=== PATIENT | female | born 1940 | race Caucasian/White ===

== ENCOUNTER → 2017-08-16 10:48 | Outpatient (CLI) | payer MEDICARE, SELFPAY | PROVIDERS: Family Provider Family Medicine; PCP Family Medicine; Visit Provider Nurse Practitioner Family | DX: K13.70 Unspecified lesions of oral mucosa (principal) | CPT/HCPCS: 87070; 87075; 87205 ==

== ENCOUNTER → 2018-01-28 11:47 | Outpatient (CLI) | payer MEDICARE, SELFPAY ==
--- NOTE | 2018-01-28 | DI.MG.S_ITS ---
BILATERAL DIGITAL SCREENING MAMMOGRAM 3D/2D WITH CAD: 01/28/2018 CLINICAL: Routine screening. Comparison is made to exams dated: 12/29/2016 mammogram, 10/17/2015 mammogram, and 09/10/2014 mammogram - Located [facility]. There are scattered fibroglandular elements in both breasts. Current study was also evaluated with a Computer Aided Detection (CAD) system. There are benign vascular calcifications in both breasts. No significant masses, calcifications, or other findings are seen in either breast. There has been no significant interval change. IMPRESSION: There is no mammographic evidence of malignancy. A 1 year screening mammogram is recommended. This exam was interpreted at Station ID: [id number]. NOTE: For mammograms, a report in lay terms will be sent to the patient. Approximately 15% of breast malignancies will not be visualized mammographically. In the management of a palpable breast mass, a negative mammogram must not discourage biopsy of a clinically suspicious lesion. Electronically Signed By: Gemma roberson/lew:01/28/2018 13:17:17 letter sent: Normal Exam ACR BI-RADS Category 2: Benign Finding(s) 3342F
== END ==
PROVIDERS: PCP Family Medicine; Visit Provider Family Medicine
DX: Z12.31 Encounter for screening mammogram for malignant neoplasm of breast (principal)
CPT/HCPCS: 77063; 77067

== ENCOUNTER → 2018-04-06 10:43 | Outpatient (CLI) | payer MEDICARE, SELFPAY ==
--- NOTE | 2018-04-06 10:44 | DI.US.S_ITS ---
PROCEDURE: US HU LIMITED SINGLE LEVEL INDICATIONS: Claudication/ TECHNIQUE: Ankle-brachial indices were obtained bilaterally and recorded. COMPARISONS: FINDINGS: Right ankle brachial index (HU): 0.8 Left ankle brachial index (HU): 0.9 IMPRESSION: Right HU 0.8 and left HU 0.9. The finding could be secondary to arterial wall calcification. If clinically indicated, duplex Doppler arterial ultrasound or lower extremity CT or MR angiogram could be obtained. Dictated by: Gopal VASQUEZ Interpreted: Ayanna Fagan MD on 04/06/2018 at 13:36 Approved by: Ayanna Fagan M.D. on 04/07/2018 at 9:00
== END ==
PROVIDERS: PCP Family Medicine; Visit Provider Family Medicine
DX: I70.213 Atherosclerosis of native arteries of extremities with intermittent claudication, bilateral legs (principal)
CPT/HCPCS: 93922

== ENCOUNTER → 2018-06-09 15:01 | Outpatient (CLI) | payer MEDICARE, SELFPAY ==
--- NOTE | 2018-06-09 15:04 | DI.RAD.S_ITS ---
PROCEDURE: XR CHEST 2V INDICATIONS: persistent cough TECHNIQUE: 2 views of the chest were acquired. COMPARISON: None. FINDINGS: Surgical changes and devices: None. Lungs and pleura: Lungs are clear. No pleural effusions or pneumothorax. Mediastinum: Mediastinal contours are normal. Heart size is normal. Bones and chest wall: No suspicious bony abnormalities. Soft tissues appear unremarkable. IMPRESSION: Normal for age, a source of current persistent cough symptoms is not found. Dictated by: Huy Soto M.D. on 06/09/2018 at 14:35 Approved by: Huy Soto M.D. on 06/09/2018 at 14:46
[2018-06-09 16:01] LABS: Add Manual Diff / Slide Review NO; Basophils Absolute Auto 100 /uL (0-100); Basophils Percent Auto 1.2 % (0-2); Eosinophils Absolute Auto 400 /uL (0-450); Eosinophils Percent Auto 4.9 % (2-4); Hematocrit 35.5 % (36-46); Hemoglobin 11.3 g/dL (12.0-16.0); Lymphocytes Absolute Auto 700 /uL (1100-4500); Lymphocytes Percent Auto 9.5 % (25-40); Mean Corpuscular HGB Conc 31.9 % (30-36); Mean Corpuscular Hemoglobin 32.1 PG (26-34); Mean Corpuscular Volume 100.8 fL (80-100); Monocytes Absolute Auto 500 /uL (0-900); Monocytes Percent Auto 6.6 % (3-14); Neutrophils Absolute Auto 5800 /uL (1500-7000); Neutrophils Percent Auto 77.8 % (50-75); Platelet Count 355 X10^3/uL (150-400); Red Blood Cell Count 3.52 X10^6/uL (4.0-5.2); Red Cell Distribution Width 14.8 % (11.6-14.8); White Blood Cell Count 7.5 X10^3/uL (4.5-11.0)
[2018-06-09 16:17] LABS: D Dimer 2161 ng/mL (<230)
== END ==
PROVIDERS: PCP Family Medicine; Visit Provider Physician Assistant
DX: R05 Cough (principal)
CPT/HCPCS: 36415; 71046; 85025; 85379

== ENCOUNTER 2018-06-12 16:50 | Emergency (ER) | payer MEDICARE, SELFPAY ==
[2018-06-12 17:26] VITALS: BP 151/77; PULSE 72; RESP 18; TEMP 37.1; O2SAT 97; BMI 28.6
--- NOTE | 2018-06-12 18:24 | ED_ITS ---
HPI - URI/Sore Throat General Chief Complaint: Upper Respiratory Symptoms Stated Complaint: COUGH POSSIBLE EMBOLISM Time Seen by Provider: 06/12/18 18:21 Source: patient Mode of arrival: ambulatory Limitations: no limitations History of Present Illness HPI Narrative: Patient is a 78-year-old female who states that the beginning last week went to the walk-in clinic for evaluation of a cough and upper respiratory infection. She was given a course of antibiotics. She states the cough did not get any better so she followed up on Tuesday of last week. She states she had blood drawn at that time. She states that she got a call from the walk-in clinic on that day to come into the emergency department for further evaluation because she had an elevated D-dimer. She states she did not get that message until today. She arrives today stating that she feels better than when she did last week. The cough has somewhat improved but is still there. He is not having chest pain or shortness of breath. No swelling in her legs. No recent travel. No fevers. Related Data Home Medications Medication Instructions Recorded Confirmed ASPIRIN (#ASPIR 81) 81 mg PO Q DAY #0 12/30/11 06/09/18 CA PANTOTHENATE/FOLIC ACID/VIT 1 tab PO Q DAY #0 12/30/11 06/09/18 (MULTIVITAMIN) CALCIUM CARBONATE (Calcium) 1,200 mg PO QDAY #0 12/30/11 06/09/18 Fish Oil (#CARDI-OMEGA) 1,000 mg PO Q DAY #0 12/30/11 06/09/18 coenzyme Q10 [Co Q-10] 100 mg PO #0 07/11/17 06/09/18 ketoconazole 2 % topical cream 1 applictn TOP BID 08/29/17 06/09/18 cholecalciferol (vitamin D3) 2,000 2,000 unit PO DAILY 06/05/18 06/09/18 unit capsule lovastatin 40 mg PO BEDTIME 06/12/18 06/12/18 Previous Rx's Medication Instructions Recorded levothyroxine 100 mcg PO QAM #90 tab 08/16/17 triamcinolone acetonide 1 flaquita TOPICAL BID #15 gm 08/16/17 amoxicillin 500 mg capsule 500 mg PO BID 10 Days #20 cap 06/05/18 benzonatate 100 mg capsule 100 mg PO BEDTIME #20 cap 06/05/18 rivaroxaban [Xarelto] 15 mg PO BID 21 Days #42 tab 06/12/18 Allergies Allergy/AdvReac Type Severity Reaction Status Date / Time dexamethasone [DEXAMETHASONE] Allergy Mild HEADACHE Verified 06/12/18 17:32 Sulfa (Sulfonamide Allergy Unknown Verified 06/12/18 17:32 Antibiotics) azithromycin Allergy Verified 06/12/18 17:32 erythromycin base AdvReac Mild DIARRHEA Verified 06/12/18 17:32 [ERYTHROMYCIN BASE] AND ABDOMINAL PAIN saccharin [SACCHARIN] AdvReac Mild DIARRHEA Verified 06/12/18 17:32 AND ABD PAIN Review of Systems Constitutional Denies fever(s) and Denies headache(s) ENT Ears, Nose, Mouth, and Throat: Denies headache(s) Cardiovascular Denies chest pain and Denies dyspnea Respiratory Reports cough and Denies dyspnea Gastrointestinal Gastrointestinal: Denies abdominal pain Musculoskeletal Denies myalgias and Denies arthralgias Integumentary/Breasts Denies rash Neurologic Denies headache(s) Hematologic/Lymphatic Denies easy bleeding and Denies easy bruising FOR[facility]LY [facility] Medical History Chronic back pain (Chronic ~1981) Gastric ulcer (Chronic) Hemorrhoids (Chronic ~2009) History of heavy periods (Chronic ~1979) History of recurrent ear infection (Chronic) Hyperlipidemia (Chronic) Hypothyroidism (Chronic ~1979) Osteoarthritis (Chronic ~1999) Osteoporosis (Chronic) Psoriasis (Chronic ~1982) Rosacea (Chronic) Skin cancer (Chronic ~2011) Tinnitus (Chronic ~2011) Ankle fracture, left (Resolved ~1992) Chickenpox (Resolved ~1943) Measles (Resolved ~1955) Shingles (Resolved ~2015) Social History marital status: Smoking Status: Former smoker alcohol intake: current (1-2 A DAY ) substance use type: does not use Exam Initial Vital Signs Initial Vital Signs: Vital Signs Temperature 98.7 F 06/12/18 17:26 Pulse Rate 72 06/12/18 17:26 Respiratory Rate 18 06/12/18 17:26 Blood Pressure 151/77 H 06/12/18 17:26 Pulse Oximetry 97 06/12/18 17:26 Const General: cooperative, healthy appearing, comfortable, well developed, well groomed and No acute distress Orientation: alert and oriented x3 HENMT Head: normal to inspection and normocephalic Resp Effort & Inspection: normal respiratory effort Auscultation: clear to auscultation bilaterally Cardio Rate: regular rate Rhythm: regular rhythm GI Inspection: non-distended Palpation: soft, No firm and No tender Skin Lesions: no lesions Rashes: no rashes Neuro General: alert, awake and oriented x3 Cognition: normal cognition Speech: speech normal Gait: normal gait Extrem General: normal to inspection, capillary refill normal and No edema Psych Appearance: grossly normal and well kempt Course Orders Ordered: ED Orders 06/12/18 18:23 CT angio chest PE protocol Stat 06/12/18 18:31 B Type Natriuretic Peptide Stat Complete Blood Count AUTO DIFF Stat Comprehensive Metabolic Panel Stat Lipase Stat Partial Thromboplastin Time Stat Prothrombin Time INR Stat 06/12/18 19:30 Influenza A and B by PCR Rapid Stat Discontinued Medications Sodium Chloride (Normal Saline 0.9%) 1,000 mls @ 1,000 mls/hr IV BOLUS ONE Stop: 06/12/18 19:21 Last Infusion: 06/12/18 20:53 Dose: 0 mls/hr Admin: 06/12/18 18:55 Dose: 1,000 mls/hr Rivaroxaban (Xarelto) 15 mg PO NOW ONE Stop: 06/12/18 20:32 Last Admin: 06/12/18 20:52 Dose: 15 mg Vital Signs - 8 hr 06/12/18 18:35 06/12/18 21:45 Pulse Rate 66 68 Respiratory Rate 18 18 Blood Pressure 132/65 Blood Pressure [Left Arm] 144/48 H Pulse Oximetry 98 98 MDM - URI/Sore Throat Lab Data Attestation: I reviewed the patient's lab results. Result diagrams: 06/12/18 18:31 06/12/18 18:31 Lab Results 06/12/18 06/12/18 06/12/18 Range/Units 18:31 18:31 18:31 WBC 6.1 (4.5-11.0) X10^3/uL RBC 3.21 L (4.0-5.2) X10^6/uL Hgb 10.4 L (12.0-16.0) g/dL Hct 32.1 L (36-46) % MCV 99.8 (80-100) fL MCH 32.4 (26-34) PG MCHC 32.5 (30-36) % RDW 14.7 (11.6-14.8) % Plt Count 322 (150-400) X10^3/uL Neut % (Auto) 54.9 (50-75) % Lymph % (Auto) 30.9 (25-40) % [place] % (Auto) 8.0 (3-14) % Eos % (Auto) 4.8 H (2-4) % Baso % (Auto) 1.4 (0-2) % Neut # (Auto) 3400 (5516-7606) /uL Lymph # (Auto) 1900 (5934-5150) /uL [place] # (Auto) 500 (0-900) /uL Eos # (Auto) 300 (0-450) /uL Baso # (Auto) 100 (0-100) /uL PT 10.5 (10.1-12.7) SECONDS INR 0.9 (0.9-1.3) APTT 25 L (26.4-36.2) SECONDS Sodium 137 (137-145) mmol/L Potassium 4.0 (3.4-5.1) mmol/L Chloride 108 H (98-107) mmol/L Carbon Dioxide 20 L (22-32) mmol/L BUN 33 H (7-17) mg/dL Creatinine 1.30 H (0.52-1.04) mg/dL Estimated GFR 39.5 L (>60) mL/min BUN/Creatinine Ratio 25.4 H (6-22) Glucose 88 (80-110) mg/dL Calcium 9.7 (8.4-10.2) mg/dL Total Bilirubin 0.2 (0.2-1.3) mg/dL AST 24 (14-36) IU/L ALT 23 (9-52) IU/L Alkaline Phosphatase 80 (38-126) U/L B-Natriuretic Peptide < 100 (<100) Total Protein 7.0 (6.3-8.2) g/dL Albumin 3.9 (3.5-5.0) g/dL Globulin 3.1 (1.7-4.1) g/dL Albumin/Globulin Ratio 1.3 (1.0-2.8) Lipase 223 (23-300) U/L Influenza A & B (PCR) (Negative) 06/12/18 Range/Units 19:30 WBC (4.5-11.0) X10^3/uL RBC (4.0-5.2) X10^6/uL Hgb (12.0-16.0) g/dL Hct (36-46) % MCV (80-100) fL MCH (26-34) PG MCHC (30-36) % RDW (11.6-14.8) % Plt Count (150-400) X10^3/uL Neut % (Auto) (50-75) % Lymph % (Auto) (25-40) % [place] % (Auto) (3-14) % Eos % (Auto) (2-4) % Baso % (Auto) (0-2) % Neut # (Auto) (7986-2793) /uL Lymph # (Auto) (1086-0903) /uL [place] # (Auto) (0-900) /uL Eos # (Auto) (0-450) /uL Baso # (Auto) (0-100) /uL PT (10.1-12.7) SECONDS INR (0.9-1.3) APTT (26.4-36.2) SECONDS Sodium (137-145) mmol/L Potassium (3.4-5.1) mmol/L Chloride (98-107) mmol/L Carbon Dioxide (22-32) mmol/L BUN (7-17) mg/dL Creatinine (0.52-1.04) mg/dL Estimated GFR (>60) mL/min BUN/Creatinine Ratio (6-22) Glucose (80-110) mg/dL Calcium (8.4-10.2) mg/dL Total Bilirubin (0.2-1.3) mg/dL AST (14-36) IU/L ALT (9-52) IU/L Alkaline Phosphatase (38-126) U/L B-Natriuretic Peptide (<100) Total Protein (6.3-8.2) g/dL Albumin (3.5-5.0) g/dL Globulin (1.7-4.1) g/dL Albumin/Globulin Ratio (1.0-2.8) Lipase (23-300) U/L Influenza A & B (PCR) Negative (Negative) Imaging Data CT scan - chest: Radiologist's impression: PROCEDURE: CT ANGIO CHEST PE PROTOCOL INDICATIONS: Chest pain, shortness of breath, tachycardia TECHNIQUE: After the administration of intravenous contrast, 2 mm thick sections acquired from the pulmonary apices to the posterior costophrenic angles. 3-dimensional maximum intensity projection (MIP) coronal and sagittal reformats were then acquired through the thorax. For radiation dose reduction, the following was used: automated exposure control, adjustment of mA and/or kV according to patient size. COMPARISON: [facility], CT, ABDOMEN/PELVIS WITH CONTRAST, 12/26/2013, 8:24. [facility], CR, XR CHEST 2V, 06/09/2018, 15:06. FINDINGS: Image quality: There is suboptimal opacification of the distal pulmonary arteries. Pulmonary arteries: There is suboptimal opacification of the pulmonary art eries. However, there is suggestion of small filling defects in a distal segmental pulmonary artery in the right lower lobe extending into subsegmental branches suspicious for pulmonary embolism. The remaining central pulmonary arteries and straight no definite filling defects. Lungs and pleura: There are a few scattered pulmonary nodules including a right upper lobe nodule measuring up to 0.7 cm with indistinct margins on series 5 image 31. A nodular opacity is also noted in the left lower lobe on image 34 of series 5 measuring up to 0.9 cm which may represent focal atelectasis. There are a few additional smaller scattered nodules demonstrated bilaterally. There are mild centrilobular emphysematous changes. Mild dependent atelectasis and subpleural scarring demonstrated bilaterally. No pleural effusions or pneumothorax. Central and peripheral airways are patent. Mediastinum: Heart size is normal, without pericardial effusion. No mediastinal or hilar adenopathy. Thoracic aorta is normal in caliber and enhancement. Esophagus is normal in caliber, without hiatal hernia. Bones and chest wall: No suspicious bony lesions. Ribs and thoracic spine appe ar intact throughout. No axillary or supraclavicular adenopathy. Abdomen: Visualized upper abdomen demonstrates a focus of coarse calcification in the anterior right hepatic lobe related to sequelae of prior infection. A small cyst is noted within the visualized left kidney. IMPRESSION: 1. Suboptimal opacification of the pulmonary arteries limiting evaluation. However, there is a probable focus of pulmonary embolism involving a distal right lower lobe segmental pulmonary artery. If clinically indicated, a repeat study may be performed after 24 hours for confirmation. 2. Scattered small bilateral pulmonary nodules including an irregular right upper lobe nodule measuring up to 0.7 cm. Recommend short-term followup following appropriate therapy to demonstrate resolution in 4-6 weeks. Findings discussed with Dr. Ceja on 06/12/18 at 8 PM. Dictated by: Ren Mckeon M.D. on 06/12/2018 at 19:52 Approved by: Ren Mckeon M.D. on 06/12/2018 at 20:02 [facility] Narrative Medical decision making narrative: Patient reports that her cough is improving. The CT scan does show a potential right-sided pulmonary embolism. Also shows pulmonary nodules. I did discuss all this with the patient I suspect this pulmonary embolism is not related to the upper respiratory infection that she had last week. I suspect that it is a incidental finding however I feel that it is prudent that we start her on anticoagulation. She was given her 1st dose of Xarelto here in the ER. Was given a prescription for this. We did discuss the pulmonary embolism. We did discuss the other incidental findings of the lung nodules. Informed her that tomorrow she needed to contact her primary care doctor to discuss both of these findings. We discussed return precautions. Patient is hemodynamically stable. He is not tachycardic, is not hypoxic, is not tachypneic, no respiratory distress. Is not having any chest pain. Patient expressed understanding and agreement plan. Discharge Plan Departure Patient Disposition: Home Clinical Impression: Pulmonary nodule Pulmonary embolism Qualifiers: Pulmonary embolism type: unspecified Chronicity: acute Acute cor pulmonale presence: without acute cor pulmonale Qualified Code(s): I26.99 - Other pulmonary embolism without acute cor pulmonale Discharge Date/Time: 06/12/18 21:00 Interventions: ED Discharge Assessment Last Done: 06/12/18 21:45 Instructions: DI for Pulmonary Embolism, DI for Pulmonary Nodule Activity Restrictions/Additional Instructions: Take the medication as directed. Talk to your primary doctor about the CT findings today especially the pulmonary nodule. Return to the emergency depar tment for any new or worsening symptoms Prescriptions: New Xarelto 15 mg tablet 15 mg PO BID 21 Days Qty: 42 RF: 0 No Action cholecalciferol (vitamin D3) 2,000 unit capsule 2,000 unit PO DAILY RF: 0 amoxicillin 500 mg capsule 500 mg PO BID 10 Days Qty: 20 RF: 0 benzonatate 100 mg capsule 100 mg PO BEDTIME Qty: 20 RF: 0 CA PANTOTHENATE/FOLIC ACID/VIT (MULTIVITAMIN) 1 tab PO Q DAY Qty: 0 RF: 0 ASPIRIN (#ASPIR 81) 81 mg PO Q DAY Qty: 0 RF: 0 CALCIUM CARBONATE (Calcium) 1,200 mg PO QDAY Qty: 0 RF: 0 Fish Oil (#CARDI-OMEGA) 1,000 mg PO Q DAY Qty: 0 RF: 0 coenzyme Q10 [Co Q-10] 100 MG capsule 100 mg PO Qty: 0 RF: 0 levothyroxine 100 mcg tablet 100 mcg PO QAM Qty: 90 RF: 3 triamcinolone acetonide 0.1 % cream 1 flaquita Topical BID Qty: 15 RF: 1 ketoconazole 2 % cream 1 applictn TOP BID RF: 0 lovastatin 40 MG tablet 40 mg PO BEDTIME RF: 0 Referrals: Julio Cedeño MD [Primary Care Provider] -
[2018-06-12 18:35] VITALS: BP 144/48; PULSE 66; RESP 18; O2SAT 98
[2018-06-12] MEDS: SODIUM CHLORIDE 0.9% 1,000 ML 1000 ML IV (18:55)
[2018-06-12 19:05] LABS: Add Manual Diff / Slide Review NO; Basophils Absolute Auto 100 /uL (0-100); Basophils Percent Auto 1.4 % (0-2); Eosinophils Absolute Auto 300 /uL (0-450); Eosinophils Percent Auto 4.8 % (2-4); Hematocrit 32.1 % (36-46); Hemoglobin 10.4 g/dL (12.0-16.0); Lymphocytes Absolute Auto 1900 /uL (1100-4500); Lymphocytes Percent Auto 30.9 % (25-40); Mean Corpuscular HGB Conc 32.5 % (30-36); Mean Corpuscular Hemoglobin 32.4 PG (26-34); Mean Corpuscular Volume 99.8 fL (80-100); Monocytes Absolute Auto 500 /uL (0-900); Neutrophils Absolute Auto 3400 /uL (1500-7000); Neutrophils Percent Auto 54.9 % (50-75); Platelet Count 322 X10^3/uL (150-400); Red Blood Cell Count 3.21 X10^6/uL (4.0-5.2); Red Cell Distribution Width 14.7 % (11.6-14.8); White Blood Cell Count 6.1 X10^3/uL (4.5-11.0)
[2018-06-12 19:22] LABS: Alanine Aminotransferase 23 IU/L (9-52); Albumin 3.9 g/dL (3.5-5.0); Albumin Globulin Ratio 1.3 (1.0-2.8); Alkaline Phosphatase 80 U/L (38-126); Aspartate Aminotransferase 24 IU/L (14-36); BUN Creatinine Ratio 25.4 (6-22); Bilirubin Total 0.2 mg/dL (0.2-1.3); Blood Urea Nitrogen 33 mg/dL (7-17); Calcium 9.7 mg/dL (8.4-10.2); Carbon Dioxide 20 mmol/L (22-32); Chloride 108 mmol/L (98-107); Estimated Glomerular Filt Rate 39.5 mL/min (>60); Globulin 3.1 g/dL (1.7-4.1); Glucose 88 mg/dL (80-110); HEMOLYSIS < 15 (0-50); Lipase 223 U/L (23-300); Sodium 137 mmol/L (137-145)
[2018-06-12 19:25] LABS: B Type Natriuretic Peptide < 100 (<100)
[2018-06-12 19:26] LABS: INR 0.9 (0.9-1.3); Prothrombin Time 10.5 SECONDS (10.1-12.7)
[2018-06-12 19:28] LABS: PTT Partial Thromboplastin Tim 25 SECONDS (26.4-36.2)
[2018-06-12 20:07] LABS: Influenza A and B by PCR Rapid Negative (Negative)
[2018-06-12] MEDS: RIVAROXABAN 10 MG TABLET 15 MG PO (20:52)
[2018-06-12 21:45] VITALS: BP 132/65; PULSE 68; RESP 18; O2SAT 98
== END 2018-06-12 21:00 | disposition home or self-care (01) ==
PROVIDERS: Emergency Provider Emergency Medicine; PCP Family Medicine
DX: R91.1 Solitary pulmonary nodule (principal); I26.99 Other pulmonary embolism without acute cor pulmonale
CPT/HCPCS: 36591; 71275; 80053; 83690; 83880; 85025; 85610; 85730; 87400; 93005; 96360; 96361; 99283; 99284; Q9967

== ENCOUNTER → 2018-06-14 09:54 | Outpatient (CLI) | payer MEDICARE, SELFPAY ==
[2018-06-14 10:44] LABS: INR 0.9 (0.9-1.3); Prothrombin Time 10.7 SECONDS (10.1-12.7)
[2018-06-16 23:01] LABS: Protein C Activity 104 % normal (70-180)
== END ==
PROVIDERS: PCP Family Medicine; Visit Provider Family Medicine
DX: I26.99 Other pulmonary embolism without acute cor pulmonale (principal)
CPT/HCPCS: 36415; 81241; 85303; 85306; 85610

== ENCOUNTER → 2018-10-04 09:08 | Outpatient (CLI) | payer MEDICARE, SELFPAY ==
[2018-10-04 09:54] LABS: Hematocrit 33.4 % (36-46); Hemoglobin 10.6 g/dL (12.0-16.0); Mean Corpuscular HGB Conc 31.6 % (30-36); Mean Corpuscular Hemoglobin 29.8 PG (26-34); Mean Corpuscular Volume 94.3 fL (80-100); Platelet Count 314 X10^3/uL (150-400); Red Blood Cell Count 3.54 X10^6/uL (4.0-5.2); Red Cell Distribution Width 16.4 % (11.6-14.8)
[2018-10-04 10:15] LABS: Alanine Aminotransferase 16 IU/L (9-52); Albumin 3.9 g/dL (3.5-5.0); Albumin Globulin Ratio 1.4 (1.0-2.8); Alkaline Phosphatase 97 U/L (38-126); Aspartate Aminotransferase 29 IU/L (14-36); BUN Creatinine Ratio 19.2 (6-22); Bilirubin Total 0.3 mg/dL (0.2-1.3); Blood Urea Nitrogen 25 mg/dL (7-17); Calcium 9.7 mg/dL (8.4-10.2); Carbon Dioxide 26 mmol/L (22-32); Chloride 107 mmol/L (98-107); Cholesterol 202 mg/dL (140-199); Estimated Glomerular Filt Rate 39.5 mL/min (>60); Globulin 2.8 g/dL (1.7-4.1); Glucose 95 mg/dL (80-110); HEMOLYSIS < 15 (0-50); Potassium 5.2 mmol/L (3.4-5.1); Sodium 140 mmol/L (137-145); Total Protein 6.7 g/dL (6.3-8.2); Triglycerides 60 mg/dL (35-150)
[2018-10-04 10:23] LABS: HDL Cholesterol 107 mg/dL (40-60); LDL Cholesterol Calculated 83 mg/dL (<100)
[2018-10-04 10:45] LABS: TSH w/ Reflex to FT4 0.96 uIU/mL (0.47-4.68)
--- NOTE | 2018-10-04 12:54 | DI.CT.S_ITS ---
PROCEDURE: CT ANGIO CHEST PE PROTOCOL INDICATIONS: pulmonary embli - shortness of breath TECHNIQUE: After the administration of intravenous contrast, 2 mm thick sections acquired from the pulmonary apices to the posterior costophrenic angles. 3-dimensional maximum intensity projection (MIP) coronal and sagittal reformats were then acquired through the thorax. For radiation dose reduction, the following was used: automated exposure control, adjustment of mA and/or kV according to patient size. COMPARISON: [facility], CT, CT ANGIO CHEST PE PROTOCOL, 06/12/2018, 19:33. FINDINGS: Image quality: Diagnostic. Pulmonary arteries: Pulmonary arteries are normal in size, and demonstrate no intraluminal filling defects to suggest central pulmonary embolism. Lungs and pleura: Centrilobular emphysematous changes are identified within the lungs, which is more prominent within the lung apices. Areas of interstitial prominence along the posterior aspects of the bilateral lower lobes are evident a more prominent near the level of the costophrenic angles, similar to the previous examination, suggesting interstitial changes. There may be mild bronchial wall thickening involving the left infrahilar region within the left lower lobe. Minimal scar versus atelectasis at the right lung base probably is present. There is no focal consolidation, effusion, or pneumothorax. Previously seen a ground glass nodule within the right upper lobe has resolved in the interim. Also, the left lower lobe pulmonary nodule has also resolved. No new nodules are present. Mediastinum: Heart size is normal, without pericardial effusion. No mediastinal or hilar adenopathy. Thoracic aorta is normal in caliber and enhancement. Esophagus is normal in caliber, without hiatal hernia. Bones and chest wall: No suspicious bony lesions. Ribs and thoracic spine appear intact throughout. Moderate degenerative changes of the spine are present. No axillary or supraclavicular adenopathy. Abdomen: The included portions of the upper abdomen demonstrate a prominent calcification within the left hepatic lobe. Slight nodularity to the surface of the liver may be present. There appears to be a cystic structure involving the upper portion of the left kidney, not well characterized. Otherwise, the included portions of the upper abdomen are unremarkable. IMPRESSION: 1. No evidence of pulmonary emboli. Previously seen pulmonary embolism has resolved. 2. Emphysematous changes of the lungs with chronic interstitial changes noted within the posterior costophrenic angles is similar to the prior study. 3. Mild bronchial wall thickening within the left lower lobe could potentially represent mild bronchitis. Please correlate clinically. 4. Right upper lobe and left lower lobe pulmonary nodules have resolved in the interim. No new nodules are evident. Dictated by: Kanu Adhikari M.D. on 10/04/2018 at 12:15 Approved by: Kanu Adhikari M.D. on 10/04/2018 at 12:23
== END ==
LOC: LAB 10:45 → RAD 12:54
PROVIDERS: PCP Family Medicine; Visit Provider Family Medicine
DX: I26.99 Other pulmonary embolism without acute cor pulmonale (principal); R06.02 Shortness of breath; E03.9 Hypothyroidism, unspecified; E78.2 Mixed hyperlipidemia
CPT/HCPCS: 36415; 71275; 80053; 80061; 84443; 85027; Q9967

== ENCOUNTER → 2018-10-09 15:26 | Outpatient (CLI) | payer MEDICARE, SELFPAY ==
[2018-10-09 16:22] LABS: HEMOLYSIS < 15 (0-50); Iron 56 ug/dL (37-170)
[2018-10-09 16:33] LABS: Percent Iron Saturation 13 % (15-50); Total Iron Binding Capacity 429 ug/dL (265-497); Transferrin 360 mg/dL (206-381)
[2018-10-09 16:59] LABS: Ferritin 14.5 ng/mL (11.1-264)
[2018-10-09 17:29] LABS: Folate > 20.0 ng/mL (2.76-20.0); Vitamin B12 435 pg/mL (239-931)
== END ==
PROVIDERS: PCP Family Medicine; Visit Provider Family Medicine
DX: D64.9 Anemia, unspecified (principal)
CPT/HCPCS: 36415; 82607; 82728; 82746; 83540; 83550

== ENCOUNTER → 2018-12-28 12:02 | Outpatient (CLI) | payer MEDICARE, SELFPAY ==
[2018-12-28 13:34] LABS: HEMOLYSIS < 15 (0-50); Iron 161 ug/dL (37-170)
[2018-12-28 13:44] LABS: Percent Iron Saturation 51 % (15-50); Total Iron Binding Capacity 316 ug/dL (265-497); Transferrin 274 mg/dL (206-381)
== END ==
PROVIDERS: PCP Family Medicine; Visit Provider Family Medicine
DX: E61.1 Iron deficiency (principal)
CPT/HCPCS: 36415; 83540; 83550

== ENCOUNTER → 2019-02-13 17:20 | Outpatient (CLI) | payer MEDICARE, SELFPAY ==
--- NOTE | 2019-02-13 | DI.MG.S_ITS ---
BILATERAL DIGITAL SCREENING MAMMOGRAM 3D/2D WITH CAD: 02/13/2019 CLINICAL: Routine screening. Comparison is made to exams dated: 01/28/2018 mammogram, 12/29/2016 mammogram, and 10/17/2015 mammogram - [facility]. There are scattered fibroglandular elements in both breasts. Current study was also evaluated with a Computer Aided Detection (CAD) system. There are benign vascular calcifications in both breasts. No significant masses, calcifications, or other findings are seen in either breast. There has been no significant interval change. IMPRESSION: There is no mammographic evidence of malignancy. A 1 year screening mammogram is recommended. This exam was interpreted at Station ID: [id number]. NOTE: For mammograms, a report in lay terms will be sent to the patient. Approximately 15% of breast malignancies will not be visualized mammographically. In the management of a palpable breast mass, a negative mammogram must not discourage biopsy of a clinically suspicious lesion. Electronically Signed By: Ren omalley/lew:02/13/2019 17:54:45 letter sent: Normal Exam ACR BI-RADS Category 2: Benign Finding(s) 3342F
== END ==
PROVIDERS: PCP Family Medicine; Visit Provider Family Medicine
DX: Z12.31 Encounter for screening mammogram for malignant neoplasm of breast (principal)
CPT/HCPCS: 77063; 77067

== ENCOUNTER → 2019-11-23 10:17 | Outpatient (CLI) | payer MEDICARE, SELFPAY ==
[2019-11-23 11:33] LABS: Add Manual Diff / Slide Review NO; Basophils Absolute Auto 100 /uL (0-100); Basophils Percent Auto 1.5 % (0-2); Eosinophils Absolute Auto 500 /uL (0-450); Hematocrit 34.3 % (36-46); Hemoglobin 11.2 g/dL (12.0-16.0); Lymphocytes Absolute Auto 1700 /uL (1100-4500); Lymphocytes Percent Auto 27.7 % (25-40); Mean Corpuscular HGB Conc 32.6 % (30-36); Mean Corpuscular Hemoglobin 33.5 PG (26-34); Mean Corpuscular Volume 102.8 fL (80-100); Monocytes Absolute Auto 400 /uL (0-900); Monocytes Percent Auto 6.5 % (3-14); Neutrophils Absolute Auto 3400 /uL (1500-7000); Neutrophils Percent Auto 56.3 % (50-75); Platelet Count 275 X10^3/uL (150-400); Red Blood Cell Count 3.34 X10^6/uL (4.0-5.2); Red Cell Distribution Width 14.2 % (11.6-14.8); White Blood Cell Count 6.1 X10^3/uL (4.5-11.0)
[2019-11-23 12:09] LABS: Alanine Aminotransferase 22 IU/L (<35); Albumin 3.8 g/dL (3.5-5.0); Albumin Globulin Ratio 1.5 (1.0-2.8); Alkaline Phosphatase 78 U/L (38-126); Aspartate Aminotransferase 35 IU/L (14-36); BUN Creatinine Ratio 18.3 (6-22); Bilirubin Total 0.5 mg/dL (0.2-1.3); Blood Urea Nitrogen 23 mg/dL (7-17); Calcium 10.3 mg/dL (8.4-10.2); Carbon Dioxide 24 mmol/L (22-32); Chloride 109 mmol/L (98-107); Cholesterol 188 mg/dL (140-199); Estimated Glomerular Filt Rate 40.9 mL/min (>60); Globulin 2.6 g/dL (1.7-4.1); Glucose 94 mg/dL (80-110); HEMOLYSIS < 15 (0-50); Sodium 137 mmol/L (137-145); Total Protein 6.4 g/dL (6.3-8.2); Triglycerides 72 mg/dL (35-150)
[2019-11-23 12:16] LABS: HDL Cholesterol 106 mg/dL (40-60); LDL Cholesterol Calculated 68 mg/dL (<100)
[2019-11-23 12:20] LABS: Potassium 5.6 mmol/L (3.4-5.1)
[2019-11-23 12:28] LABS: TSH w/ Reflex to FT4 0.74 uIU/mL (0.47-4.68)
== END ==
PROVIDERS: PCP Family Medicine; Referring Provider Family Medicine; Visit Provider Family Medicine
DX: E03.9 Hypothyroidism, unspecified (principal); E78.2 Mixed hyperlipidemia; I10 Essential (primary) hypertension; N18.2 Chronic kidney disease, stage 2 (mild)
CPT/HCPCS: 36415; 80053; 80061; 84443; 85025

== ENCOUNTER 2020-01-01 00:35 | Emergency (ER) | payer MEDICARE, SELFPAY ==
[2020-01-01] VITALS (18 sets, daily range): BP systolic 115–193; BP diastolic 57–81; PULSE 71–88; RESP 14–30; TEMP 37.1; O2SAT 90–98; BMI 29.2
--- NOTE | 2020-01-01 00:48 | DI.CT.S_ITS ---
PROCEDURE: CT ABDOMEN PELVIS W CON INDICATIONS: Bilateral upper abdomen and back pain TECHNIQUE: After the administration of intravenous contrast, 5 mm thick sections acquired from the diaphragm to the symphysis. 5 mm coronal and sagittal reformats were acquired. For radiation dose reduction, the following was used: automated exposure control, adjustment of mA and/or kV according to patient size. COMPARISON: [facility], CT, ABDOMEN/PELVIS WITH CONTRAST, 12/26/2013, 8:24. FINDINGS: Image quality: Excellent. ABDOMEN: Lung bases: Minimal bibasilar atelectasis or scarring. No pleural effusion. Heart size is normal. Solid organs: Liver is normal in size and enhancement. Coarse calcification in the liver, unchanged. Gallbladder is unremarkable. Biliary system is non dilated. Pancreas enhances normally. Spleen is normal in size and enhancement. No adrenal nodules. Kidneys demonstrate normal size and enhancement, without hydronephrosis. Small simple cyst at the superior pole of the left kidney. Cortical hypodensity in the right kidney which is too small further characterize, unchanged. Peritoneum and bowel: Mild stranding adjacent to the 2/3 portions of the duodenum in the retroperitoneum, (2/33). No small bowel obstruction. Stomach is not distended. Diverticulosis. Normal appendix. No ascites. No free air. Nodes and vessels: No retroperitoneal or mesenteric adenopathy by size criteria. Small periportal lymph nodes. Aorta and inferior vena cava are normal in size. Miscellaneous: Tiny periumbilical fat containing hernia. PELVIS: Genitourinary: Bladder is unremarkable. Uterus is absent. Miscellaneous: No inguinal hernias or adenopathy. Bones: No suspicious bony lesions. Moderate DDD. No vertebral body compression fractures. IMPRESSION: 1. Mild fat stranding adjacent to the duodenum. Differential diagnosis includes pancreatitis, duodenitis, or less likely duodenal ulcer. -recommend correlation with lipase. 2. No free air. 3. No loculated fluid collection. This report is concordant with the overnight preliminary interpretation. Dictated by: Noah Haskins M.D. on 01/01/2020 at 8:05 Approved by: Noah Haskins M.D. on 01/01/2020 at 8:14
--- NOTE | 2020-01-01 00:49 | ED_ITS ---
HPI - General Adult General Chief complaint: Abdominal Pain Stated complaint: Abd Pain Time Seen by Provider: 01/01/20 00:41 Source: patient and EMS Mode of arrival: EMS Limitations: no limitations History of Present Illness HPI narrative: Patient is a 79-year-old female here for evaluation of epigastric and upper back pain. Patient states that her symptoms started approximately 3 days ago. She initially thought that potentially she injured her back while bowling the day prior to the onset. She states she has been taking ibuprofen for the past couple days and also has been taking Flexeril. She thought that maybe the Flexeril was helping her sleep at night improving her symptoms. She stated that earlier this evening her symptoms got suddenly worse. She thought that she needed to come in to get evaluated. Has not had any change in urine or bowel habits. Some nausea but no vomiting. Has not tried anything for symptoms prior to arrival. Related Data Home Medications Medication Instructions Recorded Confirmed CA PANTOTHENATE/FOLIC ACID/VIT 1 tab PO Q DAY #0 12/30/11 10/11/19 (MULTIVITAMIN) CALCIUM CARBONATE (Calcium) 1,200 mg PO QDAY #0 12/30/11 10/11/19 coenzyme Q10 [Co Q-10] 100 mg PO #0 07/11/17 10/11/19 cholecalciferol (vitamin D3) 50 2,000 unit PO DAILY 06/05/18 10/11/19 mcg (2,000 unit) capsule Fish Oil (#CARDI-OMEGA) 2,000 mg PO Q DAY #0 12/05/19 aspirin 81 mg tablet,delayed 81 mg PO DAILY 12/05/19 12/05/19 release Previous Rx's Medication Instructions Recorded lovastatin 40 mg tablet See Rx Instructions .ROUTE 07/19/19 .COMPLEX #90 tablet triamcinolone acetonide 0.1 % 1 applictn TOP BID #30 gram 10/11/19 topical cream levothyroxine 100 mcg tablet 100 mcg PO QAM #90 tab 11/12/19 omeprazole magnesium [Prilosec OTC] 20 mg PO DAILY #30 tab 01/01/20 Allergies Allergy/AdvReac Type Severity Reaction Status Date / Time dexamethasone [DEXAMETHASONE] Allergy Mild HEADACHE Verified 12/05/19 11:55 Sulfa (Sulfonamide Allergy Unknown Verified 12/05/19 11:55 Antibiotics) azithromycin Allergy Verified 12/05/19 11:55 erythromycin base AdvReac Mild DIARRHEA Verified 12/05/19 11:55 [ERYTHROMYCIN BASE] AND ABDOMINAL PAIN saccharin [SACCHARIN] AdvReac Mild DIARRHEA Verified 12/05/19 11:55 AND ABD PAIN Review of Systems Constitutional Constitutional: Denies fever(s) Cardiovascular Cardiovascular: Denies chest pain and Denies dyspnea Respiratory Respiratory: Denies dyspnea Gastrointestinal Gastrointestinal: Reports abdominal pain, Denies change in bowel habits, Reports nausea and Denies vomiting Genitourinary Genitourinary: Denies dysuria Genitourinary: Denies dysuria and Denies vaginal discharge Musculoskeletal Musculoskeletal: Reports back pain and Denies arthralgias Integumentary/Breasts Skin/Breast: Denies lesions and Denies rash Neurologic Neurologic: Denies behavioral changes Psychiatric Psychiatric: Denies behavioral changes Hematologic/Lymphatic Hematologic/Lymphatic: Denies easy bleeding and Denies easy bruising Allergic/Immunologic Allergic/Immunologic: Denies urticaria Patient History Medical History Ankle fracture, left (Resolved ~1992) Chickenpox (Resolved ~1943) Chronic back pain (Chronic ~1981) Gastric ulcer (Chronic) Hemorrhoids (Chronic ~2009) History of heavy periods (Chronic ~1979) History of recurrent ear infection (Chronic) Hyperlipidemia (Chronic) Hypothyroidism (Chronic ~1979) Measles (Resolved ~1955) Osteoarthritis (Chronic ~1999) Osteoporosis (Chronic) Psoriasis (Chronic ~1982) Rosacea (Chronic) Shingles (Resolved ~2015) Skin cancer (Chronic ~2011) Tinnitus (Chronic ~2011) Surgical History Anesthesia (Resolved) History of knee replacement Status post arthroscopy Status post dilation and curettage Status post hysterectomy Status post laminectomy Family History Brother Heart disease Mother Heart disease Grandfather Cancer Grandmother Cancer Social History marital status: Smoking Status: Former smoker alcohol intake: current (1-2 A DAY ) substance use type: does not use Smoking Status: Former smoker alcohol intake frequency: 0-2 drinks per day Alcohol type: wine Substance Use Type: marijuana Exam Initial Vital Signs Initial Vital Signs: Vital Signs Pulse Rate 80 01/01/20 00:38 Blood Pressure 193/81 H 01/01/20 00:38 Pulse Oximetry 97 01/01/20 00:38 Const General: cooperative, comfortable and well developed Limitations: mental status not altered HENMT Head: normal to inspection and normocephalic Chest Chest: No crepitus and No tenderness Resp Effort & Inspection: normal respiratory effort Auscultation: clear to auscultation bilaterally Cardio Rate: regular rate Rhythm: regular rhythm GI Inspection: non-distended Palpation: soft and tender Back/Spine/Pelvis Back: No CVA tenderness Skin Lesions: no lesions Rashes: no rashes Neuro General: patient alert and patient awake Cognition: normal cognition Speech: speech normal Extrem General: normal to inspection and capillary refill normal Psych Appearance: grossly normal and well kempt Course Orders Ordered: ED Orders 01/01/20 00:40 Complete Blood Count AUTO DIFF Stat Comprehensive Metabolic Panel Stat Lactate (Lactic Acid) Stat Lipase Stat Troponin & CK Cardiac Panel Stat 01/01/20 00:48 CT abdomen pelvis w con Stat EKG-12 Lead Stat Hydrocodone Bitart/Acetaminophen ([place] 5/325) 1 tab PO NOW ONE Stop: 01/01/20 02:19 Sodium Chloride (Normal Saline 0.9%) 1,000 mls @ 500 mls/hr IV BOLUS ONE Stop: 01/01/20 02:46 Last Admin: 01/01/20 00:57 Dose: 500 mls/hr Documented by: HARJIT Pantoprazole Sodium (Protonix) 40 mg IV NOW ONE Stop: 01/01/20 02:19 Discontinued Medications Morphine Sulfate (Morphine) 4 mg IV NOW ONE Stop: 01/01/20 00:48 Last Admin: 01/01/20 00:59 Dose: 4 mg Documented by: HARJIT Vital Signs Vital signs: Vital Signs - 8 hr 01/01/20 00:38 01/01/20 00:39 01/01/20 01:00 Temperature 98.7 F Pulse Rate 80 88 78 Respiratory Rate 20 14 Blood Pressure 193/81 H 193/81 H Pulse Oximetry 97 97 98 01/01/20 01:30 Temperature Pulse Rate 80 Respiratory Rate 18 Blood Pressure 181/74 H Pulse Oximetry 98 Medical Decision Making Lab Data Lab results reviewed: Yes I reviewed the patient's lab results. Result diagrams: 01/01/20 00:40 01/01/20 00:40 Labs: Lab Results 01/01/20 01/01/20 01/01/20 Range/Units 00:40 00:40 00:40 WBC 7.3 (4.5-11.0) X10^3/uL RBC 3.43 L (4.0-5.2) X10^6/uL Hgb 11.3 L (12.0-16.0) g/dL Hct 35.2 L (36-46) % MCV 102.6 H (80-100) fL MCH 32.9 (26-34) PG MCHC 32.1 (30-36) % RDW 14.0 (11.6-14.8) % Plt Count 299 (150-400) X10^3/uL Neut % (Auto) 78.3 H (50-75) % Lymph % (Auto) 16.3 L (25-40) % [place] % (Auto) 3.6 (3-14) % Eos % (Auto) 0.9 L (2-4) % Baso % (Auto) 0.9 (0-2) % Neut # (Auto) 5700 (7485-3345) /uL Lymph # (Auto) 1200 (7556-8658) /uL [place] # (Auto) 300 (0-900) /uL Eos # (Auto) 100 (0-450) /uL Baso # (Auto) 100 (0-100) /uL Sodium 135 L (137-145) mmol/L Potassium 4.1 (3.4-5.1) mmol/L Chloride 107 (98-107) mmol/L Carbon Dioxide 20 L (22-32) mmol/L BUN 29 H (7-17) mg/dL Creatinine 1.26 H (0.52-1.04) mg/dL Estimated GFR 40.9 L (>60) mL/min BUN/Creatinine Ratio 23.0 H (6-22) Glucose 137 H (80-110) mg/dL Lactate 0.9 (0.7-2.1) mmol/L Calcium 9.6 (8.4-10.2) mg/dL Total Bilirubin 0.4 (0.2-1.3) mg/dL AST 29 (14-36) IU/L ALT 19 (<35) IU/L Alkaline Phosphatase 90 (38-126) U/L Total Creatine Kinase 43 (30-135) U/L CK-MB (CK-2) TNP CK-MB (CK-2) Rel Index TNP Troponin I < 0.012 (0.01-0.034) ng/mL Total Protein 7.2 (6.3-8.2) g/dL Albumin 4.2 (3.5-5.0) g/dL Globulin 3.0 (1.7-4.1) g/dL Albumin/Globulin Ratio 1.4 (1.0-2.8) Lipase 172 (23-300) U/L Urine Dip Bedside Urine Glucose Negative Bedside Urine Bilirubin - Negative Bedside Urine Ketone - Negative Urine Specific [place] 1.010 Bedside Urine Occult Blood - Negative Bedside Urine pH 6.5 Bedside Urine Protein - Negative Bedside Urine Urobilinogen - Negative Bedside Urine Nitrite - Negative Bedside Urine Leukocytes - Negative Esterase Point of care testing: Urine Dip Bedside Urine Glucose Negative Bedside Urine Bilirubin - Negative Bedside Urine Ketone - Negative Urine Specific [place] 1.010 Bedside Urine Occult Blood - Negative Bedside Urine pH 6.5 Bedside Urine Protein - Negative Bedside Urine Urobilinogen - Negative Bedside Urine Nitrite - Negative Bedside Urine Leukocytes - Negative Esterase Imaging Data CT scan - abdomen/pelvis: Radiologist's Impression: Findings suggest mild acute pancreatitis the and/or duodenitis. ECG Data Attestation: I personally reviewed and interpreted this ECG as follows: Prior ECG tracings: not available for review Interpretation: Sinus rhythm Ventricular rate is 78 Normal axis Normal QRS Normal QTC No ST T wave changes MDM Narrative Medical decision making narrative: Patient does have a relatively benign exam. Symptoms started 3 days ago and acute worsening earlier this evening. Has not tried anything for her symptoms since the acute worsening however before that has been taken nonsteroidal anti-inflammatories and also Flexeril. She thought that potentially the Flexeril was working for her which she was taking and at night. Has relatively baseline or unremarkable labs to include a normal lipase. Her chest x-ray is unremarkable. The CT scan shows what appears to be either pancreatitis or duodenitis. Her labs do not support pancreatitis. Patient states she has had a duodenal ulcer in the past. This was diagnosed after she was having anemia issues and had an upper endoscopy. She was not placed on any medications afterwards. Is not currently taking any reflux medications. She has been on Prilosec in the past. Patient's pain is relatively controlled. She has not been vomiting. No surgical pathology found on the exam. I do suspect it is this inflammation that is causing her abdomen and back pain. Will place her back on Prilosec. Will send home with nausea and pain medication. Discharge Plan Departure Patient Disposition: Home Clinical Impression: Acute duodenitis Instructions: DI for Abdominal Pain-Adult Activity Restrictions/Additional Instructions: I recommend that you start taking Prilosec again on a daily basis. Also recommend eating a bland diet and increasing her fluid intake and your symptoms have resolved. Contact your primary provider for follow-up. Return to the emergency department for any new or worsening symptoms Prescriptions: New omeprazole magnesium [Prilosec OTC] 20 mg tablet,delayed release (DR/EC) 20 mg PO DAILY Qty: 30 RF: 0 No Action cholecalciferol (vitamin D3) 2,000 unit capsule 2,000 unit PO DAILY RF: 0 triamcinolone acetonide 0.1 % cream 1 applictn TOP BID Qty: 30 RF: 0 aspirin [Adult Aspirin Regimen] 81 mg tablet,delayed release (DR/EC) 81 mg PO DAILY RF: 0 CA PANTOTHENATE/FOLIC ACID/VIT (MULTIVITAMIN) 1 tab PO Q DAY Qty: 0 RF: 0 CALCIUM CARBONATE (Calcium) 1,200 mg PO QDAY Qty: 0 RF: 0 coenzyme Q10 [Co Q-10] 100 MG capsule 100 mg PO Qty: 0 RF: 0 lovastatin 40 mg tablet See Rx Instructions .ROUTE .COMPLEX Qty: 90 RF: 1 levothyroxine 100 mcg tablet 100 mcg PO QAM Qty: 90 RF: 0 Fish Oil (#CARDI-OMEGA) 2,000 mg PO Q DAY Qty: 0 RF: 0 Referrals: Julio Cedeño MD [Primary Care Provider] -
[2020-01-01 00:57] LABS: Add Manual Diff / Slide Review NO; Basophils Absolute Auto 100 /uL (0-100); Basophils Percent Auto 0.9 % (0-2); Eosinophils Absolute Auto 100 /uL (0-450); Eosinophils Percent Auto 0.9 % (2-4); Hematocrit 35.2 % (36-46); Hemoglobin 11.3 g/dL (12.0-16.0); Lymphocytes Absolute Auto 1200 /uL (1100-4500); Lymphocytes Percent Auto 16.3 % (25-40); Mean Corpuscular HGB Conc 32.1 % (30-36); Mean Corpuscular Hemoglobin 32.9 PG (26-34); Mean Corpuscular Volume 102.6 fL (80-100); Monocytes Absolute Auto 300 /uL (0-900); Monocytes Percent Auto 3.6 % (3-14); Neutrophils Absolute Auto 5700 /uL (1500-7000); Neutrophils Percent Auto 78.3 % (50-75); Platelet Count 299 X10^3/uL (150-400); Red Blood Cell Count 3.43 X10^6/uL (4.0-5.2); White Blood Cell Count 7.3 X10^3/uL (4.5-11.0)
[2020-01-01] MEDS: SODIUM CHLORIDE 0.9% 1,000 ML 500 ML IV (00:57)
[2020-01-01] MEDS: MORPHINE 4 MG/ML INJ IV (00:59)
[2020-01-01 01:05] LABS: Lactate (Lactic Acid) 0.9 mmol/L (0.7-2.1)
[2020-01-01 01:06] LABS: Alanine Aminotransferase 19 IU/L (<35); Albumin 4.2 g/dL (3.5-5.0); Albumin Globulin Ratio 1.4 (1.0-2.8); Alkaline Phosphatase 90 U/L (38-126); Aspartate Aminotransferase 29 IU/L (14-36); Bilirubin Total 0.4 mg/dL (0.2-1.3); Blood Urea Nitrogen 29 mg/dL (7-17); Calcium 9.6 mg/dL (8.4-10.2); Carbon Dioxide 20 mmol/L (22-32); Chloride 107 mmol/L (98-107); Creatine Kinase 43 U/L (30-135); Estimated Glomerular Filt Rate 40.9 mL/min (>60); Glucose 137 mg/dL (80-110); HEMOLYSIS < 15 (0-50); Lipase 172 U/L (23-300); Potassium 4.1 mmol/L (3.4-5.1); Sodium 135 mmol/L (137-145); Total Protein 7.2 g/dL (6.3-8.2)
[2020-01-01 01:17] LABS: Troponin I < 0.012 ng/mL (0.01-0.034)
[2020-01-01] MEDS: PANTOPRAZOLE 40 MG VIAL IV (02:23)
[2020-01-01] MEDS: HYDROCODONE/ACET 5/325 TABLET 1 TAB PO (02:23)
[2020-01-01] MEDS: ONDANSETRON 4 MG ODT PREPACK 1 BOTTLE MISC (02:51)
[2020-01-01] MEDS: TRAMADOL 50 MG PREPACK 1 BOTTLE MISC (02:51)
--- NOTE | 2020-01-01 03:05 | PC.NURSE ---
Pt has no one to phone for a ride-- will board here until taxi service starts at 0600.
== END 2020-01-01 06:23 | disposition home or self-care (01) ==
PROVIDERS: Emergency Provider Emergency Medicine; PCP Family Medicine
DX: K29.80 Duodenitis without bleeding (principal); M54.6 Pain in thoracic spine; D64.9 Anemia, unspecified
CPT/HCPCS: 36415; 74177; 80053; 81003; 82550; 83605; 83690; 84484; 85025; 93005; 96361; 96374; 96375; 99284; C9113; J2270; Q9967

== ENCOUNTER → 2020-02-26 12:26 | Outpatient (CLI) | payer MEDICARE, SELFPAY ==
--- NOTE | 2020-02-26 | DI.MG.S_ITS ---
BILATERAL DIGITAL SCREENING MAMMOGRAM 3D/2D WITH CAD: 02/26/2020 CLINICAL: Routine screening. Comparison is made to exams dated: 02/13/2019 mammogram, 01/28/2018 mammogram, and 12/29/2016 mammogram - [facility]. There are scattered fibroglandular elements in both breasts. Current study was also evaluated with a Computer Aided Detection (CAD) system. There are benign vascular calcifications in both breasts. No significant masses, calcifications, or other findings are seen in either breast. There has been no significant interval change. IMPRESSION: BENIGN There is no mammographic evidence of malignancy. A 1 year screening mammogram is recommended. This exam was interpreted at Station ID: [id number]. NOTE: For mammograms, a report in lay terms will be sent to the patient. Approximately 15% of breast malignancies will not be visualized mammographically. In the management of a palpable breast mass, a negative mammogram must not discourage biopsy of a clinically suspicious lesion. Electronically Signed By: Ren omalley/lew:02/26/2020 16:20:39 letter sent: Normal Exam ACR BI-RADS Category 2: Benign Finding(s) 3342F
== END ==
PROVIDERS: PCP Family Medicine; Referring Provider Family Medicine; Visit Provider Family Medicine
DX: Z12.31 Encounter for screening mammogram for malignant neoplasm of breast (principal)
CPT/HCPCS: 77063; 77067

== ENCOUNTER 2020-03-24 13:30 | Outpatient (RCR) | payer MEDICARE, SELFPAY ==
--- NOTE | 2020-02-18 16:00 | PT.OIE ---
Current Diagnoses Dorsalgia, unspecified (02/18/20) Past Medical History (Last Reviewed 01/01/20 @ 02:21 by Jimmie Ceja DO) Ankle fracture, left (~1992) Chickenpox (~194) Chronic back pain (~1981) Gastric ulcer Hemorrhoids (~2009) History of heavy periods (~1979) History of recurrent ear infection Hyperlipidemia Hypothyroidism (~1979) Measles (~1955) Osteoarthritis (~1999) Osteoporosis Psoriasis (~1982) Rosacea Shingles (~2015) Skin cancer (~2011) Tinnitus (~2011) Past Surgical History (Last Reviewed 01/01/20 @ 02:21 by Jimmie Ceja DO) Anesthesia History of knee replacement Status post arthroscopy Status post dilation and curettage Status post hysterectomy Status post laminectomy Visit Care Team Role Provider Type Julio Cedeño MD Attending Provider Physician Primary Care Provider Referring Provider Specialty: [facility] Address: [address] [place] [address] Email: [email or web address] Physical Therapy Initial Evaluation PT-OP-A Visit Information Start: 02/18/20 09:56 Freq: Status: Active Protocol: Document 02/18/20 13:30 AMB (Rec: 02/18/20 16:07 AMB [id number]) Out-Patient Physical Therapy Visit Information Visit Information Visit Type Initial Evaluation Visit Start Time 13:30 Visit Stop Time 14:15 Total Visit Minutes 45 Visit Number 1 PT-OP-B Current Condition Start: 02/18/20 09:56 Freq: Status: Active Protocol: Document 02/18/20 13:30 AMB (Rec: 02/18/20 13:43 AMB [id number]) Current Condition History of Current Condition Onset Date Years Current Complaints low back pain chronic History of Current Condition 2-3 blocks of walking, then has to stop and standing can relieve the pain- has to stand for about a minute. Points to pain and it is more over bilateral greater trochanters. Standing for an extended period increases R anterior hip pain. History of laminectomy, TKA L, PKA R. Bowling doesn't increase the pain. Aching pain in the back . Prior Treatments and Tests Cortisone shot didn't help Treatment Goals Patient/Caregiver Goals Reduce pain with walking, standing Prior Functional Status Baseline Function- ADL's Independent Baseline Function- Mobility Independent Current Functional Impairments (Reported) Functional Limitations- ADL's Lives in second floor and goes up and down stairs and doesn' t seem to increase pain. Needs to take more rest breaks due to pain Personal Factors Other Personal Factors That May Effect L knee pain with walking, Therapy/Recovery stairs PT-OP-C Subjective Start: 02/18/20 09:56 Freq: Status: Active Protocol: Document 02/18/20 13:30 AMB (Rec: 02/18/20 16:07 AMB [id number]) Patient Questionnaires Oswestry Low Back Index Oswestry Score 34 OP-PT Pain Assessment Comments Pain Comments 5/10 bilateral low back/ hip , 4/10 R anterior hip PT-OP-J Posture/Palpation/Skin Start: 02/18/20 09:56 Freq: Status: Active Protocol: Document 02/18/20 13:30 AMB (Rec: 02/18/20 16:07 AMB [id number]) Posture Evaluation Comments Posture Comments mild increased thoracic kyphosis Palpation Assessment Location One Palpation Details Mild tenderness and moderate stiffness with PAs to lumbar spine, denies radiating sx. Significant tenderness over hip flexors bilaterally, and over greater trochanters and IT band. PT-OP-K Range of Motion Start: 02/18/20 09:56 Freq: Status: Active Protocol: Document 02/18/20 13:30 AMB (Rec: 02/18/20 16:07 AMB [id number]) Lumbar Spine Range of Motion Lumbar Spine Active Degrees Testing Position Standing Flexion 60 Extension 20 Lateral Flexion Left 10 Lateral Flexion Right 15 PT-OP-M Strength Start: 02/18/20 09:56 Freq: Status: Active Protocol: Document 02/18/20 13:30 AMB (Rec: 02/18/20 16:07 AMB [id number]) Hip Strength Hip Manual Muscle Testing Left Flexion (L2) 4 Good Extension (S1) 4 Good Abduction 4 Good Adduction 4 Good Right Flexion (L2) 4 Good Extension (S1) 4 Good Abduction 4 Good Adduction 4 Good PT-OP-Q Treatments Start: 02/18/20 09:56 Freq: Status: Active Protocol: Document 02/18/20 13:30 AMB (Rec: 02/19/20 09:41 AMB [id number]) Therapeutic Exercises Supine Exercises 2 Supine Exercise Name partial bridge with TA Reps/Minutes 10 1 Supine Exercise Name IT band stretch Reps/Minutes 30x3 Comments with sheet around foot PT-OP-T Assessment and Plan Start: 02/18/20 09:56 Freq: Status: Active Protocol: Document 02/18/20 13:30 AMB (Rec: 02/19/20 09:41 AMB [id number]) Physical Therapy Assessment Rehab Potential Rehabilitation Potential Good Evaluation Complexity Number of Personal Factors/Comorbidities 1-2 Clinical Presentation at Evaluation Stable Impairments Impairments Functional Activities, Functional Mobility,Gait,ROM, Strength Goals Three Impairment exercise program Short Term Goal (STG) Marleen will be independent and consistent with a HEP. 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 STG Duration 4 weeks One Impairment gait Short Term Goal (STG) Marleen will walk for 2 minutes over flat terrain without needing to stop due to pain. STG Duration 4 weeks Ultrasound Spec Goal (LTG) Marleen will ambulate in the community with mild inclines and declines for 10 minutes without stopping due to pain. LTG Duration 8 weeks Assessment Summary Assessment Marleen attends physical therapy stating she has low back arthritis. She finds it difficult to walk and stand for an extended time due to this pain. When palpated, her pain is more over her greater trochanters, although she did note back pain with some activities like sidebending and sitting. She denies any radiating symptoms. She did have tightness in her hips and weakness in her core and will benefit from physical therapy to help her manage her symptoms and improve her strength and flexibility. Physical Therapy Plan Frequency and Duration Frequency of Treatment 2x/Week Duration of Treatment 8 weeks Plan of Care Start Date 02/18/20 Plan of Care End Date 04/14/20 Therapeutic Interventions Therapeutic Interventions Gait Training,Home Exercise Program,Manual Therapy, Neuromuscular Re-education, Self-Care/Home Management, Therapeutic Activities, Therapeutic Exercises Modalities Cold Pack/Ice Massage,Electric Stimulation,Hot Packs Next Visit Focus/Plan Next Note Type Treatment Note Next Visit Plan Establish HEP- focus on hip mobility and core stability, recheck partial bridge and IT band stretch HEP.
--- NOTE | 2020-02-18 16:00 | PT.OPPOC ---
Physical, Occupational & Speech Therapy At [facility] Current Diagnoses Dorsalgia, unspecified (02/18/20) Visit Care Team Role Provider Type Julio Cedeño MD Attending Provider Physician Primary Care Provider Referring Provider Specialty: Family Practice Address: [address] [place] [address], [id number] Email: [email or web address] Plan Of Care PT-OP-T Assessment and Plan Start: 02/18/20 09:56 Freq: Status: Active Protocol: Document 02/18/20 13:30 AMB (Rec: 02/19/20 09:41 AMB [id number]) Physical Therapy Assessment Rehab Potential Rehabilitation Potential Good Evaluation Complexity Number of Personal Factors/Comorbidities 1-2 Clinical Presentation at Evaluation Stable Impairments Impairments Functional Activities, Functional Mobility,Gait,ROM, Strength Goals Three Impairment exercise program Short Term Goal (STG) Marleen will be independent and consistent with a HEP. 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 STG Duration 4 weeks One Impairment gait Short Term Goal (STG) Marleen will walk for 2 minutes over flat terrain without needing to stop due to pain. STG Duration 4 weeks Bench Press Operator Goal (LTG) Marleen will ambulate in the community with mild inclines and declines for 10 minutes without stopping due to pain. LTG Duration 8 weeks Assessment Summary Assessment Marleen attends physical therapy stating she has low back arthritis. She finds it difficult to walk and stand for an extended time due to this pain. When palpated, her pain is more over her greater trochanters, although she did note back pain with some activities like sidebending and sitting. She denies any radiating symptoms. She did have tightness in her hips and weakness in her core and will benefit from physical therapy to help her manage her symptoms and improve her strength and flexibility. Physical Therapy Plan Frequency and Duration Frequency of Treatment 2x/Week Duration of Treatment 8 weeks Plan of Care Start Date 02/18/20 Plan of Care End Date 04/14/20 Therapeutic Interventions Therapeutic Interventions Gait Training,Home Exercise Program,Manual Therapy, Neuromuscular Re-education, Self-Care/Home Management, Therapeutic Activities, Therapeutic Exercises Modalities Cold Pack/Ice Massage,Electric Stimulation,Hot Packs Next Visit Focus/Plan Next Note Type Treatment Note Next Visit Plan Establish HEP- focus on hip mobility and core stability, recheck partial bridge and IT band stretch HEP. Plan of Care Dates Plan of Care Start Date 02/18/20 Plan of Care End Date 04/14/20 Electronically Signed by: Carley Rashid, PT 02/19/20 0941 Please Sign and Return: I have reviewed this Plan of Care and certify that the skilled therapy services above are required to meet the patient?s needs. Physician Signature Date Printed Name and Credentials Clinical Instructor Signature Printed Name and Credentials
--- NOTE | 2020-02-21 09:53 | PT.OTN ---
Current Diagnoses Dorsalgia, unspecified (02/21/20) Physical Therapy Treatment Note PT-OP-A Visit Information Start: 02/18/20 09:56 Freq: Status: Active Protocol: Document 02/21/20 09:02 SP (Rec: 02/21/20 11:29 SP [id number]) Out-Patient Physical Therapy Visit Information Visit Information Visit Type Treatment Note Visit Start Time 09:03 Visit Stop Time 09:53 Total Visit Minutes 50 Visit Number 2 Number of SITE LEAD Visits 1 PT-OP-B Current Condition Start: 02/18/20 09:56 Freq: Status: Active Protocol: Document 02/18/20 13:30 AMB (Rec: 02/18/20 13:43 AMB [id number]) Current Condition History of Current Condition Onset Date Years Current Complaints low back pain chronic History of Current Condition 2-3 blocks of walking, then has to stop and standing can relieve the pain- has to stand for about a minute. Points to pain and it is more over bilateral greater trochanters. Standing for an extended period increases R anterior hip pain. History of laminectomy, TKA L, PKA R. Bowling doesn't increase the pain. Aching pain in the back . Prior Treatments and Tests Cortisone shot didn't help Treatment Goals Patient/Caregiver Goals Reduce pain with walking, standing Prior Functional Status Baseline Function- ADL's Independent Baseline Function- Mobility Independent Current Functional Impairments (Reported) Functional Limitations- ADL's Lives in second floor and goes up and down stairs and doesn' t seem to increase pain. Needs to take more rest breaks due to pain Personal Factors Other Personal Factors That May Effect L knee pain with walking, Therapy/Recovery stairs PT-OP-C Subjective Start: 02/18/20 09:56 Freq: Status: Active Protocol: Document 02/21/20 09:02 SP (Rec: 02/21/20 11:29 SP [id number]) OP-PT Subjective Patient Comments Patient Comments Pt reported doing well with ITB stretch and partial bridge at home since eval with no concerns. Pt's goal is to return to walking. PT-OP-J Posture/Palpation/Skin Start: 02/18/20 09:56 Freq: Status: Active Protocol: Document 02/18/20 13:30 AMB (Rec: 02/18/20 16:07 AMB [id number]) Posture Evaluation Comments Posture Comments mild increased thoracic kyphosis Palpation Assessment Location One Palpation Details Mild tenderness and moderate stiffness with PAs to lumbar spine, denies radiating sx. Significant tenderness over hip flexors bilaterally, and over greater trochanters and IT band. PT-OP-K Range of Motion Start: 02/18/20 09:56 Freq: Status: Active Protocol: Document 02/18/20 13:30 AMB (Rec: 02/18/20 16:07 AMB [id number]) Lumbar Spine Range of Motion Lumbar Spine Active Degrees Testing Position Standing Flexion 60 Extension 20 Lateral Flexion Left 10 Lateral Flexion Right 15 PT-OP-M Strength Start: 02/18/20 09:56 Freq: Status: Active Protocol: Document 02/18/20 13:30 AMB (Rec: 02/18/20 16:07 AMB [id number]) Hip Strength Hip Manual Muscle Testing Left Flexion (L2) 4 Good Extension (S1) 4 Good Abduction 4 Good Adduction 4 Good Right Flexion (L2) 4 Good Extension (S1) 4 Good Abduction 4 Good Adduction 4 Good PT-OP-Q Treatments Start: 02/18/20 09:56 Freq: Status: Active Protocol: Document 02/21/20 09:02 SP (Rec: 02/21/20 11:29 SP [id number]) Therapeutic Exercises Supine Exercises core may Supine Exercise Name sequencial DL march Reps/Minutes 5 reps lead each LE hip flexor stretch Supine Exercise Name Paulie stretch off side table Resistance B Reps/Minutes 30 x2 Comments cued awareness neutral spine HS stretch Side bilateral Equipment Used gait belt Reps/Minutes 30 x3 Comments cued knee ext 2 Supine Exercise Name partial bridge with TA Reps/Minutes 5 sec x10 Comments cued core and glut facilitation with knees parallel 1 Supine Exercise Name IT band stretch Reps/Minutes 30x3 Comments with gait belt PT-OP-T Assessment and Plan Start: 02/18/20 09:56 Freq: Status: Active Protocol: Document 02/21/20 09:02 SP (Rec: 02/21/20 11:29 SP [id number]) Physical Therapy Assessment Goals Three Impairment exercise program Short Term Goal (STG) Marleen will be independent and consistent with a HEP. 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 STG Duration 4 weeks One Impairment gait Short Term Goal (STG) Marleen will walk for 2 minutes over flat terrain without needing to stop due to pain. STG Duration 4 weeks [facility] Goal (LTG) Marleen will ambulate in the community with mild inclines and declines for 10 minutes without stopping due to pain. LTG Duration 8 weeks Assessment Summary Assessment Pt responded well to last tx, compliant with HEP. Reviewed this tx with education on TA and pelvic alignment improved LB discomfort recruitment. Intiated glut/pirf/ hip flex stretching, sit to stands with cuing on hip hinge and feet tucked under for decreased knee strain, core marching single. No adverse reactions to tx and good understanding. Next tx review HEP to date for I. Physical Therapy Plan Frequency and Duration Frequency of Treatment 2x/Week Duration of Treatment 8 weeks Plan of Care Start Date 02/18/20 Plan of Care End Date 04/14/20 Therapeutic Interventions Therapeutic Interventions Gait Training,Home Exercise Program,Manual Therapy, Neuromuscular Re-education, Self-Care/Home Management, Therapeutic Activities, Therapeutic Exercises Modalities Cold Pack/Ice Massage,Electric Stimulation,Hot Packs Next Visit Focus/Plan Next Note Type Treatment Note Next Visit Plan Assess reponse to last tx: flexibility, TA facilitation. Continue POC: Establish HEP- focus on hip mobility and core stability, recheck partial bridge and IT band stretch HEP .
--- NOTE | 2020-02-25 15:03 | PT.OTN ---
Current Diagnoses Dorsalgia, unspecified (02/25/20) Physical Therapy Treatment Note PT-OP-A Visit Information Start: 02/18/20 09:56 Freq: Status: Active Protocol: Document 02/25/20 13:30 AMB (Rec: 02/25/20 14:44 AMB [id number]) Out-Patient Physical Therapy Visit Information Visit Information Visit Type Treatment Note Visit Start Time 13:30 Visit Stop Time 14:15 Total Visit Minutes 45 Visit Number 3 Number of ENVELOPE SEALER Visits 0 PT-OP-B Current Condition Start: 02/18/20 09:56 Freq: Status: Active Protocol: Document 02/18/20 13:30 AMB (Rec: 02/18/20 13:43 AMB [id number]) Current Condition History of Current Condition Onset Date Years Current Complaints low back pain chronic History of Current Condition 2-3 blocks of walking, then has to stop and standing can relieve the pain- has to stand for about a minute. Points to pain and it is more over bilateral greater trochanters. Standing for an extended period increases R anterior hip pain. History of laminectomy, TKA L, PKA R. Bowling doesn't increase the pain. Aching pain in the back . Prior Treatments and Tests Cortisone shot didn't help Treatment Goals Patient/Caregiver Goals Reduce pain with walking, standing Prior Functional Status Baseline Function- ADL's Independent Baseline Function- Mobility Independent Current Functional Impairments (Reported) Functional Limitations- ADL's Lives in second floor and goes up and down stairs and doesn' t seem to increase pain. Needs to take more rest breaks due to pain Personal Factors Other Personal Factors That May Effect L knee pain with walking, Therapy/Recovery stairs PT-OP-C Subjective Start: 02/18/20 09:56 Freq: Status: Active Protocol: Document 02/25/20 13:30 AMB (Rec: 02/25/20 14:44 AMB [id number]) OP-PT Subjective Patient Comments Patient Comments Pt reports pain starts on the right side when she is walking , and then goes over to the left side. PT-OP-J Posture/Palpation/Skin Start: 02/18/20 09:56 Freq: Status: Active Protocol: Document 02/18/20 13:30 AMB (Rec: 02/18/20 16:07 AMB [id number]) Posture Evaluation Comments Posture Comments mild increased thoracic kyphosis Palpation Assessment Location One Palpation Details Mild tenderness and moderate stiffness with PAs to lumbar spine, denies radiating sx. Significant tenderness over hip flexors bilaterally, and over greater trochanters and IT band. PT-OP-K Range of Motion Start: 02/18/20 09:56 Freq: Status: Active Protocol: Document 02/18/20 13:30 AMB (Rec: 02/18/20 16:07 AMB [id number]) Lumbar Spine Range of Motion Lumbar Spine Active Degrees Testing Position Standing Flexion 60 Extension 20 Lateral Flexion Left 10 Lateral Flexion Right 15 PT-OP-M Strength Start: 02/18/20 09:56 Freq: Status: Active Protocol: Document 02/18/20 13:30 AMB (Rec: 02/18/20 16:07 AMB [id number]) Hip Strength Hip Manual Muscle Testing Left Flexion (L2) 4 Good Extension (S1) 4 Good Abduction 4 Good Adduction 4 Good Right Flexion (L2) 4 Good Extension (S1) 4 Good Abduction 4 Good Adduction 4 Good PT-OP-Q Treatments Start: 02/18/20 09:56 Freq: Status: Active Protocol: Document 02/25/20 13:30 AMB (Rec: 02/25/20 15:00 AMB [id number]) Cardio Equipment Recumbent Bicycle Duration (Minutes) 3 Resistance 2 Therapeutic Exercises Supine Exercises 4 Supine Exercise Name piriformis stretch Reps/Minutes 10 seconds 3 Supine Exercise Name SLR Reps/Minutes 2x10 hip flexor stretch Supine Exercise Name Paulie stretch off side table Resistance B Reps/Minutes 30 x2 Comments cued awareness neutral spine HS stretch Side bilateral Equipment Used gait belt Reps/Minutes 30 x3 Comments cued knee ext 2 Supine Exercise Name partial bridge with TA Reps/Minutes 5 sec x10 Comments cued core and glut facilitation with knees parallel 1 Supine Exercise Name IT band stretch Reps/Minutes 30x3 Comments with gait belt Sidelying Exercises 1 Sidelying Exercise Name hip abd Reps/Minutes 10 PT-OP-T Assessment and Plan Start: 02/18/20 09:56 Freq: Status: Active Protocol: Document 02/25/20 13:30 AMB (Rec: 02/25/20 14:44 AMB [id number]) Physical Therapy Assessment Assessment Summary Assessment Marleen was challenged by hip abduction but overall tolerated well, encouraged to be gentle with piriformis stretch since it is irritable on the left. Physical Therapy Plan Next Visit Focus/Plan Next Note Type Treatment Note Next Visit Plan Assess reponse to last tx: flexibility, TA facilitation. Continue POC: Establish HEP- focus on hip mobility and core stability, recheck partial bridge and IT band stretch HEP .
--- NOTE | 2020-02-27 16:00 | PT.OTN ---
Current Diagnoses Dorsalgia, unspecified (02/27/20) Physical Therapy Treatment Note PT-OP-A Visit Information Start: 02/18/20 09:56 Freq: Status: Active Protocol: Document 02/27/20 13:58 AMB (Rec: 02/27/20 14:17 AMB [id number]) Out-Patient Physical Therapy Visit Information Visit Information Visit Type Treatment Note Visit Start Time 13:30 Visit Stop Time 14:15 Total Visit Minutes 45 Visit Number 3 Number of GENERAL ASSISTANT Visits 0 PT-OP-B Current Condition Start: 02/18/20 09:56 Freq: Status: Active Protocol: Document 02/18/20 13:30 AMB (Rec: 02/18/20 13:43 AMB [id number]) Current Condition History of Current Condition Onset Date Years Current Complaints low back pain chronic History of Current Condition 2-3 blocks of walking, then has to stop and standing can relieve the pain- has to stand for about a minute. Points to pain and it is more over bilateral greater trochanters. Standing for an extended period increases R anterior hip pain. History of laminectomy, TKA L, PKA R. Bowling doesn't increase the pain. Aching pain in the back . Prior Treatments and Tests Cortisone shot didn't help Treatment Goals Patient/Caregiver Goals Reduce pain with walking, standing Prior Functional Status Baseline Function- ADL's Independent Baseline Function- Mobility Independent Current Functional Impairments (Reported) Functional Limitations- ADL's Lives in second floor and goes up and down stairs and doesn' t seem to increase pain. Needs to take more rest breaks due to pain Personal Factors Other Personal Factors That May Effect L knee pain with walking, Therapy/Recovery stairs PT-OP-C Subjective Start: 02/18/20 09:56 Freq: Status: Active Protocol: Document 02/27/20 13:58 AMB (Rec: 02/27/20 14:17 AMB [id number]) OP-PT Subjective Patient Comments Patient Comments Pt was a little sore after new exercises, but nothing horrible. PT-OP-J Posture/Palpation/Skin Start: 02/18/20 09:56 Freq: Status: Active Protocol: Document 02/18/20 13:30 AMB (Rec: 02/18/20 16:07 AMB [id number]) Posture Evaluation Comments Posture Comments mild increased thoracic kyphosis Palpation Assessment Location One Palpation Details Mild tenderness and moderate stiffness with PAs to lumbar spine, denies radiating sx. Significant tenderness over hip flexors bilaterally, and over greater trochanters and IT band. PT-OP-K Range of Motion Start: 02/18/20 09:56 Freq: Status: Active Protocol: Document 02/18/20 13:30 AMB (Rec: 02/18/20 16:07 AMB [id number]) Lumbar Spine Range of Motion Lumbar Spine Active Degrees Testing Position Standing Flexion 60 Extension 20 Lateral Flexion Left 10 Lateral Flexion Right 15 PT-OP-M Strength Start: 02/18/20 09:56 Freq: Status: Active Protocol: Document 02/18/20 13:30 AMB (Rec: 02/18/20 16:07 AMB [id number]) Hip Strength Hip Manual Muscle Testing Left Flexion (L2) 4 Good Extension (S1) 4 Good Abduction 4 Good Adduction 4 Good Right Flexion (L2) 4 Good Extension (S1) 4 Good Abduction 4 Good Adduction 4 Good PT-OP-Q Treatments Start: 02/18/20 09:56 Freq: Status: Active Protocol: Document 02/27/20 13:30 AMB (Rec: 02/28/20 07:43 AMB [id number]) Cardio Equipment Recumbent Elliptical ([employer]) Duration (Minutes) 5 Resistance 3 Therapeutic Exercises Supine Exercises 3 Supine Exercise Name SLR Reps/Minutes 2x10 Comments c TA hip flexor stretch Supine Exercise Name Paulie stretch off side table Resistance B Reps/Minutes 30 x2 Comments cued awareness neutral spine HS stretch Side bilateral Equipment Used gait belt Reps/Minutes 30 x3 Comments cued knee ext 2 Supine Exercise Name partial bridge with TA Reps/Minutes 5 sec x10 Comments cued core and glut facilitation with knees parallel Sidelying Exercises 2 Sidelying Exercise Name clamshell Comments with TA 1 Sidelying Exercise Name hip abd Reps/Minutes 10 Comments with TA Manual Therapy Treatment Soft Tissue Mobilization 1 Body Location IT band rolling Comments bilateral with rolling pin PT-OP-T Assessment and Plan Start: 02/18/20 09:56 Freq: Status: Active Protocol: Document 02/27/20 13:30 AMB (Rec: 02/28/20 07:43 AMB [id number]) Physical Therapy Assessment Goals Three Impairment exercise program Short Term Goal (STG) Marleen will be independent and consistent with a HEP. 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 STG Duration 4 weeks One Impairment gait Short Term Goal (STG) Marleen will walk for 2 minutes over flat terrain without needing to stop due to pain. STG Duration 4 weeks Fdc Goal (LTG) Marleen will ambulate in the community with mild inclines and declines for 10 minutes without stopping due to pain. LTG Duration 8 weeks Assessment Summary Assessment Marleen was challenged by TA contracted, really worked today on fine tuning, as she had been using upper abs. Physical Therapy Plan Frequency and Duration Frequency of Treatment 2x/Week Duration of Treatment 8 weeks Plan of Care Start Date 02/18/20 Plan of Care End Date 04/14/20 Therapeutic Interventions Therapeutic Interventions Gait Training,Home Exercise Program,Manual Therapy, Neuromuscular Re-education, Self-Care/Home Management, Therapeutic Activities, Therapeutic Exercises Modalities Cold Pack/Ice Massage,Electric Stimulation,Hot Packs Next Visit Focus/Plan Next Note Type Treatment Note Next Visit Plan Assess reponse to last tx: recheck tolerance to rolling pin. Continue POC: Establish HEP- focus on hip mobility and core stability, recheck partial bridge and IT band stretch HEP .
--- NOTE | 2020-03-03 14:34 | PT.OTN ---
Current Diagnoses Dorsalgia, unspecified (03/03/20) Physical Therapy Treatment Note PT-OP-A Visit Information Start: 02/18/20 09:56 Freq: Status: Active Protocol: Document 03/03/20 13:30 AMB (Rec: 03/03/20 14:34 AMB [id number]) Out-Patient Physical Therapy Visit Information Visit Information Visit Type Treatment Note Visit Start Time 13:30 Visit Stop Time 14:15 Total Visit Minutes 45 Visit Number 4 Number of SENIOR SALES MANAGER Visits 0 PT-OP-B Current Condition Start: 02/18/20 09:56 Freq: Status: Active Protocol: Document 02/18/20 13:30 AMB (Rec: 02/18/20 13:43 AMB [id number]) Current Condition History of Current Condition Onset Date Years Current Complaints low back pain chronic History of Current Condition 2-3 blocks of walking, then has to stop and standing can relieve the pain- has to stand for about a minute. Points to pain and it is more over bilateral greater trochanters. Standing for an extended period increases R anterior hip pain. History of laminectomy, TKA L, PKA R. Bowling doesn't increase the pain. Aching pain in the back . Prior Treatments and Tests Cortisone shot didn't help Treatment Goals Patient/Caregiver Goals Reduce pain with walking, standing Prior Functional Status Baseline Function- ADL's Independent Baseline Function- Mobility Independent Current Functional Impairments (Reported) Functional Limitations- ADL's Lives in second floor and goes up and down stairs and doesn' t seem to increase pain. Needs to take more rest breaks due to pain Personal Factors Other Personal Factors That May Effect L knee pain with walking, Therapy/Recovery stairs PT-OP-C Subjective Start: 02/18/20 09:56 Freq: Status: Active Protocol: Document 03/03/20 13:30 AMB (Rec: 03/03/20 14:34 AMB [id number]) OP-PT Subjective Patient Comments Patient Comments Pt was sore after last visit, but did go on a long walk afterward. PT-OP-J Posture/Palpation/Skin Start: 02/18/20 09:56 Freq: Status: Active Protocol: Document 02/18/20 13:30 AMB (Rec: 02/18/20 16:07 AMB [id number]) Posture Evaluation Comments Posture Comments mild increased thoracic kyphosis Palpation Assessment Location One Palpation Details Mild tenderness and moderate stiffness with PAs to lumbar spine, denies radiating sx. Significant tenderness over hip flexors bilaterally, and over greater trochanters and IT band. PT-OP-K Range of Motion Start: 02/18/20 09:56 Freq: Status: Active Protocol: Document 02/18/20 13:30 AMB (Rec: 02/18/20 16:07 AMB [id number]) Lumbar Spine Range of Motion Lumbar Spine Active Degrees Testing Position Standing Flexion 60 Extension 20 Lateral Flexion Left 10 Lateral Flexion Right 15 PT-OP-M Strength Start: 02/18/20 09:56 Freq: Status: Active Protocol: Document 02/18/20 13:30 AMB (Rec: 02/18/20 16:07 AMB [id number]) Hip Strength Hip Manual Muscle Testing Left Flexion (L2) 4 Good Extension (S1) 4 Good Abduction 4 Good Adduction 4 Good Right Flexion (L2) 4 Good Extension (S1) 4 Good Abduction 4 Good Adduction 4 Good PT-OP-Q Treatments Start: 02/18/20 09:56 Freq: Status: Active Protocol: Document 03/03/20 13:30 AMB (Rec: 03/03/20 14:34 AMB [id number]) Cardio Equipment Recumbent Elliptical ([employer]) Duration (Minutes) 3 Resistance 3 Therapeutic Exercises Supine Exercises 4 Supine Exercise Name piriformis stretch Reps/Minutes 10 seconds 3 Supine Exercise Name SLR Reps/Minutes 2x10 Comments c TA 2 Supine Exercise Name partial bridge with TA Reps/Minutes 5 sec x10 Comments cued core and glut facilitation with knees parallel 1 Supine Exercise Name IT band stretch Reps/Minutes 30x3 Comments with gait belt Sidelying Exercises 2 Sidelying Exercise Name clamshell Comments with TA 1 Sidelying Exercise Name hip abd Reps/Minutes 2x7 Comments with TA Manual Therapy Treatment Soft Tissue Mobilization 1 Body Location IT band rolling Comments bilateral with rolling pin PT-OP-T Assessment and Plan Start: 02/18/20 09:56 Freq: Status: Active Protocol: Document 03/03/20 13:30 AMB (Rec: 03/03/20 14:34 AMB [id number]) Physical Therapy Assessment Assessment Summary Assessment Marleen has started to notice an improvement in her walking tolerance, although it is small at this time. L knee is limited in ROM more so than R. Physical Therapy Plan Next Visit Focus/Plan Next Note Type Treatment Note Next Visit Plan Progress strengthening with glute and TA stabilization
--- NOTE | 2020-03-05 15:41 | PT.OTN ---
Current Diagnoses Dorsalgia, unspecified (03/05/20) Physical Therapy Treatment Note PT-OP-A Visit Information Start: 02/18/20 09:56 Freq: Status: Active Protocol: Document 03/05/20 13:31 AMB (Rec: 03/05/20 14:03 AMB [id number]) Out-Patient Physical Therapy Visit Information Visit Information Visit Type Treatment Note Visit Start Time 13:30 Visit Stop Time 14:15 Total Visit Minutes 45 Visit Number 5 Number of UNIT CONTROL WORKER Visits 0 PT-OP-B Current Condition Start: 02/18/20 09:56 Freq: Status: Active Protocol: Document 02/18/20 13:30 AMB (Rec: 02/18/20 13:43 AMB [id number]) Current Condition History of Current Condition Onset Date Years Current Complaints low back pain chronic History of Current Condition 2-3 blocks of walking, then has to stop and standing can relieve the pain- has to stand for about a minute. Points to pain and it is more over bilateral greater trochanters. Standing for an extended period increases R anterior hip pain. History of laminectomy, TKA L, PKA R. Bowling doesn't increase the pain. Aching pain in the back . Prior Treatments and Tests Cortisone shot didn't help Treatment Goals Patient/Caregiver Goals Reduce pain with walking, standing Prior Functional Status Baseline Function- ADL's Independent Baseline Function- Mobility Independent Current Functional Impairments (Reported) Functional Limitations- ADL's Lives in second floor and goes up and down stairs and doesn' t seem to increase pain. Needs to take more rest breaks due to pain Personal Factors Other Personal Factors That May Effect L knee pain with walking, Therapy/Recovery stairs PT-OP-C Subjective Start: 02/18/20 09:56 Freq: Status: Active Protocol: Document 03/03/20 13:30 AMB (Rec: 03/03/20 14:34 AMB [id number]) OP-PT Subjective Patient Comments Patient Comments Pt was sore after last visit, but did go on a long walk afterward. PT-OP-J Posture/Palpation/Skin Start: 02/18/20 09:56 Freq: Status: Active Protocol: Document 02/18/20 13:30 AMB (Rec: 02/18/20 16:07 AMB [id number]) Posture Evaluation Comments Posture Comments mild increased thoracic kyphosis Palpation Assessment Location One Palpation Details Mild tenderness and moderate stiffness with PAs to lumbar spine, denies radiating sx. Significant tenderness over hip flexors bilaterally, and over greater trochanters and IT band. PT-OP-K Range of Motion Start: 02/18/20 09:56 Freq: Status: Active Protocol: Document 02/18/20 13:30 AMB (Rec: 02/18/20 16:07 AMB [id number]) Lumbar Spine Range of Motion Lumbar Spine Active Degrees Testing Position Standing Flexion 60 Extension 20 Lateral Flexion Left 10 Lateral Flexion Right 15 PT-OP-M Strength Start: 02/18/20 09:56 Freq: Status: Active Protocol: Document 02/18/20 13:30 AMB (Rec: 02/18/20 16:07 AMB [id number]) Hip Strength Hip Manual Muscle Testing Left Flexion (L2) 4 Good Extension (S1) 4 Good Abduction 4 Good Adduction 4 Good Right Flexion (L2) 4 Good Extension (S1) 4 Good Abduction 4 Good Adduction 4 Good PT-OP-Q Treatments Start: 02/18/20 09:56 Freq: Status: Active Protocol: Document 03/05/20 13:31 AMB (Rec: 03/05/20 14:03 AMB [id number]) Cardio Equipment Recumbent Elliptical (Biodex) Duration (Minutes) 3 Resistance 3 Gym Equipment Shuttle Recovery Bilateral Squats Resistance 75 Shuttle Recovery Platform Stable Reps/Time 2x10 Therapeutic Exercises Supine Exercises 4 Supine Exercise Name piriformis stretch Reps/Minutes 30 secx6 3 Supine Exercise Name SLR Reps/Minutes 2x10 Comments c TA 2 Supine Exercise Name partial bridge with TA Reps/Minutes 5 sec x10 Comments cued core and glut facilitation with knees parallel Sidelying Exercises 2 Sidelying Exercise Name clamshell Reps/Minutes #3 t band Comments with TA PT-OP-T Assessment and Plan Start: 02/18/20 09:56 Freq: Status: Active Protocol: Document 03/05/20 13:30 AMB (Rec: 03/05/20 15:39 AMB [id number]) Physical Therapy Assessment Assessment Summary Assessment Isidoro is feeling a bit better, but encouraged to keep track of how often she is needing to stop for pain control Physical Therapy Plan Next Visit Focus/Plan Next Note Type Treatment Note Next Visit Plan Progress strengthening with glute and TA stabilization
--- NOTE | 2020-03-10 14:31 | PT.OTN ---
Current Diagnoses Dorsalgia, unspecified (03/10/20) Physical Therapy Treatment Note PT-OP-A Visit Information Start: 02/18/20 09:56 Freq: Status: Active Protocol: Document 03/10/20 13:53 SP (Rec: 03/10/20 14:36 SP [id number]) Out-Patient Physical Therapy Visit Information Visit Information Visit Type Treatment Note Visit Note COOPER APPRENTICE late bringing pt back. Visit Start Time 13:53 Visit Stop Time 14:31 Total Visit Minutes 38 Visit Number 6 Number of COOPER APPRENTICE Visits 1 PT-OP-B Current Condition Start: 02/18/20 09:56 Freq: Status: Active Protocol: Document 02/18/20 13:30 AMB (Rec: 02/18/20 13:43 AMB [id number]) Current Condition History of Current Condition Onset Date Years Current Complaints low back pain chronic History of Current Condition 2-3 blocks of walking, then has to stop and standing can relieve the pain- has to stand for about a minute. Points to pain and it is more over bilateral greater trochanters. Standing for an extended period increases R anterior hip pain. History of laminectomy, TKA L, PKA R. Bowling doesn't increase the pain. Aching pain in the back . Prior Treatments and Tests Cortisone shot didn't help Treatment Goals Patient/Caregiver Goals Reduce pain with walking, standing Prior Functional Status Baseline Function- ADL's Independent Baseline Function- Mobility Independent Current Functional Impairments (Reported) Functional Limitations- ADL's Lives in second floor and goes up and down stairs and doesn' t seem to increase pain. Needs to take more rest breaks due to pain Personal Factors Other Personal Factors That May Effect L knee pain with walking, Therapy/Recovery stairs PT-OP-C Subjective Start: 02/18/20 09:56 Freq: Status: Active Protocol: Document 03/10/20 13:53 SP (Rec: 03/10/20 14:36 SP [id number]) OP-PT Subjective Patient Comments Patient Comments Pt reported doing well with exercises at home. Patient Reported Progress Improving PT-OP-J Posture/Palpation/Skin Start: 02/18/20 09:56 Freq: Status: Active Protocol: Document 02/18/20 13:30 AMB (Rec: 02/18/20 16:07 AMB [id number]) Posture Evaluation Comments Posture Comments mild increased thoracic kyphosis Palpation Assessment Location One Palpation Details Mild tenderness and moderate stiffness with PAs to lumbar spine, denies radiating sx. Significant tenderness over hip flexors bilaterally, and over greater trochanters and IT band. PT-OP-K Range of Motion Start: 02/18/20 09:56 Freq: Status: Active Protocol: Document 02/18/20 13:30 AMB (Rec: 02/18/20 16:07 AMB [id number]) Lumbar Spine Range of Motion Lumbar Spine Active Degrees Testing Position Standing Flexion 60 Extension 20 Lateral Flexion Left 10 Lateral Flexion Right 15 PT-OP-M Strength Start: 02/18/20 09:56 Freq: Status: Active Protocol: Document 02/18/20 13:30 AMB (Rec: 02/18/20 16:07 AMB [id number]) Hip Strength Hip Manual Muscle Testing Left Flexion (L2) 4 Good Extension (S1) 4 Good Abduction 4 Good Adduction 4 Good Right Flexion (L2) 4 Good Extension (S1) 4 Good Abduction 4 Good Adduction 4 Good PT-OP-Q Treatments Start: 02/18/20 09:56 Freq: Status: Active Protocol: Document 03/10/20 13:53 SP (Rec: 03/10/20 14:36 SP [id number]) Gym Equipment Shuttle Recovery Unilateral squat Resistance 25#> 37# Shuttle Recovery Platform Stable Reps/Time 2 x10 Bilateral Squats Resistance 75 Shuttle Recovery Platform Stable Reps/Time 3x10 Therapeutic Exercises Supine Exercises 4 Supine Exercise Name piriformis stretch Equipment Used w/ gait belt loops (poor resident doctor strength) Reps/Minutes 30 secx6 3 Supine Exercise Name SLR w/ opposite leg bent Side bilateral Reps/Minutes 2x10 Comments c TA during eccentric movement 2 Supine Exercise Name partial bridge with TA Reps/Minutes 5 sec x10 Comments occasisonal cue for core and glut facilitation with knees parallel 1 Supine Exercise Name IT band stretch Side bilateral Reps/Minutes 30x3 Comments with gait belt in opp hand Sidelying Exercises 1 Sidelying Exercise Name hip abd (bent opp knee) Reps/Minutes 2x7 Comments with TA and stacked hips PT-OP-T Assessment and Plan Start: 02/18/20 09:56 Freq: Status: Active Protocol: Document 03/10/20 13:53 SP (Rec: 03/10/20 14:36 SP [id number]) Physical Therapy Assessment Goals Three Impairment exercise program Short Term Goal (STG) Marleen will be independent and consistent with a HEP. 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 STG Duration 4 weeks One Impairment gait Short Term Goal (STG) Marleen will walk for 2 minutes over flat terrain without needing to stop due to pain. STG Duration 4 weeks Snf Goal (LTG) Marleen will ambulate in the community with mild inclines and declines for 10 minutes without stopping due to pain. LTG Duration 8 weeks Assessment Summary Assessment Extra time spent cuing proper form with HEP to allow glut facilitation. Next tx add TB loop to shuttle press B and continue SL. I can really feel that glut now, much better like working. Physical Therapy Plan Frequency and Duration Frequency of Treatment 2x/Week Duration of Treatment 8 weeks Plan of Care Start Date 02/18/20 Plan of Care End Date 04/14/20 Therapeutic Interventions Therapeutic Interventions Gait Training,Home Exercise Program,Manual Therapy, Neuromuscular Re-education, Self-Care/Home Management, Therapeutic Activities, Therapeutic Exercises Modalities Cold Pack/Ice Massage,Electric Stimulation,Hot Packs Next Visit Focus/Plan Next Note Type Treatment Note Next Visit Plan Progress strengthening with glute and TA stabilization
--- NOTE | 2020-03-20 13:00 | PT.OTN ---
Current Diagnoses Dorsalgia, unspecified (03/20/20) Physical Therapy Treatment Note PT-OP-A Visit Information Start: 02/18/20 09:56 Freq: Status: Active Protocol: Document 03/20/20 12:15 SP (Rec: 03/20/20 13:17 SP [id number]) Out-Patient Physical Therapy Visit Information Visit Information Visit Type Treatment Note Visit Start Time 12:15 Visit Stop Time 13:00 Total Visit Minutes 45 Visit Number 7 Number of LUGGAGE REPAIRER Visits 2 PT-OP-B Current Condition Start: 02/18/20 09:56 Freq: Status: Active Protocol: Document 02/18/20 13:30 AMB (Rec: 02/18/20 13:43 AMB [id number]) Current Condition History of Current Condition Onset Date Years Current Complaints low back pain chronic History of Current Condition 2-3 blocks of walking, then has to stop and standing can relieve the pain- has to stand for about a minute. Points to pain and it is more over bilateral greater trochanters. Standing for an extended period increases R anterior hip pain. History of laminectomy, TKA L, PKA R. Bowling doesn't increase the pain. Aching pain in the back . Prior Treatments and Tests Cortisone shot didn't help Treatment Goals Patient/Caregiver Goals Reduce pain with walking, standing Prior Functional Status Baseline Function- ADL's Independent Baseline Function- Mobility Independent Current Functional Impairments (Reported) Functional Limitations- ADL's Lives in second floor and goes up and down stairs and doesn' t seem to increase pain. Needs to take more rest breaks due to pain Personal Factors Other Personal Factors That May Effect L knee pain with walking, Therapy/Recovery stairs PT-OP-C Subjective Start: 02/18/20 09:56 Freq: Status: Active Protocol: Document 03/20/20 12:15 SP (Rec: 03/20/20 13:17 SP [id number]) OP-PT Subjective Patient Comments Patient Comments Pt reported little busy yesterday to get to HEP but doing well and compliant otherwise. Was able to walk with daughters 6/10 mile with no increase in pain 4/10 and didn't need to stop for a rest , very pleased. Patient Reported Progress Improving PT-OP-J Posture/Palpation/Skin Start: 02/18/20 09:56 Freq: Status: Active Protocol: Document 02/18/20 13:30 AMB (Rec: 02/18/20 16:07 AMB [id number]) Posture Evaluation Comments Posture Comments mild increased thoracic kyphosis Palpation Assessment Location One Palpation Details Mild tenderness and moderate stiffness with PAs to lumbar spine, denies radiating sx. Significant tenderness over hip flexors bilaterally, and over greater trochanters and IT band. PT-OP-K Range of Motion Start: 02/18/20 09:56 Freq: Status: Active Protocol: Document 02/18/20 13:30 AMB (Rec: 02/18/20 16:07 AMB [id number]) Lumbar Spine Range of Motion Lumbar Spine Active Degrees Testing Position Standing Flexion 60 Extension 20 Lateral Flexion Left 10 Lateral Flexion Right 15 PT-OP-M Strength Start: 02/18/20 09:56 Freq: Status: Active Protocol: Document 02/18/20 13:30 AMB (Rec: 02/18/20 16:07 AMB [id number]) Hip Strength Hip Manual Muscle Testing Left Flexion (L2) 4 Good Extension (S1) 4 Good Abduction 4 Good Adduction 4 Good Right Flexion (L2) 4 Good Extension (S1) 4 Good Abduction 4 Good Adduction 4 Good PT-OP-Q Treatments Start: 02/18/20 09:56 Freq: Status: Active Protocol: Document 03/20/20 12:15 SP (Rec: 03/20/20 13:17 SP [id number]) Gym Equipment Shuttle Recovery Unilateral squat Details B alternate Resistance 37# Shuttle Recovery Platform Stable Reps/Time 2 x15 Bilateral Squats Resistance 75 Shuttle Recovery Platform Stable Reps/Time 3x12 Sport Cord green Exercise Details f/b/side stepping Cord/Resistance green Reps/Duration 5 reps each direction Comments cued slow pacing, PPT and core facilitation awareness with good feedback results. Therapeutic Exercises Supine Exercises 3 Supine Exercise Name SLR w/ opposite leg bent Side bilateral Reps/Minutes 2x10 Comments c TA during eccentric movement , no higher than other knee bent core may Supine Exercise Name Single TA may Reps/Minutes 5 reps lead each LE Comments cued slow pacing control eccentric descent and contact table 2 Supine Exercise Name bridge with TA Resistance AROM- good increase range Reps/Minutes 5 sec x10 Comments occasisonal cue for core and glut facilitation with knees parallel Sidelying Exercises 1 Sidelying Exercise Name hip abd (bent opp knee) Reps/Minutes 2x7 Comments with TA and stacked hips glut fac. Standing Exercises sit to stands Standing Exercise Name arms across chest Equipment Used 18 chair Reps/Minutes x10 Comments cued hip hinge, soft ecceentric land lumbar ext stretch Resistance AROM/ stretch Reps/Minutes 5 reps Comments cued hands on hips gentle stretch TA resisted rows Standing Exercise Name add HEP Resistance Tb #1 Reps/Minutes 2x10 Comments cued PPT, scap stab, normal ELANA w/stagger stance PT-OP-T Assessment and Plan Start: 02/18/20 09:56 Freq: Status: Active Protocol: Document 03/20/20 12:15 SP (Rec: 03/20/20 13:17 SP [id number]) Physical Therapy Assessment Goals Three Impairment exercise program Short Term Goal (STG) Marleen will be independent and consistent with a HEP. STG Duration 4 weeks Two Impairment standing tolerance Short Term Goal (STG) Marleen will rn clinician her kitchen for 20 minutes without iliopsoas pain. STG Duration 4 weeks One Impairment gait Short Term Goal (STG) Marleen will walk for 2 minutes over flat terrain without needing to stop due to pain. STG Duration 4 weeks Custodial Goal (LTG) Marleen will ambulate in the community with mild inclines and declines for 10 minutes without stopping due to pain. LTG Duration 8 weeks Assessment Summary Assessment Pt is able to walk 1/2 mile onlevel surfaces at home, has been avoiding incline/ decline due to back recruitment discomfort, improve with sport cord and PPT slow control SL descend/ land to reassess hills at home, good response no pain. Pt improved in TA facilitation during all exercises, occasional cuing for slow pacing control eccentric directioning. Added back ext stretch, resisted TA rows and initated sport cord resisted stepping with good feedback results. Cued knee alignment and glut facilitation during shuttle recovery. No pain end of tx. Physical Therapy Plan Frequency and Duration Frequency of Treatment 2x/Week Duration of Treatment 8 weeks Plan of Care Start Date 02/18/20 Plan of Care End Date 04/14/20 Therapeutic Interventions Therapeutic Interventions Gait Training,Home Exercise Program,Manual Therapy, Neuromuscular Re-education, Self-Care/Home Management, Therapeutic Activities, Therapeutic Exercises Modalities Cold Pack/Ice Massage,Electric Stimulation,Hot Packs Next Visit Focus/Plan Next Note Type Treatment Note Next Visit Plan Assess response to HEP review , added back ext, resisted rows and sport cord TA last tx . Continue per PT POC: Progress strengthening with glute and TA stabilization
--- NOTE | 2020-03-24 15:50 | PT.OTN ---
Current Diagnoses Dorsalgia, unspecified (03/24/20) Physical Therapy Treatment Note PT-OP-A Visit Information Start: 02/18/20 09:56 Freq: Status: Active Protocol: Document 03/24/20 13:30 AMB (Rec: 03/24/20 14:17 AMB [id number]) Out-Patient Physical Therapy Visit Information Visit Information Visit Type Treatment Note Visit Start Time 13:30 Visit Stop Time 14:10 Total Visit Minutes 40 Visit Number 8 Number of RECREATIONAL VEHICLE REPAIRER Visits 0 PT-OP-B Current Condition Start: 02/18/20 09:56 Freq: Status: Active Protocol: Document 02/18/20 13:30 AMB (Rec: 02/18/20 13:43 AMB [id number]) Current Condition History of Current Condition Onset Date Years Current Complaints low back pain chronic History of Current Condition 2-3 blocks of walking, then has to stop and standing can relieve the pain- has to stand for about a minute. Points to pain and it is more over bilateral greater trochanters. Standing for an extended period increases R anterior hip pain. History of laminectomy, TKA L, PKA R. Bowling doesn't increase the pain. Aching pain in the back . Prior Treatments and Tests Cortisone shot didn't help Treatment Goals Patient/Caregiver Goals Reduce pain with walking, standing Prior Functional Status Baseline Function- ADL's Independent Baseline Function- Mobility Independent Current Functional Impairments (Reported) Functional Limitations- ADL's Lives in second floor and goes up and down stairs and doesn' t seem to increase pain. Needs to take more rest breaks due to pain Personal Factors Other Personal Factors That May Effect L knee pain with walking, Therapy/Recovery stairs PT-OP-C Subjective Start: 02/18/20 09:56 Freq: Status: Active Protocol: Document 03/24/20 13:30 AMB (Rec: 03/24/20 14:17 AMB [id number]) OP-PT Subjective Patient Comments Patient Comments Does still have to go backwards when going up a hill after about half way through, but was able to go .6 miles without stopping. PT-OP-J Posture/Palpation/Skin Start: 02/18/20 09:56 Freq: Status: Active Protocol: Document 02/18/20 13:30 AMB (Rec: 02/18/20 16:07 AMB [id number]) Posture Evaluation Comments Posture Comments mild increased thoracic kyphosis Palpation Assessment Location One Palpation Details Mild tenderness and moderate stiffness with PAs to lumbar spine, denies radiating sx. Significant tenderness over hip flexors bilaterally, and over greater trochanters and IT band. PT-OP-K Range of Motion Start: 02/18/20 09:56 Freq: Status: Active Protocol: Document 02/18/20 13:30 AMB (Rec: 02/18/20 16:07 AMB [id number]) Lumbar Spine Range of Motion Lumbar Spine Active Degrees Testing Position Standing Flexion 60 Extension 20 Lateral Flexion Left 10 Lateral Flexion Right 15 PT-OP-M Strength Start: 02/18/20 09:56 Freq: Status: Active Protocol: Document 02/18/20 13:30 AMB (Rec: 02/18/20 16:07 AMB [id number]) Hip Strength Hip Manual Muscle Testing Left Flexion (L2) 4 Good Extension (S1) 4 Good Abduction 4 Good Adduction 4 Good Right Flexion (L2) 4 Good Extension (S1) 4 Good Abduction 4 Good Adduction 4 Good PT-OP-Q Treatments Start: 02/18/20 09:56 Freq: Status: Active Protocol: Document 03/24/20 13:30 AMB (Rec: 03/24/20 15:41 AMB [id number]) Gym Equipment Sport Cord green Exercise Details f/b/side stepping Cord/Resistance green Reps/Duration 5 reps each direction Comments cued slow pacing, PPT and core facilitation awareness with good feedback - some soreness wiht side stepping Therapeutic Exercises Supine Exercises 1 Supine Exercise Name IT band stretch Side bilateral Reps/Minutes 30x3 Comments with gait belt in opp hand Sidelying Exercises 2 Sidelying Exercise Name clamshell Resistance #2 t band Reps/Minutes 1x10 1 Sidelying Exercise Name hip abd (bent opp knee) Reps/Minutes 2x7 Comments with TA and stacked hips glut fac. Standing Exercises sit to stands Standing Exercise Name arms across chest Equipment Used 18 chair Reps/Minutes x10 Comments cued hip hinge, soft ecceentric land TA resisted rows Standing Exercise Name add HEP Resistance Tb #2 Reps/Minutes 2x10 Comments cued PPT, scap stab, normal ELANA w/stagger stance PT-OP-T Assessment and Plan Start: 02/18/20 09:56 Freq: Status: Active Protocol: Document 03/24/20 13:30 AMB (Rec: 03/24/20 15:41 AMB [id number]) Physical Therapy Assessment Goals Three Impairment exercise program Short Term Goal (STG) Marleen will be independent and consistent with a HEP. STG Duration 4 weeks Two Impairment standing tolerance Short Term Goal (STG) Marleen will ocean transportation intermediary her kitchen for 20 minutes without iliopsoas pain. STG Duration 4 weeks One Impairment gait Short Term Goal (STG) Marleen will walk for 2 minutes over flat terrain without needing to stop due to pain. STG Duration MET Detention Goal (LTG) Marleen will ambulate in the community with mild inclines and declines for 10 minutes without stopping due to pain. LTG Duration 8 weeks Assessment Summary Assessment Pt continues to find hills challenging, did well with resisted clamshells today, but does continue to have pain in hips/ back. d/john piriformis stretch due to knee pain. Physical Therapy Plan Frequency and Duration Frequency of Treatment 2x/Week Duration of Treatment 8 weeks Plan of Care Start Date 02/18/20 Plan of Care End Date 04/14/20 Therapeutic Interventions Therapeutic Interventions Gait Training,Home Exercise Program,Manual Therapy, Neuromuscular Re-education, Self-Care/Home Management, Therapeutic Activities, Therapeutic Exercises Modalities Cold Pack/Ice Massage,Electric Stimulation,Hot Packs Next Visit Focus/Plan Next Note Type Treatment Note Next Visit Plan Assess response to HEP review , added back ext, resisted rows and sport cord TA last tx . Continue per PT POC: Progress strengthening with glute and TA stabilization
--- NOTE | 2020-07-20 11:39 | PT.OPDS ---
Current Diagnoses Dorsalgia, unspecified (03/24/20) Visit Care Team Role Provider Type Julio Cedeño MD Attending Provider Physician Primary Care Provider Referring Provider Specialty: [facility] Address: [address] [place] [address], [facility] Email: [email or web address] Visit Number Visit Number [id number] Discharge Summary PT-OP-B Current Condition Start: 02/18/20 09:56 Freq: Status: Active Protocol: Document 02/18/20 13:30 AMB (Rec: 02/18/20 13:43 AMB [id number]) Current Condition History of Current Condition Onset Date Years Current Complaints low back pain chronic History of Current Condition 2-3 blocks of walking, then has to stop and standing can relieve the pain- has to stand for about a minute. Points to pain and it is more over bilateral greater trochanters. Standing for an extended period increases R anterior hip pain. History of laminectomy, TKA L, PKA R. Bowling doesn't increase the pain. Aching pain in the back . Prior Treatments and Tests Cortisone shot didn't help Treatment Goals Patient/Caregiver Goals Reduce pain with walking, standing Prior Functional Status Baseline Function- ADL's Independent Baseline Function- Mobility Independent Current Functional Impairments (Reported) Functional Limitations- ADL's Lives in second floor and goes up and down stairs and doesn' t seem to increase pain. Needs to take more rest breaks due to pain Personal Factors Other Personal Factors That May Effect L knee pain with walking, Therapy/Recovery stairs PT-OP-C Subjective Start: 02/18/20 09:56 Freq: Status: Active Protocol: Document 03/24/20 13:30 AMB (Rec: 03/24/20 14:17 AMB [id number]) OP-PT Subjective Patient Comments Patient Comments Does still have to go backwards when going up a hill after about half way through, but was able to go .6 miles without stopping. PT-OP-J Posture/Palpation/Skin Start: 02/18/20 09:56 Freq: Status: Active Protocol: Document 02/18/20 13:30 AMB (Rec: 02/18/20 16:07 AMB [id number]) Posture Evaluation Comments Posture Comments mild increased thoracic kyphosis Palpation Assessment Location One Palpation Details Mild tenderness and moderate stiffness with PAs to lumbar spine, denies radiating sx. Significant tenderness over hip flexors bilaterally, and over greater trochanters and IT band. PT-OP-K Range of Motion Start: 02/18/20 09:56 Freq: Status: Active Protocol: Document 02/18/20 13:30 AMB (Rec: 02/18/20 16:07 AMB [id number]) Lumbar Spine Range of Motion Lumbar Spine Active Degrees Testing Position Standing Flexion 60 Extension 20 Lateral Flexion Left 10 Lateral Flexion Right 15 PT-OP-M Strength Start: 02/18/20 09:56 Freq: Status: Active Protocol: Document 02/18/20 13:30 AMB (Rec: 02/18/20 16:07 AMB [id number]) Hip Strength Hip Manual Muscle Testing Left Flexion (L2) 4 Good Extension (S1) 4 Good Abduction 4 Good Adduction 4 Good Right Flexion (L2) 4 Good Extension (S1) 4 Good Abduction 4 Good Adduction 4 Good PT-OP-T Assessment and Plan Start: 02/18/20 09:56 Freq: Status: Active Protocol: Document 07/20/20 11:38 AMB (Rec: 07/20/20 11:39 AMB [id number]) Physical Therapy Assessment Assessment Summary Assessment Pt fell the day after she was seen here last while walking and fractured her radius, so she stopped coming to PT and eventually went to PT for her hand. Therefore this course of PT is discharged as she had a medical change and stopped coming to PT. Physical Therapy Plan Discharge Physical Therapy Discharge Reasons Change in Medical Status
== END 2020-07-21 14:28 | disposition home or self-care (01) ==
LOC: PHYS 13:30
PROVIDERS: PCP Family Medicine; Referring Provider Family Medicine; Visit Provider Family Medicine
DX: M54.9 Dorsalgia, unspecified (principal)
CPT/HCPCS: 97110; 97140; 97161

== ENCOUNTER 2020-03-25 13:17 | Emergency (ER) | payer MEDICARE, SELFPAY ==
[2020-03-25 13:22] VITALS: BP 193/86; PULSE 80; RESP 20; TEMP 36.3; O2SAT 99
--- NOTE | 2020-03-25 13:27 | DI.RAD.S_ITS ---
PROCEDURE: XR RIBS LT MIN 3V W CXR1V INDICATIONS: L rib pain post fall TECHNIQUE: 2 views of the left ribs were acquired, along with a single view chest. COMPARISON: None. FINDINGS: Surgical changes and devices: None. Bones and chest wall: No fractures or dislocations. No suspicious bony lesions. Overlying soft tissues appear unremarkable. Lungs and pleura: No pleural effusions or pneumothorax. Lungs appear clear. Mediastinum: Mediastinal contours appear normal. Heart size is normal. IMPRESSION: No gross displaced left rib fracture is seen. No acute cardiopulmonary pathology. Dictated by: Michi Dennison M.D. on 03/25/2020 at 14:24 Approved by: Michi Dennison M.D. on 03/25/2020 at 14:25
--- NOTE | 2020-03-25 13:27 | DI.RAD.S_ITS ---
PROCEDURE: XR WRIST LT MIN 3V INDICATIONS: L wrist pain, FOOSH TECHNIQUE: For views of the wrist were acquired. COMPARISON: None. FINDINGS: Bones: Linear calcification along lateral periphery of radial styloid is seen concerning for age indeterminate fracture in this area. No other fracture or dislocation. Mild osteoarthritic changes along radial aspect of left wrist are seen. No suspicious bony lesions. Scaphoid view: Scaphoid is grossly intact. Soft tissues: No suspicious soft tissue calcifications. IMPRESSION: Suggestion of age indeterminate avulsion injury involving lateral cortex of distal radius /radial styloid. No other fracture or dislocation. Mild wrist joint osteoarthritis. Dictated by: Michi Dennison M.D. on 03/25/2020 at 14:25 Approved by: Michi Dennison M.D. on 03/25/2020 at 14:30
--- NOTE | 2020-03-25 13:27 | DI.RAD.S_ITS ---
PROCEDURE: XR HAND LT MIN 3V INDICATIONS: L hand pain post fall TECHNIQUE: 3 views of the hand(s) acquired. COMPARISON: None. FINDINGS: Bones: No fractures or dislocations. Osteoarthritic changes throughout left hand are seen more prominent in the interphalangeal joints. Carpal bones are normally aligned. No suspicious bony lesions. Soft tissues: No suspicious soft tissue calcifications. IMPRESSION: No acute left hand fracture or dislocation. Osteoarthritic changes throughout left hand and wrist more prominent in interphalangeal joints. Dictated by: Michi Dennison M.D. on 03/25/2020 at 14:04 Approved by: Michi Dennison M.D. on 03/25/2020 at 14:24
[2020-03-25] MEDS: ACETAMINOPHEN 325 MG TABLET 975 MG PO (13:50)
--- NOTE | 2020-03-25 13:54 | ED.FALL ---
HPI - Fall <GAGANDEEP Leal - Last Filed: 03/25/20 15:52> General Chief Complaint: Fall Stated Complaint: FALL HAND AND WRIST PAIN RIB PAIN HIT HEAD Time Seen by Provider: 03/25/20 13:19 Source: patient Mode of arrival: Ambulatory History of Present Illness HPI Narrative: 79-year-old female presenting to the emergency department after a fall. She [place] got caught in a crack in the cement and she fell forward. She states she fell on to her left side hitting her head on the cement and falling onto her left hand. She immediately was able to get up after her fall, she noted some facial pain and left hand pain. She denies any loss of consciousness or vomiting or headaches. Patient drove herself home and had her friend take her to the emergency department. Patient complains of wrist and hand pain. She notes some bruising on her left side of her cheek. She denies taking any blood thinners. Patient also complains of some left rib pain when she takes a deep breath. She denies any difficulty walking, no hip pain, no knee or feet being. Patient denies any fevers, chills, nausea, vomiting, diarrhea, chest pain, shortness of breath, or any other concerns. Related Data Home Medications Medication Instructions Recorded Confirmed CA PANTOTHENATE/FOLIC ACID/VIT 1 tab PO Q DAY #0 12/30/11 02/19/20 (MULTIVITAMIN) CALCIUM CARBONATE (Calcium) 1,200 mg PO QDAY #0 12/30/11 02/19/20 coenzyme Q10 [Co Q-10] 100 mg PO #0 07/11/17 02/19/20 cholecalciferol (vitamin D3) 50 2,000 unit PO DAILY 06/05/18 02/19/20 mcg (2,000 unit) capsule Fish Oil (#CARDI-OMEGA) 2,000 mg PO Q DAY #0 12/05/19 02/19/20 aspirin 81 mg tablet,delayed 81 mg PO DAILY 12/05/19 02/19/20 release Previous Rx's Medication Instructions Recorded triamcinolone acetonide 0.1 % 1 applictn TOP BID #30 gram 10/11/19 topical cream lovastatin 40 mg tablet See Rx Instructions .ROUTE 02/05/20 .COMPLEX #90 tablet levothyroxine 100 mcg tablet 100 mcg PO QAM #90 tab 02/11/20 tramadol 50 mg PO Q8H PRN #14 tab 03/25/20 Allergies Allergy/AdvReac Type Severity Reaction Status Date / Time dexamethasone [DEXAMETHASONE] Allergy Mild HEADACHE Verified 02/19/20 14:29 Sulfa (Sulfonamide Allergy Unknown Verified 02/19/20 14:29 Antibiotics) azithromycin Allergy Verified 02/19/20 14:29 erythromycin base AdvReac Mild DIARRHEA Verified 02/19/20 14:29 [ERYTHROMYCIN BASE] AND ABDOMINAL PAIN saccharin [SACCHARIN] AdvReac Mild DIARRHEA Verified 02/19/20 14:29 AND ABD PAIN Review of Systems <GAGANDEEP Leal - Last Filed: 03/25/20 15:52> Review of Systems Narrative: REVIEW OF SYSTEMS: GENERAL: Denies fever. HENT: Reports bruising to left side of her cheek, see HPI. EYES: No double vision or vision loss. CARDIOVASCULAR: No chest pain. RESPIRATORY: No shortness of breath or cough. GASTROINTESTINAL: No nausea or vomiting. GENITOURINARY: No flank pain. MUSCULOSKELETAL: Complains of left wrist and ribs pain, see HPI. INTEGUMENTARY: No rash, lesions, or pruritus. NEURO: No numbness or tingling. PSYCH: No behavior or mood changes. Patient History <GAGANDEEP Leal - Last Filed: 03/25/20 15:52> Medical History (Updated 03/25/20 @ 15:11 by GAGANDEEP Leal) Ankle fracture, left (~1992) Chickenpox (~1944) Chronic back pain (~1981) Gastric ulcer Hemorrhoids (~2009) History of heavy periods (~1979) History of recurrent ear infection Hyperlipidemia Hypothyroidism (~1979) Measles (~1955) Osteoarthritis (~1999) Osteoporosis Psoriasis (~1982) Rosacea Shingles (~2015) Skin cancer (~2011) Tinnitus (~2011) Surgical History Anesthesia History of knee replacement Status post arthroscopy Status post dilation and curettage Status post hysterectomy Status post laminectomy Family History Brother Heart disease Mother Heart disease Grandfather Cancer Grandmother Cancer Social History marital status: Smoking Status: Former smoker alcohol intake: current (1-2 A DAY ) substance use type: does not use Smoking Status: Former smoker alcohol intake frequency: 0-2 drinks per day Alcohol type: wine Substance Use Type: marijuana Exam <GAGANDEEP Leal - Last Filed: 03/25/20 15:52> Initial Vital Signs Initial Vital Signs: Vital Signs Temperature 97.4 F L 03/25/20 13:22 Pulse Rate 80 03/25/20 13:22 Respiratory Rate 20 03/25/20 13:22 Blood Pressure 193/86 H 03/25/20 13:22 Pulse Oximetry 99 03/25/20 13:22 PHYSICAL EXAMINATION: GENERAL: Well groomed, alert, and cooperative. Answers questions promptly and appropriately. HENT: Normocephalic, approximately 2 cm of ecchymosis noted to lateral aspect of left orbital bone, 2-3 cm of ecchymosis in diameter noted to left zygomatic process. Small amount of swelling. No pain with palpation to ocular bones, nasal bone, or zygomatic bones. EYES: PERRLA, EOMIs, symmetrical, sclera white, no periorbital swelling. NECK: No tenderness with palpation C-spine, full range of motion CARDIOVASCULAR: S1 and S2 sounds normal. Regular rate and rhythm, no murmurs, clicks, or bruits. No pedal edema. CHEST: Tenderness to palpation of left lower ribs approximately number 6-7. RESPIRATORY: Normal respiratory rate, trachea midline, airway patent. No stridor, nasal flaring or accessory muscle use. Lungs are clear in all wright. MUSCULOSKELETAL: Tenderness to palpation of left wrist, increased radial tenderness. Small amount ecchymosis and swelling noted. Some tenderness to palpation of metatarsals. Normal gait and coordination. Equal tone and mass bilaterally. No spinal tenderness or deformities. EXTREMITIES: CMS intact. SKIN: Warm, dry, soft, appropriate color for ethnicity. No lesions, rashes, or wounds. NEURO: Alert and Oriented X 3. No sensory deficits. PSYCH: Appropriate affect and mood. <Diana Briscoe DO - Last Filed: 03/25/20 18:30> Initial Vital Signs Initial Vital Signs: Vital Signs Temperature 97.4 F L 03/25/20 13:22 Pulse Rate 80 03/25/20 13:22 Respiratory Rate 20 03/25/20 13:22 Blood Pressure 193/86 H 03/25/20 13:22 Pulse Oximetry 99 03/25/20 13:22 Procedures <GAGANDEEP Leal - Last Filed: 03/25/20 15:52> Orthopedic Splinting/Casting Injury #1: Side: left Upper Extremity Injury Location: forearm Upper Extremity Immobilizer: sling/shoulder immobilizer and sugar tong splint Post splinting neuro exam: intact Post splinting vascular exam: intact Placed by: Nursing Scores <GAGANDEEP Leal - Last Filed: 03/25/20 15:52> GCS Cadott coma scale eye opening: Spontaneous Cadott coma scale verbal response: Orientated Bhargav coma scale motor response: Obey commands Bhargav coma scale total score: 15 Nexus Score for C-Spine Focal Neurologic deficit present: No Midline spinal tenderness present: No Altered level of conciousness present: No Intoxication present: No Distracting Injury Present: No Nexus Criteria for C-spine: 0 Course <GAGANDEEP Leal - Last Filed: 03/25/20 15:52> Course Course Narrative: I discussed with patient that a CT is not currently indicated at this time. However, given age she has an increased risk of intracranial injury. However, her exam is reassuring in her history is reassuring. Patient states ?I do not feel like it is needed at this time Orders Ordered: ED Orders 03/25/20 13:27 XR hand LT min 3V Stat XR ribs LT min 3V w CXR1V Stat XR wrist LT min 3V Stat Discontinued Medications Acetaminophen (Acetaminophen 325 Mg Tablet) 975 mg PO NOW ONE Stop: 03/25/20 13:32 Last Admin: 03/25/20 13:50 Dose: 975 mg Documented by: ISIDORO Vital Signs Vital signs: Vital Signs - 8 hr 03/25/20 13:22 03/25/20 15:40 Temperature 97.4 F L Pulse Rate 80 77 Respiratory Rate 20 16 Blood Pressure 193/86 H 179/77 H Pulse Oximetry 99 97 <Diana Briscoe DO - Last Filed: 03/25/20 18:30> Orders Ordered: ED Orders 03/25/20 13:27 XR hand LT min 3V Stat XR ribs LT min 3V w CXR1V Stat XR wrist LT min 3V Stat Discontinued Medications Acetaminophen (Acetaminophen 325 Mg Tablet) 975 mg PO NOW ONE Stop: 03/25/20 13:32 Last Admin: 03/25/20 13:50 Dose: 975 mg Documented by: ISIDORO Vital Signs Vital signs: Vital Signs - 8 hr 03/25/20 13:22 03/25/20 15:40 Temperature 97.4 F L Pulse Rate 80 77 Respiratory Rate 20 16 Blood Pressure 193/86 H 179/77 H Pulse Oximetry 99 97 MDM - Fall <GAGANDEEP Leal - Last Filed: 03/25/20 15:52> Medical Records Attestation: I reviewed the patient's medical records. Lab Data Attestation: I reviewed the patient's lab results. Imaging Data Extremity x-ray #1: Radiologist's Impression: [address] [id number] ReportSigned Patient: RadhaarianneMarleen johnsonR#: [id number]: 1940Acct:[id number]/Sex: 79 / FDate of Service: 03/25/20Loc: EDAccession Number: [id number] Procedure: XR wrist LT min 3V Ordering Provider: Marge Miller PROCEDURE: XR WRIST LT MIN 3V INDICATIONS: L wrist pain, FOOSH TECHNIQUE: For views of the wrist were acquired. COMPARISON: None. FINDINGS: Bones: Linear calcification along lateral periphery of radial styloid is seen concerning for age indeterminate fracture in this area. No other fracture or dislocation. Mild osteoarthritic changes along radial aspect of left wrist are seen. No suspicious bony lesions. Scaphoid view: Scaphoid is grossly intact. Soft tissues: No suspicious soft tissue calcifications. IMPRESSION: Suggestion of age indeterminate avulsion injury involving lateral cortex of distal radius /radial styloid. No other fracture or dislocation. Mild wrist joint osteoarthritis. Dictated by: Michi Dennison M.D. on 03/25/2020 at 14:25 Approved by: Michi Dennison M.D. on 03/25/2020 at 14:30 Extremity x-ray #2: Radiologist's Impression: [address] [id number] ReportSigned Patient: McCMarleen song JMR#: [id number]: 1940Acct:[id number]/Sex: 79 / FDate of Service: 03/25/20Lo: EDAccession Number: [id number] Procedure: XR hand LT min 3V Ordering Provider: Marge Miller PROCEDURE: XR HAND LT MIN 3V INDICATIONS: L hand pain post fall TECHNIQUE: 3 views of the hand(s) acquired. COMPARISON: None. FINDINGS: Bones: No fractures or dislocations. Osteoarthritic changes throughout left hand are seen more prominent in the interphalangeal joints. Carpal bones are normally aligned. No suspicious bony lesions. Soft tissues: No suspicious soft tissue calcifications. IMPRESSION: No acute left hand fracture or dislocation. Osteoarthritic changes throughout left hand and wrist more prominent in interphalangeal joints. Dictated by: Michi Dennison M.D. on 03/25/2020 at 14:04 Approved by: Michi Dennison M.D. on 03/25/2020 at 14:24 Rib Xray: Radiologist's Impression: [address] [id number] ReportSigned Patient: Marleen Cevallos R#: [id number]: 1940Acct:[id number]/Sex: 79 / FDate of Service: 03/25/20[facility]: EDAccession Number: [id number] Procedure: XR ribs LT min 3V w CXR1V Ordering Provider: Marge Miller PROCEDURE: XR RIBS LT MIN 3V W CXR1V INDICATIONS: L rib pain post fall TECHNIQUE: 2 views of the left ribs were acquired, along with a single view chest. COMPARISON: None. FINDINGS: Surgical changes and devices: None. Bones and chest wall: No fractures or dislocations. No suspicious bony lesions. Overlying soft tissues appear unremarkable. Lungs and pleura: No pleural effusions or pneumothorax. Lungs appear clear. Mediastinum: Mediastinal contours appear normal. Heart size is normal. IMPRESSION: No gross displaced left rib fracture is seen. No acute cardiopulmonary pathology. Dictated by: Michi Dennison M.D. on 03/25/2020 at 14:24 Approved by: Michi Dennison M.D. on 03/25/2020 at 14:25 [facility] Narrative Medical decision making narrative: 79-year-old female presenting to the emergency department for left wrist pain, hand pain, rib pain, and head injury post fall. Patient's fall is clearly mechanical, she is a clear historian and continues to be alert and awake, very independent. No indication for head CT, discussed this with patient who stated she would rather past this time. Neuro exam intact, no significant pain with palpation of facial bones less suspicion of fracture. No nausea or vomiting or syncope post fall. Rib x-rays negative. There is an age determinate possible radial avulsion fracture, patient is tender in this area and due to recent history of a FOOSH today, and increased suspicion of fracture. Patient's arm was placed in a sugar-tong splint. We discussed pain medication, encourage Tylenol. Less ibuprofen as she has had a history of an duodenal ulcer. Patient states she has taken tramadol in the past and would prefer to have a few on hand if the pain worsens. She was counseled against driving and tramadol. Return precautions given for new or worsening symptoms, she agrees to plan of care verbalized understanding. She is encouraged to follow-up with an orthopedic. Discharge Plan Departure Patient Disposition: Home Clinical Impression: Closed fracture of radial styloid Qualifiers: Encounter type: initial encounter Fracture alignment: nondisplaced Laterality: left Qualified Code(s): S52.515A - Nondisplaced fracture of left radial styloid process, initial encounter for closed fracture Instructions: DI for Forearm Fracture, How to Prevent Falls Activity Restrictions/Additional Instructions: Thank you for entrusting me with your care today. As discussed, it appears you have a fracture in your left wrist. We have applied a splint, please keep this on until you are evaluated by an orthopedic. Call the number below to schedule an appointment. You can take a 1000 mg of acetaminophen every 6 hours as needed for pain. I prescribed you tramadol, use this in addition to the acetaminophen as needed for worsening pain. You have been prescribed a narcotic medication, this medication can make you drowsy. Do not drive while using this medication or perform activities that require mental alertness. These medications can also make you constipated, please use [id number] docusate sodium as needed for constipation. Your prescription was sent to [facility] in [place]. Return emergency department for any new or worsening symptoms such as severe pain, numbness or tingling in your hand, blue extremities, vomiting, vision changes, or any other concerns. Prescriptions: New tramadol 50 mg tablet 50 mg PO Q8H PRN (Reason: pain) Qty: 14 RF: 0 No Action cholecalciferol (vitamin D3) 2,000 unit capsule 2,000 unit PO DAILY RF: 0 triamcinolone acetonide 0.1 % cream 1 applictn TOP BID Qty: 30 RF: 0 aspirin [Adult Aspirin Regimen] 81 mg tablet,delayed release (DR/EC) 81 mg PO DAILY RF: 0 CA PANTOTHENATE/FOLIC ACID/VIT (MULTIVITAMIN) 1 tab PO Q DAY Qty: 0 RF: 0 CALCIUM CARBONATE (Calcium) 1,200 mg PO QDAY Qty: 0 RF: 0 coenzyme Q10 [Co Q-10] 100 MG capsule 100 mg PO Qty: 0 RF: 0 Fish Oil (#CARDI-OMEGA) 2,000 mg PO Q DAY Qty: 0 RF: 0 lovastatin 40 mg tablet See Rx Instructions .ROUTE .COMPLEX Qty: 90 RF: 2 levothyroxine 100 mcg tablet 100 mcg PO QAM Qty: 90 RF: 3 Referrals: Julio Cedeño MD [Primary Care Provider] - Saad Bradley MD [Physician] - <Diana Briscoe DO - Last Filed: 03/25/20 18:30> Cosign ED Attending Simonature Attestation: I was immediately available in the department for consultation. Documentation has been reviewed.
[2020-03-25 15:40] VITALS: BP 179/77; PULSE 77; RESP 16; O2SAT 97
== END 2020-03-25 15:50 | disposition home or self-care (01) ==
PROVIDERS: Emergency Provider Nurse Practitioner; PCP Family Medicine
DX: S52.515A Nondisplaced fracture of left radial styloid process, initial encounter for closed fracture (principal); M79.672 Pain in left foot; R07.81 Pleurodynia; Z79.82 Long term (current) use of aspirin; E78.5 Hyperlipidemia, unspecified; W19.XXXA Unspecified fall, initial encounter
CPT/HCPCS: 71101; 73110; 73130; 99283

== ENCOUNTER → 2020-06-17 15:12 | Outpatient (CLI) | payer MEDICARE, SELFPAY ==
--- NOTE | 2020-06-17 15:14 | DI.RAD.S_ITS ---
PROCEDURE: XR HIP W PEL IF DONE RT 2V INDICATIONS: hip and back pain TECHNIQUE: AP pelvis with lateral view(s) of the right hip(s). COMPARISON: [facility], , HIP 2V RIGHT, 04/21/2007, 11:56. FINDINGS: Bones: No fractures or dislocations. Pelvic ring appears intact. No suspicious bony lesions. Degenerative changes noted in the lower lumbar spine. Soft tissues: The visualized bowel gas pattern is normal. No suspicious soft tissue calcifications. IMPRESSION: No fracture. No acute osseous lesion. If symptoms and/or clinical suspicion for pathology persists, further assessment with repeat radiographs (7-10 days) or advanced imaging (e.g. CT, MRI or bone scan) should be considered. Dictated by: Daisy Reynoso MD, PhD on 06/17/2020 at 18:00 Approved by: Daisy Reynoso MD, PhD on 06/17/2020 at 18:01
--- NOTE | 2020-06-17 15:14 | DI.RAD.S_ITS ---
PROCEDURE: XR LUMBAR SPINE 2-3V INDICATIONS: hip and back pain TECHNIQUE: 3 views of the lumbar spine were acquired. COMPARISON: None. FINDINGS: Bones: 5 [id number] vertebrae are present. There is normal bony alignment. No vertebral body compression fractures. No suspicious bony lesions. Severe L2-L3 degenerative disease. Moderate L1-L2, L3-L4 and L5-S1 degenerative disc disease. Mild L4-L5 degenerative disc disease. Moderate L3-L4, L4-L5 and L5-S1 facet hypertrophy. Soft tissues: Overlying bowel gas pattern is normal. Atherosclerotic calcifications noted in the visualized abdominal pelvic vasculature. IMPRESSION: 1. Multilevel degenerative disc disease. 2. Multilevel facet arthropathy. 3. No fracture. No acute osseous lesion. If symptoms and/or clinical suspicion for pathology persists, evaluation with MRI should be considered for further assessment. Dictated by: Daisy Reynoso MD, PhD on 06/17/2020 at 18:01 Approved by: Daisy Reynoso MD, PhD on 06/17/2020 at 18:02
== END ==
PROVIDERS: PCP Family Medicine; Referring Provider Family Medicine; Visit Provider Family Medicine
DX: M47.816 Spondylosis without myelopathy or radiculopathy, lumbar region (principal); M47.817 Spondylosis without myelopathy or radiculopathy, lumbosacral region; M51.36 Other intervertebral disc degeneration, lumbar region; M51.37 Other intervertebral disc degeneration, lumbosacral region; M25.559 Pain in unspecified hip; M76.891 Other specified enthesopathies of right lower limb, excluding foot; M47.812 Spondylosis without myelopathy or radiculopathy, cervical region
CPT/HCPCS: 72100; 73502

== ENCOUNTER → 2020-08-01 13:46 | Outpatient (CLI) | payer MEDICARE, SELFPAY ==
--- NOTE | 2020-08-01 13:47 | DI.MRI.S_ITS ---
PROCEDURE: MR LUMBAR SPINE WO CON INDICATIONS: Lumbar stenosis bilateral hip pain TECHNIQUE: Noncontrast sagittal T1 spin echo and T2 fast echo, sagittal STIR, axial T1 and T2 fast spin echo through the lumbar spine. In cases with scoliosis, additional coronal T2 fast spin echo may be performed. COMPARISON: [facility], CR, XR LUMBAR SPINE 2-3V, 06/17/2020, 15:17. [facility], MR, L-SPINE WITHOUT CONTRAST, 11/21/2015, 13:27. FINDINGS: Image quality: Excellent. Alignment and Curvature: There is trace L2-L3 and L3-L4 retrolisthesis. Bone Marrow: Marrow is of normal overall signal. No acute vertebral body compression fractures. Spinal Cord: Conus medullaris terminates at the L1 level. Visualized cord demonstrates normal signal and size. Paraspinous Soft Tissues: No paravertebral masses. T12-L1: Loss of disc signal. Mild, diffuse disc bulge. No central stenosis. No neural foraminal narrowing. No neural compression. L1-L2: Loss of disc signal and height. Mild, diffuse disc bulge. Mild bilateral facet hypertrophy. No central stenosis. Mild right neural foraminal narrowing. No neural compression. L2-L3: Loss of disc signal and height. Moderate, diffuse disc bulge. Mild bilateral facet hypertrophy. Mild narrowing of the central canal. Mild bilateral neural foraminal narrowing. No neural compression. L3-L4: Loss of disc signal and height. Mild, diffuse disc bulge. Moderate bilateral facet hypertrophy. Mild to moderate narrowing of the central canal. Mild bilateral neural foraminal narrowing. No neural compression L4-L5: Loss of disc signal. Moderate bilateral facet hypertrophy. Mild narrowing of the central canal. Moderate bilateral neural foraminal narrowing. No neural compression. L5-S1: Loss of disc signal and height. Mild, diffuse disc bulge. Mild bilateral facet hypertrophy. No central stenosis. Moderate to severe right and moderate left neural foraminal narrowing. No neural compression. IMPRESSION: 1. Multilevel degenerative disc disease. 2. Multilevel facet arthropathy. 3. No severe central canal narrowing. 4. No severe neural foraminal narrowing. 5. No neural compression. Dictated by: Daisy Reynoso MD, PhD on 08/01/2020 at 17:11 Approved by: Daisy Reynoso MD, PhD on 08/01/2020 at 17:16
== END ==
PROVIDERS: PCP Family Medicine; Referring Provider Physical Medicine & Rehabilitation; Visit Provider Physical Medicine & Rehabilitation
DX: M48.061 Spinal stenosis, lumbar region without neurogenic claudication (principal); M51.16 Intervertebral disc disorders with radiculopathy, lumbar region; M51.17 Intervertebral disc disorders with radiculopathy, lumbosacral region; M47.26 Other spondylosis with radiculopathy, lumbar region; M47.27 Other spondylosis with radiculopathy, lumbosacral region; M25.551 Pain in right hip; M25.552 Pain in left hip
CPT/HCPCS: 72148

== ENCOUNTER → 2020-10-27 08:12 | Outpatient (CLI) | payer MEDICARE, SELFPAY ==
[2020-10-27 14:58] LABS: COVID19 -Nasal RAPID Negative (Negative)
== END ==
PROVIDERS: PCP Family Medicine; Visit Provider Physical Medicine & Rehabilitation
DX: Z20.822 Contact with and (suspected) exposure to COVID-19 (principal)
CPT/HCPCS: 87635; C9803

== ENCOUNTER 2020-10-28 12:49 | Outpatient (CLI) | payer MEDICARE, SELFPAY ==
[2020-10-28] VITALS (8 sets, daily range): BP systolic 111–167; BP diastolic 55–70; PULSE 61–75; RESP 12–21; TEMP 37; O2SAT 96–100
--- NOTE | 2020-10-28 12:54 | DI.RAD.S_ITS ---
PROCEDURE: PAIN L INTERLAMINAR/CAUDAL INJ INDICATIONS: SPODNYLOSIS COMPARISON: None. FINDINGS: Fluoroscopic spot filming was performed to verify placement of spinal needles at the L5-S1 level(s), as labeled on the films. Appropriate location(s) of the needle tip(s) was confirmed by injection of iodinated contrast. Dictated by: Elias Miller M.D. on 10/28/2020 at 14:28 Approved by: Elias Miller M.D. on 10/28/2020 at 14:29
[2020-10-28] MEDS: fentaNYL 100 MCG/2 ML INJ 50 MCG IV (13:57)
[2020-10-28] MEDS: MIDAZOLAM 5 MG/5 ML VIAL IV (13:57)
[2020-10-28] MEDS: BUPIVACAINE 0.25% (PF) VIAL 2 ML INJ (13:58)
[2020-10-28] MEDS: IOPAMIDOL 15 ML VIAL 3 ML INJ (13:58)
[2020-10-28] MEDS: BETAMETHASONE 30 MG/5 ML MDV 6 MG INJ (13:58)
[2020-10-28] MEDS: DEXAMETHASONE 10 MG/ML VIAL 20 MG INJ (13:59)
--- NOTE | 2020-10-28 14:11 | PM.PROC.IR.1 ---
Date/Time/Diagnoses Date of procedure: 10/28/20 Time of procedure: 14:11 Pre-procedure diagnosis: 1. HNP WITH RADICULAR FEATURES, 2. MULTILEVEL CENTRAL STENOSIS, Post-procedure diagnosis: same Procedure Notes Procedure: 1. FLUOROSCOPICALLY GUIDED CONTRAST CONTROLLED INTERLAMINAR EPIDURAL STEROID INJECTION - L5/S1 Indications: Marleen is referred by Dr. Cedeño for treatment of Bilateral Foraminal Stenosis L>R LE symptoms. Physician: Bryant Pink Total Fluoroscopy time (seconds): 6 Total sedation minutes: 8 Complications: none Procedure in detail & Post-procedure care: FINDINGS Multilevel Central Spinal Stenosis with Nerve Root Compression DESCRIPTION OF PROCEDURE Fluoroscopically guided, contrast-controlled L5/S1 translaminar epidural steroid injection. Following review of allergy and review of potential side effects and complications, including, but not necessarily limited to, infection, allergic reaction, local tissue breakdown, temporary as well as permanent nerve injury, paralysis, stroke and possible , the patient indicated that the patient understood and agreed to proceed. An informed consent document was signed by the patient, witnessed by a nurse, and placed in the patient's chart. Additionally, other treatment options including modalities, medications, and physical therapy were reviewed with the patient. After review of previous anaesthesic history and IV conscious sedation the patient was deemed safe to proceed with today?s procedure with IV conscious sedation as ASA class II designation. Safety time-out was performed to confirm patient ID, procedure to be performed and site of procedure. IV sedation was accomplished with a combination of 2mg of Versed and 50mcg of Fentanyl administered by the RN after DO order, titrated to patient comfort during the course of the procedure while the patient remained responsive to all verbal commands. In the prone position, following sterile prep and drape of the lumbar region, the L5/S1 translaminar space was identified fluoroscopically. The skin was anesthetized via a 25-gauge, 1.5-inch needle with 1% lidocaine solution. At this point, a 22-gauge short bevel spinal needle was atraumatically introduced and advanced under fluoroscopic guidance into the region of the L5/S1 translaminar space. Depth was confirmed on lateral view. Radiological data, including multiple fluoroscopic views of the lumbar spine, reveal a spinal needle at the L5/S1 translaminar space. Lateral views then show placement of the needle in the epidural space. Subsequent views show contrast material flowing superiorly and inferiorly in the epidural space. No vascular or intrathecal uptake is observed. At this point, using loss of resistance technique with saline and air, the epidural space was entered. This was confirmed following negative aspiration with injection of approximately 1.5cc of Isovue 200, showing excellent epidural flow without vascular or intrathecal uptake. At this point, 1 cc of 1% lidocaine solution combined with 3cc or 20mg of dexamethasone and 6mg of betamethasone was injected without incident. The patent tolerated the procedure without signs of symptoms of complications prior to transfer to the recovery area for further monitoring. The patient was then transferred to the recovery area where they were observed for an appropriate period of time after the injection. The patient reported a VAS score of 6 prior to the procedure and a post-procedure VAS of 0. POST OP INSTRUCTIONS The patient was provided a Pain Log to continue to record their response to the target-specific procedure prior to follow-up visit with their referring physician. Additionally, specific post-injection care instructions and a contact number to our office were provided if concerns arise regarding possible complications associated with the procedure are suspected.
== END 2020-10-28 14:35 | disposition home or self-care (01) ==
LOC: RAD 12:53
PROVIDERS: PCP Family Medicine; Referring Provider Physical Medicine & Rehabilitation; Visit Provider Physical Medicine & Rehabilitation
DX: M51.17 Intervertebral disc disorders with radiculopathy, lumbosacral region (principal); M48.07 Spinal stenosis, lumbosacral region
CPT/HCPCS: 62323; J0702; J1100; J2250; J3010

== ENCOUNTER → 2021-01-20 09:14 | Outpatient (CLI) | payer MEDICARE, SELFPAY ==
[2021-01-20 11:33] LABS: Alanine Aminotransferase 16 IU/L (<35); Albumin 3.9 g/dL (3.5-5.0); Albumin Globulin Ratio 1.6 (1.0-2.8); Alkaline Phosphatase 71 U/L (38-126); Aspartate Aminotransferase 30 IU/L (14-36); BUN Creatinine Ratio 18.9 (6-22); Bilirubin Total 0.5 mg/dL (0.2-1.3); Blood Urea Nitrogen 24 mg/dL (7-17); Calcium 10.6 mg/dL (8.4-10.2); Carbon Dioxide 25 mmol/L (22-32); Chloride 106 mmol/L (98-107); Cholesterol 180 mg/dL (140-199); Estimated Glomerular Filt Rate 40.4 mL/min (>60); Globulin 2.5 g/dL (1.7-4.1); Glucose 90 mg/dL (80-110); HDL Cholesterol 103 mg/dL (40-60); HEMOLYSIS < 15 (0-50); LDL Cholesterol Calculated 64 mg/dL (<100); Potassium 4.9 mmol/L (3.4-5.1); Sodium 136 mmol/L (137-145); Total Protein 6.4 g/dL (6.3-8.2); Triglycerides 63 mg/dL (35-150)
[2021-01-20 12:16] LABS: Add Manual Diff / Slide Review NO; Basophils Absolute Auto 100 /uL (0-100); Basophils Percent Auto 0.9 % (0-2); Eosinophils Absolute Auto 200 /uL (0-450); Eosinophils Percent Auto 3.7 % (2-4); Hemoglobin 11.2 g/dL (12.0-16.0); Lymphocytes Absolute Auto 1200 /uL (1100-4500); Lymphocytes Percent Auto 19.4 % (25-40); Mean Corpuscular HGB Conc 32.9 % (30-36); Mean Corpuscular Hemoglobin 32.8 PG (26-34); Mean Corpuscular Volume 99.9 fL (80-100); Monocytes Absolute Auto 400 /uL (0-900); Monocytes Percent Auto 6.5 % (3-14); Neutrophils Absolute Auto 4200 /uL (1500-7000); Neutrophils Percent Auto 69.5 % (50-75); Platelet Count 278 X10^3/uL (150-400); Red Blood Cell Count 3.41 X10^6/uL (4.0-5.2); Red Cell Distribution Width 14.9 % (11.6-14.8); White Blood Cell Count 6.1 X10^3/uL (4.5-11.0)
[2021-01-20 12:23] LABS: Thyroid Stimulating Hormone 0.126 uIU/mL (0.47-4.68)
== END ==
PROVIDERS: PCP Family Medicine; Referring Provider Physician Assistant; Visit Provider Physician Assistant
DX: E03.9 Hypothyroidism, unspecified (principal); E78.2 Mixed hyperlipidemia; I10 Essential (primary) hypertension; N18.2 Chronic kidney disease, stage 2 (mild)
CPT/HCPCS: 36415; 80053; 80061; 84443; 85025

== ENCOUNTER 2021-02-07 13:54 | Inpatient (IN) | payer MEDICARE, SELFPAY ==
[2021-02-07] VITALS (29 sets, daily range): BP systolic 132–175; BP diastolic 61–75; PULSE 64–87; RESP 14–42; TEMP 36.6–36.9; O2SAT 96–100; BMI 27.4
--- NOTE | 2021-02-07 14:13 | ED_ITS ---
HPI - Weakness General Chief complaint: Weakness Stated complaint: Rule out CVA- sent by [facility] Time Seen by Provider: 02/07/21 14:12 History of Present Illness HPI Narrative: Patient is a 80-year-old female with history of hypothyroid, hyperlipidemia, multiple level foraminal stenosis, presenting today with 2 days of generalized weakness. She says she is experiencing extreme fatigue. She denies any fever or chills. She states that her thyroid medicine was recently changed, the January. She denies any chest pain shortness of breath palpitations is abdominal pain nausea vomiting painful or frequent urination no focal deficits just generalized extreme fatigue. Related Data Home Medications Medication Instructions Recorded Confirmed CA PANTOTHENATE/FOLIC ACID/VIT 1 tab PO Q DAY #0 12/30/11 01/27/21 (MULTIVITAMIN) CALCIUM CARBONATE (Calcium) 1,200 mg PO QDAY #0 12/30/11 01/27/21 coenzyme Q10 100 mg capsule (Co 100 mg PO #0 07/11/17 01/27/21 Q-10) cholecalciferol (vitamin D3) 50 2,000 unit PO DAILY 06/05/18 01/27/21 mcg (2,000 unit) capsule Fish Oil (#CARDI-OMEGA) 2,000 mg PO Q DAY #0 12/05/19 01/27/21 aspirin 81 mg tablet,delayed 81 mg PO DAILY 12/05/19 01/27/21 release (Adult Aspirin Regimen) Previous Rx's Medication Instructions Recorded levothyroxine 88 mcg tablet 88 mcg PO DAILY #45 tab 01/27/21 lovastatin 40 mg tablet 20 mg PO BEDTIME #90 tab 01/27/21 Allergies Allergy/AdvReac Type Severity Reaction Status Date / Time Sulfa (Sulfonamide Allergy Unknown Verified 02/07/21 14:14 Antibiotics) azithromycin Allergy Verified 02/07/21 14:14 dexamethasone [DEXAMETHASONE] AdvReac Mild HEADACHE Verified 02/07/21 14:14 erythromycin base AdvReac Mild DIARRHEA Verified 02/07/21 14:14 [ERYTHROMYCIN BASE] AND ABDOMINAL PAIN saccharin [SACCHARIN] AdvReac Mild DIARRHEA Verified 02/07/21 14:14 AND ABD PAIN Review of Systems Review of Systems ROS Unobtainable: All systems reviewed & are unremarkable except as noted in HPI and below Constitutional Constitutional: Denies body ache(s), Denies chills, Reports fatigue, Denies fever(s), Denies frequent falls, Denies headache(s) and Denies poor appetite Eyes Eyes: Denies blurry vision ENT Ears, Nose, Mouth, and Throat: Denies vertigo, Denies dizziness, Denies headache(s) and Denies sore throat Cardiovascular Cardiovascular: Denies chest pain, Denies syncope and Denies irregular heart rhythm Respiratory Respiratory: Denies chest congestion and Denies cough Gastrointestinal Gastrointestinal: Denies abdominal pain, Denies nausea and Denies vomiting Genitourinary Genitourinary: Denies dysuria Musculoskeletal Musculoskeletal: Reports back pain (Chronic) and Denies myalgias Integumentary/Breasts Skin/Breast: Denies rash Neurologic Neurologic: Denies confusion, Denies vertigo, Denies dizziness, Denies syncope, Denies frequent falls and Denies headache(s) Psychiatric Psychiatric: Denies confusion Endocrine Endocrine: Reports fatigue Patient History Medical History (Updated 02/07/21 @ 15:49 by Pippa Valdivia DO) Ankle fracture, left (~1992) Chickenpox (~1943) Chronic back pain (~1981) Gastric ulcer Hemorrhoids (~2009) History of heavy periods (~1979) History of recurrent ear infection Hyperlipidemia Hypothyroidism (~1979) Lumbar radiculopathy Measles (~1955) Multilevel foraminal stenosis Osteoarthritis (~1999) Osteoporosis Psoriasis (~1982) Pulmonary embolism Rosacea Shingles (~2015) Skin cancer (~2011) Tinnitus (~2011) Surgical History (Updated 01/27/21 @ 16:51 by Ciera Adams PA-C) Anesthesia History of knee replacement Status post arthroscopy Status post dilation and curettage Status post hysterectomy Status post laminectomy Family History Brother Heart disease Mother Heart disease Grandfather Cancer Grandmother Cancer Social History marital status: Smoking Status: Former smoker alcohol intake: current substance use type: does not use Smoking Status: Former smoker alcohol intake frequency: 0-2 drinks per day Alcohol type: wine Substance Use Type: marijuana Exam Initial Vital Signs Initial Vital Signs: Vital Signs Temperature 98.3 F 02/07/21 14:14 Pulse Rate 80 02/07/21 14:14 Respiratory Rate 20 02/07/21 14:14 Blood Pressure 132/61 02/07/21 14:14 Pulse Oximetry 100 02/07/21 14:14 GENERAL: Alert 80-year-old female appears younger than stated age no acute distress HEENT: Head atraumatic,EOMI, pupils reactive, face symmetric, moist mucous membranes CARDIOVASCULAR: Regular rate and rhythm without murmurs, rubs or gallops. RESPIRATORY: Breath sounds equal bilaterally, no wheezes rales or rhonchi. ABDOMEN: Soft, nontender. Normoactive bowel sounds all 4 quadrants. No guarding or rebound. EXTREMITIES: Normal range of motion, no clubbing or edema. Neurovascularly intact RECTAL: Dark stool guaic positive NEUROLOGICAL: Alert and oriented x4.Normal gait and speech. Cranial nerves II through XII grossly intact. Good [id number], good [id number], strength equal bilaterally, no dysarthria or aphasia, sensation in tact to soft touch bilaterally, no visual changes, no facial droop SKIN: Warm, dry, no laceration, no petechiae, no rashes or lesions. Scores NIH Stroke Scale Level of Conciousness: Alert, keenly responsive Ask month/age: Answers both questions correctly. Open/close eyes, close hand: Performs both tasks correctly Best gaze horizontal: Normal Visual wright: No visual loss Facial palsy: Normal symetrical movement Left arm drift: No drift for full 10 sec Right arm drift: No drift for full 10 sec Left leg drift: No drift for full 5 sec Right leg drift: No drift for full 5 sec Limb ataxia: Absent Sensory on face/arms/legs: Normal, no sensory loss Best language: No aphasia, normal Dysarthria: Normal Extinction or inattention: No abnormality Total NIH Stroke scale score: 0 Course Orders Ordered: ED Orders 02/07/21 14:15 Complete Blood Count AUTO DIFF Stat Comprehensive Metabolic Panel Stat Iron Profile (w/ % Saturation) Stat Lactate (Lactic Acid) Stat Troponin & CK Cardiac Panel Stat 02/07/21 14:19 COVID19 -Nasal swab/Pre-Proc Stat 02/07/21 14:25 XR chest 1V Stat 02/07/21 14:26 EKG-12 Lead Stat 02/07/21 15:20 PRBC [Packed Cells] Stat Type and Screen Stat Discontinued Medications Pantoprazole Sodium (Pantoprazole 40 Mg Vial) 40 mg IV NOW ONE Stop: 02/07/21 15:30 Last Admin: 02/07/21 15:37 Dose: 40 mg Documented by: KALE Vital Signs Vital signs: Vital Signs - 8 hr 02/07/21 14:14 Temperature 98.3 F Pulse Rate 80 Respiratory Rate 20 Blood Pressure 132/61 Pulse Oximetry 100 MDM - Weakness Lab Data Result diagrams: 02/07/21 14:15 02/07/21 14:15 Labs: Lab Results 02/07/21 02/07/21 02/07/21 Range/Units 14:15 14:15 14:15 WBC 7.5 (4.5-11.0) X10^3/uL RBC 1.89 L (4.0-5.2) X10^6/uL Hgb 6.4 L* (12.0-16.0) g/dL Hct 19.4 L* (36-46) % MCV 102.8 H (80-100) fL MCH 33.8 (26-34) PG MCHC 32.9 (30-36) % RDW 15.3 H (11.6-14.8) % Plt Count 244 (150-400) X10^3/uL Neut % (Auto) 73.7 (50-75) % Lymph % (Auto) 18.6 L (25-40) % [place] % (Auto) 5.0 (3-14) % Eos % (Auto) 2.1 (2-4) % Baso % (Auto) 0.6 (0-2) % Neut # (Auto) 5500 (9532-8004) /uL Lymph # (Auto) 1400 (2211-4473) /uL [place] # (Auto) 400 (0-900) /uL Eos # (Auto) 200 (0-450) /uL Baso # (Auto) 0 (0-100) /uL Sodium 136 L (137-145) mmol/L Potassium 4.0 (3.4-5.1) mmol/L Chloride 110 H (98-107) mmol/L Carbon Dioxide 20 L (22-32) mmol/L BUN 31 H (7-17) mg/dL Creatinine 1.21 H (0.52-1.04) mg/dL Estimated GFR 42.7 L (>60) mL/min BUN/Creatinine Ratio 25.6 H (6-22) Glucose 166 H (80-110) mg/dL Lactate 2.3 H (0.7-2.1) mmol/L Calcium 10.0 (8.4-10.2) mg/dL Iron (37-170) ug/dL TIBC (265-497) ug/dL % Saturation (15-50) % Transferrin (206-381) mg/dL Total Bilirubin 0.2 (0.2-1.3) mg/dL AST 30 (14-36) IU/L ALT 19 (<35) IU/L Alkaline Phosphatase 47 (38-126) U/L Total Creatine Kinase 22 L (30-135) U/L CK-MB (CK-2) TNP CK-MB (CK-2) Rel Index TNP Troponin I < 0.012 (0.01-0.034) ng/mL Total Protein 5.8 L (6.3-8.2) g/dL Albumin 3.4 L (3.5-5.0) g/dL Globulin 2.4 (1.7-4.1) g/dL Albumin/Globulin Ratio 1.4 (1.0-2.8) SARS-CoV-2 (PCR) (Negative) Crossmatch 02/07/21 02/07/21 02/07/21 Range/Units 14:15 14:19 15:20 WBC (4.5-11.0) X10^3/uL RBC (4.0-5.2) X10^6/uL Hgb (12.0-16.0) g/dL Hct (36-46) % MCV (80-100) fL MCH (26-34) PG MCHC (30-36) % RDW (11.6-14.8) % Plt Count (150-400) X10^3/uL Neut % (Auto) (50-75) % Lymph % (Auto) (25-40) % [place] % (Auto) (3-14) % Eos % (Auto) (2-4) % Baso % (Auto) (0-2) % Neut # (Auto) (9015-2640) /uL Lymph # (Auto) (3817-7669) /uL [place] # (Auto) (0-900) /uL Eos # (Auto) (0-450) /uL Baso # (Auto) (0-100) /uL Sodium (137-145) mmol/L Potassium (3.4-5.1) mmol/L Chloride (98-107) mmol/L Carbon Dioxide (22-32) mmol/L BUN (7-17) mg/dL Creatinine (0.52-1.04) mg/dL Estimated GFR (>60) mL/min BUN/Creatinine Ratio (6-22) Glucose (80-110) mg/dL Lactate (0.7-2.1) mmol/L Calcium (8.4-10.2) mg/dL Iron 52 (37-170) ug/dL TIBC 336 (265-497) ug/dL % Saturation 15 (15-50) % Transferrin 277 (206-381) mg/dL Total Bilirubin (0.2-1.3) mg/dL AST (14-36) IU/L ALT (<35) IU/L Alkaline Phosphatase (38-126) U/L Total Creatine Kinase (30-135) U/L CK-MB (CK-2) CK-MB (CK-2) Rel Index Troponin I (0.01-0.034) ng/mL Total Protein (6.3-8.2) g/dL Albumin (3.5-5.0) g/dL Globulin (1.7-4.1) g/dL Albumin/Globulin Ratio (1.0-2.8) SARS-CoV-2 (PCR) Negative (Negative) Crossmatch See Detail Imaging Data Chest x-ray: Radiologist Impression: PROCEDURE:? XR CHEST 1V ? INDICATIONS:? weakness ? TECHNIQUE:? One view of the chest was acquired.? ? COMPARISON:? [facility], CR, XR RIBS LT MIN 3V W CXR1V, 03/25/2020, 13:32.? [facility], CR, XR CHEST 2V, 06/09/2018, 15:06. ? FINDINGS:? ? Surgical changes and devices:? None.? ? Lungs and pleura:? Lungs are clear.? No pleural effusions or pneumothorax.? ? Mediastinum:? Mediastinal contours appear normal.? Heart size is normal.? Atherosclerotic calcification of the aortic arch is noted.? Mild stable elevation of the right hemidiaphragm be seen. ? Bones and chest wall:? No suspicious bony lesions.? Age-appropriate bony degenerative changes are seen. ? Overlying soft tissues appear unremarkable.? ? ? IMPRESSION:? ? No acute cardiopulmonary process is seen.? Dictated by: Suhail Saucedo M.D. on 02/07/2021 at 14:32 ? ? Approved by: Suhail Saucedo M.D. on 02/07/2021 at 14:34 ? ECG Data Interpretation: Sinus rhythm rate 72 MA interval 164 QRS [address] changes no T-wave inversions, similar to priors MDM Narrative Medical decision making narrative: Patient does not have any focal deficits NIH stroke scale is 0. This time I see no need for head CT. She is found to be quite anemic and fact she had baseline blood work drawn on January 20 hemoglobin was 11.2, hematocrit 34 and today her hemoglobin is 6.4 with hematocrit of 19.4. She is guaiac-positive. She states that she does have a history of an ulcer but she does not have any abdominal pain no nausea or vomiting she has not taken any Pepto-Bismol. She is otherwise hemodynamically stable mild increase of lactic acid of 2.3. Significant and severe bed shortage in this state. I in hospital currently does not have any beds. Patient will be boarding in the emergency department until bed is available. Dr. Logan on-call for PCP updated on patient's symptoms test results accepts patient Dr. Kramer surgery updated patient's symptoms test results requested NPO after midnight Discharge Plan Departure Patient Disposition: Admitted As Inpatient Clinical Impression: Acute GI bleeding
--- NOTE | 2021-02-07 14:25 | DI.RAD.S_ITS ---
PROCEDURE: XR CHEST 1V INDICATIONS: weakness TECHNIQUE: One view of the chest was acquired. COMPARISON: [facility], CR, XR RIBS LT MIN 3V W CXR1V, 03/25/2020, 13:32. [facility], CR, XR CHEST 2V, 06/09/2018, 15:06. FINDINGS: Surgical changes and devices: None. Lungs and pleura: Lungs are clear. No pleural effusions or pneumothorax. Mediastinum: Mediastinal contours appear normal. Heart size is normal. Atherosclerotic calcification of the aortic arch is noted. Mild stable elevation of the right hemidiaphragm be seen. Bones and chest wall: No suspicious bony lesions. Age-appropriate bony degenerative changes are seen. Overlying soft tissues appear unremarkable. IMPRESSION: No acute cardiopulmonary process is seen. Dictated by: Suhail Saucedo M.D. on 02/07/2021 at 14:32 Approved by: Suhail Saucedo M.D. on 02/07/2021 at 14:34
[2021-02-07 14:50] LABS: Lactate (Lactic Acid) 2.3 mmol/L (0.7-2.1)
[2021-02-07 14:51] LABS: Alanine Aminotransferase 19 IU/L (<35); Albumin 3.4 g/dL (3.5-5.0); Albumin Globulin Ratio 1.4 (1.0-2.8); Alkaline Phosphatase 47 U/L (38-126); Aspartate Aminotransferase 30 IU/L (14-36); BUN Creatinine Ratio 25.6 (6-22); Bilirubin Total 0.2 mg/dL (0.2-1.3); Blood Urea Nitrogen 31 mg/dL (7-17); Carbon Dioxide 20 mmol/L (22-32); Chloride 110 mmol/L (98-107); Creatine Kinase 22 U/L (30-135); Estimated Glomerular Filt Rate 42.7 mL/min (>60); Globulin 2.4 g/dL (1.7-4.1); Glucose 166 mg/dL (80-110); HEMOLYSIS < 15 (0-50); Sodium 136 mmol/L (137-145); Total Protein 5.8 g/dL (6.3-8.2)
[2021-02-07 14:58] LABS: Add Manual Diff / Slide Review NO; Basophils Absolute Auto 0 /uL (0-100); Basophils Percent Auto 0.6 % (0-2); Eosinophils Absolute Auto 200 /uL (0-450); Eosinophils Percent Auto 2.1 % (2-4); Lymphocytes Absolute Auto 1400 /uL (1100-4500); Lymphocytes Percent Auto 18.6 % (25-40); Mean Corpuscular HGB Conc 32.9 % (30-36); Mean Corpuscular Hemoglobin 33.8 PG (26-34); Mean Corpuscular Volume 102.8 fL (80-100); Monocytes Absolute Auto 400 /uL (0-900); Neutrophils Absolute Auto 5500 /uL (1500-7000); Neutrophils Percent Auto 73.7 % (50-75); Platelet Count 244 X10^3/uL (150-400); Red Blood Cell Count 1.89 X10^6/uL (4.0-5.2); Red Cell Distribution Width 15.3 % (11.6-14.8); White Blood Cell Count 7.5 X10^3/uL (4.5-11.0)
[2021-02-07 15:00] LABS: Hemoglobin 6.4 g/dL (12.0-16.0)
[2021-02-07 15:01] LABS: Hematocrit 19.4 % (36-46)
[2021-02-07 15:03] LABS: Troponin I < 0.012 ng/mL (0.01-0.034)
[2021-02-07 15:19] LABS: HEMOLYSIS < 15 (0-50); Iron 52 ug/dL (37-170)
[2021-02-07 15:22] LABS: COVID19 -Nasal RAPID Negative (Negative)
[2021-02-07 15:30] LABS: Percent Iron Saturation 15 % (15-50); Total Iron Binding Capacity 336 ug/dL (265-497); Transferrin 277 mg/dL (206-381)
[2021-02-07] MEDS: PANTOPRAZOLE 40 MG VIAL IV (15:37)
[2021-02-07 16:39] LABS: Reflexed Lactate in 2 Hours Y
[2021-02-07 17:31] LABS: COVID19 - ADMIT (NP swab/PCR) Negative (Negative)
[2021-02-07 18:16] LABS: Amorphous Sediment Urine 1+; Bacteria Urine None Seen; Culture Indicated Urine Specimen Cultured; RBC Urine 0-1/HPF (0-5/HPF); WBC Urine 5-10/HPF (0-5/HPF)
--- NOTE | 2021-02-07 18:44 | PM.HP.1 ---
History of Present Illness History of Present Illness Date Patient Seen: 02/07/21 Time Patient Seen: 18:44 Date of Onset of Symptoms: 02/05/21 Chief complaint: Rule out CVA- sent by [facility] Narrative: Patient is an 80-year-old otherwise healthy female who is a patient of Dr. Cedeño. Patient is seen in [facility]. Seen in the emergency room. Currently having issues with beds. Patient overall been feeling in good state of health until . She noted she was walking around [place] and was getting extremely short of breath. She felt extreme fatigued. And felt like she should sit down but she power through. She went home rested that day. On Tuesday she decided she would just rest. She was having back pain. This is not unusual. She sees delinquency prevention social worker for this. She did not feel is any different than usual. She otherwise was feeling well. Having no nausea no vomiting. She had dark stools but she does not think they were black. She has had no abdominal pain. Her back pain was not related to anything in her abdominal in that she could placed. She had no heartburn. She had does take an aspirin a day. She takes occasional ibuprofen. No other anti-inflammatories. Patient has a history of ulcers. Distant. Apparently was duodenal. Did not cause this type of bleed. Patient has had history anemia but she does not believe it is related to anything significant. More like iron deficiency. And was replaced. She otherwise has had no fevers no chills. Just extremely tired when she gets up moves around has some shortness of breath. She noticed no other change no chest discomfort or complaints. Patient said around and rested on Tuesday and today she was still feeling significantly tired and decided she would come to the emergency room. Really not a lot of change today. Patient History Medical History Acute GI bleeding Ankle fracture, left (~1992) Chickenpox (~1943) Chronic back pain (~1981) Gastric ulcer Hemorrhoids (~2009) History of heavy periods (~1979) History of recurrent ear infection Hyperlipidemia Hypothyroidism (~1979) Lumbar radiculopathy Measles (~1955) Multilevel foraminal stenosis Osteoarthritis (~1999) Osteoporosis Psoriasis (~1982) Pulmonary embolism Rosacea Shingles (~2015) Skin cancer (~2011) Tinnitus (~2011) Surgical History Anesthesia History of knee replacement Status post arthroscopy Status post dilation and curettage Status post hysterectomy Status post laminectomy Comment: Reviewed all past medical and past surgical history. Unable Family & Social History Family History Brother Heart disease Mother Heart disease Grandfather Cancer Grandmother Cancer Safety & Behavioral: Feels Safe in Current Yes Environment Tobacco & Substance use: Smoking Status Former smoker alcohol intake current alcohol intake frequency 0-2 drinks per day Substance Use Type marijuana Meds Home Medications and Allergies Home Medications Medication Instructions Recorded Confirmed Type CA PANTOTHENATE/FOLIC ACID/VIT 1 tab PO Q DAY #0 12/30/11 02/07/21 History (MULTIVITAMIN) CALCIUM CARBONATE (Calcium) 1,200 mg PO QDAY #0 12/30/11 02/07/21 History coenzyme Q10 100 mg capsule (Co 100 mg PO DAILY #0 07/11/17 02/07/21 History Q-10) cholecalciferol (vitamin D3) 50 2,000 unit PO DAILY 06/05/18 02/07/21 History mcg (2,000 unit) capsule Fish Oil (#CARDI-OMEGA) 1,000 mg PO BID #0 12/05/19 02/07/21 History aspirin 81 mg tablet,delayed 81 mg PO DAILY 12/05/19 02/07/21 History release (Adult Aspirin Regimen) levothyroxine 88 mcg tablet 88 mcg PO DAILY #45 tab 01/27/21 02/07/21 Rx lovastatin 40 mg tablet 20 mg PO BEDTIME #90 tab 01/27/21 02/07/21 Rx Allergies Allergy/AdvReac Type Severity Reaction Status Date / Time Sulfa (Sulfonamide Allergy Unknown Verified 02/07/21 14:14 Antibiotics) azithromycin Allergy Verified 02/07/21 14:14 dexamethasone [DEXAMETHASONE] AdvReac Mild HEADACHE Verified 02/07/21 14:14 erythromycin base AdvReac Mild DIARRHEA Verified 02/07/21 14:14 [ERYTHROMYCIN BASE] AND ABDOMINAL PAIN saccharin [SACCHARIN] AdvReac Mild DIARRHEA Verified 02/07/21 14:14 AND ABD PAIN Review of Systems Review of Systems Narrative: See history and physical negative otherwise Exam Vital Signs (past 8 hours): - 02/07/21 14:04 02/07/21 14:05 02/07/21 14:14 Temperature 98.3 F Pulse Rate 79 82 80 Respiratory Rate 25 H 20 Blood Pressure 132/61 132/61 Pulse Oximetry 100 100 100 02/07/21 14:30 02/07/21 15:00 02/07/21 15:30 Temperature Pulse Rate 75 76 77 Respiratory Rate 31 H 30 H 20 Blood Pressure Pulse Oximetry 100 100 100 02/07/21 16:00 02/07/21 16:30 02/07/21 16:42 Temperature 97.8 F Pulse Rate 76 76 68 Respiratory Rate 36 H 26 H 21 Blood Pressure 144/65 H Pulse Oximetry 100 98 99 02/07/21 16:58 02/07/21 17:00 02/07/21 17:01 Temperature 98.0 F Pulse Rate 71 73 72 Respiratory Rate 17 23 25 H Blood Pressure 172/70 H 172/70 H Pulse Oximetry 97 98 02/07/21 17:30 02/07/21 18:05 02/07/21 18:36 Temperature 98.4 F 98.0 F Pulse Rate 80 76 73 Respiratory Rate 14 17 18 Blood Pressure 175/75 H 163/72 H Pulse Oximetry 98 Oxygen Delivery Method Room Air Narrative Exam Narrative: Alert smiling elderly female in no acute distress. Skin slightly pale. Bulbar conjunctiva was slightly pale. Mucous membranes moist. Neck supple without adenopathy JVD or bruits. Lungs are clear. Heart regular rate and rhythm without murmur. Abdomen is soft positive bowel sounds nontender. No masses no hepatosplenomegaly. Extremities without cyanosis clubbing edema. Neurologic exam is nonfocal. Psychologically happy smiling and no issues other than being slightly anxious Objective Labs Result Diagrams: 02/07/21 14:15 02/07/21 14:15 Labs: Laboratory Results - last 24 hr 02/07/21 02/07/21 02/07/21 14:15 14:15 14:15 WBC 7.5 RBC 1.89 L Hgb 6.4 L* Hct 19.4 L* MCV 102.8 H MCH 33.8 MCHC 32.9 RDW 15.3 H Plt Count 244 Neut % (Auto) 73.7 Lymph % (Auto) 18.6 L Wheeler % (Auto) 5.0 Eos % (Auto) 2.1 Baso % (Auto) 0.6 Neut # (Auto) 5500 Lymph # (Auto) 1400 Wheeler # (Auto) 400 Eos # (Auto) 200 Baso # (Auto) 0 Sodium 136 L Potassium 4.0 Chloride 110 H Carbon Dioxide 20 L BUN 31 H Creatinine 1.21 H Estimated GFR 42.7 L BUN/Creatinine Ratio 25.6 H Glucose 166 H Lactate 2.3 H Calcium 10.0 Iron TIBC % Saturation Transferrin Total Bilirubin 0.2 AST 30 ALT 19 Alkaline Phosphatase 47 Total Creatine Kinase 22 L CK-MB (CK-2) TNP CK-MB (CK-2) Rel Index TNP Troponin I < 0.012 Total Protein 5.8 L Albumin 3.4 L Globulin 2.4 Albumin/Globulin Ratio 1.4 Urine RBC Urine WBC Amorphous Sediment Urine Bacteria Ur Culture Indicated? SARS-CoV-2 (PCR) Blood Type Antibody Screen Crossmatch 02/07/21 02/07/21 02/07/21 14:15 14:19 15:20 WBC RBC Hgb Hct MCV MCH MCHC RDW Plt Count Neut % (Auto) Lymph % (Auto) Wheeler % (Auto) Eos % (Auto) Baso % (Auto) Neut # (Auto) Lymph # (Auto) Wheeler # (Auto) Eos # (Auto) Baso # (Auto) Sodium Potassium Chloride Carbon Dioxide BUN Creatinine Estimated GFR BUN/Creatinine Ratio Glucose Lactate Calcium Iron 52 TIBC 336 % Saturation 15 Transferrin 277 Total Bilirubin AST ALT Alkaline Phosphatase Total Creatine Kinase CK-MB (CK-2) CK-MB (CK-2) Rel Index Troponin I Total Protein Albumin Globulin Albumin/Globulin Ratio Urine RBC Urine WBC Amorphous Sediment Urine Bacteria Ur Culture Indicated? SARS-CoV-2 (PCR) Negative Blood Type B Positive Antibody Screen Negative Crossmatch See Detail 02/07/21 02/07/21 16:20 17:43 WBC RBC Hgb Hct MCV MCH MCHC RDW Plt Count Neut % (Auto) Lymph % (Auto) Wheeler % (Auto) Eos % (Auto) Baso % (Auto) Neut # (Auto) Lymph # (Auto) Wheeler # (Auto) Eos # (Auto) Baso # (Auto) Sodium Potassium Chloride Carbon Dioxide BUN Creatinine Estimated GFR BUN/Creatinine Ratio Glucose Lactate Calcium Iron TIBC % Saturation Transferrin Total Bilirubin AST ALT Alkaline Phosphatase Total Creatine Kinase CK-MB (CK-2) CK-MB (CK-2) Rel Index Troponin I Total Protein Albumin Globulin Albumin/Globulin Ratio Urine RBC 0-1/hpf Urine WBC 5-10/hpf H Amorphous Sediment 1+ Urine Bacteria None seen Ur Culture Indicated? Specimen cultured SARS-CoV-2 (PCR) Negative Blood Type Antibody Screen Crossmatch Assessment & Plan Assessment & Plan narrative: Acute GI bleed. To be acute given the fact that she had a normal hematocrit on 11 of this month. Minimal symptoms. Most likely upper given the fact that she had no bright red blood or maroon. Probably started some more Tuesday or Tuesday. Patient has IVs placed. She has been given 2 units of blood. Will repeat that at midnight tonight. Will see were she has. Dr. Kramer has been consulted. NPO after midnight. We discussed she probably will have an upper and then possibly lower endoscopy. Depending on what they find. Will hold her aspirin for now. If no DVT pharmacological prophylaxis. Ppi IV. Questions were answered. She understands. Hypothyroidism patient with recent TSH. Will hold her thyroid tell after we decide what to do with her diet. Will not hurt her to not give her medicine for 24 hours. Hyperlipidemia. Stable. Hold medication until after the EGD. Will follow from there. DVT prophylaxis will place SCDs. Code status full. Patient will be probably at least until Tuesday. Will demand on what we find tomorrow but will need to feed her and make sure she is stable. Once we figure out where it is from. Appreciate surgical intervention and help. Will follow-up in a.m.. 40 minutes spent with patient and documentation Time Spent With Patient Critical Care time: I spent a total of [] minutes of critical care time on this patient's care today; this time is exclusive of procedural time.
[2021-02-07] MEDS: LACTATED RINGERS 1,000 ML 75 ML IV (19:42)
[2021-02-07 21:35] LABS: Hemoglobin 8.3 g/dL (12.0-16.0)
[2021-02-07 21:44] LABS: Hematocrit 24.9 % (36-46)
[2021-02-07 21:56] LABS: Lactate 2HR (Lactic Acid Rflx) 0.6 mmol/L (0.7-2.1)
[2021-02-08] VITALS (36 sets, daily range): BP systolic 119–168; BP diastolic 3–80; PULSE 63–80; RESP 9–52; TEMP 36.4–38; O2SAT 92–100; BMI 27.4; BMI 28.7
--- NOTE | 2021-02-08 | PATH_ITS ---
[facility] Accession Number: [id number] . 01 Material submitted: . gastrointestinal site - ANTRUM . 01 Clinical history: . RULE OUT CVA- SENT BY [facility] . 02 Diagnosis: Antrum: Portions of gastric antral and body-type mucosa with mild chronic inflammation. Negative for Helicobacter organisms by immunohistochemistry. Negative for intestinal metaplasia. Negative for dysplasia or malignancy. MRV 02/13/2021 1411 Local . 02 Electronically signed: . Jennifer Thornton MD, Pathologist NPI- [id number] . 01 Gross description: . The specimen is received in formalin, labeled antrum and consists of two patel fragments of soft tissue measuring 0.5 x 0.4 x 0.2 cm in aggregate. The specimen is entirely submitted in cassette A1. ([id number]) /MRV 02/10/2021 1040 Local . 02 Microscopic: . An immunohistochemical stain was performed to evaluate for Helicobacter organisms and is negative. The control stain showed appropriate reactivity. . * This test was developed and its performance characteristics determined by [facility]. It has not been cleared or approved by the U.S. Food and Drug Administration. The FDA has determined that such clearance or approval is not necessary. This test is used for clinical purposes. It should not be regarded as investigational or for research. . 02 Pathologist provided ICD-10: K29.70 . 02 CPT . 283708, [id number] Performed at: 01 [facility] [address], [place], [place] [id number] MD Ren Melchor MD Phone: [phone] Performed at: [address] [facility] [id number] [place], [place] [id number] MD Mae Moody MD Phone: [phone]
--- NOTE | 2021-02-08 00:22 | PC.NURSE ---
H/H drawn at 2130 per post transfusion protocol. Greater than communication order threshold for notifying MD.
[2021-02-08] MEDS: ACETAMINOPHEN 325 MG TABLET 650 MG PO ×4 (04:46→23:12)
[2021-02-08 06:02] LABS: Add Manual Diff / Slide Review NO; Basophils Absolute Auto 100 /uL (0-100); Basophils Percent Auto 0.8 % (0-2); Eosinophils Absolute Auto 200 /uL (0-450); Eosinophils Percent Auto 3.4 % (2-4); Hematocrit 22.5 % (36-46); Hemoglobin 7.6 g/dL (12.0-16.0); Lymphocytes Absolute Auto 1500 /uL (1100-4500); Lymphocytes Percent Auto 21.4 % (25-40); Mean Corpuscular HGB Conc 33.7 % (30-36); Mean Corpuscular Hemoglobin 31.8 PG (26-34); Mean Corpuscular Volume 94.3 fL (80-100); Monocytes Absolute Auto 400 /uL (0-900); Monocytes Percent Auto 6.4 % (3-14); Neutrophils Absolute Auto 4700 /uL (1500-7000); Platelet Count 196 X10^3/uL (150-400); Red Blood Cell Count 2.38 X10^6/uL (4.0-5.2); Red Cell Distribution Width 18.8 % (11.6-14.8); White Blood Cell Count 6.8 X10^3/uL (4.5-11.0)
[2021-02-08 06:12] LABS: BUN Creatinine Ratio 33.7 (6-22); Blood Urea Nitrogen 34 mg/dL (7-17); Calcium 9.1 mg/dL (8.4-10.2); Carbon Dioxide 24 mmol/L (22-32); Chloride 115 mmol/L (98-107); Estimated Glomerular Filt Rate 52.6 mL/min (>60); Glucose 97 mg/dL (80-110); HEMOLYSIS < 15 (0-50); Sodium 141 mmol/L (137-145)
--- NOTE | 2021-02-08 07:38 | PM.CN ---
History of Present Illness Consult details Date Patient Seen: 02/08/21 Time Patient Seen: 07:38 Chief complaint: Rule out CVA- sent by [facility] Narrative: Is woman who has past history of ulcer disease. She began having dark stool but not black several days ago. She was feeling weak and tired and came into the emergency room and was found to have a significant drop in her hematocrit. She was brought in for intestinal bleeding and for transfusion. She is otherwise relatively healthy having had a hysterectomy, back fusion, and 2 knee replacements, and cataract recent removal in the past her prior operations. She does suffer from hypothyroidism and elevated cholesterol. Meds Home Medications and Allergies Home Medications Medication Instructions Recorded Confirmed Type CA PANTOTHENATE/FOLIC ACID/VIT 1 tab PO Q DAY #0 12/30/11 02/07/21 History (MULTIVITAMIN) CALCIUM CARBONATE (Calcium) 1,200 mg PO QDAY #0 12/30/11 02/07/21 History coenzyme Q10 100 mg capsule (Co 100 mg PO DAILY #0 07/11/17 02/07/21 History Q-10) cholecalciferol (vitamin D3) 50 2,000 unit PO DAILY 06/05/18 02/07/21 History mcg (2,000 unit) capsule Fish Oil (#CARDI-OMEGA) 1,000 mg PO BID #0 12/05/19 02/07/21 History aspirin 81 mg tablet,delayed 81 mg PO DAILY 12/05/19 02/07/21 History release (Adult Aspirin Regimen) levothyroxine 88 mcg tablet 88 mcg PO DAILY #45 tab 01/27/21 02/07/21 Rx lovastatin 40 mg tablet 20 mg PO BEDTIME #90 tab 01/27/21 02/07/21 Rx Allergies Allergy/AdvReac Type Severity Reaction Status Date / Time Sulfa (Sulfonamide Allergy Unknown Verified 02/07/21 14:14 Antibiotics) azithromycin Allergy Verified 02/07/21 14:14 dexamethasone [DEXAMETHASONE] AdvReac Mild HEADACHE Verified 02/07/21 14:14 erythromycin base AdvReac Mild DIARRHEA Verified 02/07/21 14:14 [ERYTHROMYCIN BASE] AND ABDOMINAL PAIN saccharin [SACCHARIN] AdvReac Mild DIARRHEA Verified 02/07/21 14:14 AND ABD PAIN Review of Systems Review of Systems Narrative: Patient has had bilateral cataracts. Her vision is good. She does have some problems with her teeth. No difficulty swallowing. No cough cold or asthma. No chest pain or prior heart issues. No red bowel movements or maroon bowel movements. No abdominal pain. No seizures or blackouts. No unusual bruising or bleeding Exam Vital Signs (past 8 hours): - 02/07/21 23:48 02/08/21 00:00 02/08/21 00:30 Pulse Rate 74 66 71 Respiratory Rate 26 H 22 21 Blood Pressure 160/65 H Pulse Oximetry 97 02/08/21 01:00 02/08/21 01:30 02/08/21 02:00 Pulse Rate 73 74 73 Respiratory Rate 26 H 26 H 27 H Blood Pressure Pulse Oximetry 02/08/21 02:30 02/08/21 03:00 02/08/21 03:30 Pulse Rate 73 67 68 Respiratory Rate 26 H 23 24 Blood Pressure Pulse Oximetry 02/08/21 04:00 02/08/21 04:30 02/08/21 05:00 Pulse Rate 69 68 68 Respiratory Rate 9 L 36 H 24 Blood Pressure Pulse Oximetry 95 02/08/21 05:30 02/08/21 06:00 02/08/21 06:30 Pulse Rate 69 67 73 Respiratory Rate 52 H 27 H 21 Blood Pressure Pulse Oximetry 93 96 92 Oxygen Delivery Method Room Air Narrative Exam Narrative: Cooperative no apparent distress. She is a little overweight. Eyes are nonicteric. She has a venous Niño on her upper and lower lip to the right of midline. Neck is supple without mass. Lungs are clear to auscultation without rales or rhonchi. Heart regular rate and rhythm without murmur gallop. Abdomen is protuberant soft nontender without mass. She is alert and oriented. Speech rate and content are appropriate. Affect is appropriate. Objective Labs Result Diagrams: 02/08/21 05:55 02/08/21 05:55 Labs: Laboratory Results - last 24 hr 02/07/21 02/07/21 02/07/21 14:15 14:15 14:15 WBC 7.5 RBC 1.89 L Hgb 6.4 L* Hct 19.4 L* MCV 102.8 H MCH 33.8 MCHC 32.9 RDW 15.3 H Plt Count 244 Neut % (Auto) 73.7 Lymph % (Auto) 18.6 L Morton % (Auto) 5.0 Eos % (Auto) 2.1 Baso % (Auto) 0.6 Neut # (Auto) 5500 Lymph # (Auto) 1400 Morton # (Auto) 400 Eos # (Auto) 200 Baso # (Auto) 0 Sodium 136 L Potassium 4.0 Chloride 110 H Carbon Dioxide 20 L BUN 31 H Creatinine 1.21 H Estimated GFR 42.7 L BUN/Creatinine Ratio 25.6 H Glucose 166 H Lactate 2.3 H Calcium 10.0 Iron TIBC % Saturation Transferrin Total Bilirubin 0.2 AST 30 ALT 19 Alkaline Phosphatase 47 Total Creatine Kinase 22 L CK-MB (CK-2) TNP CK-MB (CK-2) Rel Index TNP Troponin I < 0.012 Total Protein 5.8 L Albumin 3.4 L Globulin 2.4 Albumin/Globulin Ratio 1.4 Urine RBC Urine WBC Amorphous Sediment Urine Bacteria Ur Culture Indicated? SARS-CoV-2 (PCR) Blood Type Antibody Screen Crossmatch 02/07/21 02/07/21 02/07/21 14:15 14:19 15:20 WBC RBC Hgb Hct MCV MCH MCHC RDW Plt Count Neut % (Auto) Lymph % (Auto) Morton % (Auto) Eos % (Auto) Baso % (Auto) Neut # (Auto) Lymph # (Auto) Morton # (Auto) Eos # (Auto) Baso # (Auto) Sodium Potassium Chloride Carbon Dioxide BUN Creatinine Estimated GFR BUN/Creatinine Ratio Glucose Lactate Calcium Iron 52 TIBC 336 % Saturation 15 Transferrin 277 Total Bilirubin AST ALT Alkaline Phosphatase Total Creatine Kinase CK-MB (CK-2) CK-MB (CK-2) Rel Index Troponin I Total Protein Albumin Globulin Albumin/Globulin Ratio Urine RBC Urine WBC Amorphous Sediment Urine Bacteria Ur Culture Indicated? SARS-CoV-2 (PCR) Negative Blood Type B Positive Antibody Screen Negative Crossmatch See Detail 02/07/21 02/07/21 02/07/21 16:20 17:43 21:30 WBC RBC Hgb Hct MCV MCH MCHC RDW Plt Count Neut % (Auto) Lymph % (Auto) Morton % (Auto) Eos % (Auto) Baso % (Auto) Neut # (Auto) Lymph # (Auto) Morton # (Auto) Eos # (Auto) Baso # (Auto) Sodium Potassium Chloride Carbon Dioxide BUN Creatinine Estimated GFR BUN/Creatinine Ratio Glucose Lactate 0.6 L Calcium Iron TIBC % Saturation Transferrin Total Bilirubin AST ALT Alkaline Phosphatase Total Creatine Kinase CK-MB (CK-2) CK-MB (CK-2) Rel Index Troponin I Total Protein Albumin Globulin Albumin/Globulin Ratio Urine RBC 0-1/hpf Urine WBC 5-10/hpf H Amorphous Sediment 1+ Urine Bacteria None seen Ur Culture Indicated? Specimen cultured SARS-CoV-2 (PCR) Negative Blood Type Antibody Screen Crossmatch 02/07/21 02/08/21 02/08/21 21:30 05:55 05:55 WBC 6.8 RBC 2.38 L Hgb 8.3 L 7.6 L Hct 24.9 L 22.5 L MCV 94.3 D MCH 31.8 MCHC 33.7 RDW 18.8 H Plt Count 196 Neut % (Auto) 68.0 Lymph % (Auto) 21.4 L Morton % (Auto) 6.4 Eos % (Auto) 3.4 Baso % (Auto) 0.8 Neut # (Auto) 4700 Lymph # (Auto) 1500 Morton # (Auto) 400 Eos # (Auto) 200 Baso # (Auto) 100 Sodium 141 Potassium 4.0 Chloride 115 H Carbon Dioxide 24 BUN 34 H Creatinine 1.01 Estimated GFR 52.6 L BUN/Creatinine Ratio 33.7 H Glucose 97 Lactate Calcium 9.1 Iron TIBC % Saturation Transferrin Total Bilirubin AST ALT Alkaline Phosphatase Total Creatine Kinase CK-MB (CK-2) CK-MB (CK-2) Rel Index Troponin I Total Protein Albumin Globulin Albumin/Globulin Ratio Urine RBC Urine WBC Amorphous Sediment Urine Bacteria Ur Culture Indicated? SARS-CoV-2 (PCR) Blood Type Antibody Screen Crossmatch [facility] Medical History Acute GI bleeding Ankle fracture, left (~1992) Chickenpox (~194) Chronic back pain (~1981) Gastric ulcer Hemorrhoids (~2009) History of heavy periods (~1979) History of recurrent ear infection Hyperlipidemia Hypothyroidism (~1979) Lumbar radiculopathy Measles (~1955) Multilevel foraminal stenosis Osteoarthritis (~1999) Osteoporosis Psoriasis (~1982) Pulmonary embolism Rosacea Shingles (~2015) Skin cancer (~2011) Tinnitus (~2011) Surgical History Anesthesia History of knee replacement Status post arthroscopy Status post dilation and curettage Status post hysterectomy Status post laminectomy Family History Brother Heart disease Mother Heart disease Grandfather Cancer Grandmother Cancer Social History marital status: Tobacco & Substance Use Smoking Status: Former smoker alcohol intake: current substance use type: does not use Assessment & Plan Assessment and plan (1) Acute GI bleeding: Status: Acute Plan Probably needs additional transfusion before performing a in EGD. I have discussed the procedure with the patient including risks of bleeding perforation. I also discussed the possibility of aspiration and the likelihood of being put to sleep for this which she was fully in agreement with. All questions were answered. I explained her that Dr. Salazar my partner would probably be doing the procedure sometime later today Time Spent With Patient Critical Care time: I spent a total of [] minutes of critical care time on this patient's care today; this time is exclusive of procedural time.
[2021-02-08] MEDS: PANTOPRAZOLE 40 MG VIAL IV (08:51)
--- NOTE | 2021-02-08 09:32 | PM.PREOP ---
Pre-operative Note COVID-19 COVID-19 status: Negative Result date/Date tested (Pos, Neg/Pending): 02/07/21 Interval Note History & Physical reviewed/Exam performed by Physician: Yes Changes to H&P: Yes H&P completed within 30 days and has changed as indicated here:: I discussed the risks and benefits of esophageal gastroduodenoscopy with the patient. We will proceed with EGD with anesthesia today. If no source of bleeding is found on EGD we will have to perform a colonoscopy in the near future. ASA Class (for procedural sedation): II
[2021-02-08] MEDS: LACTATED RINGERS 1,000 ML 42 ML IV (10:20)
[2021-02-08] MEDS: LIDOCAINE 4% SOLN 50 ML 20 ML TOP (10:47)
--- NOTE | 2021-02-08 10:53 | PM.PN.1 ---
Subjective Subjective Date Patient Seen: 02/08/21 Time Patient Seen: 10:53 Interval history: Patient seen in follow-up of GI bleed. Patient was taken to the endoscopy lab and was not found to have an upper GI bleed. There is was no other changes. She has otherwise been doing well. She did get 1 more unit of blood. Has not had any significant output. Not complaining of any pain or other changes. Had a mild headache. Exam Vital Signs (past 8 hours): - 02/08/21 03:00 02/08/21 03:30 02/08/21 04:00 Temperature Pulse Rate 67 68 69 Respiratory Rate 23 24 9 L Blood Pressure Pulse Oximetry 02/08/21 04:30 02/08/21 05:00 02/08/21 05:30 Temperature Pulse Rate 68 68 69 Respiratory Rate 36 H 24 52 H Blood Pressure Pulse Oximetry 95 93 02/08/21 06:00 02/08/21 06:30 02/08/21 07:00 Temperature Pulse Rate 67 73 72 Respiratory Rate 27 H 21 22 Blood Pressure Pulse Oximetry 96 92 93 02/08/21 07:30 02/08/21 08:00 02/08/21 08:30 Temperature Pulse Rate 72 68 68 Respiratory Rate 20 Blood Pressure Pulse Oximetry 97 93 96 02/08/21 08:51 02/08/21 09:00 02/08/21 09:01 Temperature 98.3 F Pulse Rate 69 70 71 Respiratory Rate 24 18 29 H Blood Pressure 151/69 H 151/69 H 155/66 H Pulse Oximetry 98 97 97 02/08/21 09:15 02/08/21 09:23 02/08/21 09:30 Temperature 98.2 F Pulse Rate 63 64 67 Respiratory Rate 18 26 H Blood Pressure 136/65 165/72 H 136/65 Pulse Oximetry 99 96 02/08/21 10:19 Temperature 99.4 F Pulse Rate 68 Respiratory Rate 17 Blood Pressure 134/64 Pulse Oximetry 100 Oxygen Delivery Method Room Air Narrative Exam Narrative: Alert female lying in bed no acute distress lungs are clear heart regular rate and rhythm abdomen is soft positive bowel sounds continue nontender. Skin is pale. Bulbar conjunctiva was pale. Mucous membranes moist. Objective Labs Result Diagrams: 02/08/21 05:55 02/08/21 05:55 Labs: Laboratory Results - last 24 hr 1102/07/21 02/07/21 14:15 14:15 14:15 WBC 7.5 RBC 1.89 L Hgb 6.4 L* Hct 19.4 L* MCV 102.8 H MCH 33.8 MCHC 32.9 RDW 15.3 H Plt Count 244 Neut % (Auto) 73.7 Lymph % (Auto) 18.6 L [place] % (Auto) 5.0 Eos % (Auto) 2.1 Baso % (Auto) 0.6 Neut # (Auto) 5500 Lymph # (Auto) 1400 [place] # (Auto) 400 Eos # (Auto) 200 Baso # (Auto) 0 Sodium 136 L Potassium 4.0 Chloride 110 H Carbon Dioxide 20 L BUN 31 H Creatinine 1.21 H Estimated GFR 42.7 L BUN/Creatinine Ratio 25.6 H Glucose 166 H Lactate 2.3 H Calcium 10.0 Iron TIBC % Saturation Transferrin Total Bilirubin 0.2 AST 30 ALT 19 Alkaline Phosphatase 47 Total Creatine Kinase 22 L CK-MB (CK-2) TNP CK-MB (CK-2) Rel Index TNP Troponin I < 0.012 Total Protein 5.8 L Albumin 3.4 L Globulin 2.4 Albumin/Globulin Ratio 1.4 Urine RBC Urine WBC Amorphous Sediment Urine Bacteria Ur Culture Indicated? SARS-CoV-2 (PCR) Blood Type Antibody Screen Crossmatch 02/07/21 02/07/21 02/07/21 14:15 14:19 15:20 WBC RBC Hgb Hct MCV MCH MCHC RDW Plt Count Neut % (Auto) Lymph % (Auto) [place] % (Auto) Eos % (Auto) Baso % (Auto) Neut # (Auto) Lymph # (Auto) [place] # (Auto) Eos # (Auto) Baso # (Auto) Sodium Potassium Chloride Carbon Dioxide BUN Creatinine Estimated GFR BUN/Creatinine Ratio Glucose Lactate Calcium Iron 52 TIBC 336 % Saturation 15 Transferrin 277 Total Bilirubin AST ALT Alkaline Phosphatase Total Creatine Kinase CK-MB (CK-2) CK-MB (CK-2) Rel Index Troponin I Total Protein Albumin Globulin Albumin/Globulin Ratio Urine RBC Urine WBC Amorphous Sediment Urine Bacteria Ur Culture Indicated? SARS-CoV-2 (PCR) Negative Blood Type B Positive Antibody Screen Negative Crossmatch See Detail 02/07/21 02/07/21 02/07/21 16:20 17:43 21:30 WBC RBC Hgb Hct MCV MCH MCHC RDW Plt Count Neut % (Auto) Lymph % (Auto) [place] % (Auto) Eos % (Auto) Baso % (Auto) Neut # (Auto) Lymph # (Auto) [place] # (Auto) Eos # (Auto) Baso # (Auto) Sodium Potassium Chloride Carbon Dioxide BUN Creatinine Estimated GFR BUN/Creatinine Ratio Glucose Lactate 0.6 L Calcium Iron TIBC % Saturation Transferrin Total Bilirubin AST ALT Alkaline Phosphatase Total Creatine Kinase CK-MB (CK-2) CK-MB (CK-2) Rel Index Troponin I Total Protein Albumin Globulin Albumin/Globulin Ratio Urine RBC 0-1/hpf Urine WBC 5-10/hpf H Amorphous Sediment 1+ Urine Bacteria None seen Ur Culture Indicated? Specimen cultured SARS-CoV-2 (PCR) Negative Blood Type Antibody Screen Crossmatch 02/07/21 02/08/21 02/08/21 21:30 05:55 05:55 WBC 6.8 RBC 2.38 L Hgb 8.3 L 7.6 L Hct 24.9 L 22.5 L MCV 94.3 D MCH 31.8 MCHC 33.7 RDW 18.8 H Plt Count 196 Neut % (Auto) 68.0 Lymph % (Auto) 21.4 L [place] % (Auto) 6.4 Eos % (Auto) 3.4 Baso % (Auto) 0.8 Neut # (Auto) 4700 Lymph # (Auto) 1500 [place] # (Auto) 400 Eos # (Auto) 200 Baso # (Auto) 100 Sodium 141 Potassium 4.0 Chloride 115 H Carbon Dioxide 24 BUN 34 H Creatinine 1.01 Estimated GFR 52.6 L BUN/Creatinine Ratio 33.7 H Glucose 97 Lactate Calcium 9.1 Iron TIBC % Saturation Transferrin Total Bilirubin AST ALT Alkaline Phosphatase Total Creatine Kinase CK-MB (CK-2) CK-MB (CK-2) Rel Index Troponin I Total Protein Albumin Globulin Albumin/Globulin Ratio Urine RBC Urine WBC Amorphous Sediment Urine Bacteria Ur Culture Indicated? SARS-CoV-2 (PCR) Blood Type Antibody Screen Crossmatch [facility]END[facility] TO [facility] Medical History Acute GI bleeding Ankle fracture, left (~1992) Chickenpox (~1944) Chronic back pain (~1981) Gastric ulcer Hemorrhoids (~2009) History of heavy periods (~1979) History of recurrent ear infection Hyperlipidemia Hypothyroidism (~1979) Lumbar radiculopathy Measles (~1955) Multilevel foraminal stenosis Osteoarthritis (~1999) Osteoporosis Psoriasis (~1982) Pulmonary embolism Rosacea Shingles (~2015) Skin cancer (~2011) Tinnitus (~2011) Surgical History Anesthesia History of knee replacement Status post arthroscopy Status post dilation and curettage Status post hysterectomy Status post laminectomy Family History Brother Heart disease Mother Heart disease Grandfather Cancer Grandmother Cancer Social History marital status: Smoking Status: Current every day smoker alcohol intake: current substance use type: does not use Assessment & Plan Assessment & Plan narrative: GI bleed. Appears to be lower. Surprising. Discussed with surgeon. Actually watch the EGD. Probably can go to oral and throat resolved for now. Will switch. Otherwise needs colonoscopy. Surgeon will prep. Recheck hematocrit this afternoon. Clear liquids. Hopefully will be scoped in the next 24-48 hours. Will replace with blood if needed. Vital signs are all within normal limits at this time. Hypothyroidism. Will restart medication today. Hyperlipidemia. Will restart medication today. DVT prophylaxis. Will continue to hold chemical treatment due external treatment. Disposition. Clearly will be home for another 24-48 hours depending on finding continue to give blood as needed will follow. Appreciate surgical input Time Spent With Patient Critical Care time: I spent a total of [] minutes of critical care time on this patient's care today; this time is exclusive of procedural time.
--- NOTE | 2021-02-08 10:53 | PM.OP.EGD ---
Operative Date/Time/Diagnoses Date of procedure: 02/08/21 Time of procedure: 10:53 Pre-op diagnosis: Acute blood loss anemia Post-op diagnosis: same Procedure & Clinicians Study performed: Esophagogastroduodenoscopy Same procedure as scheduled: Yes Indications: Acute blood loss anemia Surgeon: Jose Salazar Procedure Notes SCOAP/Timeout: Yes Procedure in detail: A timeout was performed. A bite blocked was placed. The patient was positioned in the left lateral decubitus position. The endoscope was inserted through the bite block and passed through the esophagus and stomach and into the duodenum. There was bile in the stomach and duodenum. The duodenal mucosa appeared normal. There were no signs of recent bleeding. The scope was withdrawn into the duodenal bulb and mucosa was inspected. There were no signs of recent bleeding. The scope was withdrawn into the stomach. There were no signs of recent bleeding in the stomach. Random biopsies were taken from the antrum. The rest of the stomach was normal. The scope was retroflexed and no hiatal hernia was noted. The scope was withdrawn into the esophagus and there were no signs of recent bleeding or trauma. The remainder of the esophagus was normal. The scope was withdrawn. The patient was awakened and brought to recovery. Sedation minutes: 11 Impression: Normal exam Post-procedure Plan for aftercare: We will start her on a prep for a colonoscopy tomorrow
--- NOTE | 2021-02-08 11:11 | SUR.PHASEI ---
Stable PACU stay, Dr. Carrillo spoke at length with pt. Discussed colonoscopy tomorrow.
--- NOTE | 2021-02-08 11:43 | SUR.PHASEI ---
Pt transported up to room 224 and left with CHARLENE Costello and left in stable condition.
[2021-02-08] MEDS: LACTATED RINGERS 1,000 ML 100 ML IV ×2 (12:33→23:12)
[2021-02-08 15:16] LABS: Hematocrit 28.2 % (36-46); Hemoglobin 9.6 g/dL (12.0-16.0)
[2021-02-08] MEDS: [UNRECOGNIZED DRUG - OTHER] 12 EACH PO (16:01)
--- NOTE | 2021-02-08 18:21 | PC.NURSE ---
Patient began bowel prep at 1600, has had about 4 liquid stools, still dark black/brown in color.Denies pain, gait is steady to the bathroom.
[2021-02-08] MEDS: ATORVASTATIN 20 MG TABLET 10 MG PO (20:48)
--- NOTE | 2021-02-08 21:56 | PC.NURSE ---
Addendum entered by Lisa Starr R.N. 02/09/21 06:49: Weight this morning is 74.5kg which appears to be down 3.7kg but when reviewing yesterday's weight was actually 76.3kg so is only down 1.8kg. Original Note: Patient is alert and oriented. Breath sounds CTA with RA sat of 99%. HRR w/telemetry reading of SR. BP trending high than patient's normal (per patient) and was 158/75. Denied nausea. Having loose yellow stools related to bowel prep for colonoscopy tomorrow. BT hyperactive. Denied dysuria, frequency or urgency with urination. Is independent with mobility. Refused SCD's as getting up to toilet frequently. Denied pain. Fall risk score is low.
[2021-02-09] VITALS (16 sets, daily range): BP systolic 105–168; BP diastolic 48–72; PULSE 59–71; RESP 16–20; TEMP 36.2–37.3; O2SAT 96–99; BMI 27.3
--- NOTE | 2021-02-09 | DI.CT.S_ITS ---
PROCEDURE: CT ABDOMEN PELVIS W CON INDICATIONS: Acute blood loss anemia with normal endoscopy TECHNIQUE: After the administration of oral and IV contrast, axial sections were acquired from the lung bases to the pubic symphysis. Coronal and sagittal reformats were performed. For radiation dose reduction, the following was used: automated exposure control, adjustment of mA and/or kV according to patient size. COMPARISON: [facility], CT, CT ABDOMEN PELVIS W CON, 01/01/2020, 0:53. FINDINGS: Image quality: Excellent. Lung bases: Dependent atelectasis. Trace bilateral pleural fluid. Heart: Aortic valvular calcification. Asymmetric elevation of the right hemidiaphragm, unchanged. ABDOMEN: Liver: No significant focal lesion. Calcification in the left lobe. Gallbladder: Not distended. Biliary ducts: Unremarkable. Pancreas: No contour abnormality. No ductal dilatation seen. Spleen: Unremarkable. Adrenal Glands: No nodule. Kidneys and Ureters: No hydronephrosis. A few small cysts which are unchanged. Stomach and Bowel: Mild diverticulosis. No diverticulitis demonstrated. There is liquid stool contents in the descending colon. Normal appendix. No small bowel obstruction. The stomach is not distended limiting evaluation. Peritoneum: No abnormal intraperitoneal fluid. No free air. Ventral Wall: No significant hernia. Abdominal Nodes: No retroperitoneal or mesenteric adenopathy by size criteria. Vessels: Aorta and inferior vena cava are normal in size. A circumferential calcified atherosclerotic plaque involving the abdominal aorta. PELVIS: Pelvic Organs: Uterus is absent. Bladder: Unremarkable. Pelvic Nodes: No enlarged lymph nodes. Miscellaneous: No inguinal hernias are seen. Bones: Multilevel DDD. No compression fracture. IMPRESSION: 1. No small bowel obstruction. 2. Diverticulosis. No diverticulitis demonstrated. 3. Liquid stool contents in the descending colon. This raises the possibility of constipation. 4. Trace bilateral pleural effusions. Bibasilar atelectasis. Dictated by: Noah Haskins M.D. on 02/09/2021 at 17:55 Approved by: Noah Haskins M.D. on 02/09/2021 at 18:04
[2021-02-09] MEDS: [UNRECOGNIZED DRUG - OTHER] 12 EACH PO (05:56)
[2021-02-09 06:02] LABS: Add Manual Diff / Slide Review NO; Basophils Absolute Auto 100 /uL (0-100); Basophils Percent Auto 0.7 % (0-2); Eosinophils Absolute Auto 300 /uL (0-450); Eosinophils Percent Auto 3.5 % (2-4); Hematocrit 27.2 % (36-46); Hemoglobin 9.2 g/dL (12.0-16.0); Lymphocytes Absolute Auto 1600 /uL (1100-4500); Lymphocytes Percent Auto 20.1 % (25-40); Mean Corpuscular HGB Conc 33.8 % (30-36); Mean Corpuscular Volume 94.8 fL (80-100); Monocytes Absolute Auto 500 /uL (0-900); Monocytes Percent Auto 6.3 % (3-14); Neutrophils Absolute Auto 5400 /uL (1500-7000); Neutrophils Percent Auto 69.4 % (50-75); Platelet Count 214 X10^3/uL (150-400); Red Blood Cell Count 2.87 X10^6/uL (4.0-5.2); Red Cell Distribution Width 17.8 % (11.6-14.8); White Blood Cell Count 7.8 X10^3/uL (4.5-11.0)
[2021-02-09 06:07] LABS: Blood Urea Nitrogen 19 mg/dL (7-17); Calcium 9.2 mg/dL (8.4-10.2); Carbon Dioxide 25 mmol/L (22-32); Chloride 113 mmol/L (98-107); Estimated Glomerular Filt Rate 53.2 mL/min (>60); Glucose 88 mg/dL (80-110); HEMOLYSIS < 15 (0-50); Potassium 3.7 mmol/L (3.4-5.1); Sodium 139 mmol/L (137-145)
--- NOTE | 2021-02-09 08:09 | PM.PN.1 ---
Subjective Subjective Date Patient Seen: 02/09/21 Time Patient Seen: 08:09 Interval history: Patient had some nausea with her prep for colonoscopy. Actually had some emesis as well. Has no other active symptoms besides running back and forth to the bathroom Does indeed feel better now that her blood counts higher Still wonders how she could have had a physical earlier in the month and then presented with this severe anemia Patient's admission and care over the weekend discussed with Dr. Logan, and I am seeing her today in place of Dr. Cedeño her usual PCP who is off on vacation for the week. Exam Vital Signs (past 8 hours): - 02/09/21 04:00 Temperature 98.9 F Pulse Rate 62 Respiratory Rate 17 Blood Pressure 154/62 H Pulse Oximetry 97 Oxygen Delivery Method Room Air Oxygen Flow Rate 0 Objective Labs Result Diagrams: 02/09/21 05:35 02/09/21 05:35 Labs: Laboratory Results - last 24 hr 02/07/21 02/08/21 02/09/21 15:20 15:00 05:35 WBC 7.8 RBC 2.87 L Hgb 9.6 L 9.2 L Hct 28.2 L 27.2 L MCV 94.8 MCH 32.0 MCHC 33.8 RDW 17.8 H Plt Count 214 Neut % (Auto) 69.4 Lymph % (Auto) 20.1 L [place] % (Auto) 6.3 Eos % (Auto) 3.5 Baso % (Auto) 0.7 Neut # (Auto) 5400 Lymph # (Auto) 1600 [place] # (Auto) 500 Eos # (Auto) 300 Baso # (Auto) 100 Sodium Potassium Chloride Carbon Dioxide BUN Creatinine Estimated GFR BUN/Creatinine Ratio Glucose Calcium Blood Type B Positive Antibody Screen Negative Crossmatch See Detail 02/09/21 05:35 WBC RBC Hgb Hct MCV MCH MCHC RDW Plt Count Neut % (Auto) Lymph % (Auto) [place] % (Auto) Eos % (Auto) Baso % (Auto) Neut # (Auto) Lymph # (Auto) [place] # (Auto) Eos # (Auto) Baso # (Auto) Sodium 139 Potassium 3.7 Chloride 113 H Carbon Dioxide 25 BUN 19 H Creatinine 1.00 Estimated GFR 53.2 L BUN/Creatinine Ratio 19.0 Glucose 88 Calcium 9.2 Blood Type Antibody Screen Crossmatch [facility] Medical History (Updated 02/09/21 @ 07:47 by Jeovanny Palmer MD) Acute GI bleeding Ankle fracture, left (~1992) Chickenpox (~194) Chronic back pain (~1981) Chronic renal failure, stage 3a Gastric ulcer Hemorrhoids (~2009) History of heavy periods (~1979) History of recurrent ear infection Hyperlipidemia Hypothyroidism (~1979) Lumbar radiculopathy Measles (~1955) Multilevel foraminal stenosis Osteoarthritis (~1999) Osteoporosis Psoriasis (~1982) Pulmonary embolism Rosacea Shingles (~2015) Skin cancer (~2011) Tinnitus (~2011) Surgical History Anesthesia History of knee replacement Status post arthroscopy Status post dilation and curettage Status post hysterectomy Status post laminectomy Family History Brother Heart disease Mother Heart disease Grandfather Cancer Grandmother Cancer Social History marital status: household members: none Smoking Status: Current every day smoker alcohol intake: current substance use type: does not use Assessment & Plan Assessment & Plan narrative: 1. Subacute GI bleeding. Patient with clear history melanotic stools and with normal EGD at this point. Blood counts change significantly between the 20 of January and her presentation on the 07 of February. Colonoscopy obviously is the next step and if no findings there will need to have GI evaluation for possible small bowel bleeding. 2. Nausea-likely secondary to her colonoscopy prep. Okay for antiemetics 3. Patient will continue on her other usual medications including her thyroid replacement lipid lowering therapy etcetera Note: Greater than 30 minutes total time was spent on day of service, evaluating the patient on the floor, including examining the patient, discussing clinical course with clinical and nursing staff, reviewing clinical course in the computer, preparing documentation and writing orders for continued management of care, discussing status with family as appropriate, reviewing plans for the next 24 hours with both patient/family and nursing staff as appropriate. Time Spent With Patient Critical Care time: I spent a total of [] minutes of critical care time on this patient's care today; this time is exclusive of procedural time. Quality VTE Deep Vein Thrombosis/Pulmonary Embolism Present on Admission: No
[2021-02-09] MEDS: PANTOPRAZOLE 40 MG VIAL IV (08:15)
[2021-02-09] MEDS: ONDANSETRON 4 MG/2 ML INJ IV (08:15)
[2021-02-09] MEDS: SODIUM CHLORIDE 0.9% FLUSH 10 ML IV (08:16)
[2021-02-09] MEDS: LACTATED RINGERS 1,000 ML 100 ML IV ×2 (09:18→23:41)
--- NOTE | 2021-02-09 16:07 | PM.PREOP ---
Pre-operative Note COVID-19 COVID-19 status: Negative Result date/Date tested (Pos, Neg/Pending): 02/07/21 Interval Note History & Physical reviewed/Exam performed by Physician: Yes Changes to H&P: No ASA Class (for procedural sedation): II
[2021-02-09] MEDS: MIDAZOLAM 5 MG/5 ML VIAL IV (16:44)
[2021-02-09] MEDS: fentaNYL 250 MCG/5 ML INJ IV (16:44)
--- NOTE | 2021-02-09 17:11 | PM.OP.COLON ---
Operative Date/Time/Diagnoses Date of procedure: 02/09/21 Time of procedure: 17:11 Pre-op diagnosis: Acute blood loss anemia Post-op diagnosis: same Procedure & Clinicians Study performed: Colonoscopy Same procedure as scheduled: Yes Indications: Acute blood loss anemia Surgeon: Jose Salazar Procedure Notes SCOAP/Timeout: Yes Procedure in detail: Procedure: The patient was brought to the endoscopy suite, placed in left lateral decubitus position. The patient was connected to monitoring devices. A time-out was performed. Sedation was administered. Once the patient was adequately sedated, a digital rectal exam was performed and was normal. The scope was then inserted and advanced to the cecum where the appendiceal orifice was identified and photographed. The terminal ileum was intubated. The scope was then slowly withdrawn over greater than 6 minutes. Mucosa was thoroughly inspected. There were no abnormalities noted. There were no signs of active or prior bleeding. Colon was well prepped. The scope was retroflexed in the rectum. No abnormalities were noted. The scope was straightened and removed. The patient was awakened and brought to recovery. EBL: 0 Findings: Normal colon We will order a CT abdomen pelvis to rule out retroperitoneal bleeding or bleeding into another organ. If no source of bleeding is found after CT scan and she remains hemodynamically stable with stable hemoglobin she can be discharged home with outpatient follow-up. Potential further investigations as an outpatient might include capsule endoscopy and/or hematology consult. Scope withdrawal time: 12 Sedation minutes: 28 Specimen(s): none sent
[2021-02-09] MEDS: ACETAMINOPHEN 325 MG TABLET 650 MG PO (18:48)
[2021-02-09] MEDS: ATORVASTATIN 20 MG TABLET 10 MG PO (21:23)
[2021-02-09] MEDS: ZOLPIDEM 5 MG TABLET PO (21:23)
[2021-02-10] VITALS (13 sets, daily range): BP systolic 107–175; BP diastolic 52–90; PULSE 60–74; RESP 12–18; TEMP 36.1–36.7; O2SAT 92–98
--- NOTE | 2021-02-10 00:39 | PC.NURSE ---
Patient is alert and oriented. Breath sounds CTA with RA sat of 96%. HRR but bradycardic at 59 bpm. BP not as elevated tonight at 131/70. Denied nausea. BT present and has had no further stools. Denies dysuria, frequency or urgency but does wear a pad as sometimes dribbles urine. Is able to turn herself in bed. Has been up to bathroom independently. Requested sleeping medication and Dr. Palmer was contacted and order received for Bessy. Discussed side effects of Ambien with patient; agreeable to having bed alarm activated and verbalizes to call for assistance when getting out of bed. Bilateral calf SCD's applied. Denied pain. Fall risk score is low.
[2021-02-10 05:11] LABS: Hematocrit 23.8 % (36-46)
[2021-02-10 05:26] LABS: Blood Urea Nitrogen 12 mg/dL (7-17); Calcium 8.7 mg/dL (8.4-10.2); Carbon Dioxide 27 mmol/L (22-32); Chloride 111 mmol/L (98-107); Estimated Glomerular Filt Rate 53.2 mL/min (>60); Glucose 88 mg/dL (80-110); HEMOLYSIS < 15 (0-50); Potassium 4.2 mmol/L (3.4-5.1); Sodium 139 mmol/L (137-145)
[2021-02-10] MEDS: LEVOTHYROXINE 88 MCG TABLET PO (05:48)
[2021-02-10] MEDS: ACETAMINOPHEN 325 MG TABLET 650 MG PO ×3 (05:49→14:23)
--- NOTE | 2021-02-10 07:16 | PM.PN.1 ---
Subjective Subjective Date Patient Seen: 02/10/21 Time Patient Seen: 07:16 Interval history: Patient had an uneventful evening. Got some rest overnight. No evidence of active bleeding based on stool output etcetera Colonoscopy yesterday was entirely normal CT scan of abdomen and pelvis also entirely normal. Hemoglobin hematocrit down somewhat this morning Exam Vital Signs (past 8 hours): - 02/10/21 00:00 02/10/21 03:55 Temperature 98.1 F 96.9 F L Pulse Rate 60 63 Respiratory Rate 17 16 Blood Pressure 133/90 133/60 Pulse Oximetry 95 92 Oxygen Delivery Method Room Air Oxygen Flow Rate 0 Objective Labs Result Diagrams: 02/10/21 04:50 02/10/21 04:50 Labs: Laboratory Results - last 24 hr 02/07/21 02/10/21 02/10/21 15:20 04:50 04:50 Hgb 8.0 L Hct 23.8 L Sodium 139 Potassium 4.2 Chloride 111 H Carbon Dioxide 27 BUN 12 Creatinine 1.00 Estimated GFR 53.2 L BUN/Creatinine Ratio 12.0 Glucose 88 Calcium 8.7 Crossmatch See Detail [facility] Medical History Acute GI bleeding Ankle fracture, left (~1992) Chickenpox (~194) Chronic back pain (~1981) Chronic renal failure, stage 3a Gastric ulcer Hemorrhoids (~2009) History of heavy periods (~1979) History of recurrent ear infection Hyperlipidemia Hypothyroidism (~1979) Lumbar radiculopathy Measles (~1955) Multilevel foraminal stenosis Osteoarthritis (~1999) Osteoporosis Psoriasis (~1982) Pulmonary embolism Rosacea Shingles (~2015) Skin cancer (~2011) Tinnitus (~2011) Surgical History Anesthesia History of knee replacement Status post arthroscopy Status post dilation and curettage Status post hysterectomy Status post laminectomy Family History Brother Heart disease Mother Heart disease Grandfather Cancer Grandmother Cancer Social History marital status: household members: none Smoking Status: Current every day smoker alcohol intake: current substance use type: does not use Assessment & Plan Assessment & Plan narrative: 1. Acute GI bleed with acute blood loss anemia-patient shows no evidence of active bleeding at this time although we have yet to find a source of bleeding. Could have had a small AVM that was not seen on colonoscopy. Could have a source of bleeding in the small bowel. Again patient is hemodynamically stable etcetera without evidence of active bleeding. However her blood count has dropped some and I think she would benefit from additional red blood cell transfusion which I have ordered Assuming she remains hemodynamically stable, and without evidence of active bleeding, can probably be discharged after transfusion is complete 2. Other medical issues including hyperlipidemia hypothyroidism etcetera-patient seems stable. No active issues identified. Overall patient seems stable I think she would benefit symptomatically from additional red blood cell transfusion. Does not appear to be actively bleeding. She will need Gastroenterology consultation for consideration of small-bowel evaluation for source of GI bleed. This can be done as an outpatient. Note: Greater than 30 minutes total time was spent on day of service, evaluating the patient on the floor, including examining the patient, discussing clinical course with clinical and nursing staff, reviewing clinical course in the computer, preparing documentation and writing orders for continued management of care, discussing status with family as appropriate, reviewing plans for the next 24 hours with both patient/family and nursing staff as appropriate. Time Spent With Patient Critical Care time: I spent a total of [] minutes of critical care time on this patient's care today; this time is exclusive of procedural time. Quality VTE Deep Vein Thrombosis/Pulmonary Embolism Present on Admission: No
[2021-02-10] MEDS: PANTOPRAZOLE DR 40 MG TABLET PO (08:00)
[2021-02-10] MEDS: SODIUM CHLORIDE 0.9% FLUSH 10 ML IV (10:03)
--- NOTE | 2021-02-10 13:50 | PC.NURSE ---
@ 1020 pt reports 4/10 Headache; pre-blood transfusion BP 155/52; @ 1300 end transfusion BP 167/74 and pt reports severe headache of 8/10; @ 1317 BP 175/70, HR 66; Transfusion reaction protocals initiated: NS TKO; empty blood bag given to lab; unused, issued 2nd bag of PRBCs returned to lab; notified; @1430 pt states that DANIELS is improved with 2-3/10 pain, BP 140/68, HR 69
[2021-02-10 14:22] LABS: Hematocrit 30.6 % (36-46); Hemoglobin 10.2 g/dL (12.0-16.0)
--- NOTE | 2021-02-10 17:10 | P.DS_ITS ---
History of Present Illness History of Present Illness Date Patient Seen: 02/10/21 Chief complaint: Rule out CVA- sent by [facility] Narrative: Patient is an 80-year-old otherwise healthy female who is a patient of Dr. Cedeño.? Patient is seen in cross cover.? Seen in the emergency room.? Currently having issues with beds.? Patient overall been feeling in good state of health until .? She noted she was walking around [email or web address] and was getting extremely short of breath.? She felt extreme fatigued.? And felt like she should sit down but she power through.? She went home rested that day.? On Tuesday she decided she would just rest.? She was having back pain.? This is not unusual.? She sees rv repairer for this.? She did not feel is any different than usual.? She otherwise was feeling well.? Having no nausea no vomiting.? She had dark stools but she does not think they were black.? She has had no abdominal pain.? Her back pain was not related to anything in her abdominal in that she could placed.? She had no heartburn.? She had does take an aspirin a day.? She takes occasional ibuprofen.? No other anti-inflammatories.? Patient has a history of ulcers.? Distant.? Apparently was duodenal.? Did not cause this type of bleed.? Patient has had history anemia but she does not believe it is related to anything significant.? More like iron deficiency.? And was replaced.? She otherwise has had no fevers no chills.? Just extremely tired when she gets up moves around has some shortness of breath.? She noticed no other change no chest discomfort or complaints.? Patient said around and rested on Tuesday and today she was still feeling significantly tired and decided she would come to the emergency room.? Really not a lot of change today. {from Dr. Logan's H&P} Discharge Providers Provider Date of admission: 02/07/21 18:25 Discharge Date: 02/10/21 Primary care physician: Julio Cedeño MD Consults: 02/07/21 16:04 Consult to General Surgery Stat Comment: Consulting Provider: Mohsen Kramer Reason for consultation: upper gi bleed Has provider been notified: Yes 02/07/21 18:34 Consult to General Surgery Routine Comment: guicho Consulting Provider: Mohsen Kramer Reason for consultation: gi bleed Has provider been notified: Yes Discharge provider: Jeovanny Palmer MD Summary Hospital Course Discharge Diagnosis: 1. Acute blood loss anemia 2. Acute GI bleeding, source not identified 3. Acquired hypothyroidism 4. Mixed hyperlipidemia 5. Chronic back pain Hospital Course: patient was admitted with the symptoms of her anemia as noted above. She underwent upper endoscopy after transfusion. No etiology was found. Therefore she was prepped and underwent colonoscopy and in addition colonoscopy was normal. CT scan of the abdomen and pelvis was also unremarkable for etiology for bleeding or any sort of vascular entero fistula to cause GI bleeding Patient had stability in her blood counts did require another transfusion thought to be secondary to fluid shifts and equal abrasion. Patient felt much better was felt to be ready for discharge given lack of findings. She was cardiovascularly stable without evidence of active bleeding for greater than 24 hours prior to discharge Patient will have her aspirin discontinued given lack of clear indication and unknown source of GI bleeding. Patient will be prescribed or least recommended to take iron replacement therapy in effort to help boost her blood counts. She is reminded that this can cause her stool to be black as well for the same reason the blood cause stool to be black. She will be seen in the outpatient clinic by her PCP in approximately 1 weeks time will need repeat CBC at that time Patient would also benefit from referral to gastroenterology for consideration of evaluation of her small bowel for source of bleeding given lack of findings as above Exam Vital Signs (past 8 hours): - 02/10/21 10:18 02/10/21 10:33 02/10/21 11:30 Temperature 97.4 F L 97.7 F Pulse Rate 60 61 65 Respiratory Rate 12 16 Blood Pressure 155/52 H 120/68 155/52 H Pulse Oximetry 95 02/10/21 12:00 02/10/21 13:01 02/10/21 13:12 Temperature 98 F Pulse Rate 60 67 Respiratory Rate 12 Blood Pressure 167/74 H 175/70 H Pulse Oximetry 95 02/10/21 13:17 02/10/21 13:37 02/10/21 15:59 Temperature 98 F 97.2 F L Pulse Rate 67 67 74 Respiratory Rate 12 16 Blood Pressure 175/70 H 175/70 H 107/56 L Pulse Oximetry 98 Oxygen Delivery Method Room Air Oxygen Flow Rate 0 Objective Labs Result Diagrams: 02/10/21 14:04 02/10/21 04:50 Labs: Laboratory Results - last 24 hr 02/07/21 02/10/21 02/10/21 15:20 04:50 04:50 Hgb 8.0 L Hct 23.8 L Sodium 139 Potassium 4.2 Chloride 111 H Carbon Dioxide 27 BUN 12 Creatinine 1.00 Estimated GFR 53.2 L BUN/Creatinine Ratio 12.0 Glucose 88 Calcium 8.7 Blood Type B Positive Antibody Screen Negative Crossmatch See Detail Transfusion React Rpt Donor Unit # Lab Clerical Err Check Pre-Trans Blood Type Pre-Trans Vis Hemolysis Pre-Trans Antibody Scrn Post-Trans Blood Type Post-Tx Visible Hemolys Post-Trans Antibody Scrn 02/10/21 02/10/21 14:04 14:04 Hgb 10.2 L Hct 30.6 L Sodium Potassium Chloride Carbon Dioxide BUN Creatinine Estimated GFR BUN/Creatinine Ratio Glucose Calcium Blood Type Antibody Screen Crossmatch Transfusion React Rpt No discrepancies Donor Unit # =[id number] Lab Clerical Err Check No error found Pre-Trans Blood Type B positive Pre-Trans Vis Hemolysis No Pre-Trans Antibody Scrn Negative Post-Trans Blood Type B positive Post-Tx Visible Hemolys No Post-Trans Antibody Scrn Negative [facility] Medical History Acute GI bleeding Ankle fracture, left (~1992) Chickenpox (~194) Chronic back pain (~1981) Chronic renal failure, stage 3a Gastric ulcer Hemorrhoids (~2009) History of heavy periods (~1979) History of recurrent ear infection Hyperlipidemia Hypothyroidism (~1979) Lumbar radiculopathy Measles (~1955) Multilevel foraminal stenosis Osteoarthritis (~1999) Osteoporosis Psoriasis (~1982) Pulmonary embolism Rosacea Shingles (~2015) Skin cancer (~2011) Tinnitus (~2011) Surgical History Anesthesia History of knee replacement Status post arthroscopy Status post dilation and curettage Status post hysterectomy Status post laminectomy Family History Brother Heart disease Mother Heart disease Grandfather Cancer Grandmother Cancer Social History marital status: household members: none Smoking Status: Current every day smoker alcohol intake: current substance use type: does not use Discharge Assessment & Plan Assessment and Plan Plan of Treatment: Follow-up with PCP in 1 weeks time, will need CBC at that time Discontinue aspirin given lack of indication on no source of GI bleed Referral to gastroenterology via PCP for consideration of evaluation of small bowel source of bleeding Discharge Plan Discharge Plan Patient Disposition: Home Discharge orders & Medications Prescriptions: New ferrous sulfate 325 mg (65 mg iron) tablet 325 mg PO BID Qty: 150 3RF Continued cholecalciferol (vitamin D3) 2,000 unit capsule 2,000 unit PO DAILY 0RF levothyroxine 88 mcg tablet 88 mcg PO DAILY Qty: 45 1RF lovastatin 40 mg tablet 20 mg PO BEDTIME Qty: 90 3RF CA PANTOTHENATE/FOLIC ACID/VIT (MULTIVITAMIN) 1 tab PO Q DAY Qty: 0 0RF CALCIUM CARBONATE (Calcium) 1,200 mg PO QDAY Qty: 0 0RF coenzyme Q10 [Co Q-10] 100 MG capsule 100 mg PO DAILY Qty: 0 0RF Fish Oil (#CARDI-OMEGA) 1,000 mg PO BID Qty: 0 0RF Discontinued aspirin [Adult Aspirin Regimen] 81 mg tablet,delayed release (DR/EC) 81 mg PO DAILY 0RF Follow up/Referrals: Julio Cedeño MD [Primary Care Provider] - 1 Week Discharge Health Status Multidrug resistant organism: No MDRO Diet/Activity/Treatments Diet: Diet as Tolerated Discharge Data Primary Care Provider: Julio Cedeño Quality VTE Deep Vein Thrombosis/Pulmonary Embolism Present on Admission: No
== END 2021-02-10 18:00 | disposition home or self-care (01) | DRG 378 ==
LOC: ED 16:16 → AC 18:27
PROVIDERS: Emergency Medicine; Surgery; Admitting Provider Family Medicine; Emergency Provider Emergency Medicine; PCP Family Medicine; Referring Provider Emergency Medicine; Visit Provider Internal Medicine
PROC: 0DJ08ZZ Inspection of Upper Intestinal Tract, Via Natural or Artificial Opening Endoscopic (ICD-10-PCS; CPT 43235; principal; 2021-02-08 10:30)
PROC: 0DJD8ZZ Inspection of Lower Intestinal Tract, Via Natural or Artificial Opening Endoscopic (ICD-10-PCS; CPT 45378; principal; 2021-02-09 14:00)
DX: K92.1 Melena (principal); D62 Acute posthemorrhagic anemia; E03.9 Hypothyroidism, unspecified; E78.2 Mixed hyperlipidemia; R11.2 Nausea with vomiting, unspecified; Z20.822 Contact with and (suspected) exposure to COVID-19; Z87.891 Personal history of nicotine dependence
CPT/HCPCS: 36415; 36430; 43235; 45378; 71045; 74177; 80048; 80053; 81003; 81015; 82550; 83540; 83550; 83605; 84484; 85014; 85018; 85025; 86078; 86850; 86900; 86901; 87086; 87635; 93005; 94760; 96361; 96374; 99152; 99153; 99232; 99238; 99284; 99285; C9803; P9016; C9113; J0330; J2250; J2405; J2704; J3010; Q9967

== ENCOUNTER → 2021-02-20 11:38 | Outpatient (CLI) | payer MEDICARE, SELFPAY ==
[2021-02-08 12:42] VITALS: BMI 28.7
[2021-02-20 12:26] LABS: Add Manual Diff / Slide Review NO; Basophils Absolute Auto 100 /uL (0-100); Basophils Percent Auto 1.5 % (0-2); Eosinophils Absolute Auto 200 /uL (0-450); Eosinophils Percent Auto 4.2 % (2-4); Hematocrit 34.9 % (36-46); Hemoglobin 11.4 g/dL (12.0-16.0); Lymphocytes Absolute Auto 1200 /uL (1100-4500); Lymphocytes Percent Auto 23.2 % (25-40); Mean Corpuscular HGB Conc 32.6 % (30-36); Mean Corpuscular Hemoglobin 32.2 PG (26-34); Mean Corpuscular Volume 98.5 fL (80-100); Monocytes Absolute Auto 400 /uL (0-900); Monocytes Percent Auto 8.7 % (3-14); Neutrophils Absolute Auto 3100 /uL (1500-7000); Neutrophils Percent Auto 62.4 % (50-75); Platelet Count 417 X10^3/uL (150-400); Red Blood Cell Count 3.55 X10^6/uL (4.0-5.2); Red Cell Distribution Width 18.3 % (11.6-14.8)
[2021-02-20 12:29] LABS: Cholesterol 219 mg/dL (140-199); HDL Cholesterol 110 mg/dL (40-60); LDL Cholesterol Calculated 88 mg/dL (<100); Triglycerides 104 mg/dL (35-150)
[2021-02-20 12:59] LABS: Thyroid Stimulating Hormone 11.8 uIU/mL (0.47-4.68)
== END ==
PROVIDERS: PCP Family Medicine; Referring Provider Physician Assistant; Visit Provider Physician Assistant
DX: E03.9 Hypothyroidism, unspecified (principal); E78.2 Mixed hyperlipidemia; K92.2 Gastrointestinal hemorrhage, unspecified; D50.9 Iron deficiency anemia, unspecified; R79.89 Other specified abnormal findings of blood chemistry
CPT/HCPCS: 36415; 80061; 84443; 85025

== ENCOUNTER → 2021-04-06 16:38 | Outpatient (CLI) | payer MEDICARE, SELFPAY ==
[2021-02-08 12:42] VITALS: BMI 28.7
[2021-04-06 17:34] LABS: Add Manual Diff / Slide Review NO; Basophils Absolute Auto 100 /uL (0-100); Basophils Percent Auto 0.9 % (0-2); Eosinophils Absolute Auto 200 /uL (0-450); Eosinophils Percent Auto 3.1 % (2-4); Hematocrit 32.1 % (36-46); Hemoglobin 10.7 g/dL (12.0-16.0); Lymphocytes Absolute Auto 1700 /uL (1100-4500); Lymphocytes Percent Auto 28.9 % (25-40); Mean Corpuscular HGB Conc 33.5 % (30-36); Mean Corpuscular Hemoglobin 33.3 PG (26-34); Mean Corpuscular Volume 99.5 fL (80-100); Monocytes Absolute Auto 400 /uL (0-900); Monocytes Percent Auto 6.5 % (3-14); Neutrophils Absolute Auto 3500 /uL (1500-7000); Neutrophils Percent Auto 60.6 % (50-75); Platelet Count 242 X10^3/uL (150-400); Red Blood Cell Count 3.22 X10^6/uL (4.0-5.2); Red Cell Distribution Width 17.9 % (11.6-14.8); White Blood Cell Count 5.7 X10^3/uL (4.5-11.0)
[2021-04-06 18:01] LABS: HEMOLYSIS < 15 (0-50); Iron 98 ug/dL (37-170)
[2021-04-06 18:12] LABS: Percent Iron Saturation 34 % (15-50); Total Iron Binding Capacity 288 ug/dL (265-497); Transferrin 247 mg/dL (206-381)
[2021-04-06 18:33] LABS: TSH w/ Reflex to FT4 3.33 uIU/mL (0.47-4.68)
[2021-04-06 18:37] LABS: Ferritin 95 ng/mL (11-264)
== END ==
PROVIDERS: PCP Family Medicine; Referring Provider Physician Assistant; Visit Provider Physician Assistant
DX: D50.8 Other iron deficiency anemias (principal); E03.9 Hypothyroidism, unspecified; R79.89 Other specified abnormal findings of blood chemistry
CPT/HCPCS: 36415; 82728; 83540; 83550; 84443; 85025

== ENCOUNTER → 2021-08-24 15:44 | Outpatient (CLI) | payer MEDICARE, SELFPAY ==
[2021-02-08 12:42] VITALS: BMI 28.7
--- NOTE | 2021-08-24 | DI.MG.S_ITS ---
BILATERAL DIGITAL SCREENING MAMMOGRAM 3D/2D WITH CAD: 08/24/2021 CLINICAL: Routine screening. Comparison is made to exams dated: 02/26/2020 mammogram, 02/13/2019 mammogram, and 01/28/2018 mammogram - [facility]. There are scattered fibroglandular elements in both breasts. Current study was also evaluated with a Computer Aided Detection (CAD) system. There are benign vascular calcifications in both breasts. No significant masses, calcifications, or other findings are seen in either breast. There has been no significant interval change. IMPRESSION: BENIGN There is no mammographic evidence of malignancy. A 1 year screening mammogram is recommended. This exam was interpreted at Station ID: [id number]. NOTE: For mammograms, a report in lay terms will be sent to the patient. Approximately 15% of breast malignancies will not be visualized mammographically. In the management of a palpable breast mass, a negative mammogram must not discourage biopsy of a clinically suspicious lesion. Electronically Signed By: Pb jackson/lew:08/25/2021 08:23:17 letter sent: Normal Exam ACR BI-RADS Category 2: Benign Finding(s) [id number]
== END ==
PROVIDERS: Family Provider Family Medicine; PCP Family Medicine; Referring Provider Family Medicine; Visit Provider Family Medicine
DX: Z12.31 Encounter for screening mammogram for malignant neoplasm of breast (principal)
CPT/HCPCS: 77063; 77067

== ENCOUNTER → 2021-09-11 10:03 | Outpatient (CLI) | payer MEDICARE, SELFPAY ==
[2021-02-08 12:42] VITALS: BMI 28.7
[2021-09-11 11:10] LABS: Cholesterol 223 mg/dL (140-199); Triglycerides 61 mg/dL (35-150)
[2021-09-11 11:20] LABS: HDL Cholesterol 113 mg/dL (40-60); LDL Cholesterol Calculated 98 mg/dL (<100)
[2021-09-11 11:36] LABS: TSH w/ Reflex to FT4 2.92 uIU/mL (0.47-4.68)
== END ==
PROVIDERS: Family Provider Family Medicine; PCP Family Medicine; Referring Provider Physician Assistant; Visit Provider Physician Assistant
DX: E03.9 Hypothyroidism, unspecified (principal); E78.2 Mixed hyperlipidemia
CPT/HCPCS: 36415; 80061; 84443

== ENCOUNTER → 2021-09-29 15:56 | Outpatient (CLI) | payer MEDICARE, SELFPAY ==
[2021-02-08 12:42] VITALS: BMI 28.7
--- NOTE | 2021-09-29 16:14 | DI.ECHO.S_ITS ---
Interpretation Summary The patient was in sinus bradycardia with heart rates between 52-69 bpm during the exam. The left ventricle is normal in size and wall thickness. The ejection fraction is estimated to be 60-65%. Diastolic parameters suggest probable normal left ventricular diastolic function and normal filling pressures. The IVC is of normal diameter and collapses greater than 50% with a sniff. This suggests a low right atrial pressure of 3 mm Hg. No prior study for comparison Procedure: A two-dimensional transthoracic echocardiogram with color flow and Doppler was performed. The study quality was technically adequate. There is no prior echocardiogram noted for this patient. The patient was in sinus bradycardia with heart rates between 52-69 bpm during the exam. Left Ventricle: The left ventricle is normal in size and wall thickness. The ejection fraction is estimated to be 60-65%. Diastolic parameters suggest probable normal left ventricular diastolic function and normal filling pressures. Right Ventricle: The right ventricle is normal in size and function. Atria: The left atrial size is normal. Right atrial size is normal. There is no Doppler evidence for an interatrial shunt. Mitral Valve: There is mild to moderate mitral annular calcification. The mitral valve leaflets appear mildly thickened, but open well. There is trace mitral regurgitation. Aortic Valve: The aortic valve is trileaflet. The aortic valve is mildly calcified. There is no aortic valve stenosis. No aortic regurgitation is present. Tricuspid Valve: The tricuspid valve is normal in structure and function. There is trace tricuspid regurgitation. Pulmonic Valve: The pulmonic valve is not well visualized. There is no pulmonic valvular regurgitation. Great Vessels: The aortic root is normal size. The ascending aorta could not be visualized. The IVC is of normal diameter and collapses greater than 50% with a sniff. This suggests a low right atrial pressure of 3 mm Hg. Pericardium/ Pleura There is no pericardial effusion. There is no pleural effusion. MMode/2D Measurements & Calculations LVIDd: 5.0 cm LVOT diam: 2.2 cm LVIDs: 3.3 cm Ao root diam: 3.1 cm FS: 34.1 % Ao Arch Diam (Prox Trans): 2.7 cm EPSS: 0.42 cm IVSd: 0.60 cm LVPWd: 0.72 cm LV caruso. diameter/BSA (cm/m^2): 2.7 LV sys. diameter/BSA (cm/m^2): 1.8 LA A2 area: 19.5 cm2 RA long axis: 5.4 cm LA A4 area: 19.1 cm2 RA area: 15.8 cm2 LA length (vol): 5.7 cm RA vol: 39.2 ml LA vol: 55.2 ml RA : 21.5 ml/m2 LA vol index: 30.3 ml/m2 IVC diam: 1.2 cm RVD1 (basal): 3.3 cm RVD2 (mid): 2.5 cm TAPSE: 2.0 cm Doppler Measurements & Calculations Ao V2 max: 163.6 cm/sec LVOT Max Manuel: 100.5 cm/sec Ao V2 mean: 100.4 cm/sec LV V1 max P.0 mmHg Ao max P.7 mmHg LV V1 VTI: 22.8 cm Ao mean P.8 mmHg RAMONA(I,D): 2.6 cm2 Ao V2 VTI: 33.1 cm RAMONA(V,D): 2.3 cm2 sev ratio: 0.69 RAMONA indexed to BSA (cm^2/m^2): 1.4 MV E max manuel: 56.3 cm/sec PA V2 max: 74.8 cm/sec MV A max manuel: 78.3 cm/sec PA V2 mean: 49.5 cm/sec MV E/A: 0.72 PA mean P.1 mmHg Med Peak E' Manuel: 7.1 cm/sec PA pr(Accel): 45.7 mmHg E/E' med: 7.9 Lat Peak E' Manuel: 6.7 cm/sec E/E' lat: 8.4 E/e' average: 8.1 MV dec time: 0.36 sec SV(LVOT): 85.6 ml Reading Physician:KIRIT
== END ==
PROVIDERS: Family Provider Family Medicine; PCP Family Medicine; Referring Provider Physician Assistant; Visit Provider Physician Assistant
DX: I95.9 Hypotension, unspecified (principal); R00.1 Bradycardia, unspecified
CPT/HCPCS: 93306

== ENCOUNTER 2021-10-08 09:45 | Outpatient (RCR) | payer MEDICARE, SELFPAY ==
[2021-02-08 12:42] VITALS: BMI 28.7
--- NOTE | 2021-07-14 17:13 | PT.OIE ---
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) Other enthesopathies, not elsewhere classified (07/14/21) Pain in left foot (07/14/21) Past Medical History (Last Updated 04/08/21 @ 18:00 by Ciera Adams PA-C) Acute GI bleeding Ankle fracture, left (~1992) Chickenpox (~194) Chronic back pain (~1981) Chronic renal failure, stage 3a Gastric ulcer Hemorrhoids (~2009) History of heavy periods (~1979) History of recurrent ear infection Hyperlipidemia Hypothyroidism (~1979) Lumbar radiculopathy Measles (~1955) Multilevel foraminal stenosis Osteoarthritis (~1999) Osteoporosis Psoriasis (~1982) Pulmonary embolism Rosacea Shingles (~2015) Skin cancer (~2011) Tinnitus (~2011) Past Surgical History (Last Reviewed 02/10/21 @ 07:18 by Jeovanny Palmer MD) Anesthesia History of knee replacement Status post arthroscopy Status post dilation and curettage Status post hysterectomy Status post laminectomy Visit Care Team Role Provider Type Julio Cedeño MD Family Provider Physician Primary Care Provider Specialty: Family Practice Address: [address] [place] [address], [id number] Email: [email or web address] Dipika Coy DPM Attending Provider Physician Referring Provider Specialty: Orthopedic Surgery Podiatry Address: [address] [place] [address], [address] Email: [email or web address] [facility] Initial Evaluation PT-OP-A Visit Information Start: 07/13/21 16:23 Freq: Status: Active Protocol: Document 07/14/21 15:16 [facility]AK (Rec: 07/14/21 17:12 SAK [id number]) Out-Patient Physical Therapy Visit Information Visit Information Visit Type Initial Evaluation Visit Start Time 15:16 Visit Stop Time 16:15 Total Visit Minutes 59 Visit Number 1 Evaluation Information Evaluation Date 07/14/21 PT-OP-B Current Condition Start: 07/13/21 16:23 Freq: Status: Active Protocol: Document 07/14/21 15:16 [facility] (Rec: 07/14/21 17:12 [facility] [id number]) Current Condition History of Current Condition Onset Date 9 months Current Complaints left heel pain, great toe pain History of Current Condition 9 month history plantar fascitis left, 3 months ago had set toe pain left foot primarily great toe pain. Very painful to walk in am, or in middle of night without shoes on. Now wears shoes all the time except when sleeping . Has stretched achilles on device loaned to her by friend , but didn't help much. No ice or heat use, no injection, no exercise. Prior history fractured left ankle long time ago [address] [place] [address]. No known cause for either heel or toe pain. Doctor Maya put a bandaid on left great toe, patient unsure why but she has continued to do. Dr. Trejo's note indicates left EHL tightness with tendonitis , acquired hallux extensus of left foot, plantar fascititis left foot. Prior Treatments and Tests no imaging Future Testing and Treatments Planned return to Dr. Trejo after PT completed Treatment Goals Patient/Caregiver Goals Minimize pain to allow her to return to all prior activities . Prior Functional Status Baseline Function- ADL's Independent Baseline Function- Mobility Independent Baseline Function- Gait no pain or limitations Baseline Function- Work/School retired Baseline Function- Recreation/Hobbies bowl 1x/wk Baseline Function- Other gardens, is very active Current Functional Impairments (Reported) Functional Limitations- ADL's painful Functional Limitations- Mobility/Gait goes for 1 1/2 mile walks Functional Limitations- Work/School retired Functional Limitations- Recreation/ painful to stand and walk Hobbies Personal Factors Other Personal Factors That May Effect PMH: right UKA, left TKA Therapy/Recovery PT-OP-C Subjective Start: 07/13/21 16:23 Freq: Status: Active Protocol: Document 07/14/21 15:16 [facility] (Rec: 07/14/21 17:12 [facility] [id number]) OP-PT Pain Assessment Pain Assessment Grid Paper Pain Assessment Grid Completed Yes Location left heel Intensity 3 Scale Used Numeric (0 - 10) Description Aching,Burning,Chronic Frequency Frequent left toes Pain Location Details great toe through 5th, worst great toe Intensity 4 Scale Used Numeric (0 - 10) Frequency Frequent PT-OP-F Manual Assessment Start: 07/13/21 16:23 Freq: Status: Active Protocol: Document 07/14/21 15:16 [facility] (Rec: 07/14/21 17:12 [facility] [id number]) Manual Assessments Soft Tissue Assessment Soft Tissue Mobility Assessment decreased soft tissue mobility left plantar fascia and left EHL Joint Mobility Assessment Joint Mobility Assessment decreased molity great toe and 2nd toe MTP and IP joints PT-OP-G Mobility & Gait Start: 07/13/21 16:23 Freq: Status: Active Protocol: Document 07/14/21 15:16 [facility] (Rec: 07/14/21 17:12 [facility] [id number]) OP Mobility Evaluation Functional Movements Squats unable OP Gait Assessment Gait Gait Assistance Required: Independent Assistive Devices Assistive Device None Gait Deviations General Gait Pattern Antalgic,Decreased Stride Length Factors Limiting Gait Function Factors Limiting Gait Function Decreased Strength,Limited Range of Motion,Pain Stair Climbing Evaluation Evaluation Level of Assist On Stairs Independent Devices Stair Climbing Assistive Devices None Technique/Endurance Stair Climbing Direction Ascend and Descend Stair Climbing Technique Step to Step PT-OP-H Neuro Start: 07/13/21 16:23 Freq: Status: Active Protocol: Document 07/14/21 15:16 [facility] (Rec: 07/14/21 17:12 [facility] [id number]) Sensation Evaluation Gross Sensation Gross Sensation WNL PT-OP-J Posture/Palpation/Skin Start: 07/13/21 16:23 Freq: Status: Active Protocol: Document 07/14/21 15:16 [facility] (Rec: 07/14/21 17:12 [facility] [id number]) Posture Evaluation Position Standing Ankle/Foot Posture (L) Neutral,(R) Neutral,(L) Forefoot Eversion Foot Arch (L) Medium Arch,(R) Medium Arch Toe Posture (L) Extended Toes PT-OP-K Range of Motion Start: 07/13/21 16:23 Freq: Status: Active Protocol: Document 07/14/21 15:16 [facility] (Rec: 07/14/21 17:12 [facility] [id number]) Ankle and Foot Goniometric Range of Motion Ankle and Foot Left Ankle/Foot ROM WFL No Testing Position Sitting Dorsiflexion with Knee Flexed 0 Plantarflexion 45 Inversion 20 Eversion 15 Comments lacking 5 deg df with knee extended Right Ankle/Foot ROM WFL Yes Dorsiflexion with Knee Flexed 5 Inversion 40 Eversion 20 Ankle and Foot ROM Limitations ROM Limitations Soft Tissue Tightness,Pain Toe Range of Motion Toes ROM Limitations Toe ROM Limitations Soft Tissue Tightness,Pain PT-OP-M Strength Start: 07/13/21 16:23 Freq: Status: Active Protocol: Document 07/14/21 15:16 [facility] (Rec: 07/14/21 17:12 [facility] [id number]) Ankle/Foot Strength Ankle and Foot Manual Muscle Testing Left Dorsiflexion (L4) 4 Good Plantarflexion (S1) 4 Good Inversion 4 Good Eversion (S1) 4 Good Right Dorsiflexion (L4) 5 Normal Plantarflexion (S1) 5 Normal Inversion 5 Normal Eversion (S1) 5 Normal Toe Strength Toe Manual Muscle Testing Left Flexion 4 Good Extension 4 Good Comments painful on left Right Flexion 4+ Good+ Extension 4+ Good+ PT-OP-Q Treatments Start: 07/13/21 16:23 Freq: Status: Active Protocol: Document 07/14/21 15:16 [facility] (Rec: 07/14/21 17:12 [facility] [id number]) Manual Therapy Treatment Taping plantar fascia Treatment Focus pain relief Type of Tape Kinesio Tape Skin Inspection intact Comments I strip heel to MTP and heel to proximal calf for inhibition paper off tension I strip for arch support 75% stretch EHL Treatment Focus inhibition Type of Tape Kinesio Tape Skin Inspection intact Comments I strip from insertion to origin left EHL paper off tension Self-Care/Home Management Treatment Education Patient Education Home Exercise Program Other Education HC stretch, EHL stretch, use of ice and heat PRN. May leave kinesiotape on for up to 5 days if feels ok. PT-OP-R Modalities Start: 07/13/21 16:23 Freq: Status: Active Protocol: Document 07/14/21 15:16 [facility] (Rec: 07/14/21 17:12 [facility] [id number]) Ultrasound Therapy Treatment left heel and plantar fascia Treatment Duration (minutes) 8 Patient Position Hooklying Coupling Medium Ultrasound Gel Frequency Setting (mHz) 3 Mode Setting Continuous Intensity Setting (w/cm2) 1 PT-OP-T Assessment and Plan Start: 07/13/21 16:23 Freq: Status: Active Protocol: Document 07/14/21 15:16 [facility] (Rec: 07/14/21 17:12 [facility] [id number]) Physical Therapy Assessment Rehab Potential Rehabilitation Potential Good Evaluation Complexity Number of Personal Factors/Comorbidities 1-2 Number of Body Systems Impaired 3 Clinical Presentation at Evaluation Evolving Impairments Impairments Gait,Pain,Soft Tissue Mobility ,Strength Goals 3 Impairment antalgic gait Impairment patient ambulates with decreased weight bearing mobility throughout left foot and ankle Shelter Goal (LTG) Patient will be able to ambulate on all usual surfaces without significant limp or compensatory pattern LTG Duration 09/13/21 2 Impairment soft tissue mobility Impairment tightness and pain in left plantar fascia and EHL Short Term Goal (STG) Patient to be independent with HEP focused on flexibility and ROM of left plantar fascia and EHL STG Duration 08/13/21 Shelter Goal (LTG) Patient will demonstrate improved mobility in plantar fascia and EHL to WNL to allow for normalization of gait LTG Duration 09/13/21 1 Impairment pain left heel and left toes Short Term Goal (STG) Decrease pain by at least 50% with all usual activities STG Duration 08/13/21 Finance Lead Goal (LTG) Decrease pain by at least 75% with all usual activities to allow patient to return to her prior level of function LTG Duration 09/13/21 Assessment Summary Assessment Patient presents to PT with function limiting pain in her left heel and left toes, most significantly end of left great toe. Evaluation reveals antalgic gait, signficant tightness left EHL and plantar fascia, ROM and strength impairments left foot and toes . Feel compensatory gait due to initial diagnosis of plantar fascia may have contributed to the pain and dysfunction in her toes. Feel she would benefit from physical therapy to decrease her pain, improve her ROM and strength, and normalize her gait pattern, allowing her to return to her prior level of function. Physical Therapy Plan Frequency and Duration Frequency of Treatment 4x/Week Duration of Treatment 8 weeks Plan of Care Start Date 07/14/21 Plan of Care End Date 09/13/21 Therapeutic Interventions Therapeutic Interventions Gait Training,Home Exercise Program,Joint Mobilizations, Manual Therapy,Neuromuscular Re-education,Patient/Caregiver Education,Self-Care/Home Management,Soft Tissue Mobilization,Taping, Therapeutic Activities, Therapeutic Exercises Modalities Cold Pack/Ice Massage,Electric Stimulation,Hot Packs, Infrared Therapy,Iontophoresis ,Ultrasound Next Visit Focus/Plan Next Note Type Treatment Note Next Visit Plan Assess response to ultrasound and kinesiotape, HEP and review HEP for correct performance. Progression of ther ex as tolerated with addition of Sci-Fit with emphasis on symmetrical movement, short foot and towel scrunch exercises, heel and toe raises, gait training to decrease compensatory patterns . Soft tissue mobilization of EHL and plantar fascia. Modalities as indicated.
--- NOTE | 2021-07-14 17:13 | PT.OPPOC ---
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) Other enthesopathies, not elsewhere classified (07/14/21) Pain in left foot (07/14/21) Visit Care Team Role Provider Type Julio Cedeño MD Family Provider Physician Primary Care Provider Specialty: Family Practice Address: [address] [place] [address], [address] Email: [email or web address] Dipika Coy DPM Attending Provider Physician Referring Provider Specialty: Orthopedic Surgery Podiatry Address: [address] [place] [address], [address] Email: [email or web address] Plan Of Care PT-OP-T Assessment and Plan Start: 07/13/21 16:23 Freq: Status: Active Protocol: Document 07/14/21 15:16 [facility] (Rec: 07/14/21 17:12 [facility] [id number]) Physical Therapy Assessment Rehab Potential Rehabilitation Potential Good Evaluation Complexity Number of Personal Factors/Comorbidities 1-2 Number of Body Systems Impaired 3 Clinical Presentation at Evaluation Evolving Impairments Impairments Gait,Pain,Soft Tissue Mobility ,Strength Goals 3 Impairment antalgic gait Impairment patient ambulates with decreased weight bearing mobility throughout left foot and ankle Fci Goal (LTG) Patient will be able to ambulate on all usual surfaces without significant limp or compensatory pattern LTG Duration 09/13/21 2 Impairment soft tissue mobility Impairment tightness and pain in left plantar fascia and EHL Short Term Goal (STG) Patient to be independent with HEP focused on flexibility and ROM of left plantar fascia and EHL STG Duration 08/13/21 Fci Goal (LTG) Patient will demonstrate improved mobility in plantar fascia and EHL to WNL to allow for normalization of gait LTG Duration 09/13/21 1 Impairment pain left heel and left toes Short Term Goal (STG) Decrease pain by at least 50% with all usual activities STG Duration 08/13/21 Hydrometeorologist Goal (LTG) Decrease pain by at least 75% with all usual activities to allow patient to return to her prior level of function LTG Duration 09/13/21 Assessment Summary Assessment Patient presents to PT with function limiting pain in her left heel and left toes, most significantly end of left great toe. Evaluation reveals antalgic gait, signficant tightness left EHL and plantar fascia, ROM and strength impairments left foot and toes . Feel compensatory gait due to initial diagnosis of plantar fascia may have contributed to the pain and dysfunction in her toes. Feel she would benefit from physical therapy to decrease her pain, improve her ROM and strength, and normalize her gait pattern, allowing her to return to her prior level of function. Physical Therapy Plan Frequency and Duration Frequency of Treatment 4x/Week Duration of Treatment 8 weeks Plan of Care Start Date 07/14/21 Plan of Care End Date 09/13/21 Therapeutic Interventions Therapeutic Interventions Gait Training,Home Exercise Program,Joint Mobilizations, Manual Therapy,Neuromuscular Re-education,Patient/Caregiver Education,Self-Care/Home Management,Soft Tissue Mobilization,Taping, Therapeutic Activities, Therapeutic Exercises Modalities Cold Pack/Ice Massage,Electric Stimulation,Hot Packs, Infrared Therapy,Iontophoresis ,Ultrasound Next Visit Focus/Plan Next Note Type Treatment Note Next Visit Plan Assess response to ultrasound and kinesiotape, HEP and review HEP for correct performance. Progression of ther ex as tolerated with addition of Sci-Fit with emphasis on symmetrical movement, short foot and towel scrunch exercises, heel and toe raises, gait training to decrease compensatory patterns . Soft tissue mobilization of EHL and plantar fascia. Modalities as indicated. Plan of Care Dates Plan of Care Start Date 07/14/21 Plan of Care End Date 09/13/21 Electronically Signed by: Nevin Carpio PT 07/14/21 [id number] If you are in agreement with this Plan of Care, please return a signed and dated copy. I have reviewed this Plan of Care and certify that the skilled therapy services above are required to meet the patient?s needs. Physician Signature Date Printed Name and Credentials Clinical Instructor Signature Printed Name and Credentials
--- NOTE | 2021-07-24 14:40 | PT.OTN ---
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) Pain in left foot (07/24/21) Physical Therapy Treatment Note PT-OP-A Visit Information Start: 07/13/21 16:23 Freq: Status: Active Protocol: Document 07/24/21 13:49 SP (Rec: 07/24/21 15:13 SP [id number]) Out-Patient Physical Therapy Visit Information Visit Information Visit Type Treatment Note Visit Start Time 13:49 Visit Stop Time 14:40 Total Visit Minutes 51 Visit Number 3 Number of SWATCH MAKER Visits 1 Evaluation Information Evaluation Date 07/14/21 PT-OP-B Current Condition Start: 07/13/21 16:23 Freq: Status: Active Protocol: Document 07/21/21 10:32 SAK (Rec: 07/21/21 11:20 SAK [id number]) Current Condition History of Current Condition Onset Date 9 months Current Complaints left heel pain, great toe pain History of Current Condition 9 month history plantar fascitis left, 3 months ago had set toe pain left foot primarily great toe pain. Very painful to walk in am, or in middle of night without shoes on. Now wears shoes all the time except when sleeping . Has stretched achilles on device loaned to her by friend , but didn't help much. No ice or heat use, no injection, no exercise. Prior history fractured left ankle long time ago 1993[facility]. No known cause for either heel or toe pain. Doctor Maya put a bandaid on left great toe, patient unsure why but she has continued to do. Dr. Trejo's note indicates left EHL tightness with tendonitis , acquired hallux extensus of left foot, plantar fascititis left foot. Prior Treatments and Tests no imaging Future Testing and Treatments Planned return to Dr. Trejo after PT completed Personal Factors Other Personal Factors That May Effect PMH: right UKA, left TKA Therapy/Recovery PT-OP-C Subjective Start: 07/13/21 16:23 Freq: Status: Active Protocol: Document 07/24/21 13:49 SP (Rec: 07/24/21 15:13 SP [id number]) OP-PT Subjective Patient Comments Patient Comments Pt reported I am not sure feeling any improvements but only 3rd tx. PT-OP-F Manual Assessment Start: 07/13/21 16:23 Freq: Status: Active Protocol: Document 07/14/21 15:16 [facility] (Rec: 07/14/21 17:12 [facility] [id number]) Manual Assessments Soft Tissue Assessment Soft Tissue Mobility Assessment decreased soft tissue mobility left plantar fascia and left EHL Joint Mobility Assessment Joint Mobility Assessment decreased molity great toe and 2nd toe MTP and IP joints PT-OP-G Mobility & Gait Start: 07/13/21 16:23 Freq: Status: Active Protocol: Document 07/14/21 15:16 [facility] (Rec: 07/14/21 17:12 [facility] [id number]) OP Mobility Evaluation Functional Movements Squats unable OP Gait Assessment Gait Gait Assistance Required: Independent Assistive Devices Assistive Device None Gait Deviations General Gait Pattern Antalgic,Decreased Stride Length Factors Limiting Gait Function Factors Limiting Gait Function Decreased Strength,Limited Range of Motion,Pain Stair Climbing Evaluation Evaluation Level of Assist On Stairs Independent Devices Stair Climbing Assistive Devices None Technique/Endurance Stair Climbing Direction Ascend and Descend Stair Climbing Technique Step to Step PT-OP-H Neuro Start: 07/13/21 16:23 Freq: Status: Active Protocol: Document 07/14/21 15:16 [facility] (Rec: 07/14/21 17:12 [facility] [id number]) Sensation Evaluation Gross Sensation Gross Sensation WNL PT-OP-J Posture/Palpation/Skin Start: 07/13/21 16:23 Freq: Status: Active Protocol: Document 07/14/21 15:16 [facility] (Rec: 07/14/21 17:12 [facility] [id number]) Posture Evaluation Position Standing Ankle/Foot Posture (L) Neutral,(R) Neutral,(L) Forefoot Eversion Foot Arch (L) Medium Arch,(R) Medium Arch Toe Posture (L) Extended Toes PT-OP-K Range of Motion Start: 07/13/21 16:23 Freq: Status: Active Protocol: Document 07/14/21 15:16 [facility] (Rec: 07/14/21 17:12 [facility] [id number]) Ankle and Foot Goniometric Range of Motion Ankle and Foot Left Ankle/Foot ROM WFL No Testing Position Sitting Dorsiflexion with Knee Flexed 0 Plantarflexion 45 Inversion 20 Eversion 15 Comments lacking 5 deg df with knee extended Right Ankle/Foot ROM WFL Yes Dorsiflexion with Knee Flexed 5 Inversion 40 Eversion 20 Ankle and Foot ROM Limitations ROM Limitations Soft Tissue Tightness,Pain Toe Range of Motion Toes ROM Limitations Toe ROM Limitations Soft Tissue Tightness,Pain PT-OP-M Strength Start: 07/13/21 16:23 Freq: Status: Active Protocol: Document 07/14/21 15:16 SAK (Rec: 07/14/21 17:12 SAK [id number]) Ankle/Foot Strength Ankle and Foot Manual Muscle Testing Left Dorsiflexion (L4) 4 Good Plantarflexion (S1) 4 Good Inversion 4 Good Eversion (S1) 4 Good Right Dorsiflexion (L4) 5 Normal Plantarflexion (S1) 5 Normal Inversion 5 Normal Eversion (S1) 5 Normal Toe Strength Toe Manual Muscle Testing Left Flexion 4 Good Extension 4 Good Comments painful on left Right Flexion 4+ Good+ Extension 4+ Good+ PT-OP-Q Treatments Start: 07/13/21 16:23 Freq: Status: Active Protocol: Document 07/24/21 13:49 SP (Rec: 07/24/21 15:13 SP [id number]) Cardio Equipment Recumbent Elliptical ([employer]) Duration (Minutes) 4 Resistance 1 Seat Position 6 Other cues for knee alignment- painfree-I can press my heel down Recumbent Stepper (Sci-Fit) Duration (Minutes) 2 Resistance 2.5 Seat Position 8 Other LEs only- stopped after 2 min due to L knee pain and not able full DF Therapeutic Exercises Supine Exercises EHL stretch Reps/Minutes 2 min Comments manual Sitting Exercises self STMs Sitting Exercise Name rolling pin to Tib Ant, calf Side right Resistance rolling and seesaw motion Reps/Minutes 30 sec Comments good feedback response gentle pressure and self massage plantar fasc toe flexion /ankle PF Sitting Exercise Name flexion and eccentric DF/toe ext stretch, added to HEP Side right Resistance TB #1 (looped under foot over toes to mid [place]) Reps/Minutes long sitting x10 Comments cued slow pacing gentle movement, painfree response with good stretch EHL stretch Sitting Exercise Name HEP- added with TB PF/DF towel scrunch Sitting Exercise Name did with TB today- good response Side right Resistance TB #1 Reps/Minutes x10 Standing Exercises piano toes Standing Exercise Name flex/ext/ ABD standing Side bilateral Resistance AROM Equipment Used contact counter PRN Reps/Minutes x10 Comments no shoes, good feedback response pain free tandem stand Standing Exercise Name added to HEP w/ HO Equipment Used PRN counter Reps/Minutes 30 sec L foot forward, 10 sec R foot forward Comments cued tall trunk alignment, core and hip fac over BLE even wB Manual Therapy Treatment Soft Tissue Mobilization toe extensor musc Body Location EHL Mobilization Type Myofascial Release,Strumming Intensity/Depth Moderate Body Position Hooklying plantar fascia Mobilization Type Myofascial Release,Strumming Intensity/Depth Moderate Body Position Hooklying Taping plantar fascia Body Location R Treatment Focus pain relief Type of Tape Kinesio Tape Skin Inspection intact Comments I strip heel to MTP and heel to proximal calf for inhibition paper off tension I strip for arch support 75% stretch EHL Body Location R Treatment Focus inhibition Type of Tape Kinesio Tape Skin Inspection intact Comments I strip from insertion to origin left EHL paper off tension, EHL on stretch PT-OP-R Modalities Start: 07/13/21 16:23 Freq: Status: Active Protocol: Document 07/24/21 13:49 SP (Rec: 07/24/21 15:13 SP [id number]) Ultrasound Therapy Treatment left heel and plantar fascia Treatment Duration (minutes) 8 Patient Position Hooklying Coupling Medium Ultrasound Gel Frequency Setting (mHz) 3 Mode Setting Continuous Intensity Setting (w/cm2) 1 Comments good feedback PT-OP-T Assessment and Plan Start: 07/13/21 16:23 Freq: Status: Active Protocol: Document 07/24/21 13:49 SP (Rec: 07/24/21 15:13 SP [id number]) Physical Therapy Assessment Goals 3 Impairment antalgic gait Impairment patient ambulates with decreased weight bearing mobility throughout left foot and ankle Shelter Goal (LTG) Patient will be able to ambulate on all usual surfaces without significant limp or compensatory pattern LTG Duration 09/13/21 2 Impairment soft tissue mobility Impairment tightness and pain in left plantar fascia and EHL Short Term Goal (STG) Patient to be independent with HEP focused on flexibility and ROM of left plantar fascia and EHL STG Duration 08/13/21 Food Service Supervisor Goal (LTG) Patient will demonstrate improved mobility in plantar fascia and EHL to WNL to allow for normalization of gait LTG Duration 09/13/21 1 Impairment pain left heel and left toes Short Term Goal (STG) Decrease pain by at least 50% with all usual activities STG Duration 08/13/21 Food Service Supervisor Goal (LTG) Decrease pain by at least 75% with all usual activities to allow patient to return to her prior level of function 07/24/21: HEP: standing piano toe(s) flex/ext/ abd, tandem stance, long sitting added TB PF/ DF of ankle and toe flex concentric/ eccentric flexion, calf stretch LTG Duration 09/13/21 progressing 07/24/21 Assessment Summary Assessment Pt tolerated tx: manual, US, K retaping same form, ther ex standing piano toes flex/ext/ abd, tandem stance contact better RLE in back position more stable and long sitting added TB PF/ DF of ankle and toe flex concentric/ eccentric flexion into calf stretch with good feedback responses to HEP. Pt stated self STMs with rolling pin was helpful and better stretch after. Pt reports painfree leaving. Physical Therapy Plan Frequency and Duration Frequency of Treatment 4x/Week Duration of Treatment 8 weeks Plan of Care Start Date 07/14/21 Plan of Care End Date 09/13/21 Therapeutic Interventions Therapeutic Interventions Gait Training,Home Exercise Program,Joint Mobilizations, Manual Therapy,Neuromuscular Re-education,Patient/Caregiver Education,Self-Care/Home Management,Soft Tissue Mobilization,Taping, Therapeutic Activities, Therapeutic Exercises Modalities Cold Pack/Ice Massage,Electric Stimulation,Hot Packs, Infrared Therapy,Iontophoresis ,Ultrasound Next Visit Focus/Plan Next Note Type Treatment Note Next Visit Plan Recheck: TB PF/ DF/ Toe flex/ ext, tandem stance, standing pianon toes. POC: Gait training with emphasis on heel strike and toe off as tolerated. Manual therapy to EHL and plantar fascia, consider further ultrasound to plantar fascia. Assess response to ice.
--- NOTE | 2021-07-28 17:07 | PT.OTN ---
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, not elsewhere classified (07/28/21) Pain in left foot (07/28/21) Physical Therapy Treatment Note PT-OP-A Visit Information Start: 07/13/21 16:23 Freq: Status: Active Protocol: Document 07/28/21 10:33 SAK (Rec: 07/28/21 12:12 [facility] [id number]) Out-Patient Physical Therapy Visit Information Visit Information Visit Type Treatment Note Visit Start Time 10:33 Total Visit Minutes 51 Visit Number 4 Number of BAGGING SALVAGER Visits 0 Evaluation Information Evaluation Date 07/14/21 PT-OP-B Current Condition Start: 07/13/21 16:23 Freq: Status: Active Protocol: Document 07/21/21 10:32 SAK (Rec: 07/21/21 11:20 [facility] [id number]) Current Condition History of Current Condition Onset Date 9 months Current Complaints left heel pain, great toe pain History of Current Condition 9 month history plantar fascitis left, 3 months ago had set toe pain left foot primarily great toe pain. Very painful to walk in am, or in middle of night without shoes on. Now wears shoes all the time except when sleeping . Has stretched achilles on device loaned to her by friend , but didn't help much. No ice or heat use, no injection, no exercise. Prior history fractured left ankle long time ago [address] [place] [address]. No known cause for either heel or toe pain. Doctor Maya put a bandaid on left great toe, patient unsure why but she has continued to do. Dr. Trejo's note indicates left EHL tightness with tendonitis , acquired hallux extensus of left foot, plantar fascititis left foot. Prior Treatments and Tests no imaging Future Testing and Treatments Planned return to Dr. Trejo after PT completed Personal Factors Other Personal Factors That May Effect PMH: right UKA, left TKA Therapy/Recovery PT-OP-C Subjective Start: 07/13/21 16:23 Freq: Status: Active Protocol: Document 07/28/21 10:33 SAK (Rec: 07/28/21 12:12 [facility] [id number]) OP-PT Subjective Patient Comments Patient Comments No new c/o, no change in pain, likes feel of kinesiotape on arch. Still thinking of getting an arch support on foot. Considering getting arch support wrap PT-OP-F Manual Assessment Start: 07/13/21 16:23 Freq: Status: Active Protocol: Document 07/14/21 15:16 [facility] (Rec: 07/14/21 17:12 [facility] [id number]) Manual Assessments Soft Tissue Assessment Soft Tissue Mobility Assessment decreased soft tissue mobility left plantar fascia and left EHL Joint Mobility Assessment Joint Mobility Assessment decreased molity great toe and 2nd toe MTP and IP joints PT-OP-G Mobility & Gait Start: 07/13/21 16:23 Freq: Status: Active Protocol: Document 07/14/21 15:16 [facility] (Rec: 07/14/21 17:12 [facility] [id number]) OP Mobility Evaluation Functional Movements Squats unable OP Gait Assessment Gait Gait Assistance Required: Independent Assistive Devices Assistive Device None Gait Deviations General Gait Pattern Antalgic,Decreased Stride Length Factors Limiting Gait Function Factors Limiting Gait Function Decreased Strength,Limited Range of Motion,Pain Stair Climbing Evaluation Evaluation Level of Assist On Stairs Independent Devices Stair Climbing Assistive Devices None Technique/Endurance Stair Climbing Direction Ascend and Descend Stair Climbing Technique Step to Step PT-OP-H Neuro Start: 07/13/21 16:23 Freq: Status: Active Protocol: Document 07/14/21 15:16 [facility] (Rec: 07/14/21 17:12 [facility] [id number]) Sensation Evaluation Gross Sensation Gross Sensation WNL PT-OP-J Posture/Palpation/Skin Start: 07/13/21 16:23 Freq: Status: Active Protocol: Document 07/14/21 15:16 [facility] (Rec: 07/14/21 17:12 [facility] [id number]) Posture Evaluation Position Standing Ankle/Foot Posture (L) Neutral,(R) Neutral,(L) Forefoot Eversion Foot Arch (L) Medium Arch,(R) Medium Arch Toe Posture (L) Extended Toes PT-OP-K Range of Motion Start: 07/13/21 16:23 Freq: Status: Active Protocol: Document 07/14/21 15:16 [facility] (Rec: 07/14/21 17:12 [facility] [id number]) Ankle and Foot Goniometric Range of Motion Ankle and Foot Left Ankle/Foot ROM WFL No Testing Position Sitting Dorsiflexion with Knee Flexed 0 Plantarflexion 45 Inversion 20 Eversion 15 Comments lacking 5 deg df with knee extended Right Ankle/Foot ROM WFL Yes Dorsiflexion with Knee Flexed 5 Inversion 40 Eversion 20 Ankle and Foot ROM Limitations ROM Limitations Soft Tissue Tightness,Pain Toe Range of Motion Toes ROM Limitations Toe ROM Limitations Soft Tissue Tightness,Pain PT-OP-M Strength Start: 07/13/21 16:23 Freq: Status: Active Protocol: Document 07/14/21 15:16 [facility] (Rec: 07/14/21 17:12 [facility] [id number]) Ankle/Foot Strength Ankle and Foot Manual Muscle Testing Left Dorsiflexion (L4) 4 Good Plantarflexion (S1) 4 Good Inversion 4 Good Eversion (S1) 4 Good Right Dorsiflexion (L4) 5 Normal Plantarflexion (S1) 5 Normal Inversion 5 Normal Eversion (S1) 5 Normal Toe Strength Toe Manual Muscle Testing Left Flexion 4 Good Extension 4 Good Comments painful on left Right Flexion 4+ Good+ Extension 4+ Good+ PT-OP-Q Treatments Start: 07/13/21 16:23 Freq: Status: Active Protocol: Document 07/28/21 10:33 [facility] (Rec: 07/28/21 12:12 [facility] [id number]) Cardio Equipment Recumbent Stepper (Sci-Fit) Duration (Minutes) 8 Resistance 1.5 Seat Position 10 Other cues for neutral LE alignment Therapeutic Exercises Standing Exercises HC stretch Reps/Minutes 2x30 Comments cues for neutral alignment, shown yoga strap as option for ease with hands. Manual Therapy Treatment Taping 2nd toe Treatment Focus inf pressure 2nd toe for hammer correction Type of Tape kinesiotape Skin Inspection intact Comments I strip plantar fascia Body Location R Treatment Focus pain relief Type of Tape Kinesio Tape Skin Inspection intact Comments I strip heel to MTP and heel to proximal calf for inhibition paper off tension I strip for arch support 75% stretch EHL Body Location R Treatment Focus inhibition Type of Tape Kinesio Tape Skin Inspection intact Comments I strip from insertion to origin left EHL paper off tension, EHL on stretch Self-Care/Home Management Treatment Education Other Education potential benefits of AFO's; standing trial with SuperFeet, given information regarding Sole off the shelf AFO's as well. Discussed other potential toe pads and straps as well as toe socks. PT-OP-R Modalities Start: 07/13/21 16:23 Freq: Status: Active Protocol: Document 07/28/21 10:33 [facility] (Rec: 07/28/21 12:12 [facility] [id number]) Ultrasound Therapy Treatment left heel and plantar fascia Treatment Duration (minutes) 8 Patient Position Hooklying Coupling Medium Ultrasound Gel Frequency Setting (mHz) 3 Mode Setting Continuous Intensity Setting (w/cm2) 1 Comments good feedback PT-OP-T Assessment and Plan Start: 07/13/21 16:23 Freq: Status: Active Protocol: Document 07/28/21 10:33 [facility] (Rec: 07/28/21 12:12 [facility] [id number]) Physical Therapy Assessment Goals 3 Impairment antalgic gait Impairment patient ambulates with decreased weight bearing mobility throughout left foot and ankle Conservation Officer Goal (LTG) Patient will be able to ambulate on all usual surfaces without significant limp or compensatory pattern LTG Duration 09/13/21 2 Impairment soft tissue mobility Impairment tightness and pain in left plantar fascia and EHL Short Term Goal (STG) Patient to be independent with HEP focused on flexibility and ROM of left plantar fascia and EHL STG Duration 08/13/21 Conservation Officer Goal (LTG) Patient will demonstrate improved mobility in plantar fascia and EHL to WNL to allow for normalization of gait LTG Duration 09/13/21 1 Impairment pain left heel and left toes Short Term Goal (STG) Decrease pain by at least 50% with all usual activities STG Duration 08/13/21 Conservation Officer Goal (LTG) Decrease pain by at least 75% with all usual activities to allow patient to return to her prior level of function 07/24/21: HEP: standing piano toe(s) flex/ext/ abd, tandem stance, long sitting added TB PF/ DF of ankle and toe flex concentric/ eccentric flexion, calf stretch LTG Duration 09/13/21 progressing 07/24/21 Assessment Summary Assessment Patient not noting any pain improvement yet. Continue to problem-solve support of foot in shoe with potential orthtics, change in tape, use of toe socks or compression strap for arch. She has been fairly compliant with HEP. Physical Therapy Plan Frequency and Duration Frequency of Treatment 4x/Week Duration of Treatment 8 weeks Plan of Care Start Date 07/14/21 Plan of Care End Date 09/13/21 Therapeutic Interventions Therapeutic Interventions Gait Training,Home Exercise Program,Joint Mobilizations, Manual Therapy,Neuromuscular Re-education,Patient/Caregiver Education,Self-Care/Home Management,Soft Tissue Mobilization,Taping, Therapeutic Activities, Therapeutic Exercises Modalities Cold Pack/Ice Massage,Electric Stimulation,Hot Packs, Infrared Therapy,Iontophoresis ,Ultrasound Next Visit Focus/Plan Next Note Type Treatment Note Next Visit Plan POC: Gait training with emphasis on heel strike and toe off as tolerated. Manual therapy to EHL and plantar fascia, consider further ultrasound to plantar fascia. Continue with ice. Further discussion of orthotic and other shoe inserts and straps. Assess response to kinesiotape of 2nd toe.
--- NOTE | 2021-07-31 13:45 | PT.OTN ---
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, not elsewhere classified (07/31/21) Pain in left foot (07/31/21) Physical Therapy Treatment Note PT-OP-A Visit Information Start: 07/13/21 16:23 Freq: Status: Active Protocol: Document 07/31/21 13:01 SP (Rec: 07/31/21 16:04 SP [id number]) Out-Patient Physical Therapy Visit Information Visit Information Visit Type Treatment Note Visit Start Time 13:01 Visit Stop Time 13:45 Total Visit Minutes 44 Visit Number 5 Number of CARDIOTHORACIC ANESTHESIA TECHNICIAN Visits 1 Evaluation Information Evaluation Date 07/14/21 PT-OP-B Current Condition Start: 07/13/21 16:23 Freq: Status: Active Protocol: Document 07/21/21 10:32 SAK (Rec: 07/21/21 11:20 SAK [id number]) Current Condition History of Current Condition Onset Date 9 months Current Complaints left heel pain, great toe pain History of Current Condition 9 month history plantar fascitis left, 3 months ago had set toe pain left foot primarily great toe pain. Very painful to walk in am, or in middle of night without shoes on. Now wears shoes all the time except when sleeping . Has stretched achilles on device loaned to her by friend , but didn't help much. No ice or heat use, no injection, no exercise. Prior history fractured left ankle long time ago [facility]. No known cause for either heel or toe pain. Doctor Maya put a bandaid on left great toe, patient unsure why but she has continued to do. Dr. Trejo's note indicates left EHL tightness with tendonitis , acquired hallux extensus of left foot, plantar fascititis left foot. Prior Treatments and Tests no imaging Future Testing and Treatments Planned return to Dr. Trejo after PT completed Personal Factors Other Personal Factors That May Effect PMH: right UKA, left TKA Therapy/Recovery PT-OP-C Subjective Start: 07/13/21 16:23 Freq: Status: Active Protocol: Document 07/31/21 13:01 SP (Rec: 07/31/21 16:04 SP [id number]) OP-PT Subjective Patient Comments Patient Comments Pt stated saw Dr Coy and was given a squishy device/ strap for 2nd toe and having no pain when walk as long as shoes donned. Pt states her friend gave her a prostretch to use and helps to stretch toe better vs TB, hard on the hands to hold band. Pt wearing new 2nd toe padded band from and ordered the superfeet to get here next week. PT-OP-F Manual Assessment Start: 07/13/21 16:23 Freq: Status: Active Protocol: Document 07/14/21 15:16 [facility] (Rec: 07/14/21 17:12 [facility] [id number]) Manual Assessments Soft Tissue Assessment Soft Tissue Mobility Assessment decreased soft tissue mobility left plantar fascia and left EHL Joint Mobility Assessment Joint Mobility Assessment decreased molity great toe and 2nd toe MTP and IP joints PT-OP-G Mobility & Gait Start: 07/13/21 16:23 Freq: Status: Active Protocol: Document 07/14/21 15:16 [facility] (Rec: 07/14/21 17:12 [facility] [id number]) OP Mobility Evaluation Functional Movements Squats unable OP Gait Assessment Gait Gait Assistance Required: Independent Assistive Devices Assistive Device None Gait Deviations General Gait Pattern Antalgic,Decreased Stride Length Factors Limiting Gait Function Factors Limiting Gait Function Decreased Strength,Limited Range of Motion,Pain Stair Climbing Evaluation Evaluation Level of Assist On Stairs Independent Devices Stair Climbing Assistive Devices None Technique/Endurance Stair Climbing Direction Ascend and Descend Stair Climbing Technique Step to Step PT-OP-H Neuro Start: 07/13/21 16:23 Freq: Status: Active Protocol: Document 07/14/21 15:16 [facility] (Rec: 07/14/21 17:12 [facility] [id number]) Sensation Evaluation Gross Sensation Gross Sensation WNL PT-OP-J Posture/Palpation/Skin Start: 07/13/21 16:23 Freq: Status: Active Protocol: Document 07/14/21 15:16 SAK (Rec: 07/14/21 17:12 [facility] [id number]) Posture Evaluation Position Standing Ankle/Foot Posture (L) Neutral,(R) Neutral,(L) Forefoot Eversion Foot Arch (L) Medium Arch,(R) Medium Arch Toe Posture (L) Extended Toes PT-OP-K Range of Motion Start: 07/13/21 16:23 Freq: Status: Active Protocol: Document 07/14/21 15:16 SAK (Rec: 07/14/21 17:12 [facility] [id number]) Ankle and Foot Goniometric Range of Motion Ankle and Foot Left Ankle/Foot ROM WFL No Testing Position Sitting Dorsiflexion with Knee Flexed 0 Plantarflexion 45 Inversion 20 Eversion 15 Comments lacking 5 deg df with knee extended Right Ankle/Foot ROM WFL Yes Dorsiflexion with Knee Flexed 5 Inversion 40 Eversion 20 Ankle and Foot ROM Limitations ROM Limitations Soft Tissue Tightness,Pain Toe Range of Motion Toes ROM Limitations Toe ROM Limitations Soft Tissue Tightness,Pain PT-OP-M Strength Start: 07/13/21 16:23 Freq: Status: Active Protocol: Document 07/14/21 15:16 [facility] (Rec: 07/14/21 17:12 [facility] [id number]) Ankle/Foot Strength Ankle and Foot Manual Muscle Testing Left Dorsiflexion (L4) 4 Good Plantarflexion (S1) 4 Good Inversion 4 Good Eversion (S1) 4 Good Right Dorsiflexion (L4) 5 Normal Plantarflexion (S1) 5 Normal Inversion 5 Normal Eversion (S1) 5 Normal Toe Strength Toe Manual Muscle Testing Left Flexion 4 Good Extension 4 Good Comments painful on left Right Flexion 4+ Good+ Extension 4+ Good+ PT-OP-Q Treatments Start: 07/13/21 16:23 Freq: Status: Active Protocol: Document 07/31/21 13:01 SP (Rec: 07/31/21 16:04 SP [id number]) Cardio Equipment Recumbent Elliptical (Biodex) Duration (Minutes) 7 Resistance 2 Seat Position 7 Other good knee alignment Therapeutic Exercises Sitting Exercises towel scrunch Sitting Exercise Name toe extension, arch lift Side right Reps/Minutes x8 reps Comments painfree Baps board Sitting Exercise Name fwd/bck, side to side, CW, CCW Equipment Used L4 (L5 next tx) Reps/Minutes x10 reps each direction Comments cued slow pacing control Standing Exercises calf stretch Standing Exercise Name EHL/calf stretch Side left Equipment Used rail contact, MICHELLE assimulate prostretch home Reps/Minutes 20x2 Comments good feedback 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 TB 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 Standing Exercise Name flex/ext/ ABD standing Side bilateral Resistance AROM Equipment Used no UE support needed Reps/Minutes x10 Comments good feedback response pain free Manual Therapy Treatment Taping plantar fascia Body Location R Treatment Focus pain relief Type of Tape Kinesio Tape Skin Inspection intact Comments I strip heel to MTP and heel to proximal calf for inhibition paper off tension I strip for arch support 75% stretch EHL Body Location R Treatment Focus inhibition Type of Tape Kinesio Tape Skin Inspection intact Comments I strip from insertion to origin left EHL paper off tension, EHL on stretch PT-OP-R Modalities Start: 07/13/21 16:23 Freq: Status: Active Protocol: Document 07/31/21 13:01 SP (Rec: 07/31/21 16:04 SP [id number]) Ultrasound Therapy Treatment left heel and plantar fascia Treatment Duration (minutes) 8 Patient Position Hooklying Coupling Medium Ultrasound Gel Frequency Setting (mHz) 3 Mode Setting Continuous Intensity Setting (w/cm2) 1 Comments good feedback PT-OP-T Assessment and Plan Start: 07/13/21 16:23 Freq: Status: Active Protocol: Document 07/31/21 13:01 SP (Rec: 07/31/21 16:04 SP [id number]) Physical Therapy Assessment Goals 3 Impairment antalgic gait Impairment patient ambulates with decreased weight bearing mobility throughout left foot and ankle Education Sales Consultant Goal (LTG) Patient will be able to ambulate on all usual surfaces without significant limp or compensatory pattern LTG Duration 09/13/21 2 Impairment soft tissue mobility Impairment tightness and pain in left plantar fascia and EHL Short Term Goal (STG) Patient to be independent with HEP focused on flexibility and ROM of left plantar fascia and EHL STG Duration 08/13/21 Longterm Goal (LTG) Patient will demonstrate improved mobility in plantar fascia and EHL to WNL to allow for normalization of gait LTG Duration 09/13/21 1 Impairment pain left heel and left toes Short Term Goal (STG) Decrease pain by at least 50% with all usual activities STG Duration 08/13/21 Longterm Goal (LTG) Decrease pain by at least 75% with all usual activities to allow patient to return to her prior level of function 07/24/21: HEP: standing piano toe(s) flex/ext/ abd, tandem stance, long sitting added TB PF/ DF of ankle and toe flex concentric/ eccentric flexion, calf stretch LTG Duration 09/13/21 progressing 07/24/21 Assessment Summary Assessment Pt responded well to taping, US and arch lift and piano toes in standing no adverse affects and K taping for arch support, painfree standing. Pt improving in pain since new 2nd toe sleeve fro ortho. Waiting on superfeet in mail. 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 Physical Therapy Plan Frequency and Duration Frequency of Treatment 4x/Week Duration of Treatment 8 weeks Plan of Care Start Date 07/14/21 Plan of Care End Date 09/13/21 Therapeutic Interventions Therapeutic Interventions Gait Training,Home Exercise Program,Joint Mobilizations, Manual Therapy,Neuromuscular Re-education,Patient/Caregiver Education,Self-Care/Home Management,Soft Tissue Mobilization,Taping, Therapeutic Activities, Therapeutic Exercises Modalities Cold Pack/Ice Massage,Electric Stimulation,Hot Packs, Infrared Therapy,Iontophoresis ,Ultrasound Next Visit Focus/Plan Next Note Type Treatment Note Next Visit Plan Assess continued response prostretch home. Progress as POC. POC: Gait training with emphasis on heel strike and toe off as tolerated. Manual therapy to EHL and plantar fascia, consider further ultrasound to plantar fascia. Continue with ice. Further discussion of orthotic and other shoe inserts and straps. Assess response to kinesiotape of 2nd toe.
--- NOTE | 2021-08-04 14:28 | PT.OTN ---
Current Diagnoses Other deformities of toe(s) (acquired), left foot (08/04/21) Plantar fascial fibromatosis (08/04/21) Other enthesopathies, not elsewhere classified (08/04/21) Pain in left foot (08/04/21) Physical Therapy Treatment Note PT-OP-A Visit Information Start: 07/13/21 16:23 Freq: Status: Active Protocol: Document 08/04/21 11:26 SAK (Rec: 08/04/21 12:10 [facility] [id number]) Out-Patient Physical Therapy Visit Information Visit Information Visit Type Treatment Note Visit Start Time 11:20 Visit Stop Time 12:06 Total Visit Minutes 46 Visit Number 6 Number of ACTUARIAL CONSULTANT Visits 0 Evaluation Information Evaluation Date 07/14/21 PT-OP-B Current Condition Start: 07/13/21 16:23 Freq: Status: Active Protocol: Document 07/21/21 10:32 SAK (Rec: 07/21/21 11:20 [facility] [id number]) Current Condition History of Current Condition Onset Date 9 months Current Complaints left heel pain, great toe pain History of Current Condition 9 month history plantar fascitis left, 3 months ago had set toe pain left foot primarily great toe pain. Very painful to walk in am, or in middle of night without shoes on. Now wears shoes all the time except when sleeping . Has stretched achilles on device loaned to her by friend , but didn't help much. No ice or heat use, no injection, no exercise. Prior history fractured left ankle long time ago 1993[facility]. No known cause for either heel or toe pain. Doctor Maya put a bandaid on left great toe, patient unsure why but she has continued to do. Dr. Trejo's note indicates left EHL tightness with tendonitis , acquired hallux extensus of left foot, plantar fascititis left foot. Prior Treatments and Tests no imaging Future Testing and Treatments Planned return to Dr. Trejo after PT completed Personal Factors Other Personal Factors That May Effect PMH: right UKA, left TKA Therapy/Recovery PT-OP-C Subjective Start: 07/13/21 16:23 Freq: Status: Active Protocol: Document 08/04/21 11:26 SAK (Rec: 08/04/21 12:10 [facility] [id number]) OP-PT Subjective Patient Comments Patient Comments Amount of pain end of toe seems to fluctuate, minimal to no pain with shoes on. WEaring new toe strap and just got Superfeet. Has noticed when standing tends to put more weight on her left side, trying to pay attention to that and to the alignment of her feet. States Dr. Coy was pleased she got SuperFeet. PT-OP-F Manual Assessment Start: 07/13/21 16:23 Freq: Status: Active Protocol: Document 07/14/21 15:16 [facility] (Rec: 07/14/21 17:12 [facility] [id number]) Manual Assessments Soft Tissue Assessment Soft Tissue Mobility Assessment decreased soft tissue mobility left plantar fascia and left EHL Joint Mobility Assessment Joint Mobility Assessment decreased molity great toe and 2nd toe MTP and IP joints PT-OP-G Mobility & Gait Start: 07/13/21 16:23 Freq: Status: Active Protocol: Document 07/14/21 15:16 [facility] (Rec: 07/14/21 17:12 [facility] [id number]) OP Mobility Evaluation Functional Movements Squats unable OP Gait Assessment Gait Gait Assistance Required: Independent Assistive Devices Assistive Device None Gait Deviations General Gait Pattern Antalgic,Decreased Stride Length Factors Limiting Gait Function Factors Limiting Gait Function Decreased Strength,Limited Range of Motion,Pain Stair Climbing Evaluation Evaluation Level of Assist On Stairs Independent Devices Stair Climbing Assistive Devices None Technique/Endurance Stair Climbing Direction Ascend and Descend Stair Climbing Technique Step to Step PT-OP-H Neuro Start: 07/13/21 16:23 Freq: Status: Active Protocol: Document 07/14/21 15:16 [facility] (Rec: 07/14/21 17:12 [facility] [id number]) Sensation Evaluation Gross Sensation Gross Sensation WNL PT-OP-J Posture/Palpation/Skin Start: 07/13/21 16:23 Freq: Status: Active Protocol: Document 07/14/21 15:16 [facility] (Rec: 07/14/21 17:12 [facility] [id number]) Posture Evaluation Position Standing Ankle/Foot Posture (L) Neutral,(R) Neutral,(L) Forefoot Eversion Foot Arch (L) Medium Arch,(R) Medium Arch Toe Posture (L) Extended Toes PT-OP-K Range of Motion Start: 07/13/21 16:23 Freq: Status: Active Protocol: Document 07/14/21 15:16 [facility] (Rec: 07/14/21 17:12 [facility] [id number]) Ankle and Foot Goniometric Range of Motion Ankle and Foot Left Ankle/Foot ROM WFL No Testing Position Sitting Dorsiflexion with Knee Flexed 0 Plantarflexion 45 Inversion 20 Eversion 15 Comments lacking 5 deg df with knee extended Right Ankle/Foot ROM WFL Yes Dorsiflexion with Knee Flexed 5 Inversion 40 Eversion 20 Ankle and Foot ROM Limitations ROM Limitations Soft Tissue Tightness,Pain Toe Range of Motion Toes ROM Limitations Toe ROM Limitations Soft Tissue Tightness,Pain PT-OP-M Strength Start: 07/13/21 16:23 Freq: Status: Active Protocol: Document 07/14/21 15:16 [facility] (Rec: 07/14/21 17:12 [facility] [id number]) Ankle/Foot Strength Ankle and Foot Manual Muscle Testing Left Dorsiflexion (L4) 4 Good Plantarflexion (S1) 4 Good Inversion 4 Good Eversion (S1) 4 Good Right Dorsiflexion (L4) 5 Normal Plantarflexion (S1) 5 Normal Inversion 5 Normal Eversion (S1) 5 Normal Toe Strength Toe Manual Muscle Testing Left Flexion 4 Good Extension 4 Good Comments painful on left Right Flexion 4+ Good+ Extension 4+ Good+ PT-OP-Q Treatments Start: 07/13/21 16:23 Freq: Status: Active Protocol: Document 08/04/21 11:26 [facility] (Rec: 08/04/21 12:10 [facility] [id number]) Cardio Equipment Recumbent Elliptical (Biodex) Duration (Minutes) 8 Resistance 2 Seat Position 7 Other good knee alignment Therapeutic Exercises Supine Exercises EHL stretch Reps/Minutes 1 min Comments manual Sitting Exercises towel scrunch Sitting Exercise Name toe extension, arch lift Side left Reps/Minutes x8 reps Comments painfree Baps board Sitting Exercise Name fwd/bck, side to side, CW, CCW Equipment Used L5 Reps/Minutes x10 reps each direction Comments cued slow pacing control Standing Exercises calf stretch Standing Exercise Name EHL/calf stretch Side left Equipment Used rail contact, MICHELLE Reps/Minutes 20x2 Comments good feedback 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 TB 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 Standing Exercise Name flex/ext/ ABD standing Side bilateral Resistance AROM Equipment Used no UE support needed Reps/Minutes x10 Comments good feedback response pain free tandem stand Standing Exercise Name added to HEP w/ HO Equipment Used PRN counter Reps/Minutes 30 sec L foot forward, 10 sec R foot forward Comments cued tall trunk alignment, core and hip fac over BLE even wB HC stretch Equipment Used MICHELLE Reps/Minutes 2x30 Manual Therapy Treatment Taping plantar fascia Body Location L EHL Body Location L Treatment Focus inhibition Type of Tape Kinesio Tape Skin Inspection intact Comments I strip from insertion to origin left EHL paper off tension, EHL on stretch PT-OP-R Modalities Start: 07/13/21 16:23 Freq: Status: Active Protocol: Document 08/04/21 11:26 [facility] (Rec: 08/04/21 12:10 [facility] [id number]) Ultrasound Therapy Treatment left heel and plantar fascia Treatment Duration (minutes) 8 Patient Position Hooklying Coupling Medium Ultrasound Gel Frequency Setting (mHz) 3 Mode Setting Continuous Intensity Setting (w/cm2) 1 Comments good feedback PT-OP-T Assessment and Plan Start: 07/13/21 16:23 Freq: Status: Active Protocol: Document 08/04/21 11:26 [facility] (Rec: 08/04/21 12:10 [facility] [id number]) Physical Therapy Assessment Goals 3 Impairment antalgic gait Impairment patient ambulates with decreased weight bearing mobility throughout left foot and ankle [facility] Goal (LTG) Patient will be able to ambulate on all usual surfaces without significant limp or compensatory pattern LTG Duration 09/13/21 2 Impairment soft tissue mobility Impairment tightness and pain in left plantar fascia and EHL Short Term Goal (STG) Patient to be independent with HEP focused on flexibility and ROM of left plantar fascia and EHL STG Duration 08/13/21 Metal Dresser Goal (LTG) Patient will demonstrate improved mobility in plantar fascia and EHL to WNL to allow for normalization of gait LTG Duration 09/13/21 1 Impairment pain left heel and left toes Short Term Goal (STG) Decrease pain by at least 50% with all usual activities STG Duration 08/13/21 Metal Dresser Goal (LTG) Decrease pain by at least 75% with all usual activities to allow patient to return to her prior level of function 07/24/21: HEP: standing piano toe(s) flex/ext/ abd, tandem stance, long sitting added TB PF/ DF of ankle and toe flex concentric/ eccentric flexion, calf stretch LTG Duration 09/13/21 progressing 07/24/21 Assessment Summary Assessment Good support achieved with Superfeet, min to no pain when wearing shoes, toe strap and [employer]feet. Physical Therapy Plan Frequency and Duration Frequency of Treatment 4x/Week Duration of Treatment 8 weeks Plan of Care Start Date 07/14/21 Plan of Care End Date 09/13/21 Therapeutic Interventions Therapeutic Interventions Gait Training,Home Exercise Program,Joint Mobilizations, Manual Therapy,Neuromuscular Re-education,Patient/Caregiver Education,Self-Care/Home Management,Soft Tissue Mobilization,Taping, Therapeutic Activities, Therapeutic Exercises Modalities Cold Pack/Ice Massage,Electric Stimulation,Hot Packs, Infrared Therapy,Iontophoresis ,Ultrasound Next Visit Focus/Plan Next Note Type Treatment Note Next Visit Plan Continue PT POC to decrease pain, improve strength and gait quality and comfort.
--- NOTE | 2021-08-07 13:00 | PT.OTN ---
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, not elsewhere classified (08/07/21) Pain in left foot (08/07/21) Physical Therapy Treatment Note PT-OP-A Visit Information Start: 07/13/21 16:23 Freq: Status: Active Protocol: Document 08/07/21 12:17 SP (Rec: 08/07/21 13:07 SP [id number]) Out-Patient Physical Therapy Visit Information Visit Information Visit Type Treatment Note Visit Start Time 12:17 Visit Stop Time 13:00 Total Visit Minutes 43 Visit Number 7 Number of FISCAL ACCOUNTANT Visits 1 Evaluation Information Evaluation Date 07/14/21 PT-OP-B Current Condition Start: 07/13/21 16:23 Freq: Status: Active Protocol: Document 07/21/21 10:32 SAK (Rec: 07/21/21 11:20 SAK [id number]) Current Condition History of Current Condition Onset Date 9 months Current Complaints left heel pain, great toe pain History of Current Condition 9 month history plantar fascitis left, 3 months ago had set toe pain left foot primarily great toe pain. Very painful to walk in am, or in middle of night without shoes on. Now wears shoes all the time except when sleeping . Has stretched achilles on device loaned to her by friend , but didn't help much. No ice or heat use, no injection, no exercise. Prior history fractured left ankle long time ago 1993[facility]. No known cause for either heel or toe pain. Doctor Maya put a bandaid on left great toe, patient unsure why but she has continued to do. Dr. Trejo's note indicates left EHL tightness with tendonitis , acquired hallux extensus of left foot, plantar fascititis left foot. Prior Treatments and Tests no imaging Future Testing and Treatments Planned return to Dr. Trejo after PT completed Personal Factors Other Personal Factors That May Effect PMH: right UKA, left TKA Therapy/Recovery PT-OP-C Subjective Start: 07/13/21 16:23 Freq: Status: Active Protocol: Document 08/07/21 12:17 SP (Rec: 08/07/21 13:07 SP [id number]) OP-PT Subjective Patient Comments Patient Comments Pt reported no pain walking in , has the cushiony pad/ wrapping over L 2nd toe versus one physican gave her due to feels better and white sneakers with bigger toe box. Patient Reported Progress Improving PT-OP-F Manual Assessment Start: 07/13/21 16:23 Freq: Status: Active Protocol: Document 07/14/21 15:16 [facility] (Rec: 07/14/21 17:12 [facility] [id number]) Manual Assessments Soft Tissue Assessment Soft Tissue Mobility Assessment decreased soft tissue mobility left plantar fascia and left EHL Joint Mobility Assessment Joint Mobility Assessment decreased molity great toe and 2nd toe MTP and IP joints PT-OP-G Mobility & Gait Start: 07/13/21 16:23 Freq: Status: Active Protocol: Document 07/14/21 15:16 [facility] (Rec: 07/14/21 17:12 [facility] [id number]) OP Mobility Evaluation Functional Movements Squats unable OP Gait Assessment Gait Gait Assistance Required: Independent Assistive Devices Assistive Device None Gait Deviations General Gait Pattern Antalgic,Decreased Stride Length Factors Limiting Gait Function Factors Limiting Gait Function Decreased Strength,Limited Range of Motion,Pain Stair Climbing Evaluation Evaluation Level of Assist On Stairs Independent Devices Stair Climbing Assistive Devices None Technique/Endurance Stair Climbing Direction Ascend and Descend Stair Climbing Technique Step to Step PT-OP-H Neuro Start: 07/13/21 16:23 Freq: Status: Active Protocol: Document 07/14/21 15:16 [facility] (Rec: 07/14/21 17:12 [facility] [id number]) Sensation Evaluation Gross Sensation Gross Sensation WNL PT-OP-J Posture/Palpation/Skin Start: 07/13/21 16:23 Freq: Status: Active Protocol: Document 07/14/21 15:16 [facility] (Rec: 07/14/21 17:12 [facility] [id number]) Posture Evaluation Position Standing Ankle/Foot Posture (L) Neutral,(R) Neutral,(L) Forefoot Eversion Foot Arch (L) Medium Arch,(R) Medium Arch Toe Posture (L) Extended Toes PT-OP-K Range of Motion Start: 07/13/21 16:23 Freq: Status: Active Protocol: Document 07/14/21 15:16 [facility] (Rec: 07/14/21 17:12 [facility] [id number]) Ankle and Foot Goniometric Range of Motion Ankle and Foot Left Ankle/Foot ROM WFL No Testing Position Sitting Dorsiflexion with Knee Flexed 0 Plantarflexion 45 Inversion 20 Eversion 15 Comments lacking 5 deg df with knee extended Right Ankle/Foot ROM WFL Yes Dorsiflexion with Knee Flexed 5 Inversion 40 Eversion 20 Ankle and Foot ROM Limitations ROM Limitations Soft Tissue Tightness,Pain Toe Range of Motion Toes ROM Limitations Toe ROM Limitations Soft Tissue Tightness,Pain PT-OP-M Strength Start: 07/13/21 16:23 Freq: Status: Active Protocol: Document 07/14/21 15:16 SAK (Rec: 07/14/21 17:12 SAK [id number]) Ankle/Foot Strength Ankle and Foot Manual Muscle Testing Left Dorsiflexion (L4) 4 Good Plantarflexion (S1) 4 Good Inversion 4 Good Eversion (S1) 4 Good Right Dorsiflexion (L4) 5 Normal Plantarflexion (S1) 5 Normal Inversion 5 Normal Eversion (S1) 5 Normal Toe Strength Toe Manual Muscle Testing Left Flexion 4 Good Extension 4 Good Comments painful on left Right Flexion 4+ Good+ Extension 4+ Good+ PT-OP-Q Treatments Start: 07/13/21 16:23 Freq: Status: Active Protocol: Document 08/07/21 12:17 SP (Rec: 08/07/21 13:07 SP [id number]) Cardio Equipment Recumbent Elliptical ([employer]) Duration (Minutes) 8 Resistance 3 Seat Position 7 Other good knee alignment Therapeutic Exercises Supine Exercises EHL stretch Supine Exercise Name challenge B hand arthritis so uses prostretch and good stretch athome Reps/Minutes 1 min Comments manual, ed self Sitting Exercises towel scrunch Sitting Exercise Name toe extension, arch lift Side left Reps/Minutes x8 reps Comments painfree Standing Exercises SLS star glides Standing Exercise Name added to HEP Side left Resistance no shoes, shoes Equipment Used occaional light contact rail needed for balance Reps/Minutes x5 reps Comments little aching heel but not pain, muscles working. piano toes Standing Exercise Name flex/ext/ ABD standing Side bilateral Resistance AROM Equipment Used no UE support needed Reps/Minutes x10 Comments good feedback response pain free tandem stand Standing Exercise Name reviewed HEP w/ HO Equipment Used PRN counter Reps/Minutes 5s, 9s L foot forward, 10s, 15 R foot forward Comments cued tall trunk alignment, core, glut/hip fac over BLE even wB HC stretch Equipment Used MICHELLE Reps/Minutes 2x30 Manual Therapy Treatment Soft Tissue Mobilization toe extensor musc Body Location L EHL Mobilization Type Myofascial Release,Strumming Intensity/Depth Moderate Body Position Hooklying Comments manual and instruction on self . plantar fascia Body Location L Mobilization Type Myofascial Release,Strumming Intensity/Depth Moderate Body Position Hooklying Comments manual and instruction on self . Joint Mobilizations L 1st MTP Direction AP, PA, rotation Grade II Body Position Sidelying Reps/Duration 3 min Comments manual and instruction on self . Taping L heel fat pad taping Body Location L heel inferior and posterior Treatment Focus cushion heel pad Type of Tape [place] Skin Inspection intact, normal color Comments cover roll and [place] fat pad heel taping. PT-OP-R Modalities Start: 07/13/21 16:23 Freq: Status: Active Protocol: Document 08/04/21 11:26 SAK (Rec: 08/04/21 12:10 SAK [id number]) Ultrasound Therapy Treatment left heel and plantar fascia Treatment Duration (minutes) 8 Patient Position Hooklying Coupling Medium Ultrasound Gel Frequency Setting (mHz) 3 Mode Setting Continuous Intensity Setting (w/cm2) 1 Comments good feedback PT-OP-T Assessment and Plan Start: 07/13/21 16:23 Freq: Status: Active Protocol: Document 08/07/21 12:17 SP (Rec: 08/07/21 13:07 SP [id number]) Physical Therapy Assessment Goals 3 Impairment antalgic gait Impairment patient ambulates with decreased weight bearing mobility throughout left foot and ankle Assisted Goal (LTG) Patient will be able to ambulate on all usual surfaces without significant limp or compensatory pattern LTG Duration 09/13/21 2 Impairment soft tissue mobility Impairment tightness and pain in left plantar fascia and EHL Short Term Goal (STG) Patient to be independent with HEP focused on flexibility and ROM of left plantar fascia and EHL STG Duration 08/13/21 Broker Associate Goal (LTG) Patient will demonstrate improved mobility in plantar fascia and EHL to WNL to allow for normalization of gait LTG Duration 09/13/21 1 Impairment pain left heel and left toes Short Term Goal (STG) Decrease pain by at least 50% with all usual activities STG Duration 08/13/21 Assisted Goal (LTG) Decrease pain by at least 75% with all usual activities to allow patient to return to her prior level of function 07/24/21: HEP: standing piano toe(s) flex/ext/ abd, tandem stance, long sitting added TB PF/ DF of ankle and toe flex concentric/ eccentric flexion, calf stretch LTG Duration 09/13/21 progressing 07/24/21 Assessment Summary Assessment Pt good response to manual, stretching, more steady on R foot compared to L today. Reported little achy arch post star glide but not pain w/ without shoes and good little ankle working wobble not pain or LOB, good for home hand hover table. Physical Therapy Plan Frequency and Duration Frequency of Treatment 4x/Week Duration of Treatment 8 weeks Plan of Care Start Date 07/14/21 Plan of Care End Date 09/13/21 Therapeutic Interventions Therapeutic Interventions Gait Training,Home Exercise Program,Joint Mobilizations, Manual Therapy,Neuromuscular Re-education,Patient/Caregiver Education,Self-Care/Home Management,Soft Tissue Mobilization,Taping, Therapeutic Activities, Therapeutic Exercises Modalities Cold Pack/Ice Massage,Electric Stimulation,Hot Packs, Infrared Therapy,Iontophoresis ,Ultrasound Next Visit Focus/Plan Next Note Type Treatment Note Next Visit Plan Recheck SLS star glide, progress functional strengthening to improve communith gait. Continue PT POC to decrease pain, improve strength and gait quality and comfort.
--- NOTE | 2021-08-10 17:03 | PT.OTN ---
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, not elsewhere classified (08/10/21) Pain in left foot (08/10/21) Physical Therapy Treatment Note PT-OP-A Visit Information Start: 07/13/21 16:23 Freq: Status: Active Protocol: Document 08/10/21 14:32 SAK (Rec: 08/10/21 15:15 [facility] [id number]) Out-Patient Physical Therapy Visit Information Visit Information Visit Type Treatment Note Visit Start Time 14:32 Total Visit Minutes 43 Visit Number 8 Number of EQUIPMENT MANAGER Visits 0 Evaluation Information Evaluation Date 07/14/21 PT-OP-B Current Condition Start: 07/13/21 16:23 Freq: Status: Active Protocol: Document 07/21/21 10:32 SAK (Rec: 07/21/21 11:20 SAK [id number]) Current Condition History of Current Condition Onset Date 9 months Current Complaints left heel pain, great toe pain History of Current Condition 9 month history plantar fascitis left, 3 months ago had set toe pain left foot primarily great toe pain. Very painful to walk in am, or in middle of night without shoes on. Now wears shoes all the time except when sleeping . Has stretched achilles on device loaned to her by friend , but didn't help much. No ice or heat use, no injection, no exercise. Prior history fractured left ankle long time ago [address] [place] [address]. No known cause for either heel or toe pain. Doctor Maya put a bandaid on left great toe, patient unsure why but she has continued to do. Dr. Trejo's note indicates left EHL tightness with tendonitis , acquired hallux extensus of left foot, plantar fascititis left foot. Prior Treatments and Tests no imaging Future Testing and Treatments Planned return to Dr. Trejo after PT completed Personal Factors Other Personal Factors That May Effect PMH: right UKA, left TKA Therapy/Recovery PT-OP-C Subjective Start: 07/13/21 16:23 Freq: Status: Active Protocol: Document 08/10/21 14:32 SAK (Rec: 08/10/21 15:15 [facility] [id number]) OP-PT Subjective Patient Comments Patient Comments Liked the taping done last session, a little less effective last couple days but really liked. No new c/o. Not as much exercise after being gone last weekend. A little better pain when barefoot, no pain wearing shoes. Patient Reported Progress Improving PT-OP-F Manual Assessment Start: 07/13/21 16:23 Freq: Status: Active Protocol: Document 07/14/21 15:16 [facility] (Rec: 07/14/21 17:12 [facility] [id number]) Manual Assessments Soft Tissue Assessment Soft Tissue Mobility Assessment decreased soft tissue mobility left plantar fascia and left EHL Joint Mobility Assessment Joint Mobility Assessment decreased molity great toe and 2nd toe MTP and IP joints PT-OP-G Mobility & Gait Start: 07/13/21 16:23 Freq: Status: Active Protocol: Document 07/14/21 15:16 [facility] (Rec: 07/14/21 17:12 [facility] [id number]) OP Mobility Evaluation Functional Movements Squats unable OP Gait Assessment Gait Gait Assistance Required: Independent Assistive Devices Assistive Device None Gait Deviations General Gait Pattern Antalgic,Decreased Stride Length Factors Limiting Gait Function Factors Limiting Gait Function Decreased Strength,Limited Range of Motion,Pain Stair Climbing Evaluation Evaluation Level of Assist On Stairs Independent Devices Stair Climbing Assistive Devices None Technique/Endurance Stair Climbing Direction Ascend and Descend Stair Climbing Technique Step to Step PT-OP-H Neuro Start: 07/13/21 16:23 Freq: Status: Active Protocol: Document 07/14/21 15:16 [facility] (Rec: 07/14/21 17:12 [facility] [id number]) Sensation Evaluation Gross Sensation Gross Sensation WNL PT-OP-J Posture/Palpation/Skin Start: 07/13/21 16:23 Freq: Status: Active Protocol: Document 07/14/21 15:16 [facility] (Rec: 07/14/21 17:12 [facility] [id number]) Posture Evaluation Position Standing Ankle/Foot Posture (L) Neutral,(R) Neutral,(L) Forefoot Eversion Foot Arch (L) Medium Arch,(R) Medium Arch Toe Posture (L) Extended Toes PT-OP-K Range of Motion Start: 07/13/21 16:23 Freq: Status: Active Protocol: Document 07/14/21 15:16 [facility] (Rec: 07/14/21 17:12 [facility] [id number]) Ankle and Foot Goniometric Range of Motion Ankle and Foot Left Ankle/Foot ROM WFL No Testing Position Sitting Dorsiflexion with Knee Flexed 0 Plantarflexion 45 Inversion 20 Eversion 15 Comments lacking 5 deg df with knee extended Right Ankle/Foot ROM WFL Yes Dorsiflexion with Knee Flexed 5 Inversion 40 Eversion 20 Ankle and Foot ROM Limitations ROM Limitations Soft Tissue Tightness,Pain Toe Range of Motion Toes ROM Limitations Toe ROM Limitations Soft Tissue Tightness,Pain PT-OP-M Strength Start: 07/13/21 16:23 Freq: Status: Active Protocol: Document 07/14/21 15:16 [facility] (Rec: 07/14/21 17:12 [facility] [id number]) Ankle/Foot Strength Ankle and Foot Manual Muscle Testing Left Dorsiflexion (L4) 4 Good Plantarflexion (S1) 4 Good Inversion 4 Good Eversion (S1) 4 Good Right Dorsiflexion (L4) 5 Normal Plantarflexion (S1) 5 Normal Inversion 5 Normal Eversion (S1) 5 Normal Toe Strength Toe Manual Muscle Testing Left Flexion 4 Good Extension 4 Good Comments painful on left Right Flexion 4+ Good+ Extension 4+ Good+ PT-OP-Q Treatments Start: 07/13/21 16:23 Freq: Status: Active Protocol: Document 08/10/21 14:32 [facility] (Rec: 08/10/21 15:15 [facility] [id number]) Cardio Equipment Recumbent Elliptical ([employer]) Duration (Minutes) 8 Resistance 3 Seat Position 7 Other good knee alignment Gym Equipment Sport Cord green Exercise Details f/side stepping Cord/Resistance green Reps/Duration 5 reps each direction Comments cued slow pacing, neutral LE alignment, gluteal activation with weight acceptance some soreness with side stepping Therapeutic Exercises Sitting Exercises Baps board Sitting Exercise Name fwd/bck, side to side, CW, CCW Equipment Used L4 Reps/Minutes x10 reps each direction Comments cued slow pacing control Standing Exercises SLS Equipment Used mirror Reps/Minutes 2x10 bob SLS star glides Side left Resistance shoes Equipment Used occaional light contact rail needed for balance Reps/Minutes x5 reps Comments little aching heel but not pain, muscles working. piano toes Standing Exercise Name flex/ext/ ABD standing Side bilateral Resistance AROM Equipment Used no UE support needed Reps/Minutes x10 Comments good feedback response pain free HC stretch Equipment Used MICHELLE Reps/Minutes 2x30 Manual Therapy Treatment Soft Tissue Mobilization toe extensor musc Body Location L EHL Mobilization Type Myofascial Release,Strumming Intensity/Depth Moderate Body Position Hooklying Comments manual and instruction on self . plantar fascia Body Location L Mobilization Type Myofascial Release,Strumming Intensity/Depth Moderate Body Position Hooklying Comments manual and instruction on self . Joint Mobilizations L 1st MTP Direction AP, PA, rotation Grade II Body Position Sidelying Reps/Duration 3 min Comments manual and instruction on self . Taping L heel fat pad taping Body Location L heel inferior and posterior Treatment Focus cushion heel pad Type of Tape Amos Skin Inspection intact, normal color Comments cover roll and [place] fat pad heel taping. PT-OP-R Modalities Start: 07/13/21 16:23 Freq: Status: Active Protocol: Document 08/04/21 11:26 [facility] (Rec: 08/04/21 12:10 [facility] [id number]) Ultrasound Therapy Treatment left heel and plantar fascia Treatment Duration (minutes) 8 Patient Position Hooklying Coupling Medium Ultrasound Gel Frequency Setting (mHz) 3 Mode Setting Continuous Intensity Setting (w/cm2) 1 Comments good feedback PT-OP-T Assessment and Plan Start: 07/13/21 16:23 Freq: Status: Active Protocol: Document 08/10/21 14:32 [facility] (Rec: 08/10/21 15:15 [facility] [id number]) Physical Therapy Assessment Goals 3 Impairment antalgic gait Impairment patient ambulates with decreased weight bearing mobility throughout left foot and ankle Certified Nurses' Aide Goal (LTG) Patient will be able to ambulate on all usual surfaces without significant limp or compensatory pattern LTG Duration 09/13/21 2 Impairment soft tissue mobility Impairment tightness and pain in left plantar fascia and EHL Short Term Goal (STG) Patient to be independent with HEP focused on flexibility and ROM of left plantar fascia and EHL STG Duration 08/13/21 Certified Nurses' Aide Goal (LTG) Patient will demonstrate improved mobility in plantar fascia and EHL to WNL to allow for normalization of gait LTG Duration 09/13/21 1 Impairment pain left heel and left toes Short Term Goal (STG) Decrease pain by at least 50% with all usual activities STG Duration 08/13/21 Certified Nurses' Aide Goal (LTG) Decrease pain by at least 75% with all usual activities to allow patient to return to her prior level of function 07/24/21: HEP: standing piano toe(s) flex/ext/ abd, tandem stance, long sitting added TB PF/ DF of ankle and toe flex concentric/ eccentric flexion, calf stretch LTG Duration 09/13/21 progressing 07/24/21 Assessment Summary Assessment Patient continues to improve with decreased pain, improved awareness of alignment. Good compliance to HEP with decreasing UE support needed. Use of mirroir with sport cord helpful for patient alignment correction. Physical Therapy Plan Frequency and Duration Frequency of Treatment 4x/Week Duration of Treatment 8 weeks Plan of Care Start Date 07/14/21 Plan of Care End Date 09/13/21 Therapeutic Interventions Therapeutic Interventions Gait Training,Home Exercise Program,Joint Mobilizations, Manual Therapy,Neuromuscular Re-education,Patient/Caregiver Education,Self-Care/Home Management,Soft Tissue Mobilization,Taping, Therapeutic Activities, Therapeutic Exercises Modalities Cold Pack/Ice Massage,Electric Stimulation,Hot Packs, Infrared Therapy,Iontophoresis ,Ultrasound Next Visit Focus/Plan Next Note Type Treatment Note Next Visit Plan Continue progression of functional strengthening and gait training, flexibility, manual techniques to decrease pain and improve function.
--- NOTE | 2021-08-12 11:20 | PT.OTN ---
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) Pain in left foot (08/12/21) Physical Therapy Treatment Note PT-OP-A Visit Information Start: 07/13/21 16:23 Freq: Status: Active Protocol: Document 08/12/21 10:36 SP (Rec: 08/12/21 11:39 SP [id number]) Out-Patient Physical Therapy Visit Information Visit Information Visit Type Treatment Note Visit Start Time 10:36 Visit Stop Time 11:20 Total Visit Minutes 44 Visit Number 9 Number of SYSTEM SPECIALIST Visits 1 Evaluation Information Evaluation Date 07/14/21 PT-OP-B Current Condition Start: 07/13/21 16:23 Freq: Status: Active Protocol: Document 07/21/21 10:32 SAK (Rec: 07/21/21 11:20 SAK [id number]) Current Condition History of Current Condition Onset Date 9 months Current Complaints left heel pain, great toe pain History of Current Condition 9 month history plantar fascitis left, 3 months ago had set toe pain left foot primarily great toe pain. Very painful to walk in am, or in middle of night without shoes on. Now wears shoes all the time except when sleeping . Has stretched achilles on device loaned to her by friend , but didn't help much. No ice or heat use, no injection, no exercise. Prior history [facility]. No known cause for either heel or toe pain. Doctor Maya put a bandaid on left great toe, patient unsure why but she has continued to do. Dr. Trejo's note indicates left EHL tightness with tendonitis , acquired hallux extensus of left foot, plantar fascititis left foot. Prior Treatments and Tests no imaging Future Testing and Treatments Planned return to Dr. Trejo after PT completed Personal Factors Other Personal Factors That May Effect PMH: right UKA, left TKA Therapy/Recovery PT-OP-C Subjective Start: 07/13/21 16:23 Freq: Status: Active Protocol: Document 08/12/21 10:36 SP (Rec: 08/12/21 11:39 SP [id number]) OP-PT Subjective Patient Comments Patient Comments Pt reports the [place] taping over L heel helped alot , wants retaped for over weekend support. Pt stated walking outside level surfaces but only last a couple blocks due to R lateral sacrum and into glut/piriformis but if just stand still couple minutes then able to continue. Pt states ready DC by end POC 3-4 visits. Patient Reported Progress Improving PT-OP-F Manual Assessment Start: 07/13/21 16:23 Freq: Status: Active Protocol: Document 07/14/21 15:16 [facility] (Rec: 07/14/21 17:12 [facility] [id number]) Manual Assessments Soft Tissue Assessment Soft Tissue Mobility Assessment decreased soft tissue mobility left plantar fascia and left EHL Joint Mobility Assessment Joint Mobility Assessment decreased molity great toe and 2nd toe MTP and IP joints PT-OP-G Mobility & Gait Start: 07/13/21 16:23 Freq: Status: Active Protocol: Document 07/14/21 15:16 [facility] (Rec: 07/14/21 17:12 [facility] [id number]) OP Mobility Evaluation Functional Movements Squats unable OP Gait Assessment Gait Gait Assistance Required: Independent Assistive Devices Assistive Device None Gait Deviations General Gait Pattern Antalgic,Decreased Stride Length Factors Limiting Gait Function Factors Limiting Gait Function Decreased Strength,Limited Range of Motion,Pain Stair Climbing Evaluation Evaluation Level of Assist On Stairs Independent Devices Stair Climbing Assistive Devices None Technique/Endurance Stair Climbing Direction Ascend and Descend Stair Climbing Technique Step to Step PT-OP-H Neuro Start: 07/13/21 16:23 Freq: Status: Active Protocol: Document 07/14/21 15:16 [facility] (Rec: 07/14/21 17:12 [facility] [id number]) Sensation Evaluation Gross Sensation Gross Sensation WNL PT-OP-J Posture/Palpation/Skin Start: 07/13/21 16:23 Freq: Status: Active Protocol: Document 07/14/21 15:16 [facility] (Rec: 07/14/21 17:12 [facility] [id number]) Posture Evaluation Position Standing Ankle/Foot Posture (L) Neutral,(R) Neutral,(L) Forefoot Eversion Foot Arch (L) Medium Arch,(R) Medium Arch Toe Posture (L) Extended Toes PT-OP-K Range of Motion Start: 07/13/21 16:23 Freq: Status: Active Protocol: Document 07/14/21 15:16 [facility] (Rec: 07/14/21 17:12 [facility] [id number]) Ankle and Foot Goniometric Range of Motion Ankle and Foot Left Ankle/Foot ROM WFL No Testing Position Sitting Dorsiflexion with Knee Flexed 0 Plantarflexion 45 Inversion 20 Eversion 15 Comments lacking 5 deg df with knee extended Right Ankle/Foot ROM WFL Yes Dorsiflexion with Knee Flexed 5 Inversion 40 Eversion 20 Ankle and Foot ROM Limitations ROM Limitations Soft Tissue Tightness,Pain Toe Range of Motion Toes ROM Limitations Toe ROM Limitations Soft Tissue Tightness,Pain PT-OP-M Strength Start: 07/13/21 16:23 Freq: Status: Active Protocol: Document 07/14/21 15:16 [facility] (Rec: 07/14/21 17:12 [facility] [id number]) Ankle/Foot Strength Ankle and Foot Manual Muscle Testing Left Dorsiflexion (L4) 4 Good Plantarflexion (S1) 4 Good Inversion 4 Good Eversion (S1) 4 Good Right Dorsiflexion (L4) 5 Normal Plantarflexion (S1) 5 Normal Inversion 5 Normal Eversion (S1) 5 Normal Toe Strength Toe Manual Muscle Testing Left Flexion 4 Good Extension 4 Good Comments painful on left Right Flexion 4+ Good+ Extension 4+ Good+ PT-OP-Q Treatments Start: 07/13/21 16:23 Freq: Status: Active Protocol: Document 08/12/21 10:36 SP (Rec: 08/12/21 11:39 SP [id number]) Cardio Equipment Recumbent Elliptical (Breeze Tech) Duration (Minutes) 4 Resistance 3 Seat Position 7 Other good knee alignment Therapeutic Exercises Sitting Exercises piriformis stretch Sitting Exercise Name added to HEP- hip IR/ ER Side right Reps/Minutes 20 x2 Comments good stretch, slow w/ breath tolerance time stretch Standing Exercises STMs Standing Exercise Name R pirformis- added to HEP needed Side right Equipment Used ball wall vs seated in chair- both helpful Reps/Minutes 5 min total time Comments good response rolling and sustained pressure SLS Standing Exercise Name EO Side bilateral Resistance floor, pillow Equipment Used mirror Reps/Minutes LLE 30s, RLE 12s, 14s- floor, LLE SLS 12s pillow Comments good form, little pain R hip SLS star glides Standing Exercise Name reviewed Side left Resistance shoes Equipment Used occaional light contact rail needed for balance Reps/Minutes x8 reps Comments little aching heel but not pain, muscles working. tandem stand Standing Exercise Name reviewed HEP Equipment Used PRN counter Reps/Minutes 30s L foot forward, 30s R foot forward Comments good stability, discussed tandem walking at home near wall- didn't perform PT-OP-R Modalities Start: 07/13/21 16:23 Freq: Status: Active Protocol: Document 08/04/21 11:26 SAK (Rec: 08/04/21 12:10 SAK [id number]) Ultrasound Therapy Treatment left heel and plantar fascia Treatment Duration (minutes) 8 Patient Position Hooklying Coupling Medium Ultrasound Gel Frequency Setting (mHz) 3 Mode Setting Continuous Intensity Setting (w/cm2) 1 Comments good feedback PT-OP-T Assessment and Plan Start: 07/13/21 16:23 Freq: Status: Active Protocol: Document 08/12/21 10:36 SP (Rec: 08/12/21 11:39 SP [id number]) Physical Therapy Assessment Goals 3 Impairment antalgic gait Impairment patient ambulates with decreased weight bearing mobility throughout left foot and ankle Shelter Goal (LTG) Patient will be able to ambulate on all usual surfaces without significant limp or compensatory pattern 08/12/21: pt reports ableto walk outside pavement level surfaces about 2 block then needs brief rest before continues, with friends. LTG Duration 09/13/21 progressing 08/12/21 2 Impairment soft tissue mobility Impairment tightness and pain in left plantar fascia and EHL Short Term Goal (STG) Patient to be independent with HEP focused on flexibility and ROM of left plantar fascia and EHL STG Duration 08/13/21 Shelter Goal (LTG) Patient will demonstrate improved mobility in plantar fascia and EHL to WNL to allow for normalization of gait 08/12/21: self STMs and stretching. Able to stand without much pain since got superfeet in shoe and heel taping. LTG Duration 09/13/21 progressing 08/12/21 1 Impairment pain left heel and left toes Short Term Goal (STG) Decrease pain by at least 50% with all usual activities 08/12/21: progressing able to walk outside level surfaces, ask % next tx. STG Duration 08/13/21 progressin08/12/21 Shelter Goal (LTG) Decrease pain by at least 75% with all usual activities to allow patient to return to her prior level of function 5/6/22: HEP: standing piano toe(s) flex/ext/ abd, tandem stance, long sitting added TB PF/ DF of ankle and toe flex concentric/ eccentric flexion, calf stretch LTG Duration 09/13/21 progressing 07/24/21 Assessment Summary Assessment Pt improved tandem 30s stable, LLE SLS up to 30s LLE firm surface, 12s uneven surface ( pillow). Discussed adding to HEP no HO provided. Added R PF stretch/ STMs to improve gait limited pain, improved decrease tightness end tx. Physical Therapy Plan Frequency and Duration Frequency of Treatment 4x/Week Duration of Treatment 8 weeks Plan of Care Start Date 07/14/21 Plan of Care End Date 09/13/21 Therapeutic Interventions Therapeutic Interventions Gait Training,Home Exercise Program,Joint Mobilizations, Manual Therapy,Neuromuscular Re-education,Patient/Caregiver Education,Self-Care/Home Management,Soft Tissue Mobilization,Taping, Therapeutic Activities, Therapeutic Exercises Modalities Cold Pack/Ice Massage,Electric Stimulation,Hot Packs, Infrared Therapy,Iontophoresis ,Ultrasound Next Visit Focus/Plan Next Note Type Treatment Note Next Visit Plan Next tx: recheck SLS uneven surface, add progressive dynamic balance activities: zoraida w/without cushions, SHuttle balance for ankle stabililty to allow uneven surface yard work hasn't been able to do. POC: Continue progression of functional strengthening and gait training, flexibility, manual techniques to decrease pain and improve function.
--- NOTE | 2021-08-26 10:35 | PT.OTN ---
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) Pain in left foot (08/26/21) Physical Therapy Treatment Note PT-OP-A Visit Information Start: 07/13/21 16:23 Freq: Status: Active Protocol: Document 08/26/21 09:44 SP (Rec: 08/26/21 10:38 SP [id number]) Out-Patient Physical Therapy Visit Information Visit Information Visit Type Treatment Note Visit Start Time 09:45 Visit Stop Time 10:35 Total Visit Minutes 50 Visit Number 10 Number of LUGGAGE MAKER Visits 2 Evaluation Information Evaluation Date 07/14/21 PT-OP-B Current Condition Start: 07/13/21 16:23 Freq: Status: Active Protocol: Document 07/21/21 10:32 SAK (Rec: 07/21/21 11:20 SAK [id number]) Current Condition History of Current Condition Onset Date 9 months Current Complaints left heel pain, great toe pain History of Current Condition 9 month history plantar fascitis left, 3 months ago had set toe pain left foot primarily great toe pain. Very painful to walk in am, or in middle of night without shoes on. Now wears shoes all the time except when sleeping . Has stretched achilles on device loaned to her by friend , but didn't help much. No ice or heat use, no injection, no exercise. Prior history [facility] left [facility] ago [facility]. No known cause for either heel or toe pain. Doctor Maya put a bandaid on left great toe, patient unsure why but she has continued to do. Dr. Trejo's note indicates left EHL tightness with tendonitis , acquired hallux extensus of left foot, plantar fascititis left foot. Prior Treatments and Tests no imaging Future Testing and Treatments Planned return to Dr. Trejo after PT completed Personal Factors Other Personal Factors That May Effect PMH: right UKA, left TKA Therapy/Recovery PT-OP-C Subjective Start: 07/13/21 16:23 Freq: Status: Active Protocol: Document 08/26/21 09:44 SP (Rec: 08/26/21 10:38 SP [id number]) OP-PT Subjective Patient Comments Patient Comments Pt reports frustrated with slow progress. She reported R 2nd toe had burning feeling when got up 2 nights ago affected her gait but didn't see redness when woke up yesterday am. She reports taping helps alot with the heel pain and her balance has improved. Patient Reported Progress Improving PT-OP-F Manual Assessment Start: 07/13/21 16:23 Freq: Status: Active Protocol: Document 07/14/21 15:16 [facility] (Rec: 07/14/21 17:12 [facility] [id number]) Manual Assessments Soft Tissue Assessment Soft Tissue Mobility Assessment decreased soft tissue mobility left plantar fascia and left EHL Joint Mobility Assessment Joint Mobility Assessment decreased molity great toe and 2nd toe MTP and IP joints PT-OP-G Mobility & Gait Start: 07/13/21 16:23 Freq: Status: Active Protocol: Document 07/14/21 15:16 [facility] (Rec: 07/14/21 17:12 [facility] [id number]) OP Mobility Evaluation Functional Movements Squats unable OP Gait Assessment Gait Gait Assistance Required: Independent Assistive Devices Assistive Device None Gait Deviations General Gait Pattern Antalgic,Decreased Stride Length Factors Limiting Gait Function Factors Limiting Gait Function Decreased Strength,Limited Range of Motion,Pain Stair Climbing Evaluation Evaluation Level of Assist On Stairs Independent Devices Stair Climbing Assistive Devices None Technique/Endurance Stair Climbing Direction Ascend and Descend Stair Climbing Technique Step to Step PT-OP-H Neuro Start: 07/13/21 16:23 Freq: Status: Active Protocol: Document 07/14/21 15:16 [facility] (Rec: 07/14/21 17:12 [facility] [id number]) Sensation Evaluation Gross Sensation Gross Sensation WNL PT-OP-J Posture/Palpation/Skin Start: 07/13/21 16:23 Freq: Status: Active Protocol: Document 07/14/21 15:16 [facility] (Rec: 07/14/21 17:12 [facility] [id number]) Posture Evaluation Position Standing Ankle/Foot Posture (L) Neutral,(R) Neutral,(L) Forefoot Eversion Foot Arch (L) Medium Arch,(R) Medium Arch Toe Posture (L) Extended Toes PT-OP-K Range of Motion Start: 07/13/21 16:23 Freq: Status: Active Protocol: Document 07/14/21 15:16 [facility] (Rec: 07/14/21 17:12 [facility] [id number]) Ankle and Foot Goniometric Range of Motion Ankle and Foot Left Ankle/Foot ROM WFL No Testing Position Sitting Dorsiflexion with Knee Flexed 0 Plantarflexion 45 Inversion 20 Eversion 15 Comments lacking 5 deg df with knee extended Right Ankle/Foot ROM WFL Yes Dorsiflexion with Knee Flexed 5 Inversion 40 Eversion 20 Ankle and Foot ROM Limitations ROM Limitations Soft Tissue Tightness,Pain Toe Range of Motion Toes ROM Limitations Toe ROM Limitations Soft Tissue Tightness,Pain PT-OP-M Strength Start: 07/13/21 16:23 Freq: Status: Active Protocol: Document 07/14/21 15:16 SAK (Rec: 07/14/21 17:12 SAK [id number]) Ankle/Foot Strength Ankle and Foot Manual Muscle Testing Left Dorsiflexion (L4) 4 Good Plantarflexion (S1) 4 Good Inversion 4 Good Eversion (S1) 4 Good Right Dorsiflexion (L4) 5 Normal Plantarflexion (S1) 5 Normal Inversion 5 Normal Eversion (S1) 5 Normal Toe Strength Toe Manual Muscle Testing Left Flexion 4 Good Extension 4 Good Comments painful on left Right Flexion 4+ Good+ Extension 4+ Good+ PT-OP-Q Treatments Start: 07/13/21 16:23 Freq: Status: Active Protocol: Document 08/26/21 09:44 SP (Rec: 08/26/21 10:38 SP [id number]) Cardio Equipment Recumbent Elliptical (Biodex) Duration (Minutes) 8 Resistance 3 Seat Position 7 Other good knee alignment- 625 steps Therapeutic Exercises Sitting Exercises resisted eversion Sitting Exercise Name added to HEP Side left Reps/Minutes 2x10 Comments good form and muscle work, pain free Standing Exercises toe and heel walking Standing Exercise Name added to HEP Reps/Minutes 10 ft x1lap Comments good form, no pain, challenging heel raises Standing Exercise Name added to HEP Side bilateral Resistance AROM Equipment Used floor> pillow, contact rail PRN Reps/Minutes 2x8 reps Comments little challenging muscle effort, [place] lateral L peroneal , achy L [id number] SLS Standing Exercise Name EO Side bilateral Resistance pillow Equipment Used rail contact as needed Reps/Minutes RLE 11s, LLE 42s Comments painfree B, LLE feel EHL working but not pain tandem stand Standing Exercise Name reviewed HEP-EO Equipment Used PRN counter Reps/Minutes 60s L foot forward, 48s R foot forward Comments good stability, R ft fwd stopped due to plantarfascia starts to discomfort Manual Therapy Treatment Taping L heel fat pad taping Body Location L heel inferior and posterior Treatment Focus cushion heel pad Type of Tape Amos Skin Inspection intact, normal color Comments cover roll and [place] fat pad heel taping. PT-OP-R Modalities Start: 07/13/21 16:23 Freq: Status: Active Protocol: Document 08/04/21 11:26 SAK (Rec: 08/04/21 12:10 SAK [id number]) Ultrasound Therapy Treatment left heel and plantar fascia Treatment Duration (minutes) 8 Patient Position Hooklying Coupling Medium Ultrasound Gel Frequency Setting (mHz) 3 Mode Setting Continuous Intensity Setting (w/cm2) 1 Comments good feedback PT-OP-T Assessment and Plan Start: 07/13/21 16:23 Freq: Status: Active Protocol: Document 08/26/21 09:44 SP (Rec: 08/26/21 10:38 SP [id number]) Physical Therapy Assessment Goals 3 Impairment antalgic gait Impairment patient ambulates with decreased weight bearing mobility throughout left foot and ankle Prison Goal (LTG) Patient will be able to ambulate on all usual surfaces without significant limp or compensatory pattern 08/12/21: pt reports ableto walk outside pavement level surfaces about 2 block then needs brief rest before continues, with friends. 08/26/21: GOAL MET: states doesn 't think limping anymore, does not demonstrate any compensatory patterns. LTG Duration 09/13/21 GOAL MET 08/26/21 2 Impairment soft tissue mobility Impairment tightness and pain in left plantar fascia and EHL Short Term Goal (STG) Patient to be independent with HEP focused on flexibility and ROM of left plantar fascia and EHL inhibition of UT and improved scapular activation. STG Duration 08/13/21 GOAL MET Wireless Manager Goal (LTG) Patient will demonstrate improved mobility in plantar fascia and EHL to WNL to allow for normalization of gait 08/12/21: self STMs and stretching. Able to stand without much pain since got superfeet in shoe and heel taping. inhibition of UT and improved scapular activation. LTG Duration 09/13/21 GOAL MET 08/26/21 1 Impairment pain left heel and left toes Short Term Goal (STG) Decrease pain by at least 50% with all usual activities 08/12/21: progressing able to walk outside level surfaces, ask % next tx. 08/26/21: progressing: the superfeet has made a difference, when wearing shoes not much pain at all but if barefoot, 10-25% less pain then first started. She feels her balance has improved. STG Duration 08/13/21 progressin08/26/21 Prison Goal (LTG) Decrease pain by at least 75% with all usual activities to allow patient to return to her prior level of function 07/24/21: HEP: standing piano toe(s) flex/ext/ abd, tandem stance, long sitting added TB PF/ DF of ankle and toe flex concentric/ eccentric flexion, calf stretch 08/26/21: progressing: the superfeet has made a difference, when wearing shoes not much pain at all but if barefoot, 10-25% less pain then first started. LTG Duration 09/13/21 progressing 08/26/21 Progress Towards Goals Progress Towards Goals Progressing Toward Goals Progress Comments MET GOALS 3 & 2. Pt would like progress balance . Assessment Summary Assessment Pt improved balance SLS and tandem uneven surfaces to continue at home, responded well to added uneven surface heel raises, toe/ heel walking and added eversion to provide strengthening uneven surfaces . Heel taping provided comfort decrease distal calf tendon recruitment to decrease heel pain. Pt wants to continue PT not feeling confident uneven surface gait but better than when started. Physical Therapy Plan Frequency and Duration Frequency of Treatment 4x/Week Duration of Treatment 8 weeks Plan of Care Start Date 07/14/21 Plan of Care End Date 09/13/21 Therapeutic Interventions Therapeutic Interventions Gait Training,Home Exercise Program,Joint Mobilizations, Manual Therapy,Neuromuscular Re-education,Patient/Caregiver Education,Self-Care/Home Management,Soft Tissue Mobilization,Taping, Therapeutic Activities, Therapeutic Exercises Modalities Cold Pack/Ice Massage,Electric Stimulation,Hot Packs, Infrared Therapy,Iontophoresis ,Ultrasound Next Visit Focus/Plan Next Note Type Treatment Note Next Visit Plan Next tx: continue progressive dynamic balance activities: zoraida w/without cushions, SHuttle balance for ankle stabililty to allow uneven surface yard work hasn't been able to do. POC: Continue progression of functional strengthening and gait training, flexibility, manual techniques to decrease pain and improve function.
--- NOTE | 2021-08-26 14:27 | PT.OPPN ---
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) Pain in left foot (08/26/21) Physical Therapy Progress Note PT-OP-A Visit Information Start: 07/13/21 16:23 Freq: Status: Active Protocol: Document 08/26/21 09:44 SP (Rec: 08/26/21 10:38 SP [id number]) Out-Patient Physical Therapy Visit Information Visit Information Visit Type Treatment Note Visit Start Time 09:45 Visit Stop Time 10:35 Total Visit Minutes 50 Visit Number 10 Number of JOURNEYMAN MOLDER Visits 2 Evaluation Information Evaluation Date 07/14/21 PT-OP-B Current Condition Start: 07/13/21 16:23 Freq: Status: Active Protocol: Document 07/21/21 10:32 SAK (Rec: 07/21/21 11:20 SAK [id number]) Current Condition History of Current Condition Onset Date 9 months Current Complaints left heel pain, great toe pain History of Current Condition 9 month history plantar fascitis left, 3 months ago had set toe pain left foot primarily great toe pain. Very painful to walk in am, or in middle of night without shoes on. Now wears shoes all the time except when sleeping . Has stretched achilles on device loaned to her by friend , but didn't help much. No ice or heat use, no injection, no exercise. Prior history [facility] left [facility] No known cause for either heel or toe pain. Doctor Maya put a bandaid on left great toe, patient unsure why but she has continued to do. Dr. Trejo's note indicates left EHL tightness with tendonitis , acquired hallux extensus of left foot, plantar fascititis left foot. Prior Treatments and Tests no imaging Future Testing and Treatments Planned return to Dr. Trejo after PT completed Personal Factors Other Personal Factors That May Effect PMH: right UKA, left TKA Therapy/Recovery PT-OP-C Subjective Start: 07/13/21 16:23 Freq: Status: Active Protocol: Document 08/26/21 09:44 SP (Rec: 08/26/21 10:38 SP [id number]) OP-PT Subjective Patient Comments Patient Comments Pt reports frustrated with slow progress. She reported R 2nd toe had burning feeling when got up 2 nights ago affected her gait but didn't see redness when woke up yesterday am. She reports taping helps alot with the heel pain and her balance has improved. Patient Reported Progress Improving PT-OP-F Manual Assessment Start: 07/13/21 16:23 Freq: Status: Active Protocol: Document 07/14/21 15:16 [facility] (Rec: 07/14/21 17:12 [facility] [id number]) Manual Assessments Soft Tissue Assessment Soft Tissue Mobility Assessment decreased soft tissue mobility left plantar fascia and left EHL Joint Mobility Assessment Joint Mobility Assessment decreased molity great toe and 2nd toe MTP and IP joints PT-OP-G Mobility & Gait Start: 07/13/21 16:23 Freq: Status: Active Protocol: Document 07/14/21 15:16 [facility] (Rec: 07/14/21 17:12 [facility] [id number]) OP Mobility Evaluation Functional Movements Squats unable OP Gait Assessment Gait Gait Assistance Required: Independent Assistive Devices Assistive Device None Gait Deviations General Gait Pattern Antalgic,Decreased Stride Length Factors Limiting Gait Function Factors Limiting Gait Function Decreased Strength,Limited Range of Motion,Pain Stair Climbing Evaluation Evaluation Level of Assist On Stairs Independent Devices Stair Climbing Assistive Devices None Technique/Endurance Stair Climbing Direction Ascend and Descend Stair Climbing Technique Step to Step PT-OP-H Neuro Start: 07/13/21 16:23 Freq: Status: Active Protocol: Document 07/14/21 15:16 [facility] (Rec: 07/14/21 17:12 [facility] [id number]) Sensation Evaluation Gross Sensation Gross Sensation WNL PT-OP-J Posture/Palpation/Skin Start: 07/13/21 16:23 Freq: Status: Active Protocol: Document 07/14/21 15:16 [facility] (Rec: 07/14/21 17:12 [facility] [id number]) Posture Evaluation Position Standing Ankle/Foot Posture (L) Neutral,(R) Neutral,(L) Forefoot Eversion Foot Arch (L) Medium Arch,(R) Medium Arch Toe Posture (L) Extended Toes PT-OP-K Range of Motion Start: 07/13/21 16:23 Freq: Status: Active Protocol: Document 07/14/21 15:16 [facility] (Rec: 07/14/21 17:12 [facility] [id number]) Ankle and Foot Goniometric Range of Motion Ankle and Foot Measured in Degrees Left Ankle/Foot ROM WFL No Testing Position Sitting Dorsiflexion with Knee Flexed 0 Plantarflexion 45 Inversion 20 Eversion 15 Comments lacking 5 deg df with knee extended Right Ankle/Foot ROM WFL Yes Dorsiflexion with Knee Flexed 5 Inversion 40 Eversion 20 Ankle and Foot ROM Limitations ROM Limitations Soft Tissue Tightness,Pain Toe Range of Motion Toes ROM Limitations Toe ROM Limitations Soft Tissue Tightness,Pain PT-OP-M Strength Start: 07/13/21 16:23 Freq: Status: Active Protocol: Document 07/14/21 15:16 [facility] (Rec: 07/14/21 17:12 [facility] [id number]) Ankle/Foot Strength Ankle and Foot Manual Muscle Testing Left Dorsiflexion (L4) 4 Good Plantarflexion (S1) 4 Good Inversion 4 Good Eversion (S1) 4 Good Right Dorsiflexion (L4) 5 Normal Plantarflexion (S1) 5 Normal Inversion 5 Normal Eversion (S1) 5 Normal Toe Strength Toe Manual Muscle Testing Left Flexion 4 Good Extension 4 Good Comments painful on left Right Flexion 4+ Good+ Extension 4+ Good+ PT-OP-T Assessment and Plan Start: 07/13/21 16:23 Freq: Status: Active Protocol: Document 08/26/21 14:24 [facility] (Rec: 08/26/21 14:27 [facility] [id number]) Physical Therapy Assessment Goals 4 Impairment balance dysfunction Impairment unable to stand on one foot, at risk for falls, low confidence level on gait on uneven ground. Care Home Goal (LTG) Patient will be able to balance on one foot for at least 5 sec bilaterally for improved safety and confidence with gait on all surfaces 3 Impairment antalgic gait Impairment patient ambulates with decreased weight bearing mobility throughout left foot and ankle Care Home Goal (LTG) Patient will be able to ambulate on all usual surfaces without significant limp or compensatory pattern 08/12/21: pt reports ableto walk outside pavement level surfaces about 2 block then needs brief rest before continues, with friends. 08/26/21: GOAL MET: states doesn 't think limping anymore, does not demonstrate any compensatory patterns. LTG Duration 09/13/21 GOAL MET 08/26/21 2 Impairment soft tissue mobility Impairment tightness and pain in left plantar fascia and EHL Short Term Goal (STG) Patient to be independent with HEP focused on flexibility and ROM of left plantar fascia and EHL inhibition of UT and improved scapular activation. STG Duration 08/13/21 GOAL MET Revenue Officer Goal (LTG) Patient will demonstrate improved mobility in plantar fascia and EHL to WNL to allow for normalization of gait 08/12/21: self STMs and stretching. Able to stand without much pain since got superfeet in shoe and heel taping. inhibition of UT and improved scapular activation. LTG Duration 09/13/21 GOAL MET 08/26/21 1 Impairment pain left heel and left toes Short Term Goal (STG) Decrease pain by at least 50% with all usual activities 08/12/21: progressing able to walk outside level surfaces, ask % next tx. 08/26/21: progressing: the superfeet has made a difference, when wearing shoes not much pain at all but if barefoot, 10-25% less pain then first started. She feels her balance has improved. STG Duration 08/13/21 progressin08/26/21 Revenue Officer Goal (LTG) Decrease pain by at least 75% with all usual activities to allow patient to return to her prior level of function 07/24/21: HEP: standing piano toe(s) flex/ext/ abd, tandem stance, long sitting added TB PF/ DF of ankle and toe flex concentric/ eccentric flexion, calf stretch 08/26/21: progressing: the superfeet has made a difference, when wearing shoes not much pain at all but if barefoot, 10-25% less pain then first started. LTG Duration 09/13/21 progressing 08/26/21 Assessment Summary Assessment Pt improved balance SLS and tandem uneven surfaces to continue at home, responded well to added uneven surface heel raises, toe/ heel walking and added eversion to provide strengthening uneven surfaces . Heel taping provided comfort decrease distal calf tendon recruitment to decrease heel pain. Pt wants to continue PT not feeling confident uneven surface gait but better than when started. Physical Therapy Plan Frequency and Duration Frequency of Treatment 1-2x/wk Duration of Treatment 3 weeks Therapeutic Interventions Therapeutic Interventions Gait Training,Home Exercise Program,Joint Mobilizations, Manual Therapy,Neuromuscular Re-education,Patient/Caregiver Education,Self-Care/Home Management,Soft Tissue Mobilization,Taping, Therapeutic Activities, Therapeutic Exercises Modalities Cold Pack/Ice Massage,Electric Stimulation,Hot Packs, Infrared Therapy,Iontophoresis ,Ultrasound Next Visit Focus/Plan Next Note Type Treatment Note Next Visit Plan Next tx: continue progressive dynamic balance activities: zoraida w/without cushions, SHuttle balance for ankle stabililty to allow uneven surface yard work hasn't been able to do. POC: Continue progression of functional strengthening and gait training, flexibility, manual techniques to decrease pain and improve function.
--- NOTE | 2021-09-02 13:45 | PT.OTN ---
Current Diagnoses Other deformities of toe(s) (acquired), left foot (09/02/21) Plantar fascial fibromatosis (09/02/21) Other enthesopathies, not elsewhere classified (09/02/21) Pain in left foot (09/02/21) Physical Therapy Treatment Note PT-OP-A Visit Information Start: 07/13/21 16:23 Freq: Status: Active Protocol: Document 09/02/21 13:00 SP (Rec: 09/02/21 13:48 SP [id number]) Out-Patient Physical Therapy Visit Information Visit Information Visit Type Treatment Note Visit Start Time 13:00 Visit Stop Time 13:45 Total Visit Minutes 45 Visit Number 11 Number of DIRECTOR SUPPLY CHAIN Visits 3 Evaluation Information Evaluation Date 07/14/21 PT-OP-B Current Condition Start: 07/13/21 16:23 Freq: Status: Active Protocol: Document 07/21/21 10:32 SAK (Rec: 07/21/21 11:20 SAK [id number]) Current Condition History of Current Condition Onset Date 9 months Current Complaints left heel pain, great toe pain History of Current Condition 9 month history plantar fascitis left, 3 months ago had set toe pain left foot primarily great toe pain. Very painful to walk in am, or in middle of night without shoes on. Now wears shoes all the time except when sleeping . Has stretched achilles on device loaned to her by friend , but didn't help much. No ice or heat use, no injection, no exercise. Prior history fractured left ankle [facility] time ago [facility]. No known cause for either heel or toe pain. Doctor Maya put a bandaid on left great toe, patient unsure why but she has continued to do. Dr. Trejo's note indicates left EHL tightness with tendonitis , acquired hallux extensus of left foot, plantar fascititis left foot. Prior Treatments and Tests no imaging Future Testing and Treatments Planned return to Dr. Trejo after PT completed Personal Factors Other Personal Factors That May Effect PMH: right UKA, left TKA Therapy/Recovery PT-OP-C Subjective Start: 07/13/21 16:23 Freq: Status: Active Protocol: Document 09/02/21 13:00 SP (Rec: 09/02/21 13:48 SP [id number]) OP-PT Subjective Patient Comments Patient Comments Pt reported heel taping helped alot, removed over the weekend. Pt stated the less pain since started the resisted ankle eversion. States uses massaging instrument for LEs and plantar fascia. Patient Reported Progress Improving PT-OP-F Manual Assessment Start: 07/13/21 16:23 Freq: Status: Active Protocol: Document 07/14/21 15:16 SAK (Rec: 07/14/21 17:12 [facility] [id number]) Manual Assessments Soft Tissue Assessment Soft Tissue Mobility Assessment decreased soft tissue mobility left plantar fascia and left EHL Joint Mobility Assessment Joint Mobility Assessment decreased molity great toe and 2nd toe MTP and IP joints PT-OP-G Mobility & Gait Start: 07/13/21 16:23 Freq: Status: Active Protocol: Document 07/14/21 15:16 [facility] (Rec: 07/14/21 17:12 [facility] [id number]) OP Mobility Evaluation Functional Movements Squats unable OP Gait Assessment Gait Gait Assistance Required: Independent Assistive Devices Assistive Device None Gait Deviations General Gait Pattern Antalgic,Decreased Stride Length Factors Limiting Gait Function Factors Limiting Gait Function Decreased Strength,Limited Range of Motion,Pain Stair Climbing Evaluation Evaluation Level of Assist On Stairs Independent Devices Stair Climbing Assistive Devices None Technique/Endurance Stair Climbing Direction Ascend and Descend Stair Climbing Technique Step to Step PT-OP-H Neuro Start: 07/13/21 16:23 Freq: Status: Active Protocol: Document 07/14/21 15:16 [facility] (Rec: 07/14/21 17:12 [facility] [id number]) Sensation Evaluation Gross Sensation Gross Sensation WNL PT-OP-J Posture/Palpation/Skin Start: 07/13/21 16:23 Freq: Status: Active Protocol: Document 07/14/21 15:16 [facility] (Rec: 07/14/21 17:12 [facility] [id number]) Posture Evaluation Position Standing Ankle/Foot Posture (L) Neutral,(R) Neutral,(L) Forefoot Eversion Foot Arch (L) Medium Arch,(R) Medium Arch Toe Posture (L) Extended Toes PT-OP-K Range of Motion Start: 07/13/21 16:23 Freq: Status: Active Protocol: Document 07/14/21 15:16 SAK (Rec: 07/14/21 17:12 [facility] [id number]) Ankle and Foot Goniometric Range of Motion Ankle and Foot Left Ankle/Foot ROM WFL No Testing Position Sitting Dorsiflexion with Knee Flexed 0 Plantarflexion 45 Inversion 20 Eversion 15 Comments lacking 5 deg df with knee extended Right Ankle/Foot ROM WFL Yes Dorsiflexion with Knee Flexed 5 Inversion 40 Eversion 20 Ankle and Foot ROM Limitations ROM Limitations Soft Tissue Tightness,Pain Toe Range of Motion Toes ROM Limitations Toe ROM Limitations Soft Tissue Tightness,Pain PT-OP-M Strength Start: 07/13/21 16:23 Freq: Status: Active Protocol: Document 07/14/21 15:16 SAK (Rec: 07/14/21 17:12 [facility] [id number]) Ankle/Foot Strength Ankle and Foot Manual Muscle Testing Left Dorsiflexion (L4) 4 Good Plantarflexion (S1) 4 Good Inversion 4 Good Eversion (S1) 4 Good Right Dorsiflexion (L4) 5 Normal Plantarflexion (S1) 5 Normal Inversion 5 Normal Eversion (S1) 5 Normal Toe Strength Toe Manual Muscle Testing Left Flexion 4 Good Extension 4 Good Comments painful on left Right Flexion 4+ Good+ Extension 4+ Good+ PT-OP-Q Treatments Start: 07/13/21 16:23 Freq: Status: Active Protocol: Document 09/02/21 13:00 SP (Rec: 09/02/21 13:48 SP [id number]) Cardio Equipment Recumbent Elliptical (BiodZizerones) Duration (Minutes) 8 Resistance 3 Seat Position 7 Other good knee alignment- 636 steps Therapeutic Exercises Supine Exercises EHL stretch Supine Exercise Name seated Reps/Minutes 30 x2 Comments manual Standing Exercises grapevine Standing Exercise Name added toHEP (didn't want HO) Side bilateral Reps/Minutes 20 ft x1 laps Comments cues for patterning- painfree toe and heel walking Standing Exercise Name reviewed HEP Reps/Minutes 20 ft x2lap Comments good form, no pain heel raises Standing Exercise Name reviewed HEP Side bilateral Resistance AROM Equipment Used blue foam table PRN, off bottom step rail support x10 Reps/Minutes 2x10 reps Comments little pain under L 2nd MTP- little better post manual Manual Therapy Treatment Soft Tissue Mobilization toe extensor musc Body Location L EHL Mobilization Type Myofascial Release,Strumming Intensity/Depth Moderate Body Position Hooklying Comments manual and instruction on self . plantar fascia Body Location L plantar fascia and 2nd MCP flexors Mobilization Type Myofascial Release,Strumming Intensity/Depth Moderate Body Position Hooklying Comments manual and instruction on self , manual stretch. Joint Mobilizations L 1st MTP Joint L 2nd MTP Direction AP, PA, rotation Grade II Body Position Sitting Reps/Duration 3 min Comments manual and instruction on self . Taping L heel fat pad taping Body Location L heel inferior and posterior Treatment Focus cushion heel pad Type of Tape Amos Skin Inspection intact, normal color Comments cover roll and [place] fat pad heel taping. Self-Care/Home Management Treatment Education Patient Education Joint Protection,Pain Management,Safety Other Education Time spent anatomy and mechanics of her walking and might need the plantar foot support at home, might consider supported sandles that are secure on feet and give support. PT-OP-R Modalities Start: 07/13/21 16:23 Freq: Status: Active Protocol: Document 08/04/21 11:26 SAK (Rec: 08/04/21 12:10 SAK [id number]) Ultrasound Therapy Treatment left heel and plantar fascia Treatment Duration (minutes) 8 Patient Position Hooklying Coupling Medium Ultrasound Gel Frequency Setting (mHz) 3 Mode Setting Continuous Intensity Setting (w/cm2) 1 Comments good feedback PT-OP-T Assessment and Plan Start: 07/13/21 16:23 Freq: Status: Active Protocol: Document 09/02/21 13:00 SP (Rec: 09/02/21 13:48 SP [id number]) Physical Therapy Assessment Goals 4 Impairment balance dysfunction Impairment unable to stand on one foot, at risk for falls, low confidence level on gait on uneven ground. Chief Cardiopulmonary Technologist Goal (LTG) Patient will be able to balance on one foot for at least 5 sec bilaterally for improved safety and confidence with gait on all surfaces 3 Impairment antalgic gait Impairment patient ambulates with decreased weight bearing mobility throughout left foot and ankle Mcfp Goal (LTG) Patient will be able to ambulate on all usual surfaces without significant limp or compensatory pattern 08/12/21: pt reports ableto walk outside pavement level surfaces about 2 block then needs brief rest before continues, with friends. 08/26/21: GOAL MET: states doesn 't think limping anymore, does not demonstrate any compensatory patterns. LTG Duration 09/13/21 GOAL MET 08/26/21 2 Impairment soft tissue mobility Impairment tightness and pain in left plantar fascia and EHL Short Term Goal (STG) Patient to be independent with HEP focused on flexibility and ROM of left plantar fascia and EHL inhibition of UT and improved scapular activation. STG Duration 08/13/21 GOAL MET Chief Cardiopulmonary Technologist Goal (LTG) Patient will demonstrate improved mobility in plantar fascia and EHL to WNL to allow for normalization of gait 08/12/21: self STMs and stretching. Able to stand without much pain since got superfeet in shoe and heel taping. inhibition of UT and improved scapular activation. LTG Duration 09/13/21 GOAL MET 08/26/21 1 Impairment pain left heel and left toes Short Term Goal (STG) Decrease pain by at least 50% with all usual activities 08/12/21: progressing able to walk outside level surfaces, ask % next tx. 08/26/21: progressing: the superfeet has made a difference, when wearing shoes not much pain at all but if barefoot, 10-25% less pain then first started. She feels her balance has improved. STG Duration 08/13/21 progressin08/26/21 Mcfp Goal (LTG) Decrease pain by at least 75% with all usual activities to allow patient to return to her prior level of function 07/24/21: HEP: standing piano toe(s) flex/ext/ abd, tandem stance, long sitting added TB PF/ DF of ankle and toe flex concentric/ eccentric flexion, calf stretch 08/26/21: progressing: the superfeet has made a difference, when wearing shoes not much pain at all but if barefoot, 10-25% less pain then first started. LTG Duration 09/13/21 progressing 08/26/21 Assessment Summary Assessment Pt good response, no pain L foot with shoe support during ther ex. She experienced pain under L 2nd MTP with uneven surface socks donned, post manual and K taping improved little more. She was able to perform dynamic walking for HEP with shoes donned for foot intrinic and funcitonal ankle stabiltiy strengthening with no report of pain: heel/ toe walking and added grapevine. Physical Therapy Plan Frequency and Duration Frequency of Treatment 1-2x/wk Duration of Treatment 3 weeks Therapeutic Interventions Therapeutic Interventions Gait Training,Home Exercise Program,Joint Mobilizations, Manual Therapy,Neuromuscular Re-education,Patient/Caregiver Education,Self-Care/Home Management,Soft Tissue Mobilization,Taping, Therapeutic Activities, Therapeutic Exercises Modalities Cold Pack/Ice Massage,Electric Stimulation,Hot Packs, Infrared Therapy,Iontophoresis ,Ultrasound Next Visit Focus/Plan Next Note Type Treatment Note Next Visit Plan Continue progressive dynamic balance activities: zoraida w/ without cushions, SHuttle balance for ankle stabililty to allow uneven surface yard work hasn't been able to do. POC: Continue progression of functional strengthening and gait training, flexibility, manual techniques to decrease pain and improve function.
--- NOTE | 2021-09-08 16:56 | PT.OTRE ---
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, not elsewhere classified (09/08/21) Pain in left foot (09/08/21) Past Medical History (Last Updated 04/08/21 @ 18:00 by Ciera Adams PA-C) Acute GI bleeding Ankle fracture, left (~1992) Chickenpox (~194) Chronic back pain (~1981) Chronic renal failure, stage 3a Gastric ulcer Hemorrhoids (~2009) History of heavy periods (~1979) History of recurrent ear infection Hyperlipidemia Hypothyroidism (~1979) Lumbar radiculopathy Measles (~1955) Multilevel foraminal stenosis Osteoarthritis (~1999) Osteoporosis Psoriasis (~1982) Pulmonary embolism Rosacea Shingles (~2015) Skin cancer (~2011) Tinnitus (~2011) Surgical History (Last Reviewed 02/10/21 @ 07:18 by Jeovanny Palmer MD) Anesthesia History of knee replacement Status post arthroscopy Status post dilation and curettage Status post hysterectomy Status post laminectomy Visit Care Team Role Provider Type Julio Cedeño MD Family Provider Physician Primary Care Provider Specialty: Family Practice Address: [address] [place] [address], [address] Email: [email or web address] Dipika Coy DPM Attending Provider Physician Referring Provider Specialty: Orthopedic Surgery Podiatry Address: [address] [place] [address], [id number] Email: [email or web address] Re-Evaluation PT-OP-A Visit Information Start: 07/13/21 16:23 Freq: Status: Active Protocol: Document 09/08/21 15:32 [facility] (Rec: 09/08/21 16:56 [facility] [id number]) Out-Patient Physical Therapy Visit Information Visit Information Visit Type Treatment Note Visit Start Time 15:30 Visit Stop Time 16:15 Total Visit Minutes 45 Visit Number 12 Number of ACTIVITIES SPECIALIST Visits 0 Evaluation Information Evaluation Date 07/14/21 PT-OP-B Current Condition Start: 07/13/21 16:23 Freq: Status: Active Protocol: Document 07/21/21 10:32 [facility] (Rec: 07/21/21 11:20 [facility] [id number]) Current Condition History of Current Condition Onset Date 9 months Current Complaints left heel pain, great toe pain History of Current Condition 9 month history plantar fascitis left, 3 months ago had set toe pain left foot primarily great toe pain. Very painful to walk in am, or in middle of night without shoes on. Now wears shoes all the time except when sleeping . Has stretched achilles on device loaned to her by friend , but didn't help much. No ice or heat use, no injection, no exercise. Prior history [facility] No known cause for either heel or toe pain. Doctor Maya put a bandaid on left great toe, patient unsure why but she has continued to do. Dr. Trejo's note indicates left EHL tightness with tendonitis , acquired hallux extensus of left foot, plantar fascititis left foot. Prior Treatments and Tests no imaging Future Testing and Treatments Planned return to Dr. Trjeo after PT completed Personal Factors Other Personal Factors That May Effect PMH: right UKA, left TKA Therapy/Recovery PT-OP-C Subjective Start: 07/13/21 16:23 Freq: Status: Active Protocol: Document 09/08/21 15:32 [facility] (Rec: 09/08/21 16:56 [facility] [id number]) OP-PT Subjective Patient Comments Patient Comments Finally starting to feel some improvement even without shoes on. PT-OP-F Manual Assessment Start: 07/13/21 16:23 Freq: Status: Active Protocol: Document 07/14/21 15:16 [facility] (Rec: 07/14/21 17:12 [facility] [id number]) Manual Assessments Soft Tissue Assessment Soft Tissue Mobility Assessment decreased soft tissue mobility left plantar fascia and left EHL Joint Mobility Assessment Joint Mobility Assessment decreased molity great toe and 2nd toe MTP and IP joints PT-OP-G Mobility & Gait Start: 07/13/21 16:23 Freq: Status: Active Protocol: Document 07/14/21 15:16 [facility] (Rec: 07/14/21 17:12 [facility] [id number]) OP Mobility Evaluation Functional Movements Squats unable OP Gait Assessment Gait Gait Assistance Required: Independent Assistive Devices Assistive Device None Gait Deviations General Gait Pattern Antalgic,Decreased Stride Length Factors Limiting Gait Function Factors Limiting Gait Function Decreased Strength,Limited Range of Motion,Pain Stair Climbing Evaluation Evaluation Level of Assist On Stairs Independent Devices Stair Climbing Assistive Devices None Technique/Endurance Stair Climbing Direction Ascend and Descend Stair Climbing Technique Step to Step PT-OP-H Neuro Start: 07/13/21 16:23 Freq: Status: Active Protocol: Document 07/14/21 15:16 [facility] (Rec: 07/14/21 17:12 [facility] [id number]) Sensation Evaluation Gross Sensation Gross Sensation WNL PT-OP-J Posture/Palpation/Skin Start: 07/13/21 16:23 Freq: Status: Active Protocol: Document 07/14/21 15:16 [facility] (Rec: 07/14/21 17:12 [facility] [id number]) Posture Evaluation Position Standing Ankle/Foot Posture (L) Neutral,(R) Neutral,(L) Forefoot Eversion Foot Arch (L) Medium Arch,(R) Medium Arch Toe Posture (L) Extended Toes PT-OP-K Range of Motion Start: 07/13/21 16:23 Freq: Status: Active Protocol: Document 07/14/21 15:16 [facility] (Rec: 07/14/21 17:12 [facility] [id number]) Ankle and Foot Goniometric Range of Motion Ankle and Foot Measured in Degrees Left Ankle/Foot ROM WFL No Testing Position Sitting Dorsiflexion with Knee Flexed 0 Plantarflexion 45 Inversion 20 Eversion 15 Comments lacking 5 deg df with knee extended Right Ankle/Foot ROM WFL Yes Dorsiflexion with Knee Flexed 5 Inversion 40 Eversion 20 Ankle and Foot ROM Limitations ROM Limitations Soft Tissue Tightness,Pain Toe Range of Motion Toes ROM Limitations Toe ROM Limitations Soft Tissue Tightness,Pain PT-OP-M Strength Start: 07/13/21 16:23 Freq: Status: Active Protocol: Document 07/14/21 15:16 [facility] (Rec: 07/14/21 17:12 [facility] [id number]) Ankle/Foot Strength Ankle and Foot Manual Muscle Testing Left Dorsiflexion (L4) 4 Good Plantarflexion (S1) 4 Good Inversion 4 Good Eversion (S1) 4 Good Right Dorsiflexion (L4) 5 Normal Plantarflexion (S1) 5 Normal Inversion 5 Normal Eversion (S1) 5 Normal Toe Strength Toe Manual Muscle Testing Left Flexion 4 Good Extension 4 Good Comments painful on left Right Flexion 4+ Good+ Extension 4+ Good+ PT-OP-Q Treatments Start: 07/13/21 16:23 Freq: Status: Active Protocol: Document 09/08/21 15:32 [facility] (Rec: 09/08/21 16:56 [facility] [id number]) Cardio Equipment Recumbent Elliptical (Biodex) Duration (Minutes) 8 Resistance 3 Seat Position 7 Other good knee alignment Therapeutic Exercises Supine Exercises EHL stretch Supine Exercise Name seated Reps/Minutes 30 x2 Comments manual Sitting Exercises resisted eversion Sitting Exercise Name prefers long sit , feels muscles working better Side left Equipment Used L2 Reps/Minutes 2x10 Comments good form and muscle work, pain free Standing Exercises grapevine Standing Exercise Name added toHEP (didn't want HO) Side bilateral Reps/Minutes 20 ft x1 laps Comments cues for patterning- painfree toe and heel walking Standing Exercise Name reviewed HEP Reps/Minutes 20 ft x2lap Comments good form, no pain heel raises Standing Exercise Name reviewed HEP Side bilateral Resistance AROM Equipment Used blue foam table PRN, off bottom step rail support x10 Reps/Minutes 2x10 reps Comments little pain under L 2nd MTP- little better post manual SLS Standing Exercise Name EO Side bilateral Equipment Used blue foam, railing as needed Comments painfree B, LLE feel EHL working but not pain tandem stand Equipment Used blue foam pods, PRN counter Manual Therapy Treatment Soft Tissue Mobilization toe extensor musc Body Location L EHL Mobilization Type Myofascial Release,Strumming Intensity/Depth Moderate Body Position Hooklying Comments manual and instruction on self . plantar fascia Body Location L plantar fascia and 2nd MCP flexors Mobilization Type Myofascial Release,Strumming Intensity/Depth Moderate Body Position Hooklying Comments manual and instruction on self , manual stretch. Joint Mobilizations L 1st MTP Joint L 2nd MTP Direction AP, PA, rotation Grade II Body Position Sitting Reps/Duration 3 min Comments manual and instruction on self . Taping L heel fat pad taping Body Location L heel inferior and posterior Treatment Focus cushion heel pad Type of Tape [place] Skin Inspection intact, normal color Comments cover roll and [place] fat pad heel taping. Self-Care/Home Management Treatment Education Patient Education Pain Management PT-OP-R Modalities Start: 07/13/21 16:23 Freq: Status: Active Protocol: Document 08/04/21 11:26 [facility] (Rec: 08/04/21 12:10 [facility] [id number]) Ultrasound Therapy Treatment left heel and plantar fascia Treatment Duration (minutes) 8 Patient Position Hooklying Coupling Medium Ultrasound Gel Frequency Setting (mHz) 3 Mode Setting Continuous Intensity Setting (w/cm2) 1 Comments good feedback PT-OP-T Assessment and Plan Start: 07/13/21 16:23 Freq: Status: Active Protocol: Document 09/08/21 15:32 [facility] (Rec: 09/08/21 16:56 [facility] [id number]) Physical Therapy Assessment Goals 5 Impairment unable to do heel raise without an increase in pain Impairment unable to do gardening activities Prison Goal (LTG) Patient will be able to do full bilateral heel raise for purposes of usual activities with pain no greater than 2/10 LTG Duration 10/23/21 4 Impairment balance dysfunction Impairment unable to stand on one foot, at risk for falls, low confidence level on gait on uneven ground. Prison Goal (LTG) Patient will be able to balance on one foot for at least 5 sec bilaterally for improved safety and confidence with gait on all surfaces 08/26/21: goal met, updated goal of being able to balance on left foot for 30 sec without an increase in pain. LTG Duration 10/23/21 3 Impairment antalgic gait Impairment patient ambulates with decreased weight bearing mobility throughout left foot and ankle Prison Goal (LTG) Patient will be able to ambulate on all usual surfaces without significant limp or compensatory pattern 08/12/21: pt reports ableto walk outside pavement level surfaces about 2 block then needs brief rest before continues, with friends. 08/26/21: GOAL MET: states doesn 't think limping anymore, does not demonstrate any compensatory patterns. LTG Duration 09/13/21 GOAL MET 08/26/21 2 Impairment soft tissue mobility Impairment tightness and pain in left plantar fascia and EHL Short Term Goal (STG) Patient to be independent with HEP focused on flexibility and ROM of left plantar fascia and EHL inhibition of UT and improved scapular activation. STG Duration 08/13/21 GOAL MET E Commerce Developer Goal (LTG) Patient will demonstrate improved mobility in plantar fascia and EHL to WNL to allow for normalization of gait 08/12/21: self STMs and stretching. Able to stand without much pain since got superfeet in shoe and heel taping. LTG Duration 09/13/21 GOAL MET 08/26/21 1 Impairment pain left heel and left toes Short Term Goal (STG) Decrease pain by at least 50% with all usual activities 08/12/21: progressing able to walk outside level surfaces, ask % next tx. 08/26/21: progressing: the superfeet has made a difference, when wearing shoes not much pain at all but if barefoot, 10-25% less pain then first started. She feels her balance has improved. 09/08/21: goal met STG Duration goal met E Commerce Developer Goal (LTG) Decrease pain by at least 75% with all usual activities to allow patient to return to her prior level of function 07/24/21: HEP: standing piano toe(s) flex/ext/ abd, tandem stance, long sitting added TB PF/ DF of ankle and toe flex concentric/ eccentric flexion, calf stretch 08/26/21: progressing: the superfeet has made a difference, when wearing shoes not much pain at all but if barefoot, 10-25% less pain then first started. 09/08/21: goal progress; reports no pain when standing when wearing shoes, decreased when barefoot. Pain increases with heel raises, single leg stand left. LTG Duration 10/23/21 Progress Towards Goals Progress Towards Goals Progressing Toward Goals Assessment Summary Assessment Patient is making good progress toward goals, would benefit from further skilled PT to help her fully achieve the above goals to allow her to return to prior level of function an improved quality of life. She is highly motivated and continues to make good progress. Physical Therapy Plan Frequency and Duration Frequency of Treatment 1-2x/wk Duration of Treatment 6 weeks Plan of Care Start Date 09/08/21 Plan of Care End Date 10/23/21 Therapeutic Interventions Therapeutic Interventions Gait Training,Home Exercise Program,Joint Mobilizations, Manual Therapy,Neuromuscular Re-education,Patient/Caregiver Education,Self-Care/Home Management,Soft Tissue Mobilization,Taping, Therapeutic Activities, Therapeutic Exercises Modalities Cold Pack/Ice Massage,Electric Stimulation,Hot Packs, Infrared Therapy,Iontophoresis ,Ultrasound Next Visit Focus/Plan Next Note Type Treatment Note Next Visit Plan Continue progressive dynamic balance activities: zoraida w/ without cushions, SHuttle balance for ankle stabililty to allow uneven surface yard work hasn't been able to do. POC: Continue progression of functional strengthening and gait training, flexibility, manual techniques to decrease pain and improve function.
--- NOTE | 2021-09-08 16:57 | PT.OPPOC ---
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, not elsewhere classified (09/08/21) Pain in left foot (09/08/21) Visit Care Team Role Provider Type Julio Cedeño MD Family Provider Physician Primary Care Provider Specialty: Family Practice Address: [address] [place] [address], [address] Email: [email or web address] Dipika Coy DPM Attending Provider Physician Referring Provider Specialty: Orthopedic Surgery Podiatry Address: [address] [place] [address], [address] Email: [email or web address] Plan Of Care PT-OP-T Assessment and Plan Start: 07/13/21 16:23 Freq: Status: Active Protocol: Document 09/08/21 15:32 [facility] (Rec: 09/08/21 16:56 [facility] [id number]) Physical Therapy Assessment Goals 5 Impairment unable to do heel raise without an increase in pain Impairment unable to do gardening activities Longterm Goal (LTG) Patient will be able to do full bilateral heel raise for purposes of usual activities with pain no greater than 2/10 LTG Duration 10/23/21 4 Impairment balance dysfunction Impairment unable to stand on one foot, at risk for falls, low confidence level on gait on uneven ground. Medical Reimbursement Manager Goal (LTG) Patient will be able to balance on one foot for at least 5 sec bilaterally for improved safety and confidence with gait on all surfaces 08/26/21: goal met, updated goal of being able to balance on left foot for 30 sec without an increase in pain. LTG Duration 10/23/21 3 Impairment antalgic gait Impairment patient ambulates with decreased weight bearing mobility throughout left foot and ankle Longterm Goal (LTG) Patient will be able to ambulate on all usual surfaces without significant limp or compensatory pattern 08/12/21: pt reports ableto walk outside pavement level surfaces about 2 block then needs brief rest before continues, with friends. 6/8/22: GOAL MET: states doesn 't think limping anymore, does not demonstrate any compensatory patterns. LTG Duration 09/13/21 GOAL MET 08/26/21 2 Impairment soft tissue mobility Impairment tightness and pain in left plantar fascia and EHL Short Term Goal (STG) Patient to be independent with HEP focused on flexibility and ROM of left plantar fascia and EHL inhibition of UT and improved scapular activation. STG Duration 08/13/21 GOAL MET Longterm Goal (LTG) Patient will demonstrate improved mobility in plantar fascia and EHL to WNL to allow for normalization of gait 08/12/21: self STMs and stretching. Able to stand without much pain since got superfeet in shoe and heel taping. LTG Duration 09/13/21 GOAL MET 08/26/21 1 Impairment pain left heel and left toes Short Term Goal (STG) Decrease pain by at least 50% with all usual activities 08/12/21: progressing able to walk outside level surfaces, ask % next tx. 08/26/21: progressing: the superfeet has made a difference, when wearing shoes not much pain at all but if barefoot, 10-25% less pain then first started. She feels her balance has improved. 09/08/21: goal met STG Duration goal met Longterm Goal (LTG) Decrease pain by at least 75% with all usual activities to allow patient to return to her prior level of function 07/24/21: HEP: standing piano toe(s) flex/ext/ abd, tandem stance, long sitting added TB PF/ DF of ankle and toe flex concentric/ eccentric flexion, calf stretch 08/26/21: progressing: the superfeet has made a difference, when wearing shoes not much pain at all but if barefoot, 10-25% less pain then first started. 09/08/21: goal progress; reports no pain when standing when wearing shoes, decreased when barefoot. Pain increases with heel raises, single leg stand left. LTG Duration 10/23/21 Progress Towards Goals Progress Towards Goals Progressing Toward Goals Assessment Summary Assessment Patient is making good progress toward goals, would benefit from further skilled PT to help her fully achieve the above goals to allow her to return to prior level of function an improved quality of life. She is highly motivated and continues to make good progress. Physical Therapy Plan Frequency and Duration Frequency of Treatment 1-2x/wk Duration of Treatment 6 weeks Plan of Care Start Date 09/08/21 Plan of Care End Date 10/23/21 Therapeutic Interventions Therapeutic Interventions Gait Training,Home Exercise Program,Joint Mobilizations, Manual Therapy,Neuromuscular Re-education,Patient/Caregiver Education,Self-Care/Home Management,Soft Tissue Mobilization,Taping, Therapeutic Activities, Therapeutic Exercises Modalities Cold Pack/Ice Massage,Electric Stimulation,Hot Packs, Infrared Therapy,Iontophoresis ,Ultrasound Next Visit Focus/Plan Next Note Type Treatment Note Next Visit Plan Continue progressive dynamic balance activities: zoraida w/ without cushions, SHuttle balance for ankle stabililty to allow uneven surface yard work hasn't been able to do. POC: Continue progression of functional strengthening and gait training, flexibility, manual techniques to decrease pain and improve function. Plan of Care Dates Plan of Care Start Date 09/08/21 Plan of Care End Date 10/23/21 Electronically Signed by: Nevin Carpio, PT 09/08/21 1271 If you are in agreement with this Plan of Care, please return a signed and dated copy. I have reviewed this Plan of Care and certify that the skilled therapy services above are required to meet the patient?s needs. Physician Signature Date Printed Name and Credentials Clinical Instructor Signature Printed Name and Credentials
--- NOTE | 2021-09-18 09:46 | PT.OTN ---
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 Very painful to walk in am, or in middle of night without shoes on. Now wears shoes all the time except when sleeping . Has stretched achilles on device loaned to her by friend , but didn't help much. No ice or heat use, no injection, no exercise. Prior history fractured left ankle long time ago 1993formerly [facility]. No known cause for either heel or toe pain. Doctor Maya put a bandaid on left great toe, patient unsure why but she has continued to do. Dr. Trejo's note indicates left EHL tightness with tendonitis , acquired hallux extensus of left foot, plantar fascititis left foot. Prior Treatments and Tests no imaging Future Testing and Treatments Planned return to Dr. Trejo after PT completed Personal Factors Other Personal Factors That May Effect PMH: right UKA, left TKA Therapy/Recovery PT-OP-C Subjective Start: 07/13/21 16:23 Freq: Status: Active Protocol: Document 09/18/21 09:03 SP (Rec: 09/18/21 09:48 SP [id number]) OP-PT Subjective Patient Comments Patient Comments Pt reported pain not gone but getting better. Pt thinks might have over did the exercises yesterday, woke up with muscle cramps in L plantar surface and posterolateral lower leg. Pt reports wishes got total and not partial on R tends to knee cave in. PT-OP-F Manual Assessment Start: 07/13/21 16:23 Freq: Status: Active Protocol: Document 07/14/21 15:16 [facility] (Rec: 07/14/21 17:12 [facility] [id number]) Manual Assessments Soft Tissue Assessment Soft Tissue Mobility Assessment decreased soft tissue mobility left plantar fascia and left EHL Joint Mobility Assessment Joint Mobility Assessment decreased molity great toe and 2nd toe MTP and IP joints PT-OP-G Mobility & Gait Start: 07/13/21 16:23 Freq: Status: Active Protocol: Document 07/14/21 15:16 [facility] (Rec: 07/14/21 17:12 [facility] [id number]) OP Mobility Evaluation Functional Movements Squats unable OP Gait Assessment Gait Gait Assistance Required: Independent Assistive Devices Assistive Device None Gait Deviations General Gait Pattern Antalgic,Decreased Stride Length Factors Limiting Gait Function Factors Limiting Gait Function Decreased Strength,Limited Range of Motion,Pain Stair Climbing Evaluation Evaluation Level of Assist On Stairs Independent Devices Stair Climbing Assistive Devices None Technique/Endurance Stair Climbing Direction Ascend and Descend Stair Climbing Technique Step to Step PT-OP-H Neuro Start: 07/13/21 16:23 Freq: Status: Active Protocol: Document 07/14/21 15:16 [facility] (Rec: 07/14/21 17:12 [facility] [id number]) Sensation Evaluation Gross Sensation Gross Sensation WNL PT-OP-J Posture/Palpation/Skin Start: 07/13/21 16:23 Freq: Status: Active Protocol: Document 07/14/21 15:16 [facility] (Rec: 07/14/21 17:12 [facility] [id number]) Posture Evaluation Position Standing Ankle/Foot Posture (L) Neutral,(R) Neutral,(L) Forefoot Eversion Foot Arch (L) Medium Arch,(R) Medium Arch Toe Posture (L) Extended Toes PT-OP-K Range of Motion Start: 07/13/21 16:23 Freq: Status: Active Protocol: Document 07/14/21 15:16 [facility] (Rec: 07/14/21 17:12 [facility] [id number]) Ankle and Foot Goniometric Range of Motion Ankle and Foot Left Ankle/Foot ROM WFL No Testing Position Sitting Dorsiflexion with Knee Flexed 0 Plantarflexion 45 Inversion 20 Eversion 15 Comments lacking 5 deg df with knee extended Right Ankle/Foot ROM WFL Yes Dorsiflexion with Knee Flexed 5 Inversion 40 Eversion 20 Ankle and Foot ROM Limitations ROM Limitations Soft Tissue Tightness,Pain Toe Range of Motion Toes ROM Limitations Toe ROM Limitations Soft Tissue Tightness,Pain PT-OP-M Strength Start: 07/13/21 16:23 Freq: Status: Active Protocol: Document 07/14/21 15:16 SAK (Rec: 07/14/21 17:12 SAK [id number]) Ankle/Foot Strength Ankle and Foot Manual Muscle Testing Left Dorsiflexion (L4) 4 Good Plantarflexion (S1) 4 Good Inversion 4 Good Eversion (S1) 4 Good Right Dorsiflexion (L4) 5 Normal Plantarflexion (S1) 5 Normal Inversion 5 Normal Eversion (S1) 5 Normal Toe Strength Toe Manual Muscle Testing Left Flexion 4 Good Extension 4 Good Comments painful on left Right Flexion 4+ Good+ Extension 4+ Good+ PT-OP-Q Treatments Start: 07/13/21 16:23 Freq: Status: Active Protocol: Document 09/18/21 09:03 SP (Rec: 09/18/21 09:48 SP [id number]) Cardio Equipment Recumbent Elliptical (Biodex) Duration (Minutes) 8 Resistance 3 Seat Position 6 Other good knee alignment, steps Gym Equipment Shuttle Recovery Unilateral squat Details B alternate, cues knee alignment with midfoot see insole Resistance 37# Shuttle Recovery Platform Stable Reps/Time 3 x10 Shuttle Balance red Details WBOS, 4s stagger Reps/Duration 8 Comments 1. F/B/S wt shifts 2. stationary bal w/head turns Therapeutic Exercises Supine Exercises EHL stretch Supine Exercise Name supine Side left Reps/Minutes 30 x2 Comments manual Manual Therapy Treatment Soft Tissue Mobilization toe extensor musc Body Location L EHL Mobilization Type Myofascial Release,Strumming Intensity/Depth Moderate Body Position Hooklying Comments manual and instruction on self , manual stretch EHL. plantar fascia Body Location L plantar fascia and 2nd MCP flexors Mobilization Type Myofascial Release,Strumming Intensity/Depth Moderate Body Position Hooklying Comments manual and instruction on self , manual stretch. Joint Mobilizations L 1st MTP Joint L 2nd MTP Direction AP, PA, rotation Grade II Body Position Sitting Reps/Duration 3 min Comments manual and instruction on self . Taping L heel fat pad taping Body Location L heel inferior and posterior Treatment Focus cushion heel pad Type of Tape Amos Skin Inspection intact, normal color Comments cover roll and [place] fat pad heel taping. PT-OP-R Modalities Start: 07/13/21 16:23 Freq: Status: Active Protocol: Document 08/04/21 11:26 SAK (Rec: 08/04/21 12:10 SAK [id number]) Ultrasound Therapy Treatment left heel and plantar fascia Treatment Duration (minutes) 8 Patient Position Hooklying Coupling Medium Ultrasound Gel Frequency Setting (mHz) 3 Mode Setting Continuous Intensity Setting (w/cm2) 1 Comments good feedback PT-OP-T Assessment and Plan Start: 07/13/21 16:23 Freq: Status: Active Protocol: Document 09/18/21 09:03 SP (Rec: 09/18/21 09:48 SP [id number]) Physical Therapy Assessment Goals 5 Impairment unable to do heel raise without an increase in pain Impairment unable to do gardening activities Penitentiary Goal (LTG) Patient will be able to do full bilateral heel raise for purposes of usual activities with pain no greater than 2/10 LTG Duration 10/23/21 4 Impairment balance dysfunction Impairment unable to stand on one foot, at risk for falls, low confidence level on gait on uneven ground. News Agent Goal (LTG) Patient will be able to balance on one foot for at least 5 sec bilaterally for improved safety and confidence with gait on all surfaces 08/26/21: goal met, updated goal of being able to balance on left foot for 30 sec without an increase in pain. LTG Duration 10/23/21 3 Impairment antalgic gait Impairment patient ambulates with decreased weight bearing mobility throughout left foot and ankle Penitentiary Goal (LTG) Patient will be able to ambulate on all usual surfaces without significant limp or compensatory pattern 08/12/21: pt reports ableto walk outside pavement level surfaces about 2 block then needs brief rest before continues, with friends. 08/26/21: GOAL MET: states doesn 't think limping anymore, does not demonstrate any compensatory patterns. LTG Duration 09/13/21 GOAL MET 08/26/21 2 Impairment soft tissue mobility Impairment tightness and pain in left plantar fascia and EHL Short Term Goal (STG) Patient to be independent with HEP focused on flexibility and ROM of left plantar fascia and EHL inhibition of UT and improved scapular activation. STG Duration 08/13/21 GOAL MET News Agent Goal (LTG) Patient will demonstrate improved mobility in plantar fascia and EHL to WNL to allow for normalization of gait 08/12/21: self STMs and stretching. Able to stand without much pain since got superfeet in shoe and heel taping. LTG Duration 09/13/21 GOAL MET 08/26/21 1 Impairment pain left heel and left toes Short Term Goal (STG) Decrease pain by at least 50% with all usual activities 08/12/21: progressing able to walk outside level surfaces, ask % next tx. 08/26/21: progressing: the superfeet has made a difference, when wearing shoes not much pain at all but if barefoot, 10-25% less pain then first started. She feels her balance has improved. 09/08/21: goal met STG Duration goal met News Agent Goal (LTG) Decrease pain by at least 75% with all usual activities to allow patient to return to her prior level of function 07/24/21: HEP: standing piano toe(s) flex/ext/ abd, tandem stance, long sitting added TB PF/ DF of ankle and toe flex concentric/ eccentric flexion, calf stretch 08/26/21: progressing: the superfeet has made a difference, when wearing shoes not much pain at all but if barefoot, 10-25% less pain then first started. 09/08/21: goal progress; reports no pain when standing when wearing shoes, decreased when barefoot. Pain increases with heel raises, single leg stand left. LTG Duration 10/23/21 Assessment Summary Assessment Pt responded well to manual/ heel taping for added support and ther ex with no adverse affect. Pt tolerated initiated shuttle balance this tx wt shifts and stationary bal with head turns to allow self postural corrections and ankle stabililty strengthening for uneven surface gait and unsteady boat stance states might be performing over the weekend near [place] with family, no reports pain but challenging on shuttle recovery learning body awareness postural correction strategies. Physical Therapy Plan Frequency and Duration Frequency of Treatment 1-2x/wk Duration of Treatment 6 weeks Plan of Care Start Date 09/08/21 Plan of Care End Date 10/23/21 Therapeutic Interventions Therapeutic Interventions Gait Training,Home Exercise Program,Joint Mobilizations, Manual Therapy,Neuromuscular Re-education,Patient/Caregiver Education,Self-Care/Home Management,Soft Tissue Mobilization,Taping, Therapeutic Activities, Therapeutic Exercises Modalities Cold Pack/Ice Massage,Electric Stimulation,Hot Packs, Infrared Therapy,Iontophoresis ,Ultrasound Next Visit Focus/Plan Next Note Type Treatment Note Next Visit Plan Continue progressive dynamic balance activities: zoraida w/ cushions, SHuttle balance for ankle stabililty to allow uneven surface yard work hasn' t been able to do. POC: Continue progression of functional strengthening and gait training, flexibility, manual techniques to decrease pain and improve function.
--- NOTE | 2021-09-30 09:45 | PT.OTN ---
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, not elsewhere classified (09/30/21) Pain in left foot (09/30/21) Physical Therapy Treatment Note PT-OP-A Visit Information Start: 07/13/21 16:23 Freq: Status: Active Protocol: Document 09/30/21 09:03 SP (Rec: 09/30/21 09:48 SP [id number]) Out-Patient Physical Therapy Visit Information Visit Information Visit Type Treatment Note Visit Start Time 09:03 Visit Stop Time 09:45 Total Visit Minutes 42 Visit Number 14 Number of POLISHER HAND Visits 2 Evaluation Information Evaluation Date 07/14/21 PT-OP-B Current Condition Start: 07/13/21 16:23 Freq: Status: Active Protocol: Document 07/21/21 10:32 SAK (Rec: 07/21/21 11:20 SAK [id number]) Current Condition History of Current Condition Onset Date 9 months Current Complaints left heel pain, great toe pain History of Current Condition 9 month history plantar fascitis left, 3 months ago had set toe pain left foot primarily great toe pain. Very painful to walk in am, or in middle of night without shoes on. Now wears shoes all the time except when sleeping . Has stretched achilles on device loaned to her by friend , but didn't help much. No ice or heat use, no injection, no exercise. Prior history fractured left ankle long time ago [facility]. No known cause for either heel or toe pain. Doctor Maya put a bandaid on left great toe, patient unsure why but she has continued to do. Dr. Trejo's note indicates left EHL tightness with tendonitis , acquired hallux extensus of left foot, plantar fascititis left foot. Prior Treatments and Tests no imaging Future Testing and Treatments Planned return to Dr. Trejo after PT completed Personal Factors Other Personal Factors That May Effect PMH: right UKA, left TKA Therapy/Recovery PT-OP-C Subjective Start: 07/13/21 16:23 Freq: Status: Active Protocol: Document 09/30/21 09:03 SP (Rec: 09/30/21 09:48 SP [id number]) OP-PT Subjective Patient Comments Patient Comments Pt states feels ankle/foot getting little better. She reports having pain more in toes 2 and 3>1st L MTP burning feeling but not constant though. The heel taping lasted 4-5 days and finds very helpful, still continues to use the superfeet inserts in shoes for support. PT-OP-F Manual Assessment Start: 07/13/21 16:23 Freq: Status: Active Protocol: Document 07/14/21 15:16 [facility] (Rec: 07/14/21 17:12 [facility] [id number]) Manual Assessments Soft Tissue Assessment Soft Tissue Mobility Assessment decreased soft tissue mobility left plantar fascia and left EHL Joint Mobility Assessment Joint Mobility Assessment decreased molity great toe and 2nd toe MTP and IP joints PT-OP-G Mobility & Gait Start: 07/13/21 16:23 Freq: Status: Active Protocol: Document 07/14/21 15:16 [facility] (Rec: 07/14/21 17:12 [facility] [id number]) OP Mobility Evaluation Functional Movements Squats unable OP Gait Assessment Gait Gait Assistance Required: Independent Assistive Devices Assistive Device None Gait Deviations General Gait Pattern Antalgic,Decreased Stride Length Factors Limiting Gait Function Factors Limiting Gait Function Decreased Strength,Limited Range of Motion,Pain Stair Climbing Evaluation Evaluation Level of Assist On Stairs Independent Devices Stair Climbing Assistive Devices None Technique/Endurance Stair Climbing Direction Ascend and Descend Stair Climbing Technique Step to Step PT-OP-H Neuro Start: 07/13/21 16:23 Freq: Status: Active Protocol: Document 07/14/21 15:16 [facility] (Rec: 07/14/21 17:12 [facility] [id number]) Sensation Evaluation Gross Sensation Gross Sensation WNL PT-OP-J Posture/Palpation/Skin Start: 07/13/21 16:23 Freq: Status: Active Protocol: Document 07/14/21 15:16 [facility] (Rec: 07/14/21 17:12 [facility] [id number]) Posture Evaluation Position Standing Ankle/Foot Posture (L) Neutral,(R) Neutral,(L) Forefoot Eversion Foot Arch (L) Medium Arch,(R) Medium Arch Toe Posture (L) Extended Toes PT-OP-K Range of Motion Start: 07/13/21 16:23 Freq: Status: Active Protocol: Document 07/14/21 15:16 [facility] (Rec: 07/14/21 17:12 [facility] [id number]) Ankle and Foot Goniometric Range of Motion Ankle and Foot Left Ankle/Foot ROM WFL No Testing Position Sitting Dorsiflexion with Knee Flexed 0 Plantarflexion 45 Inversion 20 Eversion 15 Comments lacking 5 deg df with knee extended Right Ankle/Foot ROM WFL Yes Dorsiflexion with Knee Flexed 5 Inversion 40 Eversion 20 Ankle and Foot ROM Limitations ROM Limitations Soft Tissue Tightness,Pain Toe Range of Motion Toes ROM Limitations Toe ROM Limitations Soft Tissue Tightness,Pain PT-OP-M Strength Start: 07/13/21 16:23 Freq: Status: Active Protocol: Document 07/14/21 15:16 SAK (Rec: 07/14/21 17:12 SAK [id number]) Ankle/Foot Strength Ankle and Foot Manual Muscle Testing Left Dorsiflexion (L4) 4 Good Plantarflexion (S1) 4 Good Inversion 4 Good Eversion (S1) 4 Good Right Dorsiflexion (L4) 5 Normal Plantarflexion (S1) 5 Normal Inversion 5 Normal Eversion (S1) 5 Normal Toe Strength Toe Manual Muscle Testing Left Flexion 4 Good Extension 4 Good Comments painful on left Right Flexion 4+ Good+ Extension 4+ Good+ PT-OP-Q Treatments Start: 07/13/21 16:23 Freq: Status: Active Protocol: Document 09/30/21 09:03 SP (Rec: 09/30/21 09:48 SP [id number]) Cardio Equipment Recumbent Elliptical (Biodex) Duration (Minutes) 6 Resistance 3 Seat Position 6 Other good knee alignment, 482 steps Gym Equipment Shuttle Recovery Unilateral squat Details B alternate, cues knee alignment with midfoot see insole Resistance 37#>50# Shuttle Recovery Platform Stable Reps/Time 3x12 Sport Cord green Exercise Details f/b/side stepping then over back zoraida Cord/Resistance green Reps/Duration 5 reps each direction Comments cued slow pacing, neutral LE alignment, gluteal activation with weight acceptance some soreness with side stepping Therapeutic Exercises Standing Exercises STS Standing Exercise Name reviewed pt self HEP Equipment Used 16 box Reps/Minutes x5 Comments good hip hinge, cued arms across body. toe and heel walking Standing Exercise Name reviewed HEP Resistance (shoes doffed) Reps/Minutes 20 ft x2 laps Comments good form, no pain heel raises Standing Exercise Name reviewed HEP Side bilateral Resistance AROM (shoes doffed) Equipment Used blue foam at bottom carlos, use BHR PRN Reps/Minutes 2x10 reps Comments states little ache L 1-3 MTP, no pain or burning feeling calf stretch Standing Exercise Name EHL/calf stretch- HEP review ( uses prostretch at home) Side left Equipment Used B HR, off bottom 4 step Reps/Minutes 20x2 Comments good feedback 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 TB and strap due to message and delivery service pricer challenge tandem stand Standing Exercise Name 1. stance 2. HT if safe and able (better R than L) Equipment Used blue foam (PT), firm floor ( discussed home in corner) Reps/Minutes 5 min Comments cued even BLE WB, core/scap complex/ hip abd fac Manual Therapy Treatment Soft Tissue Mobilization toe extensor musc Body Location L EHL Mobilization Type Myofascial Release,Strumming Intensity/Depth Moderate Body Position Hooklying Comments manual and instruction on self , manual stretch EHL. plantar fascia Body Location L plantar fascia and 2nd MCP flexors Mobilization Type Myofascial Release,Strumming Intensity/Depth Moderate Body Position Hooklying Comments manual and instruction on self , manual stretch. Joint Mobilizations L 1st MTP Joint L 2nd MTP Direction AP, PA, rotation Grade II Body Position Sitting Reps/Duration 3 min Comments manual and instruction on self . Taping L heel fat pad taping Body Location L heel inferior and posterior Treatment Focus cushion heel pad Type of Tape [place] Skin Inspection intact, normal color Comments cover roll and [place] fat pad heel taping. PT-OP-R Modalities Start: 07/13/21 16:23 Freq: Status: Active Protocol: Document 08/04/21 11:26 [facility] (Rec: 08/04/21 12:10 [facility] [id number]) Ultrasound Therapy Treatment left heel and plantar fascia Treatment Duration (minutes) 8 Patient Position Hooklying Coupling Medium Ultrasound Gel Frequency Setting (mHz) 3 Mode Setting Continuous Intensity Setting (w/cm2) 1 Comments good feedback PT-OP-T Assessment and Plan Start: 07/13/21 16:23 Freq: Status: Active Protocol: Document 09/30/21 09:03 SP (Rec: 09/30/21 09:48 SP [id number]) Physical Therapy Assessment Goals 5 Impairment unable to do heel raise without an increase in pain Impairment unable to do gardening activities Project Eng Goal (LTG) Patient will be able to do full bilateral heel raise for purposes of usual activities with pain no greater than 2/10 LTG Duration 8/22 4 Impairment balance dysfunction Impairment unable to stand on one foot, at risk for falls, low confidence level on gait on uneven ground. Project Eng Goal (LTG) Patient will be able to balance on one foot for at least 5 sec bilaterally for improved safety and confidence with gait on all surfaces 08/26/21: goal met, updated goal of being able to balance on left foot for 30 sec without an increase in pain. LTG Duration 10/23/21 3 Impairment antalgic gait Impairment patient ambulates with decreased weight bearing mobility throughout left foot and ankle Project Eng Goal (LTG) Patient will be able to ambulate on all usual surfaces without significant limp or compensatory pattern 08/12/21: pt reports ableto walk outside pavement level surfaces about 2 block then needs brief rest before continues, with friends. 08/26/21: GOAL MET: states doesn 't think limping anymore, does not demonstrate any compensatory patterns. LTG Duration 09/13/21 GOAL MET 08/26/21 2 Impairment soft tissue mobility Impairment tightness and pain in left plantar fascia and EHL Short Term Goal (STG) Patient to be independent with HEP focused on flexibility and ROM of left plantar fascia and EHL inhibition of UT and improved scapular activation. STG Duration 08/13/21 GOAL MET Custodial Goal (LTG) Patient will demonstrate improved mobility in plantar fascia and EHL to WNL to allow for normalization of gait 08/12/21: self STMs and stretching. Able to stand without much pain since got superfeet in shoe and heel taping. LTG Duration 09/13/21 GOAL MET 08/26/21 1 Impairment pain left heel and left toes Short Term Goal (STG) Decrease pain by at least 50% with all usual activities 08/12/21: progressing able to walk outside level surfaces, ask % next tx. 08/26/21: progressing: the superfeet has made a difference, when wearing shoes not much pain at all but if barefoot, 10-25% less pain then first started. She feels her balance has improved. 09/08/21: goal met STG Duration goal met Project Eng Goal (LTG) Decrease pain by at least 75% with all usual activities to allow patient to return to her prior level of function 07/24/21: HEP: standing piano toe(s) flex/ext/ abd, tandem stance, long sitting added TB PF/ DF of ankle and toe flex concentric/ eccentric flexion, calf stretch 08/26/21: progressing: the superfeet has made a difference, when wearing shoes not much pain at all but if barefoot, 10-25% less pain then first started. 09/08/21: goal progress; reports no pain when standing when wearing shoes, decreased when barefoot. Pain increases with heel raises, single leg stand left. LTG Duration 10/23/21 Assessment Summary Assessment Pt improved tolerance no shoes heel/toe walking, HR on foam and balance stationary, little challenging incorporating head turns but able, instructed perform in corner. Painfree today. Physical Therapy Plan Frequency and Duration Frequency of Treatment 1-2x/wk Duration of Treatment 6 weeks Plan of Care Start Date 09/08/21 Plan of Care End Date 10/23/21 Therapeutic Interventions Therapeutic Interventions Gait Training,Home Exercise Program,Joint Mobilizations, Manual Therapy,Neuromuscular Re-education,Patient/Caregiver Education,Self-Care/Home Management,Soft Tissue Mobilization,Taping, Therapeutic Activities, Therapeutic Exercises Modalities Cold Pack/Ice Massage,Electric Stimulation,Hot Packs, Infrared Therapy,Iontophoresis ,Ultrasound Next Visit Focus/Plan Next Note Type Treatment Note Next Visit Plan Continue progressive dynamic balance activities: zoraida w/ cushions, SHuttle balance for ankle stabililty to allow uneven surface yard work hasn' t been able to do. POC: Continue progression of functional strengthening and gait training, flexibility, manual techniques to decrease pain and improve function.
--- NOTE | 2021-10-08 16:32 | PT.OTN ---
Current Diagnoses Other deformities of toe(s) (acquired), left foot (10/08/21) Plantar fascial fibromatosis (10/08/21) Other enthesopathies, not elsewhere classified (10/08/21) Pain in left foot (10/08/21) Physical Therapy Treatment Note PT-OP-A Visit Information Start: 07/13/21 16:23 Freq: Status: Active Protocol: Document 10/08/21 09:50 SAK (Rec: 10/08/21 10:34 [facility] [id number]) Out-Patient Physical Therapy Visit Information Visit Information Visit Type Treatment Note Visit Start Time 09:50 Visit Stop Time 10:30 Total Visit Minutes 40 Visit Number 15 Number of MANAGEMENT TECHNICIAN Visits 0 Evaluation Information Evaluation Date 07/14/21 PT-OP-B Current Condition Start: 07/13/21 16:23 Freq: Status: Active Protocol: Document 07/21/21 10:32 SAK (Rec: 07/21/21 11:20 SAK [id number]) Current Condition History of Current Condition Onset Date 9 months Current Complaints left heel pain, great toe pain History of Current Condition 9 month history plantar fascitis left, 3 months ago had set toe pain left foot primarily great toe pain. Very painful to walk in am, or in middle of night without shoes on. Now wears shoes all the time except when sleeping . Has stretched achilles on device loaned to her by friend , but didn't help much. No ice or heat use, no injection, no exercise. Prior history [facility]. No known cause for either heel or toe pain. Doctor Maya put a bandaid on left great toe, patient unsure why but she has continued to do. Dr. Trejo's note indicates left EHL tightness with tendonitis , acquired hallux extensus of left foot, plantar fascititis left foot. Prior Treatments and Tests no imaging Future Testing and Treatments Planned return to Dr. Trejo after PT completed Personal Factors Other Personal Factors That May Effect PMH: right UKA, left TKA Therapy/Recovery PT-OP-C Subjective Start: 07/13/21 16:23 Freq: Status: Active Protocol: Document 10/08/21 09:50 SAK (Rec: 10/08/21 10:34 SAK [id number]) OP-PT Subjective Patient Comments Patient Comments Pain in toes intermittant, much improved but persists. Heel taping very helpful, unable to do on onwn but requesting discharge today, feels can do ex on own and would like to be done with therapy, only 1 further visit scheduled. PT-OP-F Manual Assessment Start: 07/13/21 16:23 Freq: Status: Active Protocol: Document 07/14/21 15:16 [facility] (Rec: 07/14/21 17:12 [facility] [id number]) Manual Assessments Soft Tissue Assessment Soft Tissue Mobility Assessment decreased soft tissue mobility left plantar fascia and left EHL Joint Mobility Assessment Joint Mobility Assessment decreased molity great toe and 2nd toe MTP and IP joints PT-OP-G Mobility & Gait Start: 07/13/21 16:23 Freq: Status: Active Protocol: Document 07/14/21 15:16 [facility] (Rec: 07/14/21 17:12 [facility] [id number]) OP Mobility Evaluation Functional Movements Squats unable OP Gait Assessment Gait Gait Assistance Required: Independent Assistive Devices Assistive Device None Gait Deviations General Gait Pattern Antalgic,Decreased Stride Length Factors Limiting Gait Function Factors Limiting Gait Function Decreased Strength,Limited Range of Motion,Pain Stair Climbing Evaluation Evaluation Level of Assist On Stairs Independent Devices Stair Climbing Assistive Devices None Technique/Endurance Stair Climbing Direction Ascend and Descend Stair Climbing Technique Step to Step PT-OP-H Neuro Start: 07/13/21 16:23 Freq: Status: Active Protocol: Document 07/14/21 15:16 [facility] (Rec: 07/14/21 17:12 [facility] [id number]) Sensation Evaluation Gross Sensation Gross Sensation WNL PT-OP-J Posture/Palpation/Skin Start: 07/13/21 16:23 Freq: Status: Active Protocol: Document 07/14/21 15:16 [facility] (Rec: 07/14/21 17:12 [facility] [id number]) Posture Evaluation Position Standing Ankle/Foot Posture (L) Neutral,(R) Neutral,(L) Forefoot Eversion Foot Arch (L) Medium Arch,(R) Medium Arch Toe Posture (L) Extended Toes PT-OP-K Range of Motion Start: 07/13/21 16:23 Freq: Status: Active Protocol: Document 07/14/21 15:16 [facility] (Rec: 07/14/21 17:12 [facility] [id number]) Ankle and Foot Goniometric Range of Motion Ankle and Foot Left Ankle/Foot ROM WFL No Testing Position Sitting Dorsiflexion with Knee Flexed 0 Plantarflexion 45 Inversion 20 Eversion 15 Comments lacking 5 deg df with knee extended Right Ankle/Foot ROM WFL Yes Dorsiflexion with Knee Flexed 5 Inversion 40 Eversion 20 Ankle and Foot ROM Limitations ROM Limitations Soft Tissue Tightness,Pain Toe Range of Motion Toes ROM Limitations Toe ROM Limitations Soft Tissue Tightness,Pain PT-OP-M Strength Start: 07/13/21 16:23 Freq: Status: Active Protocol: Document 07/14/21 15:16 [facility] (Rec: 07/14/21 17:12 [facility] [id number]) Ankle/Foot Strength Ankle and Foot Manual Muscle Testing Left Dorsiflexion (L4) 4 Good Plantarflexion (S1) 4 Good Inversion 4 Good Eversion (S1) 4 Good Right Dorsiflexion (L4) 5 Normal Plantarflexion (S1) 5 Normal Inversion 5 Normal Eversion (S1) 5 Normal Toe Strength Toe Manual Muscle Testing Left Flexion 4 Good Extension 4 Good Comments painful on left Right Flexion 4+ Good+ Extension 4+ Good+ PT-OP-Q Treatments Start: 07/13/21 16:23 Freq: Status: Active Protocol: Document 10/08/21 09:50 [facility] (Rec: 10/08/21 10:34 [facility] [id number]) Gym Equipment Shuttle Recovery Unilateral squat Details B alternate, cues knee alignment with midfoot see insole Resistance 37#>50# Shuttle Recovery Platform Stable Reps/Time 2x12 Therapeutic Exercises Supine Exercises EHL stretch Supine Exercise Name supine Side left Reps/Minutes 30 x2 Comments manual Sitting Exercises resisted eversion Sitting Exercise Name prefers long sit , feels muscles working better Side left Equipment Used L2 Reps/Minutes 2x10 Comments good form and muscle work, pain free self STMs Sitting Exercise Name rolling pin to Tib Ant, calf Side right Resistance rolling and seesaw motion Reps/Minutes 30 sec Comments good feedback response gentle pressure and self massage plantar fasc toe flexion /ankle PF Sitting Exercise Name flexion and eccentric DF/toe ext stretch,HEP review Side right Resistance TB #1 (looped under foot over toes to mid sherwood) Reps/Minutes long sitting x10 Comments cued slow pacing gentle movement, painfree response with good stretch Standing Exercises toe and heel walking Standing Exercise Name reviewed HEP Resistance (shoes doffed) Reps/Minutes 20 ft x2 laps Comments good form, no pain heel raises Standing Exercise Name reviewed HEP Side bilateral Resistance AROM (shoes doffed) Equipment Used blue foam at bottom carlos, use BHR PRN Reps/Minutes 2x10 reps Comments states little ache L 1-3 MTP, no pain or burning feeling SLS Standing Exercise Name EO Side bilateral Equipment Used blue foam, railing as needed Comments painfree B, LLE feel EHL working but not pain calf stretch Standing Exercise Name EHL/calf stretch- HEP review ( uses prostretch at home) Side left Equipment Used B HR, off bottom 4 step Reps/Minutes 20x2 Comments good feedback 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 TB and 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 stance 2. HT if safe and able (better R than L) Equipment Used blue foam (PT), firm floor Reps/Minutes 5 min Comments cued even BLE WB, core/scap complex/ hip abd fac Manual Therapy Treatment Taping L heel fat pad taping Body Location L heel inferior and posterior Treatment Focus cushion heel pad Type of Tape Amos Skin Inspection intact, normal color Comments cover roll and [place] fat pad heel taping. Self-Care/Home Management Treatment Education Patient Education Home Exercise Program,Joint Protection,Pain Management PT-OP-R Modalities Start: 07/13/21 16:23 Freq: Status: Active Protocol: Document 08/04/21 11:26 [facility] (Rec: 08/04/21 12:10 [facility] [id number]) Ultrasound Therapy Treatment left heel and plantar fascia Treatment Duration (minutes) 8 Patient Position Hooklying Coupling Medium Ultrasound Gel Frequency Setting (mHz) 3 Mode Setting Continuous Intensity Setting (w/cm2) 1 Comments good feedback PT-OP-T Assessment and Plan Start: 07/13/21 16:23 Freq: Status: Active Protocol: Document 10/08/21 09:50 [facility] (Rec: 10/08/21 10:34 [facility] [id number]) Physical Therapy Assessment Goals 5 Impairment unable to do heel raise without an increase in pain Impairment unable to do gardening activities Care Home Goal (LTG) Patient will be able to do full bilateral heel raise for purposes of usual activities with pain no greater than 2/10 LTG Duration 10/23/21 4 Impairment balance dysfunction Impairment unable to stand on one foot, at risk for falls, low confidence level on gait on uneven ground. Care Home Goal (LTG) Patient will be able to balance on one foot for at least 5 sec bilaterally for improved safety and confidence with gait on all surfaces 08/26/21: goal met, updated goal of being able to balance on left foot for 30 sec without an increase in pain. LTG Duration 10/23/21 3 Impairment antalgic gait Impairment patient ambulates with decreased weight bearing mobility throughout left foot and ankle Care Home Goal (LTG) Patient will be able to ambulate on all usual surfaces without significant limp or compensatory pattern 08/12/21: pt reports ableto walk outside pavement level surfaces about 2 block then needs brief rest before continues, with friends. 08/26/21: GOAL MET: states doesn 't think limping anymore, does not demonstrate any compensatory patterns. LTG Duration 09/13/21 GOAL MET 08/26/21 2 Impairment soft tissue mobility Impairment tightness and pain in left plantar fascia and EHL Short Term Goal (STG) Patient to be independent with HEP focused on flexibility and ROM of left plantar fascia and EHL inhibition of UT and improved scapular activation. STG Duration 08/13/21 GOAL MET Care Home Goal (LTG) Patient will demonstrate improved mobility in plantar fascia and EHL to WNL to allow for normalization of gait 08/12/21: self STMs and stretching. Able to stand without much pain since got superfeet in shoe and heel taping. LTG Duration 09/13/21 GOAL MET 08/26/21 1 Impairment pain left heel and left toes Short Term Goal (STG) Decrease pain by at least 50% with all usual activities 08/12/21: progressing able to walk outside level surfaces, ask % next tx. 08/26/21: progressing: the superfeet has made a difference, when wearing shoes not much pain at all but if barefoot, 10-25% less pain then first started. She feels her balance has improved. 09/08/21: goal met STG Duration goal met Care Home Goal (LTG) Decrease pain by at least 75% with all usual activities to allow patient to return to her prior level of function 07/24/21: HEP: standing piano toe(s) flex/ext/ abd, tandem stance, long sitting added TB PF/ DF of ankle and toe flex concentric/ eccentric flexion, calf stretch 08/26/21: progressing: the superfeet has made a difference, when wearing shoes not much pain at all but if barefoot, 10-25% less pain then first started. 09/08/21: goal progress; reports no pain when standing when wearing shoes, decreased when barefoot. Pain increases with heel raises, single leg stand left. 10/08/21: partially met LTG Duration 10/23/21 Assessment Summary Assessment Goals partially met, patient independent with HEP. Requests discharge from PT today. Physical Therapy Plan Discharge Physical Therapy Discharge Reasons Patient Request Discharge Comments plateau in progress. Patient independent with HEP.
== END 2021-10-12 14:35 ==
LOC: PHYS 09:45
PROVIDERS: Family Provider Family Medicine; PCP Family Medicine; Referring Provider Podiatrist; Visit Provider Podiatrist
DX: M77.8 Other enthesopathies, not elsewhere classified (principal); M20.5X2 Other deformities of toe(s) (acquired), left foot; M72.2 Plantar fascial fibromatosis; M79.672 Pain in left foot
CPT/HCPCS: 97035; 97110; 97140; 97162

== ENCOUNTER → 2021-11-27 12:30 | Outpatient (CLI) | payer MEDICARE, SELFPAY ==
[2021-02-08 12:42] VITALS: BMI 28.7
[2021-11-27 13:14] LABS: Add Manual Diff / Slide Review NO; Basophils Absolute Auto 100 /uL (0-100); Basophils Percent Auto 1.1 % (0-2); Eosinophils Absolute Auto 200 /uL (0-450); Eosinophils Percent Auto 3.2 % (2-4); Hematocrit 33.7 % (36-46); Hemoglobin 11.2 g/dL (12.0-16.0); Lymphocytes Absolute Auto 1400 /uL (1100-4500); Lymphocytes Percent Auto 27.9 % (25-40); Mean Corpuscular HGB Conc 33.4 % (30-36); Mean Corpuscular Hemoglobin 34.3 PG (26-34); Mean Corpuscular Volume 102.8 fL (80-100); Monocytes Absolute Auto 400 /uL (0-900); Monocytes Percent Auto 8.2 % (3-14); Neutrophils Absolute Auto 2900 /uL (1500-7000); Neutrophils Percent Auto 59.6 % (50-75); Platelet Count 261 X10^3/uL (150-400); Red Blood Cell Count 3.28 X10^6/uL (4.0-5.2); Red Cell Distribution Width 14.1 % (11.6-14.8); White Blood Cell Count 4.9 X10^3/uL (4.5-11.0)
[2021-11-27 14:02] LABS: HEMOLYSIS < 15 (0-50); Iron 105 ug/dL (37-170)
[2021-11-27 14:07] LABS: BUN Creatinine Ratio 17.3 (6-22); Blood Urea Nitrogen 22 mg/dL (7-17); Calcium 9.8 mg/dL (8.4-10.2); Carbon Dioxide 22 mmol/L (22-32); Chloride 108 mmol/L (98-107); Estimated Glomerular Filt Rate 42 mL/min (>60); Glucose 163 mg/dL (80-110); HEMOLYSIS < 15 (0-50); Potassium 4.5 mmol/L (3.4-5.1); Sodium 136 mmol/L (137-145)
[2021-11-27 14:15] LABS: Percent Iron Saturation 45 % (15-50); Total Iron Binding Capacity 234 ug/dL (265-497); Transferrin 188 mg/dL (206-381)
[2021-11-27 14:40] LABS: Ferritin 201 ng/mL (11-264)
[2021-11-27 15:11] LABS: Creatinine Urine Random 179.1 mg/dL; Protein (Total) Urine Random 23 mg/dL (0-12); Protein Creatinine Ratio Urine 0.12 GRAM/24H
[2021-11-27 15:14] LABS: Microalbumi Creatinin Ratio Ur 54.7 ug/mg CR (<30); Microalbumin Urine Random 9.8 mg/dL (0-1.6)
== END ==
PROVIDERS: Family Provider Family Medicine; PCP Family Medicine; Referring Provider Internal Medicine Nephrology; Visit Provider Internal Medicine Nephrology
DX: N18.32 Chronic kidney disease, stage 3b (principal); D63.1 Anemia in chronic kidney disease
CPT/HCPCS: 36415; 80048; 82043; 82570; 82728; 83540; 83550; 84156; 85025

== ENCOUNTER → 2022-01-05 11:05 | Outpatient (CLI) | payer MEDICARE, SELFPAY ==
[2021-02-08 12:42] VITALS: BMI 28.7
--- NOTE | 2022-01-05 | DI.US.S_ITS ---
PROCEDURE: US RENAL COMPLETE INDICATIONS: Proteinuria, unspecified TECHNIQUE: Real-time scanning was performed of the kidneys and bladder, with image documentation. COMPARISON: [facility], CT, CT ABDOMEN PELVIS W CON, 02/09/2021, 17:24. FINDINGS: Kidneys: Kidneys are normal in size. Right kidney measures 9.3 cm long; left kidney measures 9.4 cm long. Right renal cortical thickness is 1.5 cm; left renal cortical thickness is 1.0 cm. Renal cortical echotexture is normal. No hydronephrosis or nephrolithiasis. No suspicious solid mass lesions. 0.9 mm right renal cortical cyst present. 1.5 cm left renal cyst present. Bladder: Nondistended, but otherwise unremarkable. Miscellaneous: No free pelvic fluid. IMPRESSION: 1. Small renal cysts. Otherwise unremarkable ultrasound the kidneys Approved by: Rajinder Chen M.D. on 01/05/2022 at 16:14
== END ==
PROVIDERS: Family Provider Family Medicine; PCP Family Medicine; Referring Provider Internal Medicine Nephrology; Visit Provider Internal Medicine Nephrology
DX: R80.9 Proteinuria, unspecified (principal); N18.32 Chronic kidney disease, stage 3b; N28.1 Cyst of kidney, acquired
CPT/HCPCS: 76770

== ENCOUNTER → 2022-02-19 13:19 | Outpatient (CLI) | payer MEDICARE, SELFPAY ==
[2021-02-08 12:42] VITALS: BMI 28.7
[2022-02-19 14:03] LABS: Hematocrit 34.4 % (36-46); Hemoglobin 11.2 g/dL (12.0-16.0)
[2022-02-19 14:28] LABS: BUN Creatinine Ratio 25.7 (6-22); Blood Urea Nitrogen 35 mg/dL (7-17); Calcium 10.2 mg/dL (8.4-10.2); Carbon Dioxide 17 mmol/L (22-32); Chloride 108 mmol/L (98-107); Estimated Glomerular Filt Rate 39 mL/min (>60); Glucose 106 mg/dL (80-110); HEMOLYSIS 18 (0-50); Potassium 5.2 mmol/L (3.4-5.1); Sodium 134 mmol/L (137-145)
[2022-02-19 16:17] LABS: Creatinine Urine Random 225.7 mg/dL
[2022-02-19 16:23] LABS: Microalbumi Creatinin Ratio Ur 35.4 ug/mg CR (<30)
== END ==
PROVIDERS: Family Provider Family Medicine; PCP Family Medicine; Referring Provider Internal Medicine Nephrology; Visit Provider Internal Medicine Nephrology
DX: R80.9 Proteinuria, unspecified (principal); N18.32 Chronic kidney disease, stage 3b
CPT/HCPCS: 36415; 80048; 82043; 82570; 85014; 85018

== ENCOUNTER → 2022-05-11 13:09 | Outpatient (CLI) | payer MEDICARE, SELFPAY ==
[2021-02-08 12:42] VITALS: BMI 28.7
[2022-05-11 14:30] LABS: Hematocrit 32.1 % (36-46); Hemoglobin 10.5 g/dL (12.0-16.0)
[2022-05-11 14:58] LABS: BUN Creatinine Ratio 25.4 (6-22); Blood Urea Nitrogen 31 mg/dL (7-17); Carbon Dioxide 21 mmol/L (22-32); Chloride 107 mmol/L (98-107); Estimated Glomerular Filt Rate 44 mL/min (>60); Glucose 88 mg/dL (80-110); HEMOLYSIS < 15 (0-50); Sodium 134 mmol/L (137-145)
[2022-05-11 15:02] LABS: Potassium 6.1 mmol/L (3.4-5.1)
[2022-05-12 15:59] LABS: Microalbumin Urine Random 1.5 mg/dL (0-1.6)
[2022-05-12 16:18] LABS: Microalbumi Creatinin Ratio Ur 13.3 ug/mg CR (<30)
== END ==
PROVIDERS: Family Provider Family Medicine; PCP Family Medicine; Referring Provider Internal Medicine Nephrology; Visit Provider Internal Medicine Nephrology
DX: E11.22 Type 2 diabetes mellitus with diabetic chronic kidney disease (principal); N18.32 Chronic kidney disease, stage 3b
CPT/HCPCS: 36415; 80048; 82043; 82570; 85014; 85018

== ENCOUNTER → 2022-07-07 11:26 | Outpatient (CLI) | payer MEDICARE, SELFPAY ==
[2021-02-08 12:42] VITALS: BMI 28.7
[2022-07-07 12:27] LABS: Add Manual Diff / Slide Review NO; Basophils Absolute Auto 100 /uL (0-100); Basophils Percent Auto 1.4 % (0-2); Eosinophils Absolute Auto 200 /uL (0-450); Eosinophils Percent Auto 5.7 % (2-4); Hematocrit 33.3 % (36-46); Lymphocytes Absolute Auto 1400 /uL (1100-4500); Lymphocytes Percent Auto 33.9 % (25-40); Mean Corpuscular HGB Conc 33.2 % (30-36); Mean Corpuscular Hemoglobin 33.8 PG (26-34); Monocytes Absolute Auto 400 /uL (0-900); Monocytes Percent Auto 8.9 % (3-14); Neutrophils Absolute Auto 2100 /uL (1500-7000); Neutrophils Percent Auto 50.1 % (50-75); Platelet Count 269 X10^3/uL (150-400); Red Blood Cell Count 3.26 X10^6/uL (4.0-5.2); Red Cell Distribution Width 14.3 % (11.6-14.8); White Blood Cell Count 4.2 X10^3/uL (4.5-11.0)
[2022-07-07 13:03] LABS: Alanine Aminotransferase 20 IU/L (<35); Albumin 4.1 g/dL (3.5-5.0); Albumin Globulin Ratio 1.4 (1.0-2.8); Alkaline Phosphatase 102 U/L (38-126); Aspartate Aminotransferase 28 IU/L (14-36); BUN Creatinine Ratio 19.4 (6-22); Bilirubin Total 0.4 mg/dL (0.2-1.3); Blood Urea Nitrogen 25 mg/dL (7-17); Calcium 9.8 mg/dL (8.4-10.2); Carbon Dioxide 20 mmol/L (22-32); Chloride 107 mmol/L (98-107); Cholesterol 209 mg/dL (140-199); Estimated Glomerular Filt Rate 41 mL/min (>60); Glucose 94 mg/dL (80-110); HEMOLYSIS < 15 (0-50); Potassium 5.2 mmol/L (3.4-5.1); Sodium 135 mmol/L (137-145); Total Protein 7.1 g/dL (6.3-8.2); Triglycerides 76 mg/dL (35-150)
[2022-07-07 13:17] LABS: HDL Cholesterol 119 mg/dL (40-60); LDL Cholesterol Calculated 75 mg/dL (<100)
[2022-07-07 13:31] LABS: TSH w/ Reflex to FT4 3.33 uIU/mL (0.47-4.68)
== END ==
PROVIDERS: Family Provider Family Medicine; PCP Family Medicine; Referring Provider Physician Assistant; Visit Provider Physician Assistant
DX: D64.9 Anemia, unspecified (principal); E03.9 Hypothyroidism, unspecified; E78.2 Mixed hyperlipidemia; N18.31 Chronic kidney disease, stage 3a
CPT/HCPCS: 36415; 80053; 80061; 84443; 85025

== ENCOUNTER → 2022-07-14 11:36 | Outpatient (CLI) | payer MEDICARE, SELFPAY ==
[2021-02-08 12:42] VITALS: BMI 28.7
[2022-07-14 13:42] LABS: Vitamin B12 405 pg/mL (239-931)
== END ==
PROVIDERS: Family Provider Family Medicine; PCP Family Medicine; Referring Provider Physician Assistant; Visit Provider Physician Assistant
DX: D64.9 Anemia, unspecified (principal); G57.93 Unspecified mononeuropathy of bilateral lower limbs; R53.83 Other fatigue
CPT/HCPCS: 36415; 82607

== ENCOUNTER → 2022-11-28 14:07 | Outpatient (CLI) | payer MEDICARE, SELFPAY ==
[2021-02-08 12:42] VITALS: BMI 28.7
--- NOTE | 2022-11-28 | DI.MRI.S_ITS ---
PROCEDURE: MR LUMBAR SPINE WO CON INDICATIONS: Spinal stenosis, lumbar region TECHNIQUE: Noncontrast sagittal T1 spin echo and T2 fast echo, sagittal STIR, and T2 fast spin echo through the lumbar spine. In cases with scoliosis, additional coronal T2 fast spin echo may be performed. COMPARISON: [facility], MR, L-SPINE WITHOUT CONTRAST, 11/21/2015, 13:27. [facility], CT, CT ABDOMEN PELVIS W CON, 02/09/2021, 17:24. [facility], MR, MR LUMBAR SPINE WO CON, 08/01/2020, 13:55. [facility], CR, XR LUMBAR SPINE 2 OR 3 VIEWS, 11/15/2022, 9:49. FINDINGS: Image quality: This examination is limited by involuntary motion artifact. Alignment and Curvature: There is mild retrolisthesis seen at the L2-L3 level. Bone Marrow: Marrow is of normal overall signal. No acute vertebral body compression fractures. Spinal Cord: Conus medullaris terminates at the L1 level. Visualized cord demonstrates normal signal and size. Paraspinous Soft Tissues: No paravertebral masses. There is a water signal cyst seen involving the superior left kidney. T12-L1: The disc height and disk signal are well-preserved. Mild generalized disc bulge is seen. There is a superimposed central disc protrusion. There is a focal annular fissure seen posteriorly. No significant neural foraminal or central canal narrowing can be seen. The central disc extrusion is more prominent than in 202. L1-L2: At least moderate loss of disc height and disc signal can be seen. Mild generalized disc bulge is seen. There is a superimposed central disc protrusion. Mild facet joint hypertrophy is seen. There is moderate right-sided and no left-sided neural foraminal narrowing. Mild central canal narrowing is seen. No significant change from the prior. L2-L3: At least moderate loss of disc height and disc signal can be seen. Reactive marrow endplate changes are seen, which are hyperintense on T1-weighted and T2-weighted imaging and most consistent with fatty metaplasia (Modic type II changes). At least moderate disc bulge is seen. There is a superimposed central disc protrusion. There is [id number] left-sided and mild right-sided neural foraminal narrowing. Minimal central canal narrowing is seen. When comparison is made with the prior images, these findings are similar. L3-L4: Moderate loss of disc height is seen. Loss of disc signal is seen. Moderate generalized disc bulge is seen. There is a mild central disc protrusion. Moderate facet joint hypertrophy is seen. Moderate bilateral neural foraminal narrowing is seen. Mild central canal narrowing is seen. No significant change from the prior. L4-L5: The disc height is well-preserved. Loss of disc signal is seen at this level. Moderate generalized disc bulge is seen. There is a superimposed central disc protrusion. Moderate facet joint hypertrophy is seen. There is moderate to severe left-sided and moderate right-sided neural foraminal narrowing. Mild central canal narrowing is seen. When comparison is made with the prior images, these findings are similar. L5-S1: At least moderate loss of disc height and disc signal can be seen. Moderate generalized disc bulge is seen. Moderate facet joint hypertrophy is seen. There is at least moderate right-sided and moderate left-sided neural foraminal narrowing. Mild central canal narrowing is seen. When comparison is made with the prior images, these findings are similar. IMPRESSION: Multiple levels of significant lumbar spine degenerative change can be seen, which are relatively similar to 202. However, at the T12-L1 level, there is increased prominence of a central disc protrusion. Dictated by: Suhail Saucedo M.D. on 11/29/2022 at 17:25 Approved by: Suhail Saucedo M.D. on 11/29/2022 at 17:31
== END ==
PROVIDERS: Family Provider Family Medicine; PCP Family Medicine; Referring Provider Physical Medicine & Rehabilitation; Visit Provider Physical Medicine & Rehabilitation
DX: M48.062 Spinal stenosis, lumbar region with neurogenic claudication (principal); M47.816 Spondylosis without myelopathy or radiculopathy, lumbar region; M47.817 Spondylosis without myelopathy or radiculopathy, lumbosacral region; M51.26 Other intervertebral disc displacement, lumbar region; M51.25 Other intervertebral disc displacement, thoracolumbar region
CPT/HCPCS: 72148

== ENCOUNTER → 2023-02-07 13:55 | Outpatient (CLI) | payer MEDICARE, SELFPAY ==
[2021-02-08 12:42] VITALS: BMI 28.7
[2023-02-07 14:50] LABS: Influenza A - CEPHEID Flu A NEGATIVE (NEGATIVE); Influenza B - CEPHEID Flu B NEGATIVE (NEGATIVE); Respiratory Syncytial Virus Negative (Negative)
[2023-02-07 15:03] LABS: COVID-19 CEPHEID 4-PLEX PCR Negative (Negative)
== END ==
PROVIDERS: Family Provider Family Medicine; PCP Family Medicine; Visit Provider Nurse Practitioner Family
DX: R05.1 Acute cough (principal)
CPT/HCPCS: 0241U

== ENCOUNTER → 2023-03-29 12:49 | Outpatient (CLI) | payer MEDICARE, SELFPAY ==
[2021-02-08 12:42] VITALS: BMI 28.7
[2023-03-29 13:41] LABS: BUN Creatinine Ratio 23.4 (6-22); Blood Urea Nitrogen 32 mg/dL (7-17); Carbon Dioxide 21 mmol/L (22-32); Chloride 102 mmol/L (98-107); Estimated Glomerular Filt Rate 38 mL/min (>60); Glucose 93 mg/dL (80-110); HEMOLYSIS < 15 (0-50); Potassium 4.7 mmol/L (3.4-5.1); Sodium 130 mmol/L (137-145)
== END ==
PROVIDERS: Family Provider Family Medicine; PCP Family Medicine; Referring Provider Internal Medicine Nephrology; Visit Provider Internal Medicine Nephrology
DX: E11.22 Type 2 diabetes mellitus with diabetic chronic kidney disease (principal); N18.32 Chronic kidney disease, stage 3b
CPT/HCPCS: 36415; 80048

== ENCOUNTER 2023-06-27 17:00 | Emergency (ER) | payer MEDICARE, SELFPAY ==
[2021-02-08 12:42] VITALS: BMI 28.7
[2023-06-27 17:11] VITALS: BP 196/91; PULSE 74; RESP 18; TEMP 36.2; O2SAT 99; BMI 29.2
--- NOTE | 2023-06-27 17:18 | DI.RAD.S_ITS ---
PROCEDURE: XR WRIST LT MIN 3V INDICATIONS: fell on left wrist; pain TECHNIQUE: Four views of the wrist were acquired. COMPARISON: [facility], CR, XR WRIST LT MIN 3V, 03/25/2020, 13:32. FINDINGS: Bones: No fractures or dislocations. No suspicious bony lesions. Scattered arthritic changes including joint space loss and sclerosis at the 1st CMC joint. Soft tissues: No suspicious soft tissue calcifications. IMPRESSION: No visible acute fractures. If there is continued concern for occult fracture, immobilization and reimaging in 7-10 days is recommended. Dictated by: Daija Merida M.D. on 06/27/2023 at 18:56 Approved by: Daija Merida M.D. on 06/27/2023 at 18:57
[2023-06-27 20:08] VITALS: BP 152/71; PULSE 89; RESP 16; O2SAT 99
--- NOTE | 2023-06-27 20:34 | ED.GENADULT ---
HPI - General Adult General Chief complaint: Extremity Injury, Upper Stated complaint: fall, wrist pain Time Seen by Provider: 06/27/23 20:05 Source: patient Mode of arrival: Ambulatory History of Present Illness HPI narrative: Patient is an 83-year-old female. Not on anticoagulation. States she was walking with her hands full and she lost her balance and fell. She did not hit her head but did scrape the right side of her cheek. No neck pain. She reports pain to her left wrist. The event occurred just prior to arrival. She also sustained some abrasions to her knees but has been ambulatory. No elbow or shoulder discomfort. No back discomfort. No dental discomfort. She is pain with her left wrist when she extends her wrist. Related Data Home Medications Medication Instructions Recorded Confirmed CA PANTOTHENATE/FOLIC ACID/VIT 1 tab PO Q DAY ##0 12/30/11 10/18/22 (MULTIVITAMIN) coenzyme Q10 100 mg capsule (Co 100 mg PO DAILY ##0 07/11/17 10/18/22 Q-10) cholecalciferol (vitamin D3) 50 2,000 unit PO DAILY 06/05/18 10/18/22 mcg (2,000 unit) capsule Fish Oil (#CARDI-OMEGA) 1,000 mg PO BID ##0 12/05/19 10/18/22 olmesartan 20 mg tablet 10 mg PO DAILY 12/31/21 10/18/22 gabapentin 100 mg capsule 300 mg PO BEDTIME 07/14/22 10/18/22 Previous Rx's Medication Instructions Recorded levothyroxine 88 mcg tablet 88 mcg PO DAILY #90 tabs 07/14/22 lovastatin 20 mg tablet 20 mg PO BEDTIME #90 tabs 07/14/22 benzonatate 100 mg capsule 100 mg PO BID PRN cough #28 caps 02/07/23 Allergies Allergy/AdvReac Type Severity Reaction Status Date / Time Sulfa (Sulfonamide Allergy Unknown Verified 02/18/21 15:51 Antibiotics) azithromycin Allergy Verified 02/18/21 15:51 dexamethasone [DEXAMETHASONE] AdvReac Mild HEADACHE Verified 02/18/21 15:51 erythromycin base AdvReac Mild DIARRHEA Verified 02/18/21 15:51 [ERYTHROMYCIN BASE] AND ABDOMINAL PAIN saccharin [SACCHARIN] AdvReac Mild DIARRHEA Verified 02/18/21 15:51 AND ABD PAIN Review of Systems Constitutional Constitutional: Reports system reviewed and no additional complaints, except as documented ENT Ears, Nose, Mouth, and Throat: Reports system reviewed and no additional complaints, except as documented Musculoskeletal Musculoskeletal: Reports system reviewed and no additional complaints, except as documented Integumentary/Breasts Skin/Breast: Reports system reviewed and no additional complaints, except as documented Neurologic Neurologic: Reports system reviewed and no additional complaints, except as documented Hematologic/Lymphatic On Anticoagulants: No Patient History Medical History Chronic renal failure, stage 3a Acute GI bleeding Multilevel foraminal stenosis Lumbar radiculopathy Pulmonary embolism Hyperlipidemia Osteoarthritis (~1999) Osteoporosis Ankle fracture, left (~1992) Chronic back pain (~1981) Rosacea Psoriasis (~1982) Tinnitus (~2011) History of recurrent ear infection History of heavy periods (~1979) Hemorrhoids (~2009) Gastric ulcer Hypothyroidism (~1979) Skin cancer (~2011) Shingles (~2015) Measles (~1955) Chickenpox (~1944) Surgical History (Updated 05/06/21 @ 15:00 by Jonatan Mari MD) Anesthesia Status post hysterectomy Status post dilation and curettage Status post arthroscopy Status post laminectomy History of knee replacement Family History Brother Heart disease Mother Heart disease Grandfather Cancer Grandmother Cancer Social History marital status: household members: none Smoking Status: Former smoker alcohol intake: current substance use type: does not use Smoking Status: Former smoker alcohol intake frequency: 0-2 drinks per day Alcohol type: wine Substance Use Type: marijuana Exam Initial Vital Signs Initial Vital Signs: Vital Signs Temperature 97.2 F L 06/27/23 17:11 Pulse Rate 74 06/27/23 17:11 Respiratory Rate 18 06/27/23 17:11 Blood Pressure 196/91 H 06/27/23 17:11 Pulse Oximetry 99 06/27/23 17:11 Oxygen Delivery Method Room Air 06/27/23 17:11 Const General: cooperative, comfortable and No ill appearing HENMT Head: normal to inspection Cardio Pulses: radial pulses present on the left Skin Other: Small superficial abrasion to the right cheek Neuro Sensory Exam: no sensory deficits noted Extrem Other: Left elbow left shoulder unremarkable. Some discomfort to the dorsum of the left wrist but she was able to pronate and supinate. Is able to flex without discomfort. Has some discomfort with extension of the wrist. Her left hand is unremarkable. Procedures Orthopedic Splinting/Casting Injury #1: Side: left Upper Extremity Injury Location: wrist Upper Extremity Immobilizer: wrist splint Post splinting neuro exam: no change Post splinting vascular exam: no change Placed by: Nursing Course Orders Ordered: ED Orders 06/27/23 17:18 XR wrist LT min 3V Stat Vital Signs Vital signs: Vital Signs - 8 hr 06/27/23 20:08 Pulse Rate 89 Respiratory Rate 16 Blood Pressure 152/71 H Pulse Oximetry 99 Oxygen Delivery Method Room Air Medical Decision Making Imaging Data Extremity x-ray #1: Radiologist's Impression: PROCEDURE: XR WRIST LT MIN 3V INDICATIONS: fell on left wrist; pain TECHNIQUE: Four views of the wrist were acquired. COMPARISON: [facility], , XR WRIST LT MIN 3V, 03/25/2020, 13:32. FINDINGS: Bones: No fractures or dislocations. No suspicious bony lesions. Scattered arthritic changes including joint space loss and sclerosis at the 1st C[facility] joint. Soft tissues: No suspicious soft tissue calcifications. IMPRESSION: No visible acute fractures. If there is continued concern for occult fracture, immobilization and reimaging in 7-10 days is recommended. MDM Narrative Medical decision making narrative: Neurovascularly intact. No fractures on the x-rays. Only has discomfort with extension of the wrist. Plan will be is for a removable wrist splint for now and conservative measures. We discussed return precautions. She expressed understanding and agreement with plan. She reports no other injuries from the event. Cervical spine cleared by nexus criteria. Not on anticoagulation. We will hold on head and neck CT Discharge Plan Departure Patient Disposition: Home Clinical Impression: Left wrist sprain Instructions: DI for Wrist Sprain, How To Perform RICE (Rest, Ice, Compress, Elevate) Activity Restrictions/Additional Instructions: The splint that was placed today can be taken off so that you can shower and wash your hands. You can also take it off to do [id number] exercises like we discussed. You can take Tylenol/ibuprofen for discomfort. Return to the emergency department for new symptoms. Prescriptions: No Action cholecalciferol (vitamin D3) 2,000 unit capsule 2,000 unit PO DAILY olmesartan 20 mg tablet 10 mg PO DAILY benzonatate 100 mg capsule 100 mg PO BID PRN (Reason: cough) Qty: 28 0RF gabapentin 100 mg capsule 300 mg PO BEDTIME Rx Instructions: Take 3 capsules at bedtime for nerve pain in feet lovastatin 20 mg tablet 20 mg PO BEDTIME Qty: 90 3RF levothyroxine 88 mcg tablet 88 mcg PO DAILY Qty: 90 3RF CA PANTOTHENATE/FOLIC ACID/VIT (MULTIVITAMIN) 1 tab PO Q DAY Qty: 0 coenzyme Q10 [Co Q-10] 100 MG capsule 100 mg PO DAILY Qty: 0 Fish Oil (#CARDI-OMEGA) 1,000 mg PO BID Qty: 0 Referrals: Julio Cedeño MD [Primary Care Provider] - Stand Alone Forms: Patient Portal/API
== END 2023-06-27 20:47 | disposition home or self-care (01) ==
PROVIDERS: Emergency Provider Emergency Medicine; Family Provider Family Medicine; PCP Family Medicine
DX: S63.502A Unspecified sprain of left wrist, initial encounter (principal); S80.212A Abrasion, left knee, initial encounter; S80.211A Abrasion, right knee, initial encounter; S00.81XA Abrasion of other part of head, initial encounter; W18.30XA Fall on same level, unspecified, initial encounter
CPT/HCPCS: 73110; 99283

== ENCOUNTER 2023-07-16 07:17 | Emergency (ER) | payer MEDICARE, SELFPAY ==
[2021-02-08 12:42] VITALS: BMI 28.7
[2023-07-16 07:32] VITALS: BP 120/58; PULSE 86; O2SAT 93
[2023-07-16 07:34] VITALS: BP 119/53; PULSE 86; RESP 18; TEMP 37.1; O2SAT 93
--- NOTE | 2023-07-16 07:41 | DI.RAD.S_ITS ---
PROCEDURE: XR CHEST 2V INDICATIONS: eval for PNA TECHNIQUE: 2 views of the chest were acquired. COMPARISON: [facility], CR, XR CHEST 1V, 02/07/2021, 14:51. FINDINGS: Surgical changes and devices: None. Lungs and pleura: Blunting the left costophrenic sulcus. Slight coarsening of the interstitial markings and bronchial wall thickening, particularly in the retrocardiac region. No focal consolidations. No pneumothorax. Mediastinum: Mediastinal contours are normal. Heart size is normal. Bones and chest wall: No suspicious bony abnormalities. Soft tissues appear unremarkable. IMPRESSION: Findings suggesting mild bronchitis and small left pleural effusion. Dictated by: Daija Merida M.D. on 07/16/2023 at 8:45 Approved by: Daija Merida M.D. on 07/16/2023 at 8:46
--- NOTE | 2023-07-16 07:42 | ED_ITS ---
HPI - General Adult General Chief complaint: Upper Respiratory Symptoms Stated complaint: xtreme side effects after covid vaccine per pt Time Seen by Provider: 07/16/23 07:19 Source: patient Mode of arrival: Ambulatory History of Present Illness HPI narrative: Patient is a 83-year-old female who is here for evaluation of body aches and cough joint pain and headache. Symptoms started a couple days ago. It was the morning after she received a COVID vaccine. She states she called her doctor's office and was told that this could potentially be because of the COVID vaccine. She has been taking Tylenol without much improvement. States she can not take ibuprofen because of ?kidney issues? denies any rashes. No abdominal pain or nausea or vomiting. Related Data Home Medications Medication Instructions Recorded Confirmed CA PANTOTHENATE/FOLIC ACID/VIT 1 tab PO Q DAY ##0 12/30/11 10/18/22 (MULTIVITAMIN) coenzyme Q10 100 mg capsule (Co 100 mg PO DAILY ##0 07/11/17 10/18/22 Q-10) cholecalciferol (vitamin D3) 50 2,000 unit PO DAILY 06/05/18 10/18/22 mcg (2,000 unit) capsule Fish Oil (#CARDI-OMEGA) 1,000 mg PO BID ##0 12/05/19 10/18/22 olmesartan 20 mg tablet 10 mg PO DAILY 12/31/21 10/18/22 gabapentin 100 mg capsule 300 mg PO BEDTIME 07/14/22 10/18/22 Previous Rx's Medication Instructions Recorded levothyroxine 88 mcg tablet 88 mcg PO DAILY #90 tabs 07/14/22 lovastatin 20 mg tablet 20 mg PO BEDTIME #90 tabs 07/14/22 benzonatate 100 mg capsule 100 mg PO BID PRN cough #28 caps 02/07/23 Allergies Allergy/AdvReac Type Severity Reaction Status Date / Time Sulfa (Sulfonamide Allergy Unknown Verified 02/18/21 15:51 Antibiotics) azithromycin Allergy Verified 02/18/21 15:51 dexamethasone [DEXAMETHASONE] AdvReac Mild HEADACHE Verified 02/18/21 15:51 erythromycin base AdvReac Mild DIARRHEA Verified 02/18/21 15:51 [ERYTHROMYCIN BASE] AND ABDOMINAL PAIN saccharin [SACCHARIN] AdvReac Mild DIARRHEA Verified 02/18/21 15:51 AND ABD PAIN Review of Systems Review of Systems Narrative: See HPI Patient History Medical History Chronic renal failure, stage 3a Acute GI bleeding Multilevel foraminal stenosis Lumbar radiculopathy Pulmonary embolism Hyperlipidemia Osteoarthritis (~1999) Osteoporosis Ankle fracture, left (~1992) Chronic back pain (~1981) Rosacea Psoriasis (~1982) Tinnitus (~2011) History of recurrent ear infection History of heavy periods (~1979) Hemorrhoids (~2009) Gastric ulcer Hypothyroidism (~1979) Skin cancer (~2011) Shingles (~2015) Measles (~1955) Chickenpox (~1944) Surgical History (Updated 05/06/21 @ 15:00 by Jonatan Mari MD) Anesthesia Status post hysterectomy Status post dilation and curettage Status post arthroscopy Status post laminectomy History of knee replacement Family History Brother Heart disease Mother Heart disease Grandfather Cancer Grandmother Cancer Social History marital status: household members: none Smoking Status: Former smoker alcohol intake: current substance use type: does not use Smoking Status: Former smoker alcohol intake frequency: 0-2 drinks per day Alcohol type: wine Substance Use Type: marijuana Exam Initial Vital Signs Initial Vital Signs: Vital Signs Pulse Rate 86 07/16/23 07:32 Blood Pressure 120/58 L 07/16/23 07:32 Pulse Oximetry 93 07/16/23 07:32 HENMT Mouth: other (No TMJ pain) Resp Effort & Inspection: cough and not tachypneic Auscultation: rhonchi Cardio Rate: regular rate Neuro General: patient alert, patient awake and moves all extremities Course Orders Ordered: ED Orders 07/16/23 07:41 XR chest 2V Stat 07/16/23 07:45 Covid-19 + FLU A/B + RSV - PCR Stat Discontinued Medications Hydrocodone Bitart/Acetaminophen (Hydrocodone/Acet 5/325 Tablet) 1 tab PO NOW ONE Stop: 07/16/23 07:42 Last Admin: 07/16/23 07:51 Dose: 1 tab Documented By: KB Vital Signs Vital signs: Vital Signs - 8 hr 07/16/23 07:32 07/16/23 07:34 07/16/23 08:30 Temperature 98.8 F Pulse Rate 86 86 70 Respiratory Rate 18 18 Blood Pressure 120/58 L 119/53 L 102/51 L Pulse Oximetry 93 93 92 Oxygen Delivery Method Room Air Room Air Medical Decision Making Lab Data Lab results reviewed: Yes I reviewed the patient's lab results. Labs: Lab Results 07/16/23 Range/Units 07:45 SARS-CoV-2 (PCR) Negative (Negative) Influenza A (RT-PCR) Flu a positive H (NEGATIVE) Influenza B (RT-PCR) Flu b negative (NEGATIVE) RSV (PCR) Negative (Negative) Imaging Data Chest x-ray: Radiologist's Impression: PROCEDURE: XR CHEST 2V INDICATIONS: eval for PNA TECHNIQUE: 2 views of the chest were acquired. COMPARISON: [facility], , XR CHEST 1V, 02/07/2021, 14:51. FINDINGS: Surgical changes and devices: None. Lungs and pleura: Blunting the left costophrenic sulcus. Slight coarsening of the interstitial markings and bronchial wall thickening, particularly in the retrocardiac region. No focal consolidations. No pneumothorax. Mediastinum: Mediastinal contours are normal. Heart size is normal. Bones and chest wall: No suspicious bony abnormalities. Soft tissues appear unremarkable. IMPRESSION: Findings suggesting mild bronchitis and small left pleural effusion. MDM Narrative Medical decision making narrative: Chest x-ray shows no signs of pneumonia. She was influenza A positive. I suspect that this is a coincidence that she was develop the symptoms at the same time she received her COVID vaccine. There was no indication for antibiotics. We discussed influenza. She did have the flu shot this year. Discussed return precautions and follow-up instructions. She expressed understanding and agreement. Discharge Plan Departure Patient Disposition: Home Clinical Impression: Influenza A Instructions: DI for Influenza -- Adult Activity Restrictions/Additional Instructions: Continue to take all of your medications as directed. Be sure that you were increasing your fluid intake. You can take Tylenol for fever/body aches/joint pain. Contact your primary doctor for follow-up. Return to the emergency department for new symptoms. Prescriptions: No Action cholecalciferol (vitamin D3) 2,000 unit capsule 2,000 unit PO DAILY olmesartan 20 mg tablet 10 mg PO DAILY benzonatate 100 mg capsule 100 mg PO BID PRN (Reason: cough) Qty: 28 0RF gabapentin 100 mg capsule 300 mg PO BEDTIME Rx Instructions: Take 3 capsules at bedtime for nerve pain in feet lovastatin 20 mg tablet 20 mg PO BEDTIME Qty: 90 3RF levothyroxine 88 mcg tablet 88 mcg PO DAILY Qty: 90 3RF CA PANTOTHENATE/FOLIC ACID/VIT (MULTIVITAMIN) 1 tab PO Q DAY Qty: 0 coenzyme Q10 [Co Q-10] 100 MG capsule 100 mg PO DAILY Qty: 0 Fish Oil (#CARDI-OMEGA) 1,000 mg PO BID Qty: 0 Referrals: Julio Cedeño MD [Primary Care Provider] - Stand Alone Forms: Patient Portal/API
[2023-07-16] MEDS: HYDROCODONE/ACET 5/325 TABLET 1 TAB PO (07:51)
[2023-07-16 08:28] LABS: Influenza A - CEPHEID Flu A POSITIVE (NEGATIVE); Influenza B - CEPHEID Flu B NEGATIVE (NEGATIVE); Respiratory Syncytial Virus Negative (Negative)
[2023-07-16 08:30] VITALS: BP 102/51; PULSE 70; RESP 18; O2SAT 92
[2023-07-16 08:30] LABS: COVID-19 CEPHEID 4-PLEX PCR Negative (Negative)
== END 2023-07-16 08:40 | disposition home or self-care (01) ==
PROVIDERS: Emergency Provider Emergency Medicine; Family Provider Family Medicine; PCP Family Medicine
DX: J10.1 Influenza due to other identified influenza virus with other respiratory manifestations (principal); Z87.891 Personal history of nicotine dependence
CPT/HCPCS: 0241U; 71046; 99283

== ENCOUNTER → 2023-08-29 11:33 | Outpatient (CLI) | payer MEDICARE, SELFPAY ==
[2021-02-08 12:42] VITALS: BMI 28.7
[2023-08-29 12:53] LABS: Add Manual Diff / Slide Review NO; Basophils Absolute Auto 100 /uL (0-100); Basophils Percent Auto 1.1 % (0-2); Eosinophils Absolute Auto 200 /uL (0-450); Eosinophils Percent Auto 5.6 % (2-4); Hematocrit 33.4 % (36-46); Lymphocytes Absolute Auto 1200 /uL (1100-4500); Mean Corpuscular HGB Conc 33.1 % (30-36); Mean Corpuscular Hemoglobin 33.1 PG (26-34); Mean Corpuscular Volume 100.1 fL (80-100); Monocytes Absolute Auto 400 /uL (0-900); Monocytes Percent Auto 9.4 % (3-14); Neutrophils Absolute Auto 2600 /uL (1500-7000); Neutrophils Percent Auto 57.9 % (50-75); Platelet Count 345 X10^3/uL (150-400); Red Blood Cell Count 3.33 X10^6/uL (4.0-5.2); Red Cell Distribution Width 15.4 % (11.6-14.8); White Blood Cell Count 4.4 X10^3/uL (4.5-11.0)
[2023-08-29 13:22] LABS: Alanine Aminotransferase 15 IU/L (<35); Albumin 3.9 g/dL (3.5-5.0); Albumin Globulin Ratio 1.4 (1.0-2.8); Alkaline Phosphatase 88 U/L (38-126); Aspartate Aminotransferase 34 IU/L (14-36); BUN Creatinine Ratio 23.9 (6-22); Bilirubin Total 0.6 mg/dL (0.2-1.3); Blood Urea Nitrogen 32 mg/dL (7-17); Calcium 9.6 mg/dL (8.4-10.2); Carbon Dioxide 20 mmol/L (22-32); Chloride 111 mmol/L (98-107); Cholesterol 210 mg/dL (140-199); Estimated Glomerular Filt Rate 39 mL/min (>60); Globulin 2.8 g/dL (1.7-4.1); Glucose 97 mg/dL (80-110); HDL Cholesterol 109 mg/dL (40-60); HEMOLYSIS < 15 (0-50); LDL Cholesterol Calculated 86 mg/dL (<100); Potassium 5.3 mmol/L (3.4-5.1); Sodium 136 mmol/L (137-145); Total Protein 6.7 g/dL (6.3-8.2); Triglycerides 76 mg/dL (35-150)
[2023-08-29 13:51] LABS: TSH w/ Reflex to FT4 2.38 uIU/mL (0.47-4.68)
== END ==
PROVIDERS: Family Provider Family Medicine; PCP Family Medicine; Referring Provider Family Medicine; Visit Provider Family Medicine
DX: D64.9 Anemia, unspecified (principal); N18.31 Chronic kidney disease, stage 3a; E03.9 Hypothyroidism, unspecified; E78.2 Mixed hyperlipidemia
CPT/HCPCS: 36415; 80053; 80061; 84443; 85025

== ENCOUNTER → 2023-11-02 14:20 | Outpatient (CLI) | payer MEDICARE, SELFPAY ==
[2021-02-08 12:42] VITALS: BMI 28.7
[2023-11-02 15:08] LABS: Hematocrit 31.2 % (36-46); Hemoglobin 10.5 g/dL (12.0-16.0)
[2023-11-02 15:37] LABS: BUN Creatinine Ratio 17.1 (6-22); Blood Urea Nitrogen 25 mg/dL (7-17); Calcium 9.8 mg/dL (8.4-10.2); Carbon Dioxide 18 mmol/L (22-32); Chloride 106 mmol/L (98-107); Estimated Glomerular Filt Rate 35 mL/min (>60); Glucose 95 mg/dL (80-110); HEMOLYSIS < 15 (0-50); Sodium 133 mmol/L (137-145)
[2023-11-02 15:40] LABS: Potassium 5.6 mmol/L (3.4-5.1)
[2023-11-02 17:25] LABS: Creatinine Urine Random 238.6 mg/dL
[2023-11-02 18:06] LABS: Microalbumi Creatinin Ratio Ur 22.6 ug/mg CR (<30); Microalbumin Urine Random 5.4 mg/dL (0-1.6); Protein (Total) Urine Random 10 mg/dL (0-12); Protein Creatinine Ratio Urine 0.04 GRAM/24H
== END ==
PROVIDERS: Family Provider Family Medicine; PCP Family Medicine; Referring Provider Internal Medicine Nephrology; Visit Provider Internal Medicine Nephrology
DX: R80.9 Proteinuria, unspecified (principal); N18.32 Chronic kidney disease, stage 3b
CPT/HCPCS: 36415; 80048; 82043; 82570; 84156; 85014; 85018

== ENCOUNTER → 2023-11-30 12:34 | Outpatient (CLI) | payer MEDICARE, SELFPAY ==
[2021-02-08 12:42] VITALS: BMI 28.7
[2023-11-30 14:08] LABS: BUN Creatinine Ratio 18.3 (6-22); Blood Urea Nitrogen 24 mg/dL (7-17); Calcium 10.1 mg/dL (8.4-10.2); Carbon Dioxide 20 mmol/L (22-32); Chloride 109 mmol/L (98-107); Estimated Glomerular Filt Rate 40 mL/min (>60); Glucose 98 mg/dL (80-110); HEMOLYSIS < 15 (0-50); Potassium 4.9 mmol/L (3.4-5.1); Sodium 136 mmol/L (137-145)
== END ==
PROVIDERS: Family Provider Family Medicine; PCP Family Medicine; Referring Provider Internal Medicine Nephrology; Visit Provider Internal Medicine Nephrology
DX: N18.32 Chronic kidney disease, stage 3b (principal)
CPT/HCPCS: 36415; 80048

== ENCOUNTER → 2024-02-15 12:49 | Outpatient (CLI) | payer MEDICARE, SELFPAY ==
[2021-02-08 12:42] VITALS: BMI 28.7
[2024-02-15 14:06] LABS: BUN Creatinine Ratio 16.2 (6-22); Blood Urea Nitrogen 25 mg/dL (7-17); Calcium 10.1 mg/dL (8.4-10.2); Carbon Dioxide 20 mmol/L (22-32); Chloride 108 mmol/L (98-107); Estimated Glomerular Filt Rate 33 mL/min (>60); Glucose 111 mg/dL (80-110); HEMOLYSIS < 15 (0-50); Sodium 134 mmol/L (137-145); Uric Acid 7.2 mg/dL (2.5-6.2)
[2024-02-15 14:08] LABS: Potassium 5.9 mmol/L (3.4-5.1)
[2024-02-15 14:23] LABS: Free T4, Direct Thyroxine 1.06 ng/dL (0.78-2.19)
[2024-02-15 14:37] LABS: Thyroid Stimulating Hormone 6.02 uIU/mL (0.47-4.68)
[2024-02-15 15:47] LABS: Creatinine Urine Random 284.08 mg/dL; Protein (Total) Urine Random 11 mg/dL (0-12); Protein Creatinine Ratio Urine 0.03 GRAM/24H; Sodium Urine Random 23 mmol/L (30-90)
[2024-02-15 15:51] LABS: Microalbumin Urine Random 5.2 mg/dL (0-1.6)
[2024-02-17 14:08] LABS: Osmolality Urine 411 mOsmol/kg (.); Osmolality, Serum 296 mOsmol/kg (280-301)
== END ==
PROVIDERS: Family Provider Family Medicine; PCP Family Medicine; Referring Provider Internal Medicine Nephrology; Visit Provider Internal Medicine Nephrology
DX: E87.1 Hypo-osmolality and hyponatremia (principal); N18.32 Chronic kidney disease, stage 3b
CPT/HCPCS: 36415; 80048; 82040; 82043; 82570; 83930; 83935; 84156; 84300; 84439; 84443; 84550

== ENCOUNTER → 2024-02-23 09:51 | Outpatient (CLI) | payer MEDICARE, SELFPAY ==
[2021-02-08 12:42] VITALS: BMI 28.7
[2024-02-23 11:01] LABS: BUN Creatinine Ratio 19.1 (6-22); Blood Urea Nitrogen 26 mg/dL (7-17); Calcium 9.8 mg/dL (8.4-10.2); Carbon Dioxide 20 mmol/L (22-32); Chloride 110 mmol/L (98-107); Estimated Glomerular Filt Rate 38 mL/min (>60); Glucose 93 mg/dL (80-110); HEMOLYSIS < 15 (0-50); Potassium 4.8 mmol/L (3.4-5.1); Sodium 136 mmol/L (137-145)
== END ==
PROVIDERS: Family Provider Family Medicine; PCP Family Medicine; Referring Provider Internal Medicine Nephrology; Visit Provider Internal Medicine Nephrology
DX: E87.5 Hyperkalemia (principal); N18.32 Chronic kidney disease, stage 3b
CPT/HCPCS: 36415; 80048; 82040

== ENCOUNTER → 2024-04-20 10:57 | Outpatient (CLI) | payer OTHER, SELFPAY ==
[2021-02-08 12:42] VITALS: BMI 28.7
[2024-04-20 12:51] LABS: Add Manual Diff / Slide Review NO; Basophils Absolute Auto 100 /uL (0-100); Basophils Percent Auto 1.3 % (0-2); Eosinophils Absolute Auto 200 /uL (0-450); Eosinophils Percent Auto 4.5 % (2-4); Hematocrit 34.1 % (36-46); Lymphocytes Absolute Auto 1300 /uL (1100-4500); Lymphocytes Percent Auto 29.2 % (25-40); Mean Corpuscular HGB Conc 32.3 % (30-36); Mean Corpuscular Hemoglobin 33.6 PG (26-34); Mean Corpuscular Volume 103.9 fL (80-100); Monocytes Absolute Auto 400 /uL (0-900); Monocytes Percent Auto 7.8 % (3-14); Neutrophils Absolute Auto 2600 /uL (1500-7000); Neutrophils Percent Auto 57.2 % (50-75); Platelet Count 272 X10^3/uL (150-400); Red Blood Cell Count 3.29 X10^6/uL (4.0-5.2); Red Cell Distribution Width 15.6 % (11.6-14.8); White Blood Cell Count 4.5 X10^3/uL (4.5-11.0)
[2024-04-20 13:18] LABS: Alanine Aminotransferase 19 IU/L (<35); Albumin 4.1 g/dL (3.5-5.0); Albumin Globulin Ratio 1.5 (1.0-2.8); Alkaline Phosphatase 78 U/L (38-126); Aspartate Aminotransferase 34 IU/L (14-36); BUN Creatinine Ratio 13.3 (6-22); Bilirubin Total 0.6 mg/dL (0.2-1.3); Blood Urea Nitrogen 18 mg/dL (7-17); Calcium 9.8 mg/dL (8.4-10.2); Carbon Dioxide 21 mmol/L (22-32); Chloride 109 mmol/L (98-107); Cholesterol 219 mg/dL (140-199); Estimated Glomerular Filt Rate 39 mL/min (>60); Globulin 2.8 g/dL (1.7-4.1); Glucose 95 mg/dL (80-110); HEMOLYSIS < 15 (0-50); Potassium 4.4 mmol/L (3.4-5.1); Sodium 137 mmol/L (137-145); Total Protein 6.9 g/dL (6.3-8.2); Triglycerides 66 mg/dL (35-150)
[2024-04-20 13:29] LABS: HDL Cholesterol 133 mg/dL (40-60); LDL Cholesterol Calculated 73 mg/dL (<100)
[2024-04-20 13:44] LABS: TSH w/ Reflex to FT4 6.91 uIU/mL (0.47-4.68)
[2024-04-20 14:11] LABS: Free T4, Direct Thyroxine 1.13 ng/dL (0.78-2.19)
== END ==
LOC: LAB 10:58
PROVIDERS: Family Provider Family Medicine; PCP Family Medicine; Referring Provider Family Medicine; Visit Provider Family Medicine
DX: D64.9 Anemia, unspecified (principal); E78.2 Mixed hyperlipidemia; E83.52 Hypercalcemia
CPT/HCPCS: 36415; 80053; 80061; 83036; 84439; 84443; 85025

== ENCOUNTER → 2024-06-29 13:47 | Outpatient (CLI) | payer OTHER, SELFPAY ==
[2021-02-08 12:42] VITALS: BMI 28.7
[2024-06-29 15:05] LABS: Creatinine Urine Random 227.07 mg/dL
[2024-06-29 15:10] LABS: Microalbumin Urine Random 3.6 mg/dL (0-1.6)
[2024-06-29 15:21] LABS: Albumin 4.1 g/dL (3.5-5.0); BUN Creatinine Ratio 20.6 (6-22); Blood Urea Nitrogen 29 mg/dL (7-17); Calcium 10.2 mg/dL (8.4-10.2); Carbon Dioxide 20 mmol/L (22-32); Chloride 107 mmol/L (98-107); Estimated Glomerular Filt Rate 37 mL/min (>60); Glucose 96 mg/dL (80-110); HEMOLYSIS < 15 (0-50); Magnesium 2.5 mg/dL (1.6-2.3); Phosphorous 4.8 mg/dL (2.8-4.1); Sodium 136 mmol/L (137-145)
[2024-06-29 15:36] LABS: Vitamin D 25 Hydroxy (D3) 39.8 ng/mL (30.0-100.0)
[2024-07-01 08:40] LABS: Parathyroid Hormone Int 42 pg/mL (15-65)
== END ==
LOC: LAB 13:49
PROVIDERS: Family Provider Family Medicine; PCP Family Medicine; Referring Provider Internal Medicine Nephrology; Visit Provider Internal Medicine Nephrology
DX: N18.32 Chronic kidney disease, stage 3b (principal)
CPT/HCPCS: 36415; 80048; 82040; 82043; 82306; 82570; 83735; 83970; 84100

== ENCOUNTER 2024-10-16 10:17 | Emergency (ER) | payer OTHER, SELFPAY ==
[2021-02-08 12:42] VITALS: BMI 28.7
[2024-10-16] VITALS (17 sets, daily range): BP systolic 152–206; BP diastolic 75–145; PULSE 62–80; RESP 15–20; TEMP 36.7; O2SAT 92–98; BMI 28.7
--- NOTE | 2024-10-16 11:12 | EKG_ITS ---
[facility] [address] [address] Test Date: 2024-10-16 Pat Name: Marleen Cevallos Department: [facility] Room: Gender: Female [employer]: : [id number] Requested By: Order Number: [id number] Reading MD: Say Pendleton Measurements Intervals Leopold Rate: 65 P: 78 VA: 166 QRS: -23 QRSD: 80 T: 54 QT: 412 QTc: 428 Interpretive Statements Normal sinus rhythm Electronically Signed On 10-26-2024 13:34:11 PDT by Say Pendleton
[2024-10-16 11:38] LABS: Add Manual Diff / Slide Review NO; Hematocrit 38.5 % (36-46); Hemoglobin 12.9 g/dL (12.0-16.0); Lymphocytes Absolute Auto 1200 /uL (1100-4500); Mean Corpuscular HGB Conc 33.6 % (30-36); Mean Corpuscular Hemoglobin 33.7 PG (26-34); Mean Corpuscular Volume 100.3 fL (80-100); Platelet Count 231 X10^3/uL (150-400)
--- NOTE | 2024-10-16 12:31 | DI.CT.S_ITS ---
PROCEDURE: CT ABDOMEN PELVIS W CON INDICATIONS: patient has RLQ pain r/o appendicitis, mesenteric adenitis TECHNIQUE: After the administration of intravenous contrast, axial sections acquired from the lung bases to the pubic symphysis. Coronal and sagittal reformats were performed. For radiation dose reduction, the following was used: automated exposure control, adjustment of mA and/or kV according to patient size. COMPARISON: [facility], CT, CT ABDOMEN PELVIS W CON, 02/09/2021, 17:24. FINDINGS: Image quality: Diagnostic Lower chest: Mild basal reticulation, likely mild fibrosis. Overall normal heart size. There are coronary calcifications. Liver: Segment 4 liver granuloma. Gallbladder and biliary system: Unremarkable, nondilated Pancreas: No ductal dilation Spleen: Nonenlarged Adrenals: No discrete nodules Kidneys: Moderate bilateral cortical thinning. No hydronephrosis. No solid renal mass. Scattered suspected cysts are present. Vessels and lymph nodes: Main portal vein appears patent. Moderate to severe atherosclerotic calcifications, with high-grade narrowing of renal arteries and major mesenteric art show moderate areas of narrowing. Bowel and peritoneum: No small bowel obstruction. Colonic diverticulosis. No acute inflammatory diverticular disease. The appendix appears unremarkable. No drainable abscess or ascites. Body wall: Unremarkable Pelvis: Bladder is unremarkable. Uterus is absent Bones: There are degenerative changes. No aggressive appearing osseous abnormality. IMPRESSION: Nondilated appendix. No small bowel obstruction. No drainable abscess or ascites. Colonic diverticula are seen, without acute inflammation. No significant enlarged mesenteric lymph nodes. Other findings above. Dictated by: Junior Guerrero M.D. on 10/16/2024 at 13:09 Approved by: Junior Guerrero M.D. on 10/16/2024 at 13:17
[2024-10-16 12:36] LABS: Alanine Aminotransferase 18 IU/L (<35); Albumin 4.2 g/dL (3.5-5.0); Albumin Globulin Ratio 1.4 (1.0-2.8); Alkaline Phosphatase 74 U/L (38-126); Blood Urea Nitrogen 19 mg/dL (7-17); Calcium 10.0 mg/dL (8.4-10.2); Carbon Dioxide 24 mmol/L (22-32); Chloride 101 mmol/L (98-107); Estimated Glomerular Filt Rate 39 mL/min (>60); Globulin 3.1 g/dL (1.7-4.1); Glucose 98 mg/dL (70-99); HEMOLYSIS < 15 (0-50); Lipase 187 U/L (23-300); Potassium 4.2 mmol/L (3.4-5.1); Sodium 132 mmol/L (137-145); Total Protein 7.3 g/dL (6.3-8.2)
[2024-10-16] MEDS: ONDANSETRON 4 MG/2 ML INJ IV (12:43)
--- NOTE | 2024-10-16 23:14 | ED.ABDPAIN ---
HPI - Abdominal Pain General Chief Complaint: Abdominal Pain Stated Complaint: Shingles Pain on right side of body Time Seen by Provider: 10/16/24 11:22 Source: patient Mode of arrival: Ambulatory History of Present Illness HPI narrative: This 84-year-old female who presents to the emergency department with a history that she has had shingles for over a week over her right flank and has subsequently developed severe right lower quadrant tenderness. She still has her appendix. The pain has been so severe she has not felt as though she wanted to eat. She is currently on gabapentin for other pains. She was given an antiviral for her shingles initially. She is not down steroids. Related Data Home Medications ?Medication ?Instructions ?Recorded ?Confirmed CA PANTOTHENATE/FOLIC ACID/VIT 1 tab PO Q DAY ##0 12/30/11 10/04/24 (MULTIVITAMIN) coenzyme Q10 100 mg capsule (Co 100 mg PO DAILY ##0 07/11/17 10/12/24 Q-10) cholecalciferol (vitamin D3) 50 2,000 unit PO DAILY 06/05/18 10/12/24 mcg (2,000 unit) capsule Fish Oil (#CARDI-OMEGA) 1,000 mg PO BID ##0 12/05/19 10/12/24 dapagliflozin propanediol 10 mg 10 mg PO DAILY 09/05/23 10/12/24 tablet (Farxiga) amlodipine 5 mg tablet 5 mg PO DAILY 04/19/24 10/12/24 gabapentin 300 mg capsule 300 mg PO 3XD 10/04/24 10/12/24 Previous Rx's ?Medication ?Instructions ?Recorded Disabled Parking Permit See Rx Instructions .Route 09/19/23 .COMPLEX #1 ea levothyroxine 88 mcg tablet 88 mcg PO DAILY #90 tabs 11/10/23 lovastatin 20 mg tablet 20 mg PO ONCE PM #90 tabs 08/09/24 valacyclovir 1 gram tablet 1,000 mg PO TID Shingles. 7 days 10/12/24 #21 tabs ondansetron 4 mg disintegrating 4 mg PO Q6H PRN nausea and 10/16/24 tablet vomiting 5 days #20 tabs oxycodone-acetaminophen 5 mg-325 1 tab PO Q4-6H PRN pain 3 days #10 10/16/24 mg tablet (Percocet) tabs oxycodone-acetaminophen 5 mg-325 1 tab PO Q4-6H PRN pain 3 days #10 10/16/24 mg tablet (Percocet) tabs prednisone 10 mg tablet 10 mg PO DAILY post-herpetic 10/16/24 neuralgia 10 days #21 tabs Allergies Allergy/AdvReac Type Severity Reaction Status Date / Time Sulfa (Sulfonamide Allergy Unknown Verified 10/16/24 10:38 Antibiotics) azithromycin Allergy Vomiting Verified 10/16/24 10:38 dexamethasone (DEXAMETHASONE) AdvReac Mild HEADACHE Verified 10/16/24 10:38 erythromycin base AdvReac Mild DIARRHEA Verified 10/16/24 10:38 (ERYTHROMYCIN BASE) AND ABDOMINAL PAIN saccharin (SACCHARIN) AdvReac Mild DIARRHEA Verified 10/16/24 10:38 AND ABD PAIN Review of Systems Review of Systems ROS Unobtainable: All systems reviewed & are unremarkable except as noted in HPI and below Constitutional Comments: Malaise secondary to severe right lower quadrant pain accompanied by nausea. Patient has a shingles rash on her right flank for over a week. Is currently under treatment with an antiviral. ENT Ears, Nose, Mouth, and Throat: Reports system reviewed and no additional complaints, except as documented Cardiovascular Cardiovascular: Reports system reviewed and no additional complaints, except as documented Respiratory Respiratory: Reports system reviewed and no additional complaints, except as documented Gastrointestinal Gastrointestinal: Reports as per HPI Musculoskeletal Musculoskeletal: Reports system reviewed and no additional complaints, except as documented Patient History Medical History Chronic renal failure, stage 3a Acute GI bleeding Multilevel foraminal stenosis Lumbar radiculopathy Pulmonary embolism Hyperlipidemia Osteoarthritis (~1999) Osteoporosis Ankle fracture, left (~1992) Chronic back pain (~1981) Rosacea Psoriasis (~1982) Tinnitus (~2011) History of recurrent ear infection History of heavy periods (~1979) Hemorrhoids (~2009) Gastric ulcer Hypothyroidism (~1979) Skin cancer (~2011) Shingles (~2015) Measles (~6) Chickenpox (~1944) Surgical History Anesthesia Status post hysterectomy Status post dilation and curettage Status post arthroscopy Status post laminectomy History of knee replacement Family History Brother Heart disease Mother Heart disease Grandfather Cancer Grandmother Cancer Social History marital status: household members: none alcohol intake: current substance use type: does not use Smoking Status: Never smoker alcohol intake frequency: 0-2 drinks per day Alcohol type: wine Exam Initial Vital Signs Initial Vital Signs: Vital Signs Pulse Rate 72 10/16/24 10:32 Blood Pressure 194/76 H 10/16/24 10:32 Pulse Oximetry 96 10/16/24 10:32 Const Other: Malaise secondary to severe right lower quadrant pain which patient is guarding with a hand. She is grimacing frequently. HENMT Head: normal to inspection Neck Neck: normal visual inspection and full ROM Chest Chest: normal inspection of the chest Resp Effort & Inspection: normal respiratory effort Cardio Rate: regular rate Rhythm: regular rhythm GI Other: Moderately severe palpable right lower quadrant tenderness with slight guarding no rebound. Hypoactive bowel sounds. There is visible resolving partially scarred partially scabbed ruptured vesiculations of a shingles rash over her right flank. Neuro General: patient awake and patient oriented x3 Other: No focal deficits but severe nerve like pain in the right lower quadrant. Extrem Other: Normal range of motion nontender. Course Course Course Narrative: This 84-year-old female presents to the ER with a complaint of severe right lower quadrant pain which followed having an episode of shingles over her right flank over a week ago. She was treated with an antiviral over week ago. She is currently on gabapentin for another nerve issue. Despite that she has been severe pain in her right lower quadrant. Differential includes appendicitis diverticulitis UTI bowel obstruction mesenteric adenitis. CT revealed no specific pathology in the abdomen. It is speculated that the patient might have post herpetic neuralgia which is radiating to her right lower quadrant in her abdomen from the dermatome over the patient's right flank. Therefore she is given a dose of steroids in the ER and sent home on a prep prednisone taper. She should follow up in the next 5-7 days with her provider. Orders Ordered: Discontinued Medications Hydromorphone HCl (Hydromorphone Hcl 0.5 Mg/0.5 Ml Syringe) 0.5 mg IV NOW ONE Stop: 10/16/24 12:40 Last Admin: 10/16/24 12:43 Dose: 0.5 mg Documented By: LM Methylprednisolone (Methylprednisolone 125 Mg/2 Ml Vial) 125 mg IV NOW ONE Stop: 10/16/24 14:31 Last Admin: 10/16/24 14:35 Dose: 125 mg Documented By: ES Ondansetron HCl (Ondansetron 4 Mg/2 Ml Inj) 4 mg IV NOW PRN PRN Reason: Nausea And Vomiting Last Admin: 10/16/24 12:43 Dose: 4 mg Documented By: LM Ondansetron HCl (Ondansetron 4 Mg Odt) 4 mg PO NOW PRN PRN Reason: Nausea And Vomiting MDM - Abdominal Pain Lab Data 10/16/24 11:26 10/16/24 12:12 Labs: Lab Results 10/16/24 10/16/24 Range/Units 11:26 12:12 WBC 6.0 (4.5-11.0) X10^3/uL RBC 3.84 L (4.0-5.2) X10^6/uL Hgb 12.9 (12.0-16.0) g/dL Hct 38.5 (36-46) % MCV 100.3 H (80-100) fL MCH 33.7 (26-34) PG MCHC 33.6 (30-36) % RDW 15.3 H (11.6-14.8) % Plt Count 231 (150-400) X10^3/uL Neut % (Auto) 67.4 (50-75) % Lymph % (Auto) 20.2 L (25-40) % Chester % (Auto) 9.4 (3-14) % Eos % (Auto) 2.1 (2-4) % Baso % (Auto) 0.9 (0-2) % Neut # (Auto) 4000 (7032-9370) /uL Lymph # (Auto) 1200 (2524-7751) /uL Chester # (Auto) 600 (0-900) /uL Eos # (Auto) 100 (0-450) /uL Baso # (Auto) 100 (0-100) /uL Sodium 132 L (137-145) mmol/L Potassium 4.2 (3.4-5.1) mmol/L Chloride 101 (98-107) mmol/L Carbon Dioxide 24 (22-32) mmol/L BUN 19 H (7-17) mg/dL Creatinine 1.33 H (0.52-1.04) mg/dL Estimated GFR 39 L (>60) mL/min BUN/Creatinine Ratio 14.3 (6-22) Glucose 98 (70-99) mg/dL Calcium 10.0 (8.4-10.2) mg/dL Total Bilirubin 0.5 (0.2-1.3) mg/dL AST 34 (14-36) IU/L ALT 18 (<35) IU/L Alkaline Phosphatase 74 (38-126) U/L Total Protein 7.3 (6.3-8.2) g/dL Albumin 4.2 (3.5-5.0) g/dL Globulin 3.1 (1.7-4.1) g/dL Albumin/Globulin Ratio 1.4 (1.0-2.8) Lipase 187 (23-300) U/L Discharge Plan Departure Patient Disposition: Home Clinical Impression: Post herpetic neuralgia Instructions: Shingles Activity Restrictions/Additional Instructions: Follow-up regular provider in next week Prescriptions: New oxycodone-acetaminophen [Percocet] 5-325 mg tablet 1 tab PO Q4-6H PRN (Reason: pain) 3 Days Qty: 10 0RF prednisone 10 mg tablet 10 mg PO DAILY 10 Days Qty: 21 0RF Rx Instructions: Taper as prescribed, ignore above: 4 tabs daily Days1,2 then 3 tabs daily Days 3,4 then 2 tabs daily Days 5,6 then 1 tab daily Days 7,8 then 1/2 tab daily Days 9,10 then stop oxycodone-acetaminophen [Percocet] 5-325 mg tablet 1 tab PO Q4-6H PRN (Reason: pain) 3 Days Qty: 10 0RF ondansetron 4 mg tablet,disintegrating 4 mg PO Q6H PRN (Reason: nausea and vomiting) 5 Days Qty: 20 0RF No Action cholecalciferol (vitamin D3) 2,000 unit capsule 2,000 unit PO DAILY gabapentin 300 mg capsule 300 mg PO 3XD valacyclovir 1 gram tablet 1,000 mg PO TID 7 Days Qty: 21 0RF CA PANTOTHENATE/FOLIC ACID/VIT (MULTIVITAMIN) 1 tab PO Q DAY Qty: 0 coenzyme Q10 [Co Q-10] 100 MG capsule 100 mg PO DAILY Qty: 0 Fish Oil (#CARDI-OMEGA) 1,000 mg PO BID Qty: 0 levothyroxine 88 mcg tablet 88 mcg PO DAILY Qty: 90 3RF lovastatin 20 mg tablet 20 mg PO ONCE PM Qty: 90 3RF Disabled Parking Permit See Rx Instructions .ROUTE .COMPLEX Qty: 1 0RF Rx Instructions: I find this patient to be medically disabled and qualified for Disabled Parking as indicated, and signed, on the accompanying Disabled Parking Application for Individuals ; dapagliflozin propanediol [Farxiga] 10 mg tablet 10 mg PO DAILY amlodipine 5 mg tablet 5 mg PO DAILY Referrals: Julio Cedeño MD [Primary Care Provider, Family Practice] Stand Alone Forms: Patient Portal/API
== END 2024-10-16 15:21 | disposition home or self-care (01) ==
PROVIDERS: Emergency Provider Emergency Medicine; PCP Family Medicine
DX: B02.29 Other postherpetic nervous system involvement (principal)
CPT/HCPCS: 36415; 74177; 80053; 83690; 85025; 93005; 96374; 96375; 99284; J1171; J2405; J2919; Q9967

== ENCOUNTER → 2024-10-23 16:10 | Outpatient (CLI) | payer OTHER, SELFPAY ==
[2021-02-08 12:42] VITALS: BMI 28.7
[2024-10-24 09:40] LABS: Rubeola Measles IgG > 300.0 AU/mL (Immune >16.4)
== END ==
PROVIDERS: PCP Family Medicine; Referring Provider Physician Assistant; Visit Provider Physician Assistant
DX: Z11.59 Encounter for screening for other viral diseases (principal)
CPT/HCPCS: 36415; 86735; 86762; 86765

== ENCOUNTER → 2024-12-25 16:59 | Outpatient (ROUT) | payer OTHER, SELFPAY ==
[2024-11-21 11:20] VITALS: BMI 28.7
== END ==
PROVIDERS: PCP Family Medicine; Visit Provider Registered Nurse
DX: L03.90 Cellulitis, unspecified (principal); R21 Rash and other nonspecific skin eruption; B99.9 Unspecified infectious disease
CPT/HCPCS: 87070; 87075; 87205

== ENCOUNTER → 2025-02-01 11:04 | Outpatient (CLI) | payer OTHER, SELFPAY ==
[2024-11-21 11:20] VITALS: BMI 28.7
--- NOTE | 2025-02-01 11:05 | DI.RAD.S_ITS ---
PROCEDURE: XR DEXA AXIAL SKELETON INDICATIONS: Osteopenia COMPARISON: [facility], , DEXA AXIAL SKELETON, 01/29/2015, 13:19. FINDINGS: Lumbar Spine: Bone mineral density 1.1-0 g/cm2, T score 0.7, compared to 0.1. Left Femoral Neck: Bone mineral density 0.802 g/cm2, T score -0.4 compared to 0.1 demonstrating an approximate 8% bone mineral density loss. Left Hip: Bone mineral density 0.961 g/cm2, T score 0.2, compared to 0.7 corresponding to an approximate 7% bone mineral density loss.. Fracture Risk Calculation (when applicable): 10-year fracture risk of a major osteoporotic fracture 12 percent and of a hip fracture 2.9 percent. (T score greater or equal to -1.0 to: NORMAL) (T score from -1.1 to -2.4: OSTEOPENIA) (T score less than or equal to -2.5: OSTEOPOROSIS) IMPRESSION: Normal bone mineral density although demonstrating bone mineral density loss compared to prior. Follow-up guidelines as follows: Osteoporosis: Consider a repeat DEXA and Vertebral Fracture Assessment (VFA) exam in 2 years or sooner if medically necessary, to reassess this patient's status. Osteopenia: Consider a repeat DEXA in 2-3 years to reassess this patient's status, or if there is a new clinical indication. Normal: Consider a repeat DEXA in 5 years or sooner, or if there is a new clinical indication. All treatment decisions require clinical judgment and consideration of individual patient factors, including patient preferences, comorbidities, previous drug use, risk factors not captured in the FRAX model (e.g., frailty, falls, vitamin D deficiency, increased bone turnover, interval significant decline in bone density ) and possible under- or over-estimation of fracture risk by FRAX. In addition, the NOF Guide recommends that FDA-approved medical therapies be considered in postmenopausal women and men age >= 50 years with a: * Hip or vertebral (clinical or morphometric) fracture * T-score of <=-2.5 at the spine or hip * Ten-year fracture probability by FRAX of >= 3% for hip fracture or >=20% for major osteoporotic fracture. Dictated by: Connie Barrett M.D. on 02/01/2025 at 17:10 Approved by: Connie Barrett M.D. on 02/01/2025 at 17:12
== END ==
LOC: RAD 11:04
PROVIDERS: PCP Family Medicine; Referring Provider Physician Assistant; Visit Provider Physician Assistant
DX: M85.89 Other specified disorders of bone density and structure, multiple sites (principal)
CPT/HCPCS: 77080